=== PATIENT | male | born 1945 | race Caucasian/White ===

== ENCOUNTER 2017-10-26 11:40 | Emergency (ER) | payer MEDICARE, SELFPAY ==
[2017-10-26 11:40] VITALS: BP 158/92; PULSE 52; RESP 15; TEMP 35.7; BMI 30.9
[2017-10-26 12:06] VITALS: BP 144/70; PULSE 56; RESP 14; O2SAT 98
[2017-10-26] MEDS: LORazepam 2 MG/ML Syringe 0.5 MG IV (12:31)
[2017-10-26] MEDS: diazePAM 5 MG Tablet 2.5 MG PO (12:31)
--- NOTE | 2017-10-26 13:25 | ED.VISSUMM ---
- ER Visit Summary Date of Service: 10/26/17 Chief Complaint: Vertigo History of Present Illness: The patient is a 72 M who has history of paroxysmal benign positional vertigo. Symptoms started 2-3 weeks ago. He was seen by Dr. Carrington Giron on Sunday. Bruce maneuver was performed without improvement. The vertigo is positional and paroxysmal. He reports improvement and resolution when he closes his eyes. States this is a regular occurrence. He did have an MRI in 2014 which revealed evidence of white matter contusion left parietal area which was a contrecoup mechanism secondary to blunt trauma. He denies fever, chills night sweats. Denies weight gain or weight loss. He denies double vision, blurred vision or loss of vision. He states things are moving. He denies ear pain, rhinorrhea, congestion, or sore throat. He denies chest pain, palpitations heart rate, orthopnea or PND. He denies shortness of breath, cough. He denies any GI symptoms other than nausea. He denies any urologic symptoms. He has no muscle skeletal symptoms. He does report headache which is been present for several weeks. He has no other complaints. Past medical history hypertension, hypercholesterolemia, allergic rhinitis and paroxysmal benign positional vertigo. Physical Examination: Vital signs remarkable blood pressure 158/92. Heart rate is 52. Head is atraumatic normocephalic. Pupils are equal round reactive. Extraocular muscles are intact. TMs are pearly white with landmarks noted. Nares patent with no drainage. Posterior pharynx without erythema or exudate. Uvula is midline. There is no dysphonia or dysphasia. Trachea is midline. There is no stridor with auscultation of the neck. Tracy-Hallpike maneuver is positive. Eye askew test is negative. Heart is regular without murmur, gallop or rub. S1 and S2 are normal. Lungs are clear to auscultation with good movement of air bilaterally. Patient is alert and oriented ?3. Motor is 5 over 5. Sensory is intact. DTRs are symmetric with no clonus or Babinski sign. Cranial 2 through 12 are intact. Cerebellar testing is normal. Test Results: None were obtained Emergency Department Course and Treatment: IV was established and he received 1 mg Ativan IV push and 2.5 mg of Valium p.o. He was treated with Ativan because there is a national shortage of IV Valium. Treatment Plan: Since patient reports marked improvement he was discharged prescription for Valium for treatment of paroxysmal benign positional vertigo Disposition: Discharge to home with spouse Impression: Paroxysmal benign positional vertigo This note was generated with [employer] dictation software. It may contain incorrect words, spelling, and punctuation that were not noted in review of the chart prior to signing ED Disposition - Plan for ED Patient: Disposition: Home or Assisted Living Chief Complaint: Dizziness Instructions: ED BPV Vertigo Prescriptions: Diazepam [Valium] 2 mg PO TID #10 tab Referrals: [facility] Doctor,Out of [Primary Care Provider] - Carrington Giron MD [STAFF PHYSICIAN] - 3-5 Days if not improving
[2017-10-26 13:36] VITALS: BP 138/78; PULSE 60; RESP 14; O2SAT 99
== END 2017-10-26 13:50 | disposition home or self-care (01) ==
PROVIDERS: Emergency Provider Emergency Medicine
DX: H81.10 Benign paroxysmal vertigo, unspecified ear (principal); R51 Headache; I10 Essential (primary) hypertension; E78.00 Pure hypercholesterolemia, unspecified; J30.9 Allergic rhinitis, unspecified; Z87.891 Personal history of nicotine dependence; Z79.82 Long term (current) use of aspirin; Z79.899 Other long term (current) drug therapy
CPT/HCPCS: 96374; 99283; A4216

== ENCOUNTER 2019-06-21 10:48 | Emergency (ER) | payer MEDICARE, SELFPAY ==
[2019-06-21] VITALS (11 sets, daily range): BP systolic 136–180; BP diastolic 52–96; PULSE 56–71; RESP 13–20; TEMP 36.3; O2SAT 97–100; BMI 31.2
--- NOTE | 2019-06-21 10:58 | ED.RN ---
pt reports cant see certain nuñez when i was talking to you i could only see half of you but that better now. has been having vision issues and seeing dr for has eye drops havent started. headache started [id number]
--- NOTE | 2019-06-21 11:00 | CT_ITS ---
STUDY: CT BRAIN WITHOUT CONTRAST REASON FOR EXAM: Male, 74 years old. Headache with vision changes. RADIATION DOSAGE (If Supplied By Facility): CTDIvol = ( 44.99 ) mGy, DLP = ( 812.98 ) mGycm TECHNIQUE: Transaxial CT imaging of the brain was performed without administration of intravenous contrast material. Individualized dose optimization techniques were used for this CT. COMPARISON: No relevant priors. FINDINGS: Normal soft tissue structures. Normal calvarium. Normal size ventricles and extra-axial spaces for the patient''s age. There are mild areas of decreased attenuation within the white matter tracts of the supratentorial brain, consistent with microvascular disease changes. Normal basal ganglia and thalami. Normal brainstem. Normal cerebellum. There is acute parenchymal hematoma in the left occipital lobe measuring about 4.7 x 2.7 cm. There is mild edema. No shift of the midline is seen. There is mucosal thickening of the ethmoids and left maxillary sinus. CT/Brain/Head without Contrast IMPRESSION: 1. Acute left occipital hematoma as described above. 2. No shift in the midline is seen. N.B. : The above information has been verbally conveyed by Luiz Suazo MD to Dr. Naresh Puente MD, on 06/21/2019 11:34:23 (ET). Electronically Signed: Luiz Suazo MD at 11:36 EST Tel , Service support ,
--- NOTE | 2019-06-21 11:00 | EKG12_ITS ---
Test Reason : HEADACHE Blood Pressure : / mmHG Vent. Rate : 058 BPM Atrial Rate : 058 BPM P-R Int : 140 ms QRS Dur : 142 ms QT Int : 458 ms P-R-T Axes : 043 -58 034 degrees QTc Int : 449 ms Sinus bradycardia Left axis deviation Non-specific intra-ventricular conduction block T wave abnormality, consider anterior ischemia Abnormal ECG Confirmed by HARIS MA, PARRIS ([id number]), continuity editor DELLA OCONNELL ([id number]) on 06/23/2019 12:49:27 PM Referred By: RAMÍREZ Confirmed By:PARRIS CARBALLO MD
--- NOTE | 2019-06-21 11:00 | ED.RN ---
at bedside to further evaluate.
[2019-06-21] MEDS: Metoclopramide 10 MG/2 ML Vial IV (11:08)
[2019-06-21] MEDS: DiphenhydrAMINE 50 MG/ML Syringe 25 MG IV (11:08)
[2019-06-21] MEDS: 0.9% Normal Saline 1,000 ML 999 ML IV (11:08)
--- NOTE | 2019-06-21 11:08 | ED.RN ---
Addendum entered by Madai Gant 06/21/19 11:54: DR ELMORE NOTIFIED Original Note: PT C/O CASTELAN BEING SEVERE, INTENSE. REPETITIOUSLY VERBALIZING HOW BAD IT IS. SEEMS TO HAVE DELAYED PROCESSING WELL.
[2019-06-21 11:12] LABS: Absolute Lymphocyte Count 1.88 X10^3/uL (0.83-4.51); Absolute Neutrophil Count 3.2 X10^3/uL (2.0-7.7); Basophil# 0.04 X10^3/uL; Basophil% 0.7 % (0-1); Eosinophil# 0.29 X10^3/uL; Eosinophils% 4.9 % (0-5); Hematocrit 45.5 % (40-54); Hemoglobin 15.2 g/dL (13.0-16.5); Lymphocyte # 1.88 X10^3/ul (4.0); Lymphocyte % 31.5 % (19-41); Mean Corp Hgb Conc 33.4 g/dL (32-36); Mean Corpuscular Hgb 32.9 pg (27.0-32.0); Mean Corpuscular Volume 98.5 fL (80-94); Mean Platelet Vol. 10.1 fl (6.2-12.0); Monocyte# 0.51 X10^3/uL; Monocyte% 8.5 % (0-10); NRBC Flagged by Analyzer 0 % (0-5); Neutrophil # 3.24 X10^3/uL (2.7-7.7); Neutrophil % 54.2 % (47-70); Platelet Count 146 K/mm3 (150-450); RBC Distribution Width SD 43.4 fl (35.1-43.9); Red Blood Count 4.62 M/mm3 (4.6-6.2)
[2019-06-21 11:17] LABS: Prothrombin Time (Protime)PT. 13.3 SECONDS (11.7-14.9)
[2019-06-21 11:20] LABS: Partial Thromboplast Time 25.3 Seconds (24.1-36.2)
[2019-06-21 11:27] LABS: Anion Gap 4 (5-15); BUN 14 mg/dL (7-18); BUN/Creat Ratio 13.1 RATIO (10-20); Calcium,Total 9.3 mg/dL (8.5-10.1); Chloride 109 mmol/L (98-107); Creatinine, Serum 1.07 mg/dL (0.70-1.30); EST Glomerular Filtration Rate 72 mL/min (>60); Est Glom Filt Rate - Afr Amer 87 mL/min (>60); Estimated Creatinine Clearance 45.48 ml/min; Glucose 95 mg/dL (74-106); Potassium 4.1 mmol/L (3.5-5.1); Sodium Level 142 mmol/L (136-145)
--- NOTE | 2019-06-21 11:48 | ED.RN ---
dr mac aware of pt narrowing visual field. unable to see left side. all objects are in half.
--- NOTE | 2019-06-21 11:55 | ED.RN ---
PT REPORTS CASTELAN IS NOW 09/25.
--- NOTE | 2019-06-21 12:31 | ED.DCSUM_ITS ---
- ER Visit Summary Date of Service: 06/21/19 Chief Complaint: Headache, left eye visual changes History of Present Illness: The patient is a 74 M who has a headache and left eye visual changes. He states it started last night but got worse about 2 hours ago. He describes a headache in the left parietal occipital area. He describes it as hurting. He states that he has changes in his vision on the left side. He has a history of ocular migraines but this feels different. He has issues the eyes and his eye doctor put him on steroid drops but he has not started them yet because he wanted to go hunting. He states that since he has sat here his vision gets better. He is on no blood thinning medications. He denies any nausea or vomiting. Physical Examination: Vital signs reviewed. HEENT exam does reveal that he has some left-sided hemianopsia in the periphery of his left eye. Heart is regular rate and rhythm without murmurs. Lungs are clear to auscultation. Abdomen is soft and nontender. Extremities reveal no edema. Skin exam normal. Neurologic exam normal. His strength and sensation is normal. His NIH is 1 due to the visual changes Test Results: CAT scan of the head reveals a left occipital hemorrhage measuring 4.7 x 2.7 cm there is some surrounding edema. His EKG is sinus rhythm with nonspecific ST-T wave changes. Labs are unremarkable Emergency Department Course and Treatment: The patient was initially given Reglan and Benadryl for his headache. The CAT scan does show that IPH. Is no midline shift. I do not feel he needs any mannitol or 3% saline at this time. I discussed with the family and they would like to go to [facility]. I discussed with Dr. Stock he requested the patient be sent to the emergency department for evaluation and admission to the ICU. [place] requested that I discussed with the ED physician. I discussed this with him and he requested a nicardipine drip for blood pressure control. However, his blood pressure is 140/89. According to guidelines blood pressure should be lowered to 140 but not much lower. At this point I do not feel he needs any blood pressure control. However if his blood pressure rises I will give him a single dose of an antihypertensive. Patient will be transferred for further neurosurgical care Treatment Plan: [] Disposition: Transfer Impression: Left occipital intraparenchymal hemorrhage This note was generated with [employer] software. It may contain incorrect words, spelling, and punctuation that were not noted in review of the chart prior to signing ED Disposition - Plan for ED Patient: Referrals: [facility] [Other]
[2019-06-21] MEDS: hydrALAZINE 20 MG/ML Vial 10 MG IV (12:53)
[2019-06-21 13:51] LABS: Bedside Glucose 88 mg/dL (70-110)
== END 2019-06-21 13:30 | disposition short-term general hospital (02) ==
LOC: ED 11:54
PROVIDERS: Emergency Provider Emergency Medicine
DX: I61.9 Nontraumatic intracerebral hemorrhage, unspecified (principal); H53.9 Unspecified visual disturbance; G43.109 Migraine with aura, not intractable, without status migrainosus; Z79.82 Long term (current) use of aspirin; Z79.899 Other long term (current) drug therapy
CPT/HCPCS: 70450; 80048; 82962; 84484; 85025; 85610; 85730; 93005; 96361; 96374; 96375; 99285; J7030; A4216

== ENCOUNTER 2019-07-01 18:35 | Inpatient (IN) | payer MEDICARE, SELFPAY ==
[2019-06-21 10:54] VITALS: BMI 31.2
[2019-07-01 19:00] VITALS: BP 141/75; PULSE 80; RESP 17; TEMP 36.8; O2SAT 95
[2019-07-01 19:25] VITALS: BMI 29.4
[2019-07-01 19:56] VITALS: BP 146/78; PULSE 84; RESP 17; TEMP 5427.7; TEMP 9802; O2SAT 96
[2019-07-01 20:09] VITALS: BMI 29.4
[2019-07-01] MEDS: Heparin Injection (Vial) 5,000 UNIT/ML VIAL 5000 UNIT SC (20:19)
[2019-07-01] MEDS: Atorvastatin Calcium 20 MG Tablet PO (20:20)
[2019-07-01] MEDS: Acetaminophen 325 MG Tablet 650 MG PO (20:21)
[2019-07-01] MEDS: Pantoprazole Sodium 40 MG Tablet PO (20:21)
[2019-07-01] MEDS: Senna/Docusate Sodium 1 Tablet 2 TABLET PO (20:21)
[2019-07-01] MEDS: MELATONIN 3 MG TABLET 6 MG PO (20:21)
[2019-07-01] MEDS: QUEtiapine 25 MG Tablet PO (20:22)
[2019-07-01 22:00] VITALS: PULSE 84; RESP 17; O2SAT 96
[2019-07-01] MEDS: Haloperidol Lactate 5 MG/ML Vial 4 MG IM (23:19)
[2019-07-01 23:20] VITALS: O2SAT 96
[2019-07-02] MEDS: Heparin Injection (Vial) 5,000 UNIT/ML VIAL 5000 UNIT SC (05:27)
[2019-07-02 05:52] LABS: Hematocrit 42.5 % (40-54); Hemoglobin 14.4 g/dL (13.0-16.5); Mean Corp Hgb Conc 33.9 g/dL (32-36); Mean Corpuscular Hgb 32.9 pg (27.0-32.0); Mean Platelet Vol. 9.9 fl (6.2-12.0); Platelet Count 190 K/mm3 (150-450); Red Blood Count 4.38 M/mm3 (4.6-6.2); White Blood Count 10.5 K/mm3 (4.4-11.0)
[2019-07-02 06:06] LABS: ALB/GLOB Ratio 0.9 RATIO (0.9-2.4); AST(SGOT) 19 U/L (15-37); Alanine Aminotransfer ALT/SGPT 40 U/L (16-61); Albumin, Serum 3.1 g/dL (3.2-5.0); Alkaline Phosphatase 60 U/L (45-117); Anion Gap 7 (5-15); BUN 18 mg/dL (7-18); Calcium,Total 10.2 mg/dL (8.5-10.1); Chloride 107 mmol/L (98-107); Creatinine, Serum 1.06 mg/dL (0.70-1.30); EST Glomerular Filtration Rate 73 mL/min (>60); Est Glom Filt Rate - Afr Amer 88 mL/min (>60); Estimated Creatinine Clearance 45.91 ml/min; Globulin 3.6 g/dL (2.2-4.2); Glucose 97 mg/dL (74-106); Magnesium 2.3 mg/dL (1.6-2.6); Potassium 3.6 mmol/L (3.5-5.1); Protein, Total 6.7 g/dL (6.4-8.2); Sodium Level 139 mmol/L (136-145)
[2019-07-02 06:55] VITALS: O2SAT 95
[2019-07-02] MEDS: Aspirin 81 MG TAB.CHEW PO (07:44)
[2019-07-02] MEDS: Senna/Docusate Sodium 1 Tablet 2 TABLET PO ×2 (07:44→20:34)
[2019-07-02] MEDS: Cyanocobalamin 500 MCG Tablet 1000 MCG PO (07:44)
[2019-07-02] MEDS: Loratadine 10 MG Tablet PO (07:44)
[2019-07-02] MEDS: Pantoprazole Sodium 40 MG Tablet PO ×2 (07:44→20:34)
[2019-07-02 07:45] VITALS: BP 117/72; PULSE 63
[2019-07-02] MEDS: Metoprolol(XL)Succ 25 MG Tablet PO (07:45)
[2019-07-02 09:42] VITALS: BP 117/72; PULSE 63; RESP 17; TEMP 36.8; O2SAT 93
--- NOTE | 2019-07-02 10:58 | HP.PCM_ITS ---
Problem List (1) Intracerebral hemorrhage Status: Acute Qualifiers: Intracerebral hemorrhage etiology: nontraumatic Cerebral hemorrhage location: cerebral hemisphere, cortical portion Laterality: left Qualified Code(s): I61.1 - Nontraumatic intracerebral hemorrhage in hemisphere, cortical (2) Intraventricular hemorrhage Status: Acute (3) Hypertension Status: Chronic (4) Coronary artery disease Status: Chronic Qualifiers: Coronary Disease-Associated Artery/Lesion type: [place] artery (5) History of PTCA 1 Status: Chronic Comment: 2015 (6) Tobacco dependence in remission Status: Chronic Comment: Quit in 1979 (7) Dyslipidemia Status: Chronic (8) Acute encephalopathy Status: Acute (9) Erectile dysfunction Status: Chronic (10) Cerebrovascular accident, embolic Status: Acute Qualifiers: Laterality of affected vessel: bilateral Comment: Left frontal, right parietal and left cerebellum (11) Overweight (BMI 25.0-29.9) Status: Acute (12) GERD (gastroesophageal reflux disease) Status: Chronic History of Present Illness Date of Admission: 07/01/19 Chief Complaint: debility due to left MCA ischemic CVA with hemorrhagic conversion with aphasia and dysphagia and acute encephalopathy The pt is a 74-year-old overweight male with a PMH of essential hypertension, coronary artery disease, PTCA/JAILENE x1 in 2015, dyslipidemia, tobacco dependence in remission (quit in 1979) and ED admitted to the Inpatient rehab unit at [facility] on 07/01/2019 for debility secondary to left temporal/parietal intracerebral hemorrhage and intraventricular hemorrhage on 06/22/2019 with embolic punctate ischemic CVAs in the left frontal, right parietal and left cerebellum for greater than 3 hours of therapy daily with a goal of returning home at or near prior level of independence. The patient lives at home with his and has 3 steps to get into the house. The patient was independent with ADL's, mobility and driving prior to hospitalization. EEG showed BL cortical dysfunction, Max on the left, with no epileptiform DC and no EEG seizures with severe diffuse encephalopathy. Initially seen at [facility] and then transferred to [facility] and then to [facility] and then to [facility] for possible AVM. Cerebral angiogram was negative and AVM was ruled out. Because of the punctate embolic CVA's in the left frontal, R parietal and L cerebellar areas there is a suspicion that he may have had an ischemic CVA with hemorrhagic transformation. He is aphasic. Had to have a sitter at [facility]. No sitter for 2 days prior to admission but was requiring Seroquel and Haldol. Past Medical History Past Medical History (Chronic Problems): Chronic Problems Hypertension (Chronic) Coronary artery disease (Chronic) History of PTCA 1 (Chronic) 2016 Tobacco dependence in remission (Chronic) Quit in 1979 Dyslipidemia (Chronic) Erectile dysfunction (Chronic) GERD (gastroesophageal reflux disease) (Chronic) Allergies No Known Allergies Allergy (Verified 10/26/17 11:43) Home Medications: Ambulatory Orders Medication Instructions Recorded Aspirin [Aspirin, Baby] 81 mg PO DAILY@0800 10/26/17 Fluticasone 0.05% [Flonase Nasal 1 spray NASAL DAILY 10/26/17 [place]] Loratadine 10 mg PO DAILY 10/26/17 Metoprolol Succinate [Toprol Xl] 25 mg PO DAILY 10/26/17 Pantoprazole Sodium [Protonix] 40 mg PO BID 10/26/17 Rosuvastatin Calcium [Crestor] 10 mg PO QHS 10/26/17 Acetaminophen [Tylenol] 650 mg PO Q6H PRN 07/01/19 Cyanocobalamin (Vitamin B-12) 1,000 mcg PO DAILY 07/01/19 [Vitamin B-12] Melatonin 6 mg PO QHS 07/01/19 Quetiapine Fumarate [Seroquel] 25 mg PO QHS 07/01/19 Surgical History: cholecystectomy Psychiatric History: No pertinent psych hx Lives: Spouse/ Significant Other Smoking Status: Former smoker Tobacco Use: Non-smoker - quit in 1979 Drugs: None - *Family History Maternal History Items: - - Unable to obtain at this time....pt non-verbal with espressive aphasia Review of Systems Unable to obtain accurate/complete ROS d/t: pt mostly non-verbal VTE Information - Inpt Only VTE Present on Admission: No VTE Mechan Device Prophylaxis: Knee High HANNAH Hose VTE Pharm Prophylaxis ordered?: Yes Patient Problems: Active and Suspected Problems Intracerebral hemorrhage (Acute) Intraventricular hemorrhage (Acute) Acute encephalopathy (Acute) Cerebrovascular accident, embolic (Acute) Left frontal, right parietal and left cerebellum Overweight (BMI 25.0-29.9) (Acute) - Physical Exam Vitals/I&O's: Vital Signs Temp Pulse Resp BP Pulse Ox 98.3 F 63 17 117/72 93 07/02/19 09:42 07/02/19 09:42 07/02/19 09:42 07/02/19 09:42 07/02/19 09:42 Oxygen Delivery Method Room Air Weight: 149 lb 8 oz Body Mass Index (BMI) 29.4 Finger Stick Blood Glucose 88 Intake and Output for Last 24 Hours 06/30/19 07/01/19 07/02/19 23:59 23:59 23:59 Intake Total 200 / 200 460 / 460 Output Total 100 / 100 100 / 100 Balance 100 / 100 360 / 360 General: - - he is awake and able to maintain posture sitting in a chair however, he will not open his eyes. He is picking at something on the table but, there is nothing there. will not answer most questions. He did say no when I asked him if hed had apin when I palpated his abd. HEENT: Atraumatic, Normocephalic, - - Resists me pulling his eyelids apart Oral: - - Will not open his mouth Neck: Supple, Negative Carotid Bruits, No Nodes, Trachea Midline Lungs: Clear to auscultation, - - could not cooperate with exam ......Bs's are diminished. No wheezes, rhonchi or rales appreciated. Cardiovascular: Regular rate, Regular Rhythm, Normal S1, Normal S2, No murmurs, No rub noted, No Gallop, - - having occasional ectopic beats. Abdomen: Bowel Sounds Present, Soft, Non Tender, Non-Distended, No Hepato- splenomegaly, - - no guarding with palpation Extremities: No clubbing, No cyanosis, No edema, Capillary Refill Less than 3 Seconds Skin: No rashes, No breakdown Musculoskeletal: No Muscle Wasting Neurological: - - moving all extremities, will not open the eyes, no facial asymetry, grasps both of my hands when I ask him to squeeze my fingers - not sure if this is on command or this is a frontal release sign? Psych/Mental Status: - - unable to assess....he is non-verbal and keeps his eyes closed, no responding appropriate to commands, diffuse encephalopathy Laboratory Results 07/02/19 05:30: WBC 10.5, RBC 4.38 L, Hgb 14.4, Hct 42.5, MCV 97.0 H, MCH 32.9 H , MCHC 33.9, RDW Std Deviation 43.0, RDW Coeff of Maritza 12.0, Plt Count 190, MPV 9.9 07/02/19 05:30: Sodium 139, Potassium 3.6, Chloride 107, Carbon Dioxide 25.0, Anion Gap 7, BUN 18, Creatinine 1.06, Estim Creat Clear Calc 45.91, Est GFR (MDRD) Af Amer 88, Est GFR (MDRD) Non-Af 73, BUN/Creatinine Ratio 17.0, Glucose 97, Calcium 10.2 H, Magnesium 2.3, Total Bilirubin 0.90, AST 19, ALT 40, Alk machelle Phosphatase 60, Total Protein 6.7, Albumin 3.1 L, Globulin 3.6, Albumin/Globulin Ratio 0.9 07/02/19 05:30: Triglycerides Pending, Cholesterol Pending, LDL Cholesterol Pending, VLDL Cholesterol Pending, HDL Cholesterol Pending Current Medications Acetaminophen (Tylenol) 650 mg PO Q6H PRN PRN PRN Reason: Pain 1-10 or Fever Last Admin: 07/01/19 20:21 Dose: 650 mg Documented by: Aspirin (Aspirin, Baby) 81 mg PO DAILY@0800 [facility] Last Admin: 07/02/19 07:44 Dose: 81 mg Documented by: Atorvastatin Calcium (Lipitor) 20 mg PO QHS [facility] Last Admin: 07/01/19 20:20 Dose: 20 mg Documented by: Bisacodyl (Dulcolax) 10 mg RECTAL .PRN X 1 PRN PRN Reason: Constipation Cyanocobalamin (Vitamin B12) 1,000 mcg PO DAILY [facility] Last Admin: 07/02/19 07:44 Dose: 1,000 mcg Documented by: Fluticasone Propionate (Flonase Nasal [place]) 1 spray NASAL DAILY [facility] Last Admin: 07/02/19 07:48 Dose: Not Given Documented by: Haloperidol Lactate (Haldol) 4 mg IM Q6H PRN PRN PRN Reason: AGITATION Last Admin: 07/01/19 23:19 Dose: 4 mg Documented by: Heparin Sodium (Porcine) (Heparin Na) 5,000 unit SC Q8 [facility] Last Admin: 07/02/19 05:27 Dose: 5,000 unit Documented by: Loratadine (Claritin) 10 mg PO DAILY [facility] Last Admin: 07/02/19 07:44 Dose: 10 mg Documented by: Magnesium Hydroxide (Milk Of Magnesia) 30 ml PO .PRN X 1 PRN PRN Reason: Constipation Melatonin (Melatonin) 6 mg PO QHS [facility] Last Admin: 07/01/19 20:21 Dose: 6 mg Documented by: Metoprolol Succinate (Toprol Xl (Beta Nadia)) 25 mg PO DAILY [facility] Last Admin: 07/02/19 07:45 Dose: 25 mg Documented by: Pantoprazole Sodium (Protonix) 40 mg PO BID [facility] Last Admin: 07/02/19 07:44 Dose: 40 mg Documented by: Quetiapine Fumarate (Seroquel) 25 mg PO QHS [facility] Last Admin: 07/01/19 20:22 Dose: 25 mg Documented by: Senna/Docusate Sodium (Senokot-S, Cristy-Colace) 2 tablet PO BID [facility] Last Admin: 07/02/19 07:44 Dose: 2 tablet Documented by: Assessment/Plan All Active Problems Intracerebral hemorrhage (Acute) Intraventricular hemorrhage (Acute) Acute encephalopathy (Acute) Cerebrovascular accident, embolic (Acute) Overweight (BMI 25.0-29.9) (Acute) Impressions 1. Debility due to recent Intracerebral hemorrhage left temporal/parietal area with left temporal/occipital hematoma and punctate embolic CVAs in the left frontal, right parietal and left cerebellar areas on 06/22/19 with aphasia and acute diffuse encephalopathy. Possible ischemic CVA L MCA with subsequent hemorrhagic conversion. No hx of AF. Request ECHO report from [facility]. 2. Essential HTN - Continue home meds 3. CAD with hx of PTCA X 1 in 2016 4. GERD 5. overweight 6. ED 7. 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 Dyslipidemia - continue statin 8. Acute diffuse encephalopathy-continue Seroquel and PRN Haldol. Obtain EKG today. Continue to monitor QT interval. EEG was negative for seizures PLAN PT for gait stability OT for ADL's ST for evaluation Analgesics as needed Bowel protocol Fall precautions Assess for Anxiety/Depression GI prophylaxis with Protonix 40 mg twice daily DVT prophylaxis with enoxaparin 40 mg subcu daily Follow up with PCP and neurology following DC from IP Rehab Code Visit Inpatient E&M: 20539 Subs Hosp L3
[2019-07-02 11:40] LABS: Cholesterol 114 mg/dL (200); High Density Lipoprotein 44 mg/dL; Triglycerides 148 mg/dL; Very Low Density Lipoprotein 30 mg/dL (5-40)
--- NOTE | 2019-07-02 13:26 | EKG12_ITS ---
Test Reason : Blood Pressure : / mmHG Vent. Rate : 076 BPM Atrial Rate : 076 BPM P-R Int : 134 ms QRS Dur : 138 ms QT Int : 418 ms P-R-T Axes : 038 -66 062 degrees QTc Int : 470 ms Normal sinus rhythm Right bundle branch block Left anterior fascicular block Bifascicular block Abnormal ECG When compared with ECG of 21-JUN-2019 11:35, Right bundle branch block has replaced Non-specific intra-ventricular conduction block Confirmed by MONAE MA, DAVID ([id number]), newspaper editor DANITA GOLDSTEIN ([id number]) on 07/04/2019 10:09:49 AM Referred By: STANISLAV Confirmed By:RUSSEL LICONA MD
--- NOTE | 2019-07-02 13:32 | RAD_ITS ---
STUDY: X-RAY CHEST REASON FOR EXAM: Male, 74 years old. LEUKOCYTOSIS CONFUSION CVA TECHNIQUE: Single AP portable view of the chest. COMPARISON: None. FINDINGS: The lungs are clear and expanded. There is no demonstrated pleural abnormality. Normal size heart. Normal mediastinum and jesus. Normal visualized pulmonary arteries. Normal visualized aortic arch and descending thoracic aorta. Normal visualized thoracic spine. Normal visualized ribs, clavicles, and shoulders. There is no demonstrated abnormality of the visualized soft tissue structures of the upper abdomen. RAD/Chest 1 View (Portable) IMPRESSION: Normal x-ray examination of the chest. Electronically Signed: Donald Spring MD at 16:16 EST , Service support ,
--- NOTE | 2019-07-02 13:46 | REHABEVAL_ITS ---
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 Status Changes from Prescreening?: No changes Identified Actual Problem List:: Falls, Skin Intergrity, Cognitve Impr/Memory Loss, Bladder Incontinence, Bowel, Incontinence, Alteration in Sleep, Mobility Impaired, Self Care Deficit, Ineffective Communication, BP, Hypertension Potential Problem List:: DVT, Bleeding, Infection, UTI, Aspiration, Falls, Skin Integrity, Depression Risk of Complications DVT: LMWH, HANNAH Hose Bleeding: Monitor Lab Values, Nursing to Teach Precautions for anti-coagulation therapy., Wound, if applicable, to be assessed every shift., Stroke patients assessed for lethargy or change in status. Infection: Clinical Staff to Monitor for S/S of infection:, S/S of infection include fever, redness, warmth, etc. Urinary Tract Infection: Monitor for frequency, burning, discomfort, or incontinence., Nursing will obtain urine sample for urinalysis and C&S when ordered. Aspiration: Clinical staff will monitor for coughing, drooling, congestion., Speech will evaluate swallowing and dsyphasia., Nursing will monitor patient swallowing during meals. Falls: Patient will be evaluated for Fall Precautions, Patient will be placed on Fall Precautions as indicated per protocol. Skin Breakdown: Nursing will assess skin daily using assessment tool., Nursing will place on Skin Breakdown Precautions as indicated. Pain: Clinical staff will assess patient's pain level per protocol., Medications will be given, if needed, and the pain level reassessed., Other methods: Massage, distraction, decrease stimulus, etc. used PRN. Plan of Care Patient requires physician specializing in physical medicine and rehab oversight to provide close medical supervision of rehab issues including: Pain Management, Sleep Problems, Bowel and Bladder, Medical and co-morbidity Management, DVT prophylaxis, Rehabilitation Leadership, Coordination of treatment team Patient needs Physical Therapy: For a minimum of 1 hour, At least 5 out of 7 days Patient needs Physical Therapy to improve:: Mobility, Mobility, Mobility, Strengthening, Transfers, Stretching, ROM, Endurance, Stairs, Gait, Balance Patient needs Occupational Therapy: For a minimum of 1 hour, At least 5 out of 7 days Patient needs Occupational Therapy to improve ADL's incl.: Eating, Grooming, Bathing, Dressing, Toileting, Toilet transfers, Community Reintegration, Higher functioning activities, Household tasks, Adaptive Equipment, Splinting, Other activities as determined Patient requires speech therapy: For a minimum of 1 hour, At least 5 out of 7 days Patient requires speech therapy for: Swallowing, Cognition, Language Skills, Compensatory Strategies Patient requires 24/ Rehabilitation Nursing for: Pain Issues, Identifying and preventing risk factors, Monitoring and reporting current medical conditions, Assisting with ambulation, transfer, and all ADL's, Teaching patients about disease process and medications, Family teaching, Providing safe environment, Bowel and Bladder Issues, Skin integrity, Medication Management Patient needs Bookseamer Blindstitch/ Case Management for: Discharge Planning, Arranging Home Equipment or Services, Family Interventions Patient needs Dietary and Nutrition Services for: Adequate Nutrition, Nutritional Supplements, Nutritional Education Goals Patient will remain: free from falls, or injury at time of discharge. Patient will perform bed mobility at: MOD I level of assist. Patient will complete transfers from bed to chair at: MOD I level of assist. Patient will ambulate: 100 feet, with MOD I assist, with LRD Patient will complete upper body dressing at: MOD I level of assist. Patient will complete lower body dressing at: MOD I level of assist. Patient will complete toileting at: MOD I level of assist. Patient will perform bathing at: MOD I level of assist. Patient will complete grooming at: MOD I level of assist. Patient will complete home management skills at: MOD I level of assist. Patient will achieve: 12 stairs, at MOD I assist Patient will have pain level of: of 3 or less Patient's skin will: remain intact, free from infection. Patient will receive: adequate nutrition. Discharge Planning Pt Prognosis for Sig. Practical Improv. w/in Reasonable Time: Fair Estimated Length of stay (days): 14 Anticipated D/C Destination: [facility] Was Preadmission Assessment Accurate?: Yes
[2019-07-02 13:54] LABS: PTHIN 50.2 pg/mL (18.4-80.1)
[2019-07-02 14:11] LABS: Mucous, Urine 0 SEEN /hpf (<or=2+)
[2019-07-02 14:13] LABS: Glucose, Dipstick Normal (Normal); Ketone-Dipstick 5 mg/dl (Negative); Leukocyte Esterase-Dipstick 500 /ul (Negative); Nitrite-Dipstick Positive (Negative); Occult Blood-Urine 250 /ul (Negative); Protein-Dipstick 15 mg/dl (Negative); Urine Urobilinogen Normal (Normal)
[2019-07-02 14:16] LABS: Urine Bilirubin Dipstick 1 mg/dL (Negative)
[2019-07-02 14:17] LABS: Color, Urine Yellow (Yellow); Urine Clarity Clear (Clear)
[2019-07-02 14:23] LABS: Bacteria 4+ /hpf (None Seen); Red Blood Cells-Urine 25-50 SEEN /hpf (0-5); Squamous Epithelial Cells - UA 10-25 SEEN /hpf (0-5); White Blood Cells 50-100 SEEN /hpf (0-5)
[2019-07-02 14:25] LABS: Yeast-Urine RARE /hpf (None Seen)
[2019-07-02] MEDS: Atorvastatin Calcium 20 MG Tablet PO (20:33)
[2019-07-02] MEDS: MELATONIN 3 MG TABLET PO (20:33)
[2019-07-02] MEDS: QUEtiapine 25 MG Tablet 50 MG PO (20:34)
[2019-07-02] MEDS: Menthol/Lanolin/Calamine/Znox 113 GM Tube 1 APPLIC TOPICAL (20:52)
[2019-07-02 21:12] VITALS: BP 116/61; PULSE 75; RESP 16; TEMP 37; O2SAT 95
[2019-07-03] MEDS: Enoxaparin 40 MG/0.4 ML Syringe SC (05:22)
[2019-07-03 06:22] VITALS: O2SAT 97
[2019-07-03 08:09] VITALS: BP 113/64; PULSE 63; RESP 16; TEMP 37.5; O2SAT 94
[2019-07-03 09:44] VITALS: BP 113/64; PULSE 63
[2019-07-03] MEDS: Aspirin 81 MG TAB.CHEW PO (09:44)
[2019-07-03] MEDS: Senna/Docusate Sodium 1 Tablet 2 TABLET PO (09:44)
[2019-07-03] MEDS: Cyanocobalamin 500 MCG Tablet 1000 MCG PO (09:44)
[2019-07-03] MEDS: Pantoprazole Sodium 40 MG Tablet PO ×2 (09:44→21:03)
[2019-07-03] MEDS: Loratadine 10 MG Tablet PO (09:44)
[2019-07-03] MEDS: Metoprolol(XL)Succ 25 MG Tablet PO (09:44)
[2019-07-03] MEDS: Menthol/Lanolin/Calamine/Znox 113 GM Tube 1 APPLIC TOPICAL ×2 (09:57→21:03)
--- NOTE | 2019-07-03 10:47 | CASEMGMT ---
Social Work IDT met with patient and for Team Meeting. Discussed patient's progress in therapy. Pt was asleep during Team. IDT noted pt has been keeping eyes closed during sessions, and trouble concentrating and participating in sessions. Pt had trouble sleeping and was climbing out of bed - low bed/mat to floor in place. Nursing noted pt slept well last night. Music helps calm pt and is becoming more acclimated to environment. Pt tolerated the NuStep with mod assist x1-2, max x2 to stand, pt walked several feet but had shuffled steps with FWW, retro lean at max x2. Pt is dependent with ADLs, needs assistance with feeding. ST has him on reg, thin diet, and working on word finding, cognition, concentration. Explained insurance coverage with [employer] 07/07 and continued stay is not guaranteed. Explained to SW will assist with DC planning process, as alternative DC plan is for SNF prior to returning home with . Will continue to follow and ReTeam next week. Valorie Solomon, CORRECTIONAL MEDICINE PHYSICIAN SOCIAL SERVICES COORDINATOR
--- NOTE | 2019-07-03 10:55 | PN_ITS ---
Progress Note Temp is 99.5 today. VSS-blood pressure and heart rate are well controlled. Maintaining appropriate oxygen saturation on RA Oral intake is [] Discussed with nursing - no problems that need addressed. Nursing states he slept well last night and did not require a sitter. Reviewed the PT/OT/ST notes Medication list reviewed. All lab was personally reviewed. The white blood cell count has been increasing at [facility] recently and today is even higher at 10.5. Hemoglobin and platelets are within normal limits. BMP is unremarkable. Serum calcium is elevated at 10.2. PTH was within normal limits at 50.2. LDL is 40 and the HDL is 44 with triglycerides of 148. The UA shows positive nitrite, 25- 50 RBCs per high-power field and 10-100 WBCs per high-power field. There was 4+ bacteria. It was a catheterized specimen. Urine culture is pending. I personally viewed the CXR and there are no infiltrates, effusions or PVC. Continent of stool and urine this AM on the BSC and he was able to tell the PT he had to use then toilet. post void residuals are small He opened his eyes on my command today and was able to stick his tongue out on command as well. The tongue is coated and he has halitosis. He is lying flat in bed with no resp distress No JVD Heart is RRR, no gallop and no MM. I reviewed the EKG from yesterday and he has a bifascicular block with right bundle branch block and left anterior hemiblock. Occasional PVC. The QTc was 470 ms. Lungs - CTA, diminished mostly in the bases today no peripheral edema Impressions 1. intracerebral hemorrhage with punctate ischemic areas in the Left frontal, R parietal and Left cerebellum. Expressive aphasia. 2. complicated UTI with low grade fever, leukocytosis and altered LOC and confusion. Start Augmentin 500 mg TID and await the results of the urine culture. 3. hypercalcemia with a normal PTH. May be due to dehydration.....continue to monitor. Recheck BMP in the AM and if the calcium is still increased will start IV fluids. STROKE Vital Signs/Narrative: Vital Signs Temp Pulse Resp BP Pulse Ox 07/03/19 09:44 63 113/64 07/03/19 08:09 99.5 F H 63 16 113/64 94 Code Visit Inpatient E&M: 08954 Subs Hosp L2
[2019-07-03] MEDS: Amox/Clavulanate 500 MG Tablet PO ×2 (14:31→16:33)
[2019-07-03] MEDS: Atorvastatin Calcium 20 MG Tablet PO (21:03)
[2019-07-03] MEDS: QUEtiapine 25 MG Tablet 50 MG PO (21:03)
[2019-07-03] MEDS: MELATONIN 3 MG TABLET PO (21:03)
[2019-07-03 22:00] VITALS: BP 108/62; PULSE 76; RESP 16; TEMP 37.1; O2SAT 93
[2019-07-04] MEDS: Enoxaparin 40 MG/0.4 ML Syringe SC (05:05)
[2019-07-04 06:10] LABS: Albumin, Serum 2.6 g/dL (3.2-5.0); Anion Gap 6 (5-15); BUN 15 mg/dL (7-18); BUN/Creat Ratio 15.8 RATIO (10-20); Chloride 103 mmol/L (98-107); Creatinine, Serum 0.95 mg/dL (0.70-1.30); EST Glomerular Filtration Rate 82 mL/min (>60); Est Glom Filt Rate - Afr Amer 100 mL/min (>60); Estimated Creatinine Clearance 51.23 ml/min; Glucose 108 mg/dL (74-106); Potassium 3.8 mmol/L (3.5-5.1); Sodium Level 134 mmol/L (136-145)
[2019-07-04] MEDS: Amox/Clavulanate 500 MG Tablet PO ×3 (07:36→17:17)
[2019-07-04] MEDS: Aspirin 81 MG TAB.CHEW PO (07:37)
[2019-07-04] MEDS: Pantoprazole Sodium 40 MG Tablet PO ×2 (07:37→20:50)
[2019-07-04] MEDS: Loratadine 10 MG Tablet PO ×2 (07:37)
[2019-07-04 07:38] VITALS: PULSE 69
[2019-07-04] MEDS: Cyanocobalamin 500 MCG Tablet 1000 MCG PO (07:38)
[2019-07-04] MEDS: Metoprolol(XL)Succ 25 MG Tablet PO (07:38)
[2019-07-04] MEDS: Fluticasone 0.05% 1 SPRAY NASAL.SRY NASAL (07:39)
[2019-07-04] MEDS: Menthol/Lanolin/Calamine/Znox 113 GM Tube 1 APPLIC TOPICAL ×2 (07:40→20:49)
[2019-07-04 08:57] VITALS: BP 146/78; PULSE 69; RESP 16; TEMP 37.1; O2SAT 92
--- NOTE | 2019-07-04 13:00 | PCM.PN.BLA ---
Progress Note Day #2 Augmentin Afebile VSS - BP is usually well controlled. Occasional systolic increase when agitated. Maintaining appropriate oxygen saturation on RA Oral intake is much improved Discussed with nursing - no problems that need addressed Reviewed the PT/OT/ST notes Medication list reviewed. All lab was personally reviewed. The sodium is mildly decreased at 134 today. BUN is 15 and the creatinine is 0.95, down from 1.06 at admission. Calcium corrected for hypoalbuminemia is still high at 11.1. Urine culture is presumptive E. coli, greater than 100,000 colonies per milliliter. The E. coli is pansensitive. He is talking today and he ambulated in the peña with short shuffling steps and a FWW His speech is intelligible, not always appropriate and often non-sense but intelligible. No coughing with eating, eyes are open and he is making eye contact. Still with bladder irritation and urgency Alert Lungs - CTA Heart RRR, no gallop Abd- soft, ND, no guarding with palpation no peripheral edema, no rashes Impressions 1. complicated UTI - had a Flores at the previous hospital and associated with altered mental status. Culture + for ramesh sensitive E. Coli. Will continue the Augmentin for 7 days. Check post void residual X 3. 2. Hypercalcemia with a normal PTH. Etiology? This can contribute to confusion. Will give a few liters NS and then recheck Sunday and if it is still high will give 1 dose of pamidronate and defer work-up for the etiology of hypercalcemia to his outpatient physician. Check a PSA 3. S/P ICH and IVH with punctate embolic phenomenon in the L frontal, R parietal and L cerebellum No hx of AF but, why emboli to multiple different areas of the brain? I got the records from the ECHO at [facility] and it shows the right ventricle to be of normal size with normal systolic function. The left ventricle was normal in size with an EF of 68% ?5%. There was a negative agitated saline test. No comment was made about the atrial size. It may be appropriate to repeat the ECHO going forward when he is more cooperative and also to obtain a holtor or event monitor. Due to the hemorrhage antocoagulation is not appropriate at this time. 4. acute encephalopathy due to strokes, hemorrhage and infection continue therapy. Code Visit Inpatient E&M: 69212 Subs Hosp L2
[2019-07-04] MEDS: Haloperidol Lactate 5 MG/ML Vial 4 MG IM (15:51)
--- NOTE | 2019-07-04 15:56 | NURSING ---
Pt increasingly agitated, yelling out and alarms sounding as pt is continuously attempting to climb out of bed, fluids/foods offered, repositioned, offered urinal, and 1:1 given with no effect. PRN Haldol given. visiting at this time, will continue to monitor.
[2019-07-04] MEDS: 0.9% Normal Saline 1,000 ML 125 ML IV (17:45)
[2019-07-04] MEDS: QUEtiapine 25 MG Tablet 37.5 MG PO (20:49)
[2019-07-04] MEDS: MELATONIN 3 MG TABLET PO (20:50)
[2019-07-04] MEDS: Atorvastatin Calcium 20 MG Tablet PO (20:50)
[2019-07-04 20:52] VITALS: BP 121/65; PULSE 67; RESP 18; TEMP 36.7; O2SAT 99
--- NOTE | 2019-07-05 01:47 | NURSING ---
IV ATTEMPT X 3 WITHOUT SUCCESS THIS NURSE. CONDUCTOR PULLMAN ATTEMPT X 2 WITHOUT SUCCESS. NSG REDYE HAND NOTIFIED OF NEED FOR IV RESTART. R SUBCLAVIAN IV INFILTRATION SITE NO LONGER WITH EDEMA OR REDNESS AND FLUID APPEARS TO BE REABSORBED.
[2019-07-05] MEDS: 0.9% Normal Saline 1,000 ML 125 ML IV ×2 (02:08→10:53)
--- NOTE | 2019-07-05 03:23 | NURSING ---
REVIEWED AND AGREE WITH PLASTIC WELDER'S FUNCTIONAL ASSESSMENT AND HANDOFF CHARTING.
[2019-07-05] MEDS: Enoxaparin 40 MG/0.4 ML Syringe SC (04:55)
[2019-07-05] MEDS: QUEtiapine 25 MG Tablet 12.5 MG PO (08:03)
[2019-07-05] MEDS: Amox/Clavulanate 500 MG Tablet PO ×3 (08:03→17:34)
[2019-07-05] MEDS: Aspirin 81 MG TAB.CHEW PO (08:04)
[2019-07-05 08:43] VITALS: BP 117/79; PULSE 56; RESP 16; TEMP 36.6; O2SAT 98
[2019-07-05 10:04] VITALS: BP 117/79; PULSE 56
[2019-07-05] MEDS: Metoprolol(XL)Succ 25 MG Tablet PO (10:04)
[2019-07-05] MEDS: Cyanocobalamin 500 MCG Tablet 1000 MCG PO (10:04)
[2019-07-05] MEDS: Fluticasone 0.05% 1 SPRAY NASAL.SRY NASAL (10:05)
[2019-07-05] MEDS: Menthol/Lanolin/Calamine/Znox 113 GM Tube 1 APPLIC TOPICAL ×2 (10:05→19:37)
[2019-07-05] MEDS: Pantoprazole Sodium 40 MG Tablet PO ×2 (10:05→19:37)
[2019-07-05] MEDS: Haloperidol Lactate 5 MG/ML Vial 4 MG IM (19:00)
[2019-07-05] MEDS: QUEtiapine 25 MG Tablet 37.5 MG PO (19:00)
[2019-07-05] MEDS: Atorvastatin Calcium 20 MG Tablet PO (19:36)
[2019-07-05] MEDS: MELATONIN 3 MG TABLET PO (19:37)
[2019-07-05 20:15] VITALS: BP 148/80; PULSE 77; RESP 18; TEMP 36.3; O2SAT 94
--- NOTE | 2019-07-06 00:22 | NURSING ---
Pt still restless and setting off alarm. Pt fumbling with alarm, pt tugging out bedpad, and removed hospital gown. Pt repositioned in bed.
[2019-07-06] MEDS: Haloperidol Lactate 5 MG/ML Vial 4 MG IM ×3 (01:01→19:29)
--- NOTE | 2019-07-06 01:07 | NURSING ---
Pt setting off alarms and found with leg over side of bed. Haldol prn given.
[2019-07-06] MEDS: Enoxaparin 40 MG/0.4 ML Syringe SC (06:10)
[2019-07-06 07:34] VITALS: PULSE 70
[2019-07-06] MEDS: Aspirin 81 MG TAB.CHEW PO (07:34)
[2019-07-06] MEDS: Metoprolol(XL)Succ 25 MG Tablet PO (07:34)
[2019-07-06] MEDS: Amox/Clavulanate 500 MG Tablet PO ×2 (07:34→12:04)
[2019-07-06] MEDS: Loratadine 10 MG Tablet PO (07:34)
[2019-07-06] MEDS: Cyanocobalamin 500 MCG Tablet 1000 MCG PO (07:34)
[2019-07-06] MEDS: Pantoprazole Sodium 40 MG Tablet PO ×2 (07:34→19:30)
[2019-07-06] MEDS: Fluticasone 0.05% 1 SPRAY NASAL.SRY NASAL (07:44)
[2019-07-06] MEDS: QUEtiapine 25 MG Tablet 12.5 MG PO (07:44)
[2019-07-06] MEDS: Menthol/Lanolin/Calamine/Znox 113 GM Tube 1 APPLIC TOPICAL ×2 (07:46→19:32)
--- NOTE | 2019-07-06 08:00 | NURSING ---
Restless, 1:1 at breakfast table at this time, staff had to feed patient, agitated at times. Unable to redirect, speaking is garbled and patient unable to state name, place, or time. Patient pulled out IV to left forearm by wrist.
--- NOTE | 2019-07-06 09:15 | NURSING ---
PRN haldol IM given to right buttock for agitation, patient unable to be redirected and becoming combative with staff. Toileting has been provided several times, fluids given, repositioning, quiet music, change of environment.
[2019-07-06 09:36] VITALS: BP 135/82; PULSE 67; RESP 18; TEMP 36.6; O2SAT 96
--- NOTE | 2019-07-06 14:55 | NURSING ---
Dr. Vo aware of patient having several loose stools today. New orders received.
--- NOTE | 2019-07-06 16:22 | PN_ITS ---
Patient Problems: Active and Suspected Problems Intracerebral hemorrhage (Acute) Intraventricular hemorrhage (Acute) Acute encephalopathy (Acute) Cerebrovascular accident, embolic (Acute) Left frontal, right parietal and left cerebellum Overweight (BMI 25.0-29.9) (Acute) Reason for Visit: Patient was admitted for acute rehab after left MCA ischemic CVA with hemorrhagic conversion resulting into aphasia, dysphagia and acute encephalopathy Diarrhea on antibiotic Objective: Nurse called me that patient is having diarrhea, more than 3 times today, large, liquid in consistency. Patient also urinary incontinence. Patient started on Augmentin for E. coli and Klebsiella pneumoniae cystitis/UTI Denies abdominal pain. Vitals/I&O's: Vital Signs Temp Pulse Resp BP Pulse Ox 97.9 F 67 18 135/82 H 96 07/06/19 09:36 07/06/19 09:36 07/06/19 09:36 07/06/19 09:36 07/06/19 09:36 Oxygen Delivery Method Room Air Weight: 149 lb 7.574 oz Body Mass Index (BMI) 29.4 Finger Stick Blood Glucose 88 Intake and Output for Last 24 Hours 07/04/19 07/05/19 07/06/19 23:59 23:59 23:59 Intake Total 1645 / 1645 5906 / 5906 1500 / 1500 Output Total 1000 / 1000 Balance 645 / 645 5906 / 5906 1500 / 1500 General: Lethargic, - - Patient eyes were closed but open on verbal command. Restricted answer, nodding head. HEENT: Atraumatic, PERRLA, EOMI, Normocephalic Neck: Supple, No JVD, Negative Carotid Bruits Lungs: Clear to auscultation, No rhonchi, No wheeze, No rales, Diminished - Entry diminished in bilateral lung bases Cardiovascular: Regular rate, Regular Rhythm, Normal S1, Normal S2, No murmurs Abdomen: Bowel Sounds Present, Soft, Non Tender, Non-Distended Extremities: No edema, Capillary Refill Less than 3 Seconds Skin: No rashes, No breakdown Musculoskeletal: No Tenderness to Palpation of Joints or Extremities, Arthritic Changes Neurological: - - Spontaneous movement of all 4 extremities. Patient mainly closed his eyes, not good interaction. Seems good strength in all 4 extremities but does not follow commands to grade accurately. Psych/Mental Status: Normal Affect, Appropriate Microbiology Past 72 Hours 07/02/19 13:55 Urine, Catheterized Urine Culture - Final Presumptive E. coli Klebsiella pneumoniae sp pneum Current Medications Acetaminophen (Tylenol) 650 mg PO Q6H PRN PRN PRN Reason: Pain 1-10 or Fever Last Admin: 07/01/19 20:21 Dose: 650 mg Documented by: Amoxicillin/Clavulanate Potassium (Augmentin Tablet) 500 mg PO TIDCM [facility] Stop: 07/10/19 08:01 Last Admin: 07/06/19 12:04 Dose: 500 mg Documented by: Aspirin (Aspirin, Baby) 81 mg PO DAILY@0800 [facility] Last Admin: 07/06/19 07:34 Dose: 81 mg Documented by: Atorvastatin Calcium (Lipitor) 20 mg PO QHS [facility] Last Admin: 07/05/19 19:36 Dose: 20 mg Documented by: Bisacodyl (Dulcolax) 10 mg RECTAL .PRN X 1 PRN PRN Reason: Constipation Calamine/Phenol (Calmoseptine Ointment) 1 applic TOPICAL BID [facility]; Protocol Last Admin: 07/06/19 07:46 Dose: 1 applicatio Documented by: Cyanocobalamin (Vitamin B12) 1,000 mcg PO DAILY [facility] Last Admin: 07/06/19 07:34 Dose: 1,000 mcg Documented by: Enoxaparin Sodium (Lovenox) 40 mg SC DAILY@0600 [facility] Last Admin: 07/06/19 06:10 Dose: 40 mg Documented by: Fluticasone Propionate (Flonase Nasal [place]) 1 spray NASAL DAILY [facility] Last Admin: 07/06/19 07:44 Dose: 1 spray Documented by: Haloperidol Lactate (Haldol) 4 mg IM Q6H PRN PRN PRN Reason: AGITATION Last Admin: 07/06/19 09:18 Dose: 4 mg Documented by: Loratadine (Claritin) 10 mg PO DAILY [facility] Last Admin: 07/06/19 07:34 Dose: 10 mg Documented by: Magnesium Hydroxide (Milk Of Magnesia) 30 ml PO .PRN X 1 PRN PRN Reason: Constipation Melatonin (Melatonin) 3 mg PO QHS [facility] Last Admin: 07/05/19 19:37 Dose: 3 mg Documented by: Metoprolol Succinate (Toprol Xl (Beta Nadia)) 25 mg PO DAILY [facility] Last Admin: 07/06/19 07:34 Dose: 25 mg Documented by: Pantoprazole Sodium (Protonix) 40 mg PO BID [facility] Last Admin: 07/06/19 07:34 Dose: 40 mg Documented by: Quetiapine Fumarate (Seroquel) 37.5 mg PO DAILY@2000 [facility] Last Admin: 07/05/19 19:00 Dose: 37.5 mg Documented by: Quetiapine Fumarate (Seroquel) 12.5 mg PO DAILY@0800 [facility] Last Admin: 07/06/19 07:44 Dose: 12.5 mg Documented by: Senna/Docusate Sodium (Senokot-S, Cristy-Colace) 2 tablet PO BID [facility] Last Admin: 07/06/19 08:07 Dose: Not Given Documented by: Medical Necessity - Tobacco Use Smoking Status: Former smoker Tobacco Use: Non-smoker - quit in 1979 Assessment/Plan All Active Problems Intracerebral hemorrhage (Acute) Intraventricular hemorrhage (Acute) Acute encephalopathy (Acute) Cerebrovascular accident, embolic (Acute) Overweight (BMI 25.0-29.9) (Acute) This 79-year-old gentleman with history of hypertension, coronary artery disease status post stent was admitted secondary to acute debility of left MCA ischemic CVA with hemorrhagic conversion resulting in aphasia, dysphagia and confusion. EEG showed bilateral cortical dysfunction, Max on the left, with no epileptiform DC and no EEG seizures with severe diffuse encephalopathy. 1. Debility due to recent Intracerebral hemorrhage left temporal/parietal area with left temporal/occipital hematoma and punctate embolic CVAs in the left frontal, right parietal and left cerebellar areas on 06/22/19 with aphasia and acute diffuse encephalopathy.Ischemic CVA LEFT MCA with subsequent hemorrhagic conversion. No history of atrial fibrillation. Rest as per Dr. terry. 2. Diarrhea on antibiotic: Patient had more than 3 bowel movements, currently not on stool softeners/laxatives. Checked with nursing staff. Stool for C. difficile, occult blood and WBC ordered. 3. Essential HTN -blood pressure is controlled 3. CAD with hx of PTCA X 1 in 2016 4. GERD 5. overweight 6. ED 7. 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 Dyslipidemia - continue statin 8. Acute diffuse encephalopathy-continue Seroquel and PRN Haldol. EEG was negative for seizures. Today he looks better as compared to previous documentation Code Visit Inpatient E&M: 00712 Subs Hosp L2
[2019-07-06] MEDS: Nystatin Powder 15gm Bottle 1 APPLIC TOPICAL (19:30)
[2019-07-06] MEDS: Cefadroxil 500 MG CAPSULE PO (19:31)
[2019-07-06] MEDS: Atorvastatin Calcium 20 MG Tablet PO (19:31)
[2019-07-06] MEDS: MELATONIN 3 MG TABLET PO (19:31)
[2019-07-06] MEDS: QUEtiapine 25 MG Tablet 37.5 MG PO (19:32)
[2019-07-06 21:01] VITALS: BP 139/81; PULSE 75; RESP 16; TEMP 36.9; O2SAT 97
--- NOTE | 2019-07-06 21:03 | NURSING ---
Pt restless and fidgety. Pt setting off alarm and hs meds provided early to prevent interruption of rest if pt does settle down and go to sleep.
[2019-07-07] MEDS: Enoxaparin 40 MG/0.4 ML Syringe SC (05:44)
[2019-07-07 05:57] LABS: Absolute Lymphocyte Count 1.15 X10^3/uL (0.83-4.51); Absolute Neutrophil Count 3.9 X10^3/uL (2.0-7.7); Basophil# 0.02 X10^3/uL; Basophil% 0.3 % (0-1); Eosinophils% 3.3 % (0-5); Hematocrit 38.9 % (40-54); Lymphocyte # 1.15 X10^3/ul (4.0); Mean Corp Hgb Conc 33.4 g/dL (32-36); Mean Corpuscular Hgb 32.1 pg (27.0-32.0); Mean Platelet Vol. 9.3 fl (6.2-12.0); Monocyte# 0.77 X10^3/uL; Monocyte% 12.7 % (0-10); NRBC Flagged by Analyzer 0 % (0-5); Neutrophil % 64.4 % (47-70); Platelet Count 219 K/mm3 (150-450); RBC Distribution Width CV 12.1 % (11.6-14.6); RBC Distribution Width SD 42.5 fl (35.1-43.9); Red Blood Count 4.05 M/mm3 (4.6-6.2); White Blood Count 6.1 K/mm3 (4.4-11.0)
[2019-07-07 06:26] LABS: Albumin, Serum 2.5 g/dL (3.2-5.0); Anion Gap 5 (5-15); BUN 7 mg/dL (7-18); BUN/Creat Ratio 8.3 RATIO (10-20); Calcium,Total 9.9 mg/dL (8.5-10.1); Chloride 107 mmol/L (98-107); Creatinine, Serum 0.84 mg/dL (0.70-1.30); EST Glomerular Filtration Rate 95 mL/min (>60); Est Glom Filt Rate - Afr Amer 115 mL/min (>60); Estimated Creatinine Clearance 57.94 ml/min; Glucose 98 mg/dL (74-106); Potassium 3.5 mmol/L (3.5-5.1); Sodium Level 139 mmol/L (136-145)
[2019-07-07 07:00] VITALS: BP 139/72; PULSE 66; RESP 16; TEMP 36.7; O2SAT 93
[2019-07-07 08:11] VITALS: BP 139/72; PULSE 66
[2019-07-07] MEDS: QUEtiapine 25 MG Tablet 12.5 MG PO (08:11)
[2019-07-07] MEDS: Pantoprazole Sodium 40 MG Tablet PO ×2 (08:11→20:11)
[2019-07-07] MEDS: Loratadine 10 MG Tablet PO (08:11)
[2019-07-07] MEDS: Fluticasone 0.05% 1 SPRAY NASAL.SRY NASAL (08:11)
[2019-07-07] MEDS: Aspirin 81 MG TAB.CHEW PO (08:11)
[2019-07-07] MEDS: Cyanocobalamin 500 MCG Tablet 1000 MCG PO (08:11)
[2019-07-07] MEDS: Metoprolol(XL)Succ 25 MG Tablet PO (08:11)
[2019-07-07] MEDS: Cefadroxil 500 MG CAPSULE PO (08:12)
[2019-07-07] MEDS: Nystatin Powder 15gm Bottle 1 APPLIC TOPICAL ×2 (08:13→20:11)
[2019-07-07] MEDS: Menthol/Lanolin/Calamine/Znox 113 GM Tube 1 APPLIC TOPICAL ×2 (08:13→20:10)
--- NOTE | 2019-07-07 15:43 | PCM.PN.BLA ---
Progress Note Afebile VSS Maintaining appropriate oxygen saturation on RA Oral intake is good, eating well. Discussed with nursing -still incontinent of urine and stool. Post void residuals are all less than 100 Reviewed the PT/OT/ST notes Medication list reviewed. All lab was personally reviewed. CBC shows the white blood cell count has decreased from 10.5-6.1 with antibiotics for the urinary tract infection. Hemoglobin and platelets are within normal limits. A BMP shows a normal sodium at 139 today and the BUN is 7 with a creatinine of 0.84. The Calcium corrected for hypoalbuminemia is still high at 11.1. It is not improved with hydration. PSA is 15.5. Augmentin was discontinued due to diarrhea and the diarrhea has resolved. He is currently on Duricef 500 mg twice daily. A second organism is now growing in the urine and it was 1000-10,000 colonies of Klebsiella pneumoniae which is also sensitive to first generation cephalosporins. He is not sleeping well at night again and the Seroquel has been increased to 50 mg Q HS. More cooperative and no longer yelling out and trying to get out of bed by himself since the Seroquel 12.5 was added in the AM. He is speaking non-sensical and not answering questions most times without veering off onto a totally different topic. Alert and speaks to me when I talk to him but it does not make sense. He is able to follow commands when I give him visual cues. he is lying flat in bed without SOB. He was relaxing in bed when I entered the room and aroused easily when I called his name. MM are dry and buccal mucosa and tongue are without any lesions Lungs - CTA anterior and lateral. No cough with taking deep breaths Heart - regular with occasional ectopics. No peripheral edema The abd is soft and ND. He has some suprapubic tenderness with palpation. The bladder is not distended. Impressions 1. elevated PSA with hypercalcemia not improved with hydration and with a nl PTH. I am suspicious he may have prostate CA, possibly with bone mets. This will need to be evaluated as an OP with consult to urology. Will give Pamidronate today and recheck the calcium in a few days. Push fluids. 2. UTI due to E. coli and Klebsiella pneumoniae. Continue antibiotics for a full 7 days and then recheck a UA post treatment. No significant post void residual. 3. delirium due to multiple CVA's - continue Seroquel and adjust as needed to maintain good control of the behavior so that he can more effectively participate in therapy. Will need to speak with his to ask if she would like to schedule and OP appt for [place] with Dr. Castaneda? Pamidronate today. This may help with the confusion. Push fluids to keep well hydrated. Code Visit Inpatient E&M: 45221 Subs Hosp L2
[2019-07-07 19:54] VITALS: BP 130/72; PULSE 68; RESP 16; TEMP 36.6; O2SAT 97
[2019-07-07 20:00] VITALS: PULSE 68; RESP 16; O2SAT 94
[2019-07-07] MEDS: Cefadroxil 500 MG CAPSULE 1000 MG PO (20:09)
[2019-07-07] MEDS: QUEtiapine 25 MG Tablet 50 MG PO (20:09)
[2019-07-07] MEDS: MELATONIN 3 MG TABLET PO (20:10)
[2019-07-07] MEDS: Atorvastatin Calcium 20 MG Tablet PO (20:11)
[2019-07-07 21:24] VITALS: BP 130/72; PULSE 68; RESP 16; TEMP 36.6; O2SAT 94
[2019-07-07] MEDS: 0.9% Saline Lock 10 ML Syringe IV (21:40)
[2019-07-08] MEDS: Enoxaparin 40 MG/0.4 ML Syringe SC (05:13)
[2019-07-08 07:00] VITALS: BP 103/55; PULSE 59; RESP 16; TEMP 36.9; O2SAT 96
[2019-07-08] MEDS: QUEtiapine 25 MG Tablet 12.5 MG PO (07:32)
[2019-07-08] MEDS: Cefadroxil 500 MG CAPSULE 1000 MG PO ×2 (07:33→20:42)
[2019-07-08] MEDS: Cyanocobalamin 500 MCG Tablet 1000 MCG PO (07:33)
[2019-07-08] MEDS: Pantoprazole Sodium 40 MG Tablet PO ×2 (07:33→20:41)
[2019-07-08] MEDS: Aspirin 81 MG TAB.CHEW PO (07:33)
[2019-07-08] MEDS: Loratadine 10 MG Tablet PO (07:34)
[2019-07-08] MEDS: Fluticasone 0.05% 1 SPRAY NASAL.SRY NASAL (07:34)
[2019-07-08 07:39] VITALS: BP 102/66; PULSE 78
[2019-07-08] MEDS: Menthol/Lanolin/Calamine/Znox 113 GM Tube 1 APPLIC TOPICAL ×2 (08:31→20:44)
[2019-07-08] MEDS: Nystatin Powder 15gm Bottle 1 APPLIC TOPICAL ×2 (08:31→20:44)
[2019-07-08 11:04] VITALS: PULSE 73
[2019-07-08] MEDS: Metoprolol(XL)Succ 25 MG Tablet PO (11:04)
[2019-07-08 19:43] VITALS: BP 148/79; PULSE 76; RESP 16; TEMP 36.6; O2SAT 94
[2019-07-08] MEDS: 0.9% Saline Lock 10 ML Syringe IV (20:40)
[2019-07-08] MEDS: MELATONIN 3 MG TABLET PO (20:41)
[2019-07-08] MEDS: QUEtiapine 25 MG Tablet 50 MG PO (20:42)
[2019-07-08] MEDS: Atorvastatin Calcium 20 MG Tablet PO (20:42)
[2019-07-08 22:00] VITALS: RESP 16; O2SAT 94
--- NOTE | 2019-07-09 04:25 | NURSING ---
Pt fidgeting with heart monitor. Monitor found removed from chest and staff reattached monitor per phone/monitor prompting. Pt encouraged to refrain from picking at monitor. Will continue to monitor.
[2019-07-09] MEDS: Enoxaparin 40 MG/0.4 ML Syringe SC (06:23)
[2019-07-09 06:41] LABS: Albumin, Serum 2.4 g/dL (3.2-5.0); Anion Gap 4 (5-15); BUN 11 mg/dL (7-18); BUN/Creat Ratio 12.5 RATIO (10-20); Calcium,Total 9.1 mg/dL (8.5-10.1); Chloride 107 mmol/L (98-107); Creatinine, Serum 0.88 mg/dL (0.70-1.30); EST Glomerular Filtration Rate 90 mL/min (>60); Est Glom Filt Rate - Afr Amer 109 mL/min (>60); Glucose 97 mg/dL (74-106); Potassium 3.7 mmol/L (3.5-5.1); Sodium Level 138 mmol/L (136-145)
[2019-07-09] MEDS: Aspirin 81 MG TAB.CHEW PO (08:32)
[2019-07-09] MEDS: QUEtiapine 25 MG Tablet 12.5 MG PO (08:32)
[2019-07-09] MEDS: Menthol/Lanolin/Calamine/Znox 113 GM Tube 1 APPLIC TOPICAL ×2 (08:33→19:57)
[2019-07-09] MEDS: Cefadroxil 500 MG CAPSULE 1000 MG PO ×2 (08:33→19:57)
[2019-07-09] MEDS: Loratadine 10 MG Tablet PO (08:33)
[2019-07-09] MEDS: Pantoprazole Sodium 40 MG Tablet PO ×2 (08:34→19:59)
[2019-07-09] MEDS: Fluticasone 0.05% 1 SPRAY NASAL.SRY NASAL (08:34)
[2019-07-09] MEDS: Nystatin Powder 15gm Bottle 1 APPLIC TOPICAL ×2 (08:34→19:59)
[2019-07-09] MEDS: Cyanocobalamin 500 MCG Tablet 1000 MCG PO (08:35)
[2019-07-09 08:44] VITALS: PULSE 69; RESP 16; TEMP 37; O2SAT 94
--- NOTE | 2019-07-09 09:50 | PCM.PN.BLA ---
Progress Note Day 10 of antibiotics for complicated cystitis with acute delirium Afebile BP is low today. 91 systolic and there is no significant difference between arms. Systolic standing in the peña was 88. He was not diaphoretic. Maintaining appropriate oxygen saturation on RA Oral intake is good Good bowel function Discussed with nursing - no problems that need addressed Reviewed the PT/OT/ST notes Medication list reviewed. All lab was personally reviewed. Hyponatremia has resolved and his sodium is 138 today. The BUN is 11 and the creatinine is stable at 0.88. Calcium is better today at 9.1 and when corrected for hypoalbuminemia the calcium is 10.4 which is still a little high. Hemoglobin is 12.7 today, stable from 13 on 07/07/2019. Platelets and white blood cell count are within normal limits. His has not yet brought the lab from this fall in so we can check the PSA. He arouses easily and he sometimes says something appropriate in response to a question but, usually he just rambles and it is not related to anything we were talking about. He has a short shuffling gait. I do not appreciate any pill rolling. I also do not appreciate any muscle rigidity. He is not coughing and has no tachypnea. He awakens easily, does not appear to be in any distress. He was observed ambulating in the peña. Can not cooperate with instructions to take a deep breath - no adventitious lung sounds appreciated Heart-regular Abdomen-soft, nondistended, bowel sounds heard in all 4 quadrants, no guarding with palpation No peripheral edema Skin-warm and dry, no rashes, no breakdown Impressions 1. Complicated urinary tract infection with acute encephalopathy/delirium. Urine culture positive for pansensitive E. coli and also for 1000-10,000 colonies of Klebsiella pneumoniae. Today is the last day of 10 days of antibiotics. Repeat UA ordered in light of the hypotension today. 2. Low BP today. The MAP is still > 65 but, the Metoprolol XL was held. Will DC the Metoprolol XL and start Metoprolol 12.5 BID....hold if the HR is < 55 or the systolic is less than 110. Will start an IV....low BP responded to IV fluids earlier in the admission. With the recent Stroke I think he should have a higher BP than 90 sys. 3. Hypercalcemia - S/P pamidronate 90mg on 07/07. Calcium corrected for hypoalbuminemia is still a little high at 10.4 but, it is improving. 4. Elevated PSA at 15.5 - will obtain the results of the last PSA from his PCP. 5. 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 Continue PT/OT/ST DC metoprolol XL and start metoprolol 12.5 mg twice daily Hydrate today and recheck blood pressure in the a.m. STROKE Vital Signs/Narrative: Vital Signs Temp Pulse Resp Pulse Ox 07/09/19 08:44 98.6 F 69 16 94 Code Visit Inpatient E&M: 07837 Subs Hosp L2
[2019-07-09 10:46] VITALS: BP 91/59; PULSE 71
[2019-07-09 10:54] VITALS: BP 91/59; PULSE 71
--- NOTE | 2019-07-09 10:54 | NURSING ---
pt BP 91/59 pulse 71 in left arm and 84/57 pulse 73 in right arm. Per Dr. Lainez hold AM dose of Toprol XL.
[2019-07-09 11:11] LABS: Absolute Lymphocyte Count 0.85 X10^3/uL (0.83-4.51); Absolute Neutrophil Count 3.2 X10^3/uL (2.0-7.7); Basophil# 0.04 X10^3/uL; Basophil% 0.8 % (0-1); Eosinophil# 0.12 X10^3/uL; Eosinophils% 2.5 % (0-5); Hematocrit 38.4 % (40-54); Hemoglobin 12.7 g/dL (13.0-16.5); Lymphocyte # 0.85 X10^3/ul (4.0); Lymphocyte % 17.9 % (19-41); Mean Corp Hgb Conc 33.1 g/dL (32-36); Mean Corpuscular Volume 96.7 fL (80-94); Mean Platelet Vol. 9.5 fl (6.2-12.0); Monocyte# 0.49 X10^3/uL; Monocyte% 10.3 % (0-10); NRBC Flagged by Analyzer 0 % (0-5); Neutrophil # 3.23 X10^3/uL (2.7-7.7); Neutrophil % 68.1 % (47-70); Platelet Count 182 K/mm3 (150-450); RBC Distribution Width CV 12.2 % (11.6-14.6); RBC Distribution Width SD 43.8 fl (35.1-43.9); Red Blood Count 3.97 M/mm3 (4.6-6.2); White Blood Count 4.8 K/mm3 (4.4-11.0)
[2019-07-09] MEDS: 0.9% Saline Lock 10 ML Syringe IV (14:35)
[2019-07-09] MEDS: Lactated Ringers 1,000 ML 75 ML IV (14:46)
[2019-07-09 15:04] LABS: Bacteria 0 SEEN /hpf (None Seen)
[2019-07-09 15:08] LABS: Color, Urine Yellow (Yellow); Glucose, Dipstick Normal (Normal); Ketone-Dipstick 5 mg/dl (Negative); Leukocyte Esterase-Dipstick 25 /ul (Negative); Nitrite-Dipstick Negative (Negative); Occult Blood-Urine 250 /ul (Negative); Protein-Dipstick 15 mg/dl (Negative); Urine Bilirubin Dipstick 1 mg/dL (Negative); Urine Clarity Sl. Cloudy (Clear); Urine Urobilinogen 1 mg/dl (Normal)
[2019-07-09 15:14] LABS: Mucous, Urine 1+ /hpf (<or=2+); Red Blood Cells-Urine 25-50 SEEN /hpf (0-5); Squamous Epithelial Cells - UA 0-5 SEEN /hpf (0-5); White Blood Cells 0-5 SEEN /hpf (0-5)
[2019-07-09] MEDS: Haloperidol Lactate 5 MG/ML Vial 2 MG IM (15:57)
--- NOTE | 2019-07-09 16:08 | NURSING ---
Pt alarm sounding, yelling out and attempting to self transfer, pt on hands and knees, ripping and biting at IV tubing. Increased agitation noted. 1:1 given, re-directed and attempted to reposition and toilet with ill effect. IM Haldol given and at bedside at this time. Will continue to monitor.
[2019-07-09 19:55] VITALS: BP 134/78; PULSE 72; RESP 16; TEMP 36.5; O2SAT 93
[2019-07-09] MEDS: QUEtiapine 25 MG Tablet 50 MG PO (19:56)
[2019-07-09] MEDS: Atorvastatin Calcium 20 MG Tablet PO (19:57)
[2019-07-09 19:59] VITALS: BP 134/78; PULSE 72
[2019-07-09] MEDS: Metoprolol Tartrate 25 MG Tablet 12.5 MG PO (19:59)
[2019-07-09] MEDS: MELATONIN 3 MG TABLET PO (19:59)
[2019-07-10] MEDS: Lactated Ringers 1,000 ML 75 ML IV ×2 (03:55→17:19)
[2019-07-10] MEDS: Enoxaparin 40 MG/0.4 ML Syringe SC (05:13)
[2019-07-10 06:00] VITALS: BP 102/68; BP 109/68; BP 84/58; PULSE 65; PULSE 73; PULSE 80
[2019-07-10 06:26] LABS: Anion Gap 4 (5-15); BUN 11 mg/dL (7-18); BUN/Creat Ratio 13.8 RATIO (10-20); Chloride 111 mmol/L (98-107); EST Glomerular Filtration Rate 101 mL/min (>60); Est Glom Filt Rate - Afr Amer 123 mL/min (>60); Estimated Creatinine Clearance 60.84 ml/min; Glucose 87 mg/dL (74-106); Potassium 3.8 mmol/L (3.5-5.1); Sodium Level 141 mmol/L (136-145)
[2019-07-10 07:50] VITALS: BP 109/68; PULSE 65; RESP 16; TEMP 37.1; O2SAT 94
[2019-07-10] MEDS: Fluticasone 0.05% 1 SPRAY NASAL.SRY NASAL (08:05)
[2019-07-10] MEDS: Aspirin 81 MG TAB.CHEW PO (08:06)
[2019-07-10] MEDS: QUEtiapine 25 MG Tablet 12.5 MG PO (08:06)
[2019-07-10] MEDS: Menthol/Lanolin/Calamine/Znox 113 GM Tube 1 APPLIC TOPICAL ×2 (08:07→20:43)
[2019-07-10] MEDS: Loratadine 10 MG Tablet PO (08:07)
[2019-07-10 08:08] VITALS: BP 109/68; PULSE 65
[2019-07-10] MEDS: Pantoprazole Sodium 40 MG Tablet PO ×2 (08:08→20:38)
[2019-07-10] MEDS: Nystatin Powder 15gm Bottle 1 APPLIC TOPICAL ×2 (08:08→20:43)
[2019-07-10] MEDS: Senna/Docusate Sodium 1 Tablet 2 TABLET PO ×2 (08:09→20:39)
[2019-07-10] MEDS: Cyanocobalamin 500 MCG Tablet 1000 MCG PO (08:09)
--- NOTE | 2019-07-10 11:17 | CASEMGMT ---
Social Work IDT met with patient and for Team Meeting. Discussed patient's progress in therapy. Pt is min to mod assist for transfers, walking small steps with FWW, but pushes to the right, at 25 ft taking 20 mins to complete with max assist and cues. Pt is riding NuStep without assistance. Pt is min to modx1-2 for stand pivot transfers to toilet with max cues, total assist for all ADLS, can feed self with max cues but when fatigued unsafe with swallowing. ST is working with pt on swallowing exercises, yes/no accuracy, and speech intelligibility. Pt is sleeping better, having hallucinations at times. Physician started pt antidepressant. IDT overall states pt struggles with motivation to participate in therapy, poor alertness and typically keeps eyes closed during sessions. Physician encouraged pt to stay hydrated and keep drinking fluids. Pt has been dehydrated and low BP which may be cause for poor alertness and agitation. Pt on IV fluids and DC'd cardiac diet. IDT recommending another week of nursing and rehab to determine patient's improvement. If little improvement, recommending SNF as pt may be more appropriate for lower level of care. Explained insurance update 07/14 and continued stay is not guaranteed. Will continue to follow. DUSTIN Kim MANAGER MED SURG
--- NOTE | 2019-07-10 11:30 | CASEMGMT ---
Social Work Spoke with after Team to further discuss DC options. Explained home with 08/01 HHC and financial laibility. states she cannot take care of pt at home at this time. Explained SNF - precert for insurance, if denied, private pay for room and board and therapies could be billed under Part B. Discussed Medicaid and explained finances. Speculating would not be eligible for Medicaid but offered to contact [employer] to confirm. Explained private pay 30 days initially - stated they could pay for that if needed, then determine if pt would DC home or remain LTP. The goal is for pt to return home. Provided list of SNFs and encouraged her to tour facilities the notify by 07/14 of which SNFs to refer to to update insurance. understood and appreciative of time and information. Contacted [employer] to confirm pt/spouse not eligible for Medicaid - will need QIT and over resource limit. aware. Valorie Solomon, CERTIFIED ORTHOTIST PRACTICE MANAGER LEG MAN
--- NOTE | 2019-07-10 11:45 | PCM.PROGNOTE ---
Patient Problems: Active and Suspected Problems Intracerebral hemorrhage (Acute) Intraventricular hemorrhage (Acute) Acute encephalopathy (Acute) Cerebrovascular accident, embolic (Acute) Left frontal, right parietal and left cerebellum Overweight (BMI 25.0-29.9) (Acute) Subjective: Patient was seen on team rounds today. His [place] was present. Afebile VSS Maintaining appropriate oxygen saturation on RA Discussed with nursing - no problems that need addressed Reviewed the PT/OT/ST notes Medication list reviewed. Much more alert today.....more likely than not due to the hydration and increased cerebral perfusion. When we entered the room his eyes were open and he was verbal. He recognizes that he is having difficulty getting his words out and expressing himself and then he became tearful. He denies pain. Denies SOB. He is not tachypneic and he has no conversational dyspnea. - Physical Exam Vitals/I&O's: Vital Signs Temp Pulse Resp BP Pulse Ox 98.8 F 65 16 109/68 94 07/10/19 07:50 07/10/19 08:08 07/10/19 07:50 07/10/19 08:08 07/10/19 07:50 Oxygen Delivery Method Room Air Weight: 149 lb 14.629 oz Body Mass Index (BMI) 29.4 Finger Stick Blood Glucose 88 Orthostatic Vital Signs Start: 07/09/19 16:16 Freq: 0600 Status: Active Protocol: Activity Type Activity Date Activity User E-Sign Co-Sign Detail Recorded Client Recorded Date Recorded By Document 07/10/19 06:00 CDA [id number] 07/10/19 06:55 CDA 07/10/19 06:00 Orthostatic Vitals Standing -Blood Pressure (90/60-120/80 mm Hg) 84/58 L -Extremity Use Left Arm -Pulse Rate (60-100 beats/min) 80 Sitting -Blood Pressure (90/60-120/80 mm Hg) 102/68 -Extremity Use Left Arm -Pulse Rate (60-100 beats/min) 73 Lying -Blood Pressure (90/60-120/80 mm Hg) 109/68 -Extremity Use Left Arm -Pulse Rate (60-100 beats/min) 65 Intake and Output for Last 24 Hours 07/08/19 07/09/19 07/10/19 23:59 23:59 23:59 Intake Total 1280 / 1280 830 / 830 2640.25 / 264.25 Output Total 650 / 650 400 / 400 Balance 630 / 630 430 / 430 264. / 2639. General: Alert, Cooperative, Well developed, Well nourished, - - Tearful at times HEENT: Atraumatic, PERRLA, EOMI, Normocephalic, - - He is able to keep his eyes open and talk to me today......many times it is non-sequitors Oral: Dry Mucosa Neck: Supple, No JVD Lungs: Clear to auscultation Cardiovascular: Regular rate, Regular Rhythm, Normal S1, Normal S2, No Gallop Abdomen: Bowel Sounds Present, Soft, Non Tender, Non-Distended Extremities: No clubbing, No cyanosis, No edema Skin: No rashes, No breakdown Neurological: Cranial nerves II-XII grossly intact, - - moving all extremities. Psych/Mental Status: Depressed - tearful....recognizes that he can not get the owrds out that he means to say. Laboratory Results 07/09/19 14:58: Urine Color Yellow, Urine Clarity Sl. Cloudy, Urine pH 6.0, Ur Specific [place] 1.020, Urine Protein 15 H, Urine Glucose (UA) Normal, Urine Ketones 5 H, Urine Occult Blood 250 H, Urine Nitrite Negative, Urine Bilirubin 1 H, Urine Urobilinogen 1 H, Ur Leukocyte Esterase 25 H, Urine RBC 25-50 SEEN, Urine WBC 0-5 SEEN, Ur Squamous Epith Cells 0-5 SEEN, Urine Bacteria 0 SEEN, Urine Mucus 1+ 07/10/19 05:23: Sodium 141, Potassium 3.8, Chloride 111 H, Carbon Dioxide 26.0, Anion Gap 4 L, BUN 11, Creatinine 0.80, Estim Creat Clear Calc 60.84, Est GFR (MDRD) Af Amer 123, Est GFR (MDRD) Non-Af 101, BUN/Creatinine Ratio 13.8, Glucose 87, Calcium 9.0 Current Medications Acetaminophen (Tylenol) 650 mg PO Q6H PRN PRN PRN Reason: Pain 1-10 or Fever Last Admin: 07/01/19 20:21 Dose: 650 mg Documented by: Aspirin (Aspirin, Baby) 81 mg PO DAILY@0800 [facility] Last Admin: 07/10/19 08:06 Dose: 81 mg Documented by: Atorvastatin Calcium (Lipitor) 20 mg PO QHS [facility] Last Admin: 07/09/19 19:57 Dose: 20 mg Documented by: Bisacodyl (Dulcolax) 10 mg RECTAL .PRN X 1 PRN PRN Reason: Constipation Calamine/Phenol (Calmoseptine Ointment) 1 applic TOPICAL BID [facility]; Protocol Last Admin: 07/10/19 08:07 Dose: 1 applicatio Documented by: Cyanocobalamin (Vitamin B12) 1,000 mcg PO DAILY [facility] Last Admin: 07/10/19 08:09 Dose: 1,000 mcg Documented by: Enoxaparin Sodium (Lovenox) 40 mg SC DAILY@0600 [facility] Last Admin: 07/10/19 05:13 Dose: 40 mg Documented by: Fluticasone Propionate (Flonase Nasal [place]) 1 spray NASAL DAILY [facility] Last Admin: 07/10/19 08:05 Dose: 1 spray Documented by: Haloperidol Lactate (Haldol) 2 mg IM Q6H PRN PRN PRN Reason: AGITATION Last Admin: 07/09/19 15:57 Dose: 2 mg Documented by: Lactated Ringer's () 1,000 mls @ 75 mls/hr IV .[id number] [facility] Last Admin: 07/10/19 03:55 Dose: 75 mls/hr Documented by: Loratadine (Claritin) 10 mg PO DAILY [facility] Last Admin: 07/10/19 08:07 Dose: 10 mg Documented by: Magnesium Hydroxide (Milk Of Magnesia) 30 ml PO .PRN X 1 PRN PRN Reason: Constipation Melatonin (Melatonin) 3 mg PO QHS [facility] Last Admin: 07/09/19 19:59 Dose: 3 mg Documented by: Mirtazapine (Remeron) 7.5 mg PO QHS [facility] Nystatin (Mycostatin Powder) 1 applic TOPICAL BID [facility]; Protocol Last Admin: 07/10/19 08:08 Dose: 1 applicatio Documented by: Pantoprazole Sodium (Protonix) 40 mg PO BID [facility] Last Admin: 07/10/19 08:08 Dose: 40 mg Documented by: Quetiapine Fumarate (Seroquel) 12.5 mg PO DAILY@0800 [facility] Last Admin: 07/10/19 08:06 Dose: 12.5 mg Documented by: Quetiapine Fumarate (Seroquel) 37.5 mg PO DAILY@1999 [facility] Senna/Docusate Sodium (Senokot-S, Cristy-Colace) 2 tablet PO BID [facility] Last Admin: 07/10/19 08:09 Dose: 2 tablet Documented by: Sodium Chloride () 10 - 40 ml IV UD PRN PRN Reason: SALINE FLUSH Last Admin: 07/09/19 14:35 Dose: 10 ml Documented by: Sodium Chloride () 10 - 40 ml IV UD PRN PRN Reason: SALINE FLUSH Medical Necessity - Tobacco Use Smoking Status: Former smoker Tobacco Use: Non-smoker - quit in 1979 Assessment/Plan All Active Problems Intracerebral hemorrhage (Acute) Intraventricular hemorrhage (Acute) Acute encephalopathy (Acute) Cerebrovascular accident, embolic (Acute) Overweight (BMI 25.0-29.9) (Acute) Impressions 1. Debility due to recent Intracerebral hemorrhage left temporal/parietal area with left temporal/occipital hematoma and punctate embolic CVAs in the left frontal, right parietal and left cerebellar areas on 06/22/19 with aphasia. He does much better when hydrated and is able to participate with therapy. Will continue IV fluids for today and discontinue in the next 1-2 days. 2. Essential HTN - antihypertensives held yesterday due to hypotension with systolic of 88-90.......doubt he has adequate cerebral perfusion with this pressure. Hold Beta anand if the systolic is < 110 3. CAD with hx of PTCA X 1 in 2016 - denies chest pain 4. GERD-continue pantoprazole twice daily 5. overweight 6. ED -on sialoliths as an outpatient 7. 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 Dyslipidemia - continue statin 9. Acute diffuse encephalopathy secondary to CVA-continue Seroquel and PRN Haldol. EEG was negative for seizures. 10. Urinary tract infection with E. coli and a small amount of Klebsiella pneumoniae. Treated with 10 days of antibiotic. Repeat UA yesterday showed 0-5 WBCs with no bacteria. No need for additional antibiotics at this time. 11. Depression-start mirtazapine 7.5 mg daily. Code Visit Inpatient E&M: 86484 Subs Hosp L2
[2019-07-10 19:00] VITALS: BP 136/79; PULSE 65; RESP 18; TEMP 36.7; O2SAT 95
[2019-07-10] MEDS: QUEtiapine 25 MG Tablet 37.5 MG PO (20:36)
[2019-07-10] MEDS: Mirtazapine 15 MG Tablet 7.5 MG PO (20:37)
[2019-07-10] MEDS: MELATONIN 3 MG TABLET PO (20:39)
[2019-07-10] MEDS: Atorvastatin Calcium 20 MG Tablet PO (20:39)
[2019-07-10] MEDS: 0.9% Saline Lock 10 ML Syringe IV (23:00)
[2019-07-11 06:00] VITALS: BP 119/73; BP 122/74; BP 146/70; PULSE 64; PULSE 72; PULSE 73
[2019-07-11] MEDS: Lactated Ringers 1,000 ML 75 ML IV ×2 (06:27→20:49)
[2019-07-11] MEDS: Enoxaparin 40 MG/0.4 ML Syringe SC (06:29)
[2019-07-11 07:57] VITALS: BP 146/70; PULSE 62; RESP 12; TEMP 36.7; O2SAT 97
[2019-07-11] MEDS: Loratadine 10 MG Tablet PO (08:25)
[2019-07-11] MEDS: QUEtiapine 25 MG Tablet 12.5 MG PO (08:25)
[2019-07-11] MEDS: Pantoprazole Sodium 40 MG Tablet PO ×2 (08:25→20:35)
[2019-07-11] MEDS: Cyanocobalamin 500 MCG Tablet 1000 MCG PO (08:25)
[2019-07-11] MEDS: Senna/Docusate Sodium 1 Tablet 2 TABLET PO ×2 (08:25→20:35)
[2019-07-11] MEDS: Aspirin 81 MG TAB.CHEW PO (08:26)
[2019-07-11] MEDS: Menthol/Lanolin/Calamine/Znox 113 GM Tube 1 APPLIC TOPICAL ×2 (08:26→20:36)
[2019-07-11] MEDS: Fluticasone 0.05% 1 SPRAY NASAL.SRY NASAL (08:27)
[2019-07-11] MEDS: Nystatin Powder 15gm Bottle 1 APPLIC TOPICAL ×2 (08:27→20:36)
[2019-07-11 19:00] VITALS: BP 122/75; PULSE 73; RESP 18; TEMP 37.3; O2SAT 96
[2019-07-11] MEDS: QUEtiapine 25 MG Tablet 37.5 MG PO (20:35)
[2019-07-11] MEDS: MELATONIN 3 MG TABLET PO (20:35)
[2019-07-11] MEDS: Mirtazapine 15 MG Tablet 7.5 MG PO (20:35)
[2019-07-11] MEDS: Atorvastatin Calcium 20 MG Tablet PO (20:35)
[2019-07-12] MEDS: Haloperidol Lactate 5 MG/ML Vial 2 MG IM ×2 (00:14→19:26)
--- NOTE | 2019-07-12 01:15 | NURSING ---
pt was restless and agitated. attempted to get out of bed multiple times. attempts made to distract, reorient, soothe, toilet and provide emotional support were ineffective. pt continued to attempt to get out of bed. to prevent injury this RN administered 2mg haldol, per md's orders and stayed in pt's room for 60m following administration to monitor. pt was noticeable less agitated, but remained restless. tugging at tubes and equipment and showing signs of hallucinations. Emotional support and reorientation continued as needed to help pt. Pt bgan to fall asleep and this RN left his room. bed in low position, personal and bed alarms in tact. will continue to monitor.
--- NOTE | 2019-07-12 02:30 | NURSING ---
pt is more restful than he was prior to haldol administration, but he remains restless and continues to show signs of hallucinations. pt is no longer attempting to get out of bedd. pt has been repeatedly reoriented, distracted and provided with emotional support. will continue to monitor.
[2019-07-12] MEDS: Enoxaparin 40 MG/0.4 ML Syringe SC (05:32)
[2019-07-12] MEDS: Aspirin 81 MG TAB.CHEW PO (07:41)
[2019-07-12] MEDS: QUEtiapine 25 MG Tablet 12.5 MG PO (07:41)
[2019-07-12] MEDS: Loratadine 10 MG Tablet PO (07:42)
[2019-07-12] MEDS: Fluticasone 0.05% 1 SPRAY NASAL.SRY NASAL (07:42)
[2019-07-12] MEDS: Pantoprazole Sodium 40 MG Tablet PO ×2 (07:42→21:10)
[2019-07-12] MEDS: Cyanocobalamin 500 MCG Tablet 1000 MCG PO (07:43)
[2019-07-12] MEDS: Senna/Docusate Sodium 1 Tablet 2 TABLET PO (07:43)
[2019-07-12] MEDS: Menthol/Lanolin/Calamine/Znox 113 GM Tube 1 APPLIC TOPICAL ×2 (07:53→19:33)
[2019-07-12] MEDS: Nystatin Powder 15gm Bottle 1 APPLIC TOPICAL ×2 (07:53→19:33)
[2019-07-12 07:54] VITALS: BP 133/76; PULSE 59; RESP 16; TEMP 36.7; O2SAT 98
[2019-07-12] MEDS: Lactated Ringers 1,000 ML 75 ML IV (10:30)
[2019-07-12] MEDS: Atorvastatin Calcium 20 MG Tablet PO (21:10)
[2019-07-12] MEDS: Mirtazapine 15 MG Tablet 7.5 MG PO (21:10)
[2019-07-12] MEDS: QUEtiapine 25 MG Tablet 37.5 MG PO (21:10)
[2019-07-12] MEDS: MELATONIN 3 MG TABLET PO (21:10)
[2019-07-12 22:00] VITALS: BP 148/70; PULSE 81; RESP 18; TEMP 37; O2SAT 96
[2019-07-13] MEDS: Enoxaparin 40 MG/0.4 ML Syringe SC (05:41)
[2019-07-13 07:13] VITALS: BP 122/66; PULSE 64; RESP 16; TEMP 36.7; O2SAT 94
[2019-07-13] MEDS: Loratadine 10 MG Tablet PO (07:52)
[2019-07-13] MEDS: QUEtiapine 25 MG Tablet 12.5 MG PO (07:52)
[2019-07-13] MEDS: Aspirin 81 MG TAB.CHEW PO (07:52)
[2019-07-13] MEDS: Pantoprazole Sodium 40 MG Tablet PO ×2 (07:52→19:29)
[2019-07-13] MEDS: Cyanocobalamin 500 MCG Tablet 1000 MCG PO (07:52)
[2019-07-13] MEDS: Fluticasone 0.05% 1 SPRAY NASAL.SRY NASAL (07:53)
[2019-07-13] MEDS: Nystatin Powder 15gm Bottle 1 APPLIC TOPICAL ×2 (07:57→19:40)
[2019-07-13] MEDS: Menthol/Lanolin/Calamine/Znox 113 GM Tube 1 APPLIC TOPICAL ×2 (07:57→19:40)
[2019-07-13] MEDS: Atorvastatin Calcium 20 MG Tablet PO (19:28)
[2019-07-13] MEDS: Mirtazapine 15 MG Tablet 7.5 MG PO (19:28)
[2019-07-13] MEDS: MELATONIN 3 MG TABLET PO (19:28)
[2019-07-13] MEDS: QUEtiapine 25 MG Tablet 37.5 MG PO (19:28)
--- NOTE | 2019-07-13 19:53 | PN_ITS ---
Progress Note Afebile VSS-blood pressure has recovered with discontinuation of metoprolol. Heart rate has ranged from 59-81 over the past 48 hours. Continue to hold metoprolol for now. Maintaining appropriate oxygen saturation on RA Oral intake is improving. Patient was feeding himself supper when I entered the room. Discussed with nursing - no problems that need addressed. He had 2 doses of Haldol yesterday.......both on shift superintendent? Prior to that had not had Haldol since 07/09? Reviewed the PT/OT/ST notes - progressing with all modalities but, still requiring a lot of cuing and still having a lot of non-sensical jargon Medication list reviewed. Seems to be tolerating the Remeron with no adverse reaction. he denies pain and also denies CP. No nausea and no vomiting. I see that he has been using the toilet or the urinal and not always incontinent now. alert, looks at me when I ask him to. Lungs - CTA, no respiratory distress MM appear a little dry Heart - RRR abd - soft no guarding with palpation and there are BS's in all quadrants no peripheral edema. His was in the room today when I saw Zachary. she is concerned about the hallucinations......I reassured her that this happens with sweeling and brain injury and I did not want to increase the Seroquel at this time because he has been doing better with therapy and I did not want to make him too sleepy. I doubt increasing the Seroquel would eradicate the hallucinations. IMpressions 1. S/P large L MCA infarct - was this hemorrhagic OR did he have an ischemic infarct and have hemorrhagic transformation? Max has ischemic infarcts in the L frontal, R parietal and the left cerebellum - which raises the question.....are these embolic? Will defer to neurology when/if to start anticoagulation? 2. UTI - resolved 3. dehydration and hypotension - resolved. Metoprolol on hold - he does have a hx of CAD so I would like to restart at some point. check the lab in the AM and orthostatics and consider starting 12.5 BID 4. elevated PSA, normal in March? Will need referral to urology following DC from [facility] Code Visit Inpatient E&M: [id number] [facility] Hosp L1
[2019-07-13 20:13] VITALS: BP 128/76; PULSE 88; RESP 16; TEMP 36.5; O2SAT 95
[2019-07-14] MEDS: Enoxaparin 40 MG/0.4 ML Syringe SC (05:36)
[2019-07-14 06:00] VITALS: BP 109/62; BP 116/88; BP 132/76; PULSE 102; PULSE 83
[2019-07-14 06:00] LABS: Absolute Lymphocyte Count 1.45 X10^3/uL (0.83-4.51); Absolute Neutrophil Count 7.2 X10^3/uL (2.0-7.7); Basophil# 0.03 X10^3/uL; Basophil% 0.3 % (0-1); Eosinophil# 0.18 X10^3/uL; Eosinophils% 1.9 % (0-5); Hematocrit 38.6 % (40-54); Hemoglobin 12.9 g/dL (13.0-16.5); Lymphocyte # 1.45 X10^3/ul (4.0); Lymphocyte % 15.2 % (19-41); Mean Corp Hgb Conc 33.4 g/dL (32-36); Mean Corpuscular Hgb 32.5 pg (27.0-32.0); Mean Corpuscular Volume 97.2 fL (80-94); Mean Platelet Vol. 9.4 fl (6.2-12.0); Monocyte# 0.68 X10^3/uL; Monocyte% 7.1 % (0-10); NRBC Flagged by Analyzer 0 % (0-5); Neutrophil % 75.2 % (47-70); Platelet Count 205 K/mm3 (150-450); RBC Distribution Width CV 12.5 % (11.6-14.6); RBC Distribution Width SD 44.9 fl (35.1-43.9); Red Blood Count 3.97 M/mm3 (4.6-6.2); White Blood Count 9.6 K/mm3 (4.4-11.0)
[2019-07-14 06:04] LABS: Anion Gap 4 (5-15); BUN 9 mg/dL (7-18); BUN/Creat Ratio 10.1 RATIO (10-20); Calcium,Total 9.2 mg/dL (8.5-10.1); Chloride 108 mmol/L (98-107); EST Glomerular Filtration Rate 88 mL/min (>60); Est Glom Filt Rate - Afr Amer 107 mL/min (>60); Estimated Creatinine Clearance 54.08 ml/min; Glucose 99 mg/dL (74-106); Potassium 3.6 mmol/L (3.5-5.1); Sodium Level 139 mmol/L (136-145)
[2019-07-14 07:13] VITALS: BP 132/76; PULSE 83; RESP 20; TEMP 36.7; O2SAT 94
[2019-07-14] MEDS: Aspirin 81 MG TAB.CHEW PO (08:05)
[2019-07-14] MEDS: Pantoprazole Sodium 40 MG Tablet PO ×2 (08:05→20:10)
[2019-07-14] MEDS: Cyanocobalamin 500 MCG Tablet 1000 MCG PO (08:05)
[2019-07-14] MEDS: Loratadine 10 MG Tablet PO (08:05)
[2019-07-14] MEDS: QUEtiapine 25 MG Tablet 12.5 MG PO (08:05)
[2019-07-14] MEDS: Menthol/Lanolin/Calamine/Znox 113 GM Tube 1 APPLIC TOPICAL ×2 (08:15→19:55)
[2019-07-14] MEDS: Fluticasone 0.05% 1 SPRAY NASAL.SRY NASAL (08:15)
[2019-07-14] MEDS: Nystatin Powder 15gm Bottle 1 APPLIC TOPICAL ×2 (08:16→20:08)
--- NOTE | 2019-07-14 12:06 | CASEMGMT ---
Social Work left SW a voicemail to refer to Sofiya Herndon. Referral made. Will await outcome from insurance update on this date. Valorie Solomon, BEAN PICKER MACHINE OPERATOR FILLING LAYER UP
[2019-07-14 19:33] VITALS: BP 135/64; PULSE 90; RESP 16; TEMP 36.6; O2SAT 93
[2019-07-14] MEDS: QUEtiapine 25 MG Tablet 37.5 MG PO (19:45)
--- NOTE | 2019-07-14 19:47 | NURSING ---
HS MEDS GIVEN EARLY TO PROVIDE UNITERUPTED EARLY BEDTIME, OER OT REQUEST.
[2019-07-14] MEDS: Atorvastatin Calcium 20 MG Tablet PO (20:07)
[2019-07-14] MEDS: MELATONIN 3 MG TABLET PO (20:08)
[2019-07-14] MEDS: Mirtazapine 15 MG Tablet 7.5 MG PO (20:11)
[2019-07-14 22:00] VITALS: O2SAT 93
[2019-07-15] MEDS: Enoxaparin 40 MG/0.4 ML Syringe SC (05:12)
[2019-07-15] MEDS: Aspirin 81 MG TAB.CHEW PO (07:59)
[2019-07-15] MEDS: QUEtiapine 25 MG Tablet 12.5 MG PO (07:59)
[2019-07-15 08:06] VITALS: BP 103/72; BP 114/71; BP 127/61; PULSE 67; PULSE 75; PULSE 94
[2019-07-15 08:08] VITALS: BP 114/71; PULSE 67; RESP 20; TEMP 37.1; O2SAT 93
[2019-07-15] MEDS: Pantoprazole Sodium 40 MG Tablet PO ×2 (10:07→20:12)
[2019-07-15] MEDS: Fluticasone 0.05% 1 SPRAY NASAL.SRY NASAL (10:08)
[2019-07-15] MEDS: Cyanocobalamin 500 MCG Tablet 1000 MCG PO (10:08)
[2019-07-15] MEDS: Loratadine 10 MG Tablet PO (10:08)
[2019-07-15] MEDS: Menthol/Lanolin/Calamine/Znox 113 GM Tube 1 APPLIC TOPICAL ×2 (10:11→20:09)
[2019-07-15] MEDS: Nystatin Powder 15gm Bottle 1 APPLIC TOPICAL ×2 (10:11→20:11)
[2019-07-15 19:32] VITALS: BP 129/57; PULSE 92; RESP 18; TEMP 36.7; O2SAT 96
[2019-07-15] MEDS: QUEtiapine 25 MG Tablet 37.5 MG PO (20:08)
[2019-07-15] MEDS: Atorvastatin Calcium 20 MG Tablet PO (20:10)
[2019-07-15] MEDS: MELATONIN 3 MG TABLET PO (20:10)
[2019-07-15] MEDS: Mirtazapine 15 MG Tablet 7.5 MG PO (20:12)
[2019-07-15 22:00] VITALS: O2SAT 96
[2019-07-16] MEDS: Enoxaparin 40 MG/0.4 ML Syringe SC (05:38)
[2019-07-16 06:00] VITALS: BP 102/70; BP 114/70; BP 132/73; PULSE 108; PULSE 91; PULSE 99
[2019-07-16] MEDS: Haloperidol Lactate 5 MG/ML Vial 2 MG IM ×2 (06:48→21:22)
[2019-07-16] MEDS: Aspirin 81 MG TAB.CHEW PO (08:07)
[2019-07-16] MEDS: QUEtiapine 25 MG Tablet 12.5 MG PO (08:07)
[2019-07-16] MEDS: Loratadine 10 MG Tablet PO (08:08)
[2019-07-16] MEDS: Pantoprazole Sodium 40 MG Tablet PO ×2 (08:08→20:10)
[2019-07-16] MEDS: Fluticasone 0.05% 1 SPRAY NASAL.SRY NASAL (08:12)
[2019-07-16] MEDS: Menthol/Lanolin/Calamine/Znox 113 GM Tube 1 APPLIC TOPICAL ×2 (08:13→20:06)
[2019-07-16] MEDS: Nystatin Powder 15gm Bottle 1 APPLIC TOPICAL ×2 (08:14→20:10)
[2019-07-16 09:10] VITALS: BP 132/73; PULSE 91; RESP 17; TEMP 37.2; O2SAT 94
[2019-07-16] MEDS: Cyanocobalamin 500 MCG Tablet 1000 MCG PO (11:03)
[2019-07-16] MEDS: 0.9% Normal Saline 1,000 ML 100 ML IV ×2 (11:34→21:21)
[2019-07-16 14:52] LABS: Mucous, Urine 0 SEEN /hpf (<or=2+)
--- NOTE | 2019-07-16 15:00 | NURSING ---
Dr. Lainez aware of patients urgency of urination and frequency plus incontinence. New order for UA and collected. Patient denies any burning with urination.
[2019-07-16 15:11] LABS: Color, Urine Yellow (Yellow); Glucose, Dipstick Normal (Normal); Ketone-Dipstick Negative (Negative); Leukocyte Esterase-Dipstick 500 /ul (Negative); Nitrite-Dipstick Negative (Negative); Occult Blood-Urine 250 /ul (Negative); Protein-Dipstick 30 mg/dl (Negative); Specific Gravity, Urine 1.025 (1.002-1.030); Urine Bilirubin Dipstick Negative (Negative); Urine Clarity Cloudy (Clear); Urine Urobilinogen Normal (Normal)
[2019-07-16] MEDS: 0.9% Saline Lock 10 ML Syringe IV (15:14)
[2019-07-16 15:29] LABS: White Blood Cells >100 SEEN /hpf (0-5)
[2019-07-16 15:30] LABS: Red Blood Cells-Urine 10-25 SEEN /hpf (0-5)
[2019-07-16 15:31] LABS: Bacteria 4+ /hpf (None Seen); Squamous Epithelial Cells - UA 0-5 SEEN /hpf (0-5)
--- NOTE | 2019-07-16 16:10 | CASEMGMT ---
Social Work Sofiya Herndon denied pt. Spoke with and inquired about more SNF referrals. would like referrals to all other SNFs in network with insurance. Referrals made to [facility] and [facility]. Have not heard from insurance outcome 07/14. Will continue to follow. DUSTIN Kim DATA BASE DESIGN ANALYST
[2019-07-16] MEDS: QUEtiapine 25 MG Tablet 37.5 MG PO (19:58)
[2019-07-16] MEDS: Atorvastatin Calcium 20 MG Tablet PO (20:09)
[2019-07-16] MEDS: MELATONIN 3 MG TABLET PO (20:10)
[2019-07-16] MEDS: Mirtazapine 15 MG Tablet 7.5 MG PO (20:10)
[2019-07-16 20:18] VITALS: BP 126/80; PULSE 85; RESP 16; TEMP 36.9; O2SAT 98
[2019-07-16 20:47] VITALS: O2SAT 97
--- NOTE | 2019-07-16 21:25 | NURSING ---
PT RESTLESS, FIDGETING WITH IV, AND REACHING TO GET OUT OF BED, SETTING OFF ALARMS. 2MG PRN HALDOL GIVEN. PT TOLERATED FAIR. PT REPOSITIONED IN BED AND TOILETING OFFERED BUT DENIED AT THIS TIME. wILL CONTINUE TO MONITOR AND HI/LO BED IS IN LOWEST POSITION.
[2019-07-17] MEDS: Enoxaparin 40 MG/0.4 ML Syringe SC (04:43)
[2019-07-17 06:00] VITALS: BP 110/74; BP 118/81; BP 121/87; PULSE 80; PULSE 86; PULSE 87
[2019-07-17 06:13] LABS: Anion Gap 5 (5-15); BUN 11 mg/dL (7-18); BUN/Creat Ratio 13.3 RATIO (10-20); Calcium,Total 8.9 mg/dL (8.5-10.1); Chloride 113 mmol/L (98-107); Creatinine, Serum 0.83 mg/dL (0.70-1.30); EST Glomerular Filtration Rate 97 mL/min (>60); Est Glom Filt Rate - Afr Amer 117 mL/min (>60); Estimated Creatinine Clearance 58.64 ml/min; Glucose 91 mg/dL (74-106); Potassium 3.5 mmol/L (3.5-5.1); Sodium Level 142 mmol/L (136-145)
[2019-07-17] MEDS: 0.9% Normal Saline 1,000 ML 100 ML IV (08:17)
[2019-07-17] MEDS: Aspirin 81 MG TAB.CHEW PO (08:28)
[2019-07-17] MEDS: Loratadine 10 MG Tablet PO (08:29)
[2019-07-17] MEDS: Fluticasone 0.05% 1 SPRAY NASAL.SRY NASAL (08:29)
[2019-07-17] MEDS: QUEtiapine 25 MG Tablet 12.5 MG PO (08:29)
[2019-07-17] MEDS: Pantoprazole Sodium 40 MG Tablet PO ×2 (08:29→19:53)
[2019-07-17] MEDS: Cyanocobalamin 500 MCG Tablet 1000 MCG PO (08:30)
[2019-07-17] MEDS: Menthol/Lanolin/Calamine/Znox 113 GM Tube 1 APPLIC TOPICAL ×2 (08:31→19:52)
[2019-07-17] MEDS: Nystatin Powder 15gm Bottle 1 APPLIC TOPICAL ×2 (08:31→19:59)
[2019-07-17 08:32] VITALS: BP 134/80; PULSE 81; RESP 18; TEMP 36.6; O2SAT 96
--- NOTE | 2019-07-17 12:15 | CASEMGMT ---
Social Work IDT met with patient, and daughter for Team Meeting. Discussed patient's progress in therapy. Pt is hand-held assist at min assist 150 ft with max cues, min assist for transfer, max assist with bathing for thoroughness, mod for UE ADLS and grooming. ST working on cognition and visual neglect. Pt doing better holding conversation and can feed himself. IDT overall states pt varies with alertness, motivation and restlessness. Physician adjusting medication. Explained have not heard from insurance outcome 07/14 - [facility] did accept pt. Left messages with Dorothy and [facility]. Will continue to follow. Valorie Solomon, DUSTIN TITLE COORDINATOR
--- NOTE | 2019-07-17 14:07 | PCM.PN.BLA ---
Progress Note Seen on team rounds this AM. His and daughter were present for rounds. Afebile VSS - tilt positive today systolic blood pressure was 2 lying down and dropped to 102 standing up. He was tilt + on the prior to IV fluids being ordered. He gets very fatigued and increasingly confused when the BP is low and he does poorly in therapy. Maintaining appropriate oxygen saturation on RA Oral intake is erratic. He puts out more urine that he is taking in on many days. Discussed with nursing - he has been getting agitated at night the past few nights and has received IM Haldol. Reviewed the PT/OT/ST notes and heard the therapist update the family this morning on rounds. He is progressing. Medication list reviewed. All lab was personally reviewed. UA shows a BUN of 11 and a creatinine of 0.83. The potassium is 3.5. Fasting glucose is 91. UA shows greater than 100 WBCs per high-power field with 4+ bacteria. There were also 10-25 RBCs seen. Was nitrite negative. 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 On his last urinary tract infection he grew a pansensitive E. coli and Klebsiella pneumoniae that was pansensitive with the exception of resistance to ampicillin and intermediate sensitivity to Macrodantin. He denies dysuria, flank pain, pelvic pain. He has no fevers. No complaints today. He is much more appropriate when talking today. Asked me how I was doing and told me he was good and then told me to have a good day. Has been feeding himself. Start Levaquin 750 mg daily. Await the results of the urine culture....I expect the results may be available tomorrow. Will de-escalate the antibiotic as soon as these cultures are available. He is not diabetic. He is not on a diuretic. The increased urine OP may be due to post obstructive diuresis? Await the results of the post void residual. Increase the Seroquel to 50 mg at HS and also increase the dose of the Remeron to 15 mg Q HS.......he is tolerating without any adverse side effects. Supplement the potassium to keep it around 4. alert at times, NAD, cooperative, able to follow simple commands Lungs - CTA, able to take a deep breath on command H - RRR, no gallop abd- soft, ND, no guarding with palpation no ankle edema skin is warm and dry with no rashes and no breakdown Impressions 1. UTI - started Levaquin. Await the results of the urine culture. 2. dehydration - significantly impacts his ability to do therapy and his level of alertness. IV fluids should finish today. will recheck the lab in a few days 3. agitation at night. Requiring Haldol PRN. Increase the Seroquel to 50 mg at HS. Code Visit Inpatient E&M: 44001 Subs Hosp L2
[2019-07-17] MEDS: levoFLOXacin 750 MG Tablet PO (15:07)
[2019-07-17] MEDS: QUEtiapine 25 MG Tablet 50 MG PO (19:52)
[2019-07-17] MEDS: MELATONIN 3 MG TABLET PO (19:53)
[2019-07-17] MEDS: Mirtazapine 15 MG Tablet 7.5 MG PO (19:53)
[2019-07-17] MEDS: Atorvastatin Calcium 20 MG Tablet PO (19:53)
[2019-07-17] MEDS: Haloperidol Lactate 5 MG/ML Vial 2 MG IM (20:29)
--- NOTE | 2019-07-17 20:34 | NURSING ---
pt yelling and screaming at this time. pt setting off PA and BA. pt agitated and yelling to call the police. when staff attempts to calm pt down, pt becomes increasingly agitated and throws clothes at staff. pt kicking legs and grabbing staff arms with force. 1:1 attempts unsuccessful. pt refuses repositioning, food or fluids. IM haldol given per dr order. will continue to monitor.
[2019-07-17 22:00] VITALS: BP 140/77; PULSE 88; RESP 16; TEMP 36.3; O2SAT 96
[2019-07-17] MEDS: 0.9% Saline Lock 10 ML Syringe IV (22:47)
--- NOTE | 2019-07-17 23:20 | NURSING ---
PA of pt going off, pt noted to be throwing legs over side rail of bed with tight senior electronics design engineer on side rails. pt used urinal and attends changed 20 mins prior at 2300 rounds.
--- NOTE | 2019-07-17 23:50 | NURSING ---
DR CASE NOTIFIED THAT PT RECEIVED HALDOL EARLIER THIS SHIFT FOR AGITATION AND SEROQUEL (SCHEDULED) AND REMERON AND THAT PT CONTINUES TO BE RESTLESS AT INTERVALS AND TRYING TO SWING LEGS OUT OF BED. PT HAS HAD ATTENDS CHANGED FOR INCONTINENCE AND DOES NOT VOICE ANY COMPLAINTS. PT ROLLS PERIODICALLY FROM SIDE TO SIDE IN BED. AGITATION BEGAN INITIALLY THIS SHIFT SOON AFTER VISITORS LEFT AND PT BECAME COMBATIVE AND UNCOOPERATIVE AT THAT TIME-SQUEEEZING STAFF HANDS AND TRYING TO KICK AND HIT AND KICKING SIDERAILS OF BED. PT WAS NOT ABLE TO BE REASONED WITH AT THAT TIME AND KEPT CALLING OUT FOR FAMILY MEMBERS (WHO HAD BEEN VISITING).
[2019-07-18] MEDS: Haloperidol Lactate 5 MG/ML Vial 2 MG IM ×2 (00:01→05:59)
--- NOTE | 2019-07-18 04:28 | NURSING ---
REVIEWED AND AGREE WITH QUALITY TECHNICIAN'S FUNCTIONAL ASSESSMENT AND HANDOFF CHARTING.
--- NOTE | 2019-07-18 05:55 | NURSING ---
pt PA alarming, pt agitated and noted to be throwing body over the edge of the bed. staff intervenes and pt lays back down. pt agitated and yelling at staff. pt refusing toileting and changing of attends. pt refuses vital signs and all other nursing measures. staff sitting 1:1 with pt for safety measures.
--- NOTE | 2019-07-18 06:00 | NURSING ---
staff tries to offer fluids, repositioning, toileting, soft music- all measures ineffective at this time. PRN dose 2 mg haldol given d/t pt agitation. pt crawling out of bed, agitated and combative with staff. IM haldol injected to pt L buttock. pt tolerated fair. staff remains 1:1 with pt.
[2019-07-18] MEDS: Menthol/Lanolin/Calamine/Znox 113 GM Tube 1 APPLIC TOPICAL ×2 (07:41→20:55)
[2019-07-18] MEDS: Nystatin Powder 15gm Bottle 1 APPLIC TOPICAL ×2 (07:41→20:55)
[2019-07-18] MEDS: Senna/Docusate Sodium 1 Tablet 2 TABLET PO ×2 (07:43→20:54)
[2019-07-18] MEDS: Loratadine 10 MG Tablet PO (07:44)
[2019-07-18] MEDS: Fluticasone 0.05% 1 SPRAY NASAL.SRY NASAL (07:44)
[2019-07-18] MEDS: QUEtiapine 25 MG Tablet 12.5 MG PO (07:44)
[2019-07-18] MEDS: levoFLOXacin 750 MG Tablet PO (07:44)
[2019-07-18] MEDS: Pantoprazole Sodium 40 MG Tablet PO (07:44)
[2019-07-18] MEDS: Enoxaparin 40 MG/0.4 ML Syringe SC (07:44)
[2019-07-18] MEDS: Cyanocobalamin 500 MCG Tablet 1000 MCG PO (07:44)
[2019-07-18] MEDS: Aspirin 81 MG TAB.CHEW PO (07:44)
[2019-07-18 10:00] VITALS: BP 122/75; PULSE 96; RESP 16; TEMP 36.8; O2SAT 93
--- NOTE | 2019-07-18 12:08 | PCM.PN.BLA ---
Progress Note Day #2 Levaquin Afebile VSS Maintaining appropriate oxygen saturation on RA Oral intake is generally greater than 1000 cc daily Discussed with nursing - He got Haldol again last night and then once again early this morning for agitation. He is more sleepy and staring today. Seroquel was increased to 50 mg last night. Reviewed the PT/OT/ST notes Medication list reviewed. Urine culture is positive for Klebsiella pneumoniae which is resistant to ampicillin and intermediately sensitive to nitrofurantoin. He is less alert today and unable to open his eyes. He did do therapy today but, it was a rough day and he is not doing as well as he was doing earlier in the week. I reviewed the initial CT brain. He is more agitated now despite increase in Seroquel. Due to UTI?, Levaquin? Denies CASTELAN and has no cough, no nausea and no vomiting or diarrhea. He is able to follow my simple commands today. His eyes are open for me. No facial asymmetry MM are moist. He has himself half undressed lying on his bed He is staring with decreased blink. Lungs are CTA Heart is regular with no gallop abd - soft, ND, + BS's all quadrants Back to being incontinent. The PVR's are less than 150 Last BM was 07/15 Impressions 1. Increased agitation and requiring Increased Seroquel and PRN Haldol. He is staring and more lethargic today. Could be the infection, OR the Levaquin OR there could be something neurologic. Will change the Antibiotic to Duricef. DC the Levaquin. Increase the Remeron to 15 mg and non-contrasted CT brain today. Check a CBC with diff, BMP and Mag today. STROKE Vital Signs/Narrative: Vital Signs Temp Pulse Resp BP Pulse Ox 07/18/19 10:00 98.2 F 96 16 122/75 H 93 Code Visit Inpatient E&M: 22424 Subs Hosp L2
[2019-07-18] MEDS: Cefadroxil 500 MG CAPSULE 1000 MG PO ×2 (12:11→20:53)
--- NOTE | 2019-07-18 12:29 | CT_ITS ---
STUDY: CT BRAIN WITHOUT CONTRAST REASON FOR EXAM: Male, 74 years old. Delirium, increased agitation, recent CVA. RADIATION DOSAGE (If Supplied By Facility): CTDIvol = ( 44.99 ) mGy, DLP = ( 779.24 ) mGycm TECHNIQUE: Transaxial CT imaging of the brain was performed without administration of intravenous contrast material. Individualized dose optimization techniques were used for this CT. COMPARISON: Comparison is made with prior study dated November 20, 2019. FINDINGS: Normal soft tissue structures. Normal calvarium. There is mild cerebral atrophy with widening of the extra-axial spaces and ventricular dilatation. The previously seen in the intracerebral hematoma in the left posterior parieto-occipital lobe has decreased in size. It presently measures 1.9 sinus by 2.9 cm. Residual surrounding edema and mass effect persists although to a lesser degree. Normal basal ganglia and thalami. Normal brainstem. Normal cerebellum. There are no findings of an acute ischemic infarction. Normal visualized paranasal sinuses. CT/Brain/Head without Contrast IMPRESSION: Interval decrease in size in the hematoma in the left posterior parietal occipital lobes. Mild residual surrounding edema persists. Electronically Signed: Aden Gonzalez, at 12:56 EST , Service support ,
[2019-07-18 13:41] LABS: Absolute Lymphocyte Count 0.97 X10^3/uL (0.83-4.51); Absolute Neutrophil Count 3.7 X10^3/uL (2.0-7.7); Basophil# 0.02 X10^3/uL; Basophil% 0.4 % (0-1); Eosinophil# 0.13 X10^3/uL; Eosinophils% 2.4 % (0-5); Hematocrit 38.7 % (40-54); Hemoglobin 12.9 g/dL (13.0-16.5); Lymphocyte # 0.97 X10^3/ul (4.0); Lymphocyte % 17.9 % (19-41); Mean Corp Hgb Conc 33.3 g/dL (32-36); Mean Corpuscular Hgb 32.7 pg (27.0-32.0); Mean Corpuscular Volume 98.2 fL (80-94); Mean Platelet Vol. 9.8 fl (6.2-12.0); Monocyte# 0.61 X10^3/uL; Monocyte% 11.3 % (0-10); NRBC Flagged by Analyzer 0 % (0-5); Neutrophil # 3.66 X10^3/uL (2.7-7.7); Neutrophil % 67.4 % (47-70); Platelet Count 210 K/mm3 (150-450); RBC Distribution Width CV 12.6 % (11.6-14.6); RBC Distribution Width SD 45.1 fl (35.1-43.9); Red Blood Count 3.94 M/mm3 (4.6-6.2); White Blood Count 5.4 K/mm3 (4.4-11.0)
[2019-07-18 14:10] LABS: ALB/GLOB Ratio 0.7 RATIO (0.9-2.4); AST(SGOT) 16 U/L (15-37); Alanine Aminotransfer ALT/SGPT 25 U/L (16-61); Albumin, Serum 2.6 g/dL (3.2-5.0); Alkaline Phosphatase 68 U/L (45-117); Anion Gap 6 (5-15); BUN 10 mg/dL (7-18); BUN/Creat Ratio 10.2 RATIO (10-20); Calcium,Total 9.4 mg/dL (8.5-10.1); Chloride 110 mmol/L (98-107); Creatinine, Serum 0.98 mg/dL (0.70-1.30); EST Glomerular Filtration Rate 79 mL/min (>60); Est Glom Filt Rate - Afr Amer 96 mL/min (>60); Estimated Creatinine Clearance 49.66 ml/min; Globulin 3.5 g/dL (2.2-4.2); Glucose 153 mg/dL (74-106); Magnesium 1.9 mg/dL (1.6-2.6); Potassium 3.6 mmol/L (3.5-5.1); Protein, Total 6.1 g/dL (6.4-8.2); Sodium Level 139 mmol/L (136-145)
--- NOTE | 2019-07-18 15:28 | CASEMGMT ---
Social Work Spoke with patient's that insurance approved pt with NRD 07/21. [facility] denied pt[facility] accepted pt. stated she toured [facility] but will tour [facility] this weekend and notify of facility of choice for insurance update 07/21. Will then collaborate with IDT and set DC date for transfer. agreeable. Will continue to follow. Valorie Solomon, COSTUME DIRECTOR [employer]MENT[employer]INCIPAL
[2019-07-18] MEDS: MELATONIN 3 MG TABLET PO (20:53)
[2019-07-18] MEDS: Atorvastatin Calcium 20 MG Tablet PO (20:53)
[2019-07-18] MEDS: QUEtiapine 25 MG Tablet 50 MG PO (20:53)
[2019-07-18] MEDS: Mirtazapine 15 MG Tablet PO (20:54)
[2019-07-18] MEDS: Pantoprazole Sodium 20 MG Tablet PO (20:54)
[2019-07-18 22:00] VITALS: BP 116/84; PULSE 96; RESP 18; TEMP 36.9; O2SAT 93
[2019-07-19] MEDS: Enoxaparin 40 MG/0.4 ML Syringe SC (05:30)
[2019-07-19 07:00] VITALS: BP 116/68; PULSE 89; RESP 16; TEMP 36.4; O2SAT 96
[2019-07-19] MEDS: Loratadine 10 MG Tablet PO (08:46)
[2019-07-19] MEDS: Fluticasone 0.05% 1 SPRAY NASAL.SRY NASAL (08:46)
[2019-07-19] MEDS: QUEtiapine 25 MG Tablet 12.5 MG PO (08:46)
[2019-07-19] MEDS: Cyanocobalamin 500 MCG Tablet 1000 MCG PO (08:47)
[2019-07-19] MEDS: Senna/Docusate Sodium 1 Tablet 2 TABLET PO ×2 (08:47→20:50)
[2019-07-19] MEDS: Aspirin 81 MG TAB.CHEW PO (08:47)
[2019-07-19] MEDS: Pantoprazole Sodium 20 MG Tablet PO ×2 (08:48→20:52)
[2019-07-19] MEDS: Menthol/Lanolin/Calamine/Znox 113 GM Tube 1 APPLIC TOPICAL ×2 (08:50→21:57)
[2019-07-19] MEDS: Cefadroxil 500 MG CAPSULE 1000 MG PO ×2 (08:50→20:51)
[2019-07-19] MEDS: Nystatin Powder 15gm Bottle 1 APPLIC TOPICAL ×2 (08:50→21:58)
[2019-07-19 19:00] VITALS: BP 122/78; PULSE 101; RESP 20; TEMP 36.4; O2SAT 92
[2019-07-19] MEDS: QUEtiapine 25 MG Tablet 50 MG PO (19:58)
[2019-07-19] MEDS: Atorvastatin Calcium 20 MG Tablet PO (20:51)
[2019-07-19] MEDS: MELATONIN 3 MG TABLET PO (20:51)
[2019-07-19] MEDS: Mirtazapine 15 MG Tablet PO (20:51)
[2019-07-20] MEDS: Enoxaparin 40 MG/0.4 ML Syringe SC (05:20)
[2019-07-20 07:05] VITALS: BP 138/84; PULSE 90; RESP 16; TEMP 36.8; O2SAT 96
[2019-07-20] MEDS: Cefadroxil 500 MG CAPSULE 1000 MG PO ×2 (07:36→20:05)
[2019-07-20] MEDS: Cyanocobalamin 500 MCG Tablet 1000 MCG PO (07:36)
[2019-07-20] MEDS: Pantoprazole Sodium 20 MG Tablet PO ×2 (07:36→20:05)
[2019-07-20] MEDS: Aspirin 81 MG TAB.CHEW PO (07:37)
[2019-07-20] MEDS: QUEtiapine 25 MG Tablet 12.5 MG PO (07:37)
[2019-07-20] MEDS: Loratadine 10 MG Tablet PO (07:37)
[2019-07-20] MEDS: Fluticasone 0.05% 1 SPRAY NASAL.SRY NASAL (07:38)
[2019-07-20] MEDS: Nystatin Powder 15gm Bottle 1 APPLIC TOPICAL ×2 (07:45→20:03)
[2019-07-20] MEDS: Menthol/Lanolin/Calamine/Znox 113 GM Tube 1 APPLIC TOPICAL ×2 (07:45→20:04)
--- NOTE | 2019-07-20 14:17 | PN_ITS ---
Progress Note Day # 3/14 of Cefadroxil Afebile VSS Maintaining appropriate oxygen saturation on RA Oral intake is improved Discussed with nursing - no problems that need addressed. Charge nurse tells me that he is having A GOOD DAY. Reviewed the PT/OT/ST notes. No therapy today Medication list reviewed. Mental status waxes and wanes. Lungs-clear to auscultation with good air exchange Heart-regular rate and rhythm, no gallop Abdomen-soft, nontender, nondistended, normal bowel sounds, no guarding with palpation No peripheral edema Impressions 1. 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 2. Episodic dehydration resulting in decreased level of alertness and increased confusion with poor performance in therapy 3. Hyperglycemia in the afternoon on 07/18/2019-we will check hemoglobin A1c with his next blood draw Will likely need to go to [facility] facility at discharge. Progress has been slow and is limited by dehydration periodically. Code Visit Inpatient E&M: 61949 Subs Hosp L1
[2019-07-20] MEDS: Atorvastatin Calcium 20 MG Tablet PO (20:04)
[2019-07-20] MEDS: MELATONIN 3 MG TABLET PO (20:06)
[2019-07-20] MEDS: Mirtazapine 15 MG Tablet PO (20:06)
[2019-07-20] MEDS: QUEtiapine 25 MG Tablet 50 MG PO (20:07)
[2019-07-20 20:18] VITALS: PULSE 100; RESP 16; TEMP 36.4; O2SAT 93
[2019-07-21] MEDS: Enoxaparin 40 MG/0.4 ML Syringe SC (05:31)
[2019-07-21 07:50] VITALS: BP 125/75; PULSE 80; RESP 16; TEMP 36.6; O2SAT 95
[2019-07-21] MEDS: QUEtiapine 25 MG Tablet 12.5 MG PO (07:52)
[2019-07-21] MEDS: Aspirin 81 MG TAB.CHEW PO (07:52)
[2019-07-21] MEDS: Cyanocobalamin 500 MCG Tablet 1000 MCG PO (07:52)
[2019-07-21] MEDS: Cefadroxil 500 MG CAPSULE 1000 MG PO ×2 (07:53→20:07)
[2019-07-21] MEDS: Loratadine 10 MG Tablet PO (07:53)
[2019-07-21] MEDS: Fluticasone 0.05% 1 SPRAY NASAL.SRY NASAL (07:53)
[2019-07-21] MEDS: Pantoprazole Sodium 20 MG Tablet PO ×2 (07:53→20:08)
[2019-07-21] MEDS: Nystatin Powder 15gm Bottle 1 APPLIC TOPICAL ×2 (07:54→20:07)
[2019-07-21] MEDS: Menthol/Lanolin/Calamine/Znox 113 GM Tube 1 APPLIC TOPICAL ×2 (07:54→20:06)
[2019-07-21 19:37] VITALS: BP 109/75; PULSE 91; RESP 14; TEMP 36.5; O2SAT 96
[2019-07-21] MEDS: QUEtiapine 25 MG Tablet 50 MG PO (20:05)
[2019-07-21] MEDS: Atorvastatin Calcium 20 MG Tablet PO (20:07)
[2019-07-21] MEDS: MELATONIN 3 MG TABLET PO (20:07)
[2019-07-21] MEDS: Mirtazapine 15 MG Tablet PO (20:09)
[2019-07-22] MEDS: Enoxaparin 40 MG/0.4 ML Syringe SC (05:09)
[2019-07-22 06:22] LABS: Hematocrit 40.8 % (40-54); Hemoglobin 13.1 g/dL (13.0-16.5)
[2019-07-22 06:42] LABS: Anion Gap 5 (5-15); BUN 12 mg/dL (7-18); BUN/Creat Ratio 13.6 RATIO (10-20); Calcium,Total 8.9 mg/dL (8.5-10.1); Chloride 112 mmol/L (98-107); Creatinine, Serum 0.88 mg/dL (0.70-1.30); EST Glomerular Filtration Rate 90 mL/min (>60); Est Glom Filt Rate - Afr Amer 109 mL/min (>60); Glucose 90 mg/dL (74-106); Magnesium 2.3 mg/dL (1.6-2.6); Potassium 3.6 mmol/L (3.5-5.1); Sodium Level 142 mmol/L (136-145)
[2019-07-22] MEDS: QUEtiapine 25 MG Tablet 12.5 MG PO (07:38)
[2019-07-22] MEDS: Aspirin 81 MG TAB.CHEW PO (07:38)
[2019-07-22] MEDS: Loratadine 10 MG Tablet PO (07:38)
[2019-07-22] MEDS: Cyanocobalamin 500 MCG Tablet 1000 MCG PO (07:39)
[2019-07-22] MEDS: Senna/Docusate Sodium 1 Tablet 2 TABLET PO ×2 (07:39→20:31)
[2019-07-22] MEDS: Pantoprazole Sodium 20 MG Tablet PO ×2 (07:39→20:31)
[2019-07-22] MEDS: Cefadroxil 500 MG CAPSULE 1000 MG PO ×2 (07:39→20:30)
[2019-07-22] MEDS: Fluticasone 0.05% 1 SPRAY NASAL.SRY NASAL (07:40)
[2019-07-22] MEDS: Menthol/Lanolin/Calamine/Znox 113 GM Tube 1 APPLIC TOPICAL ×2 (07:44→20:29)
[2019-07-22] MEDS: Nystatin Powder 15gm Bottle 1 APPLIC TOPICAL ×2 (07:44→20:30)
[2019-07-22 08:55] VITALS: BP 139/72; PULSE 77; RESP 16; TEMP 36.9; O2SAT 94
--- NOTE | 2019-07-22 10:51 | PN_ITS ---
Progress Note Afebrile Vital signs stable All lab was personally reviewed. Hemoglobin is stable at 13.1 today. Needed BUN and creatinine are stable. BUN has increased very mildly. Continue therapy. Needs reminding regularly to increase fluid intake to maintain BP and cerebral perfusion. Will discuss n TEAM rounds on and likely set a DC date. He will be going to [facility]. STROKE Vital Signs/Narrative: Vital Signs Temp Pulse Resp BP Pulse Ox 07/22/19 08:55 98.4 F 77 16 139/72 H 94
[2019-07-22 19:37] VITALS: BP 132/80; PULSE 85; RESP 16; TEMP 36.6; O2SAT 96
[2019-07-22] MEDS: QUEtiapine 25 MG Tablet 50 MG PO (19:56)
[2019-07-22] MEDS: MELATONIN 3 MG TABLET PO (20:30)
[2019-07-22] MEDS: Atorvastatin Calcium 20 MG Tablet PO (20:30)
[2019-07-22] MEDS: Mirtazapine 15 MG Tablet PO (20:31)
[2019-07-23] MEDS: Haloperidol Lactate 5 MG/ML Vial 2 MG IM (00:55)
--- NOTE | 2019-07-23 04:19 | NURSING ---
01:00 Pt found straddling legs over side of bed and asking to get up. Pt setting off alarms, taking off alarms, talking to self, removed pants & Attends, urinated in bed, and was unable to settle down. Staff was repeatedly running to room. Haldol given and pt settled down.
[2019-07-23] MEDS: Enoxaparin 40 MG/0.4 ML Syringe SC (05:33)
[2019-07-23] MEDS: Fluticasone 0.05% 1 SPRAY NASAL.SRY NASAL (07:46)
[2019-07-23] MEDS: Cefadroxil 500 MG CAPSULE 1000 MG PO ×2 (07:46→19:47)
[2019-07-23] MEDS: Cyanocobalamin 500 MCG Tablet 1000 MCG PO (07:47)
[2019-07-23] MEDS: Senna/Docusate Sodium 1 Tablet 2 TABLET PO ×2 (07:47→19:48)
[2019-07-23] MEDS: Aspirin 81 MG TAB.CHEW PO (07:47)
[2019-07-23] MEDS: Pantoprazole Sodium 20 MG Tablet PO ×2 (07:47→19:47)
[2019-07-23] MEDS: Loratadine 10 MG Tablet PO (07:47)
[2019-07-23] MEDS: QUEtiapine 25 MG Tablet 12.5 MG PO (07:48)
[2019-07-23] MEDS: Nystatin Powder 15gm Bottle 1 APPLIC TOPICAL ×2 (08:38→19:46)
[2019-07-23] MEDS: Menthol/Lanolin/Calamine/Znox 113 GM Tube 1 APPLIC TOPICAL ×2 (08:39→19:46)
[2019-07-23 09:10] VITALS: BP 120/69; PULSE 73; RESP 14; TEMP 36.8; O2SAT 95
--- NOTE | 2019-07-23 11:59 | PN_ITS ---
Patient Problems: Active and Suspected Problems Intracerebral hemorrhage (Acute) Intraventricular hemorrhage (Acute) Acute encephalopathy (Acute) Cerebrovascular accident, embolic (Acute) Left frontal, right parietal and left cerebellum Overweight (BMI 25.0-29.9) (Acute) Subjective: Day #6 cefadroxil Afebile VSS-blood pressure is well controlled Maintaining appropriate oxygen saturation on RA Oral intake is improving. Oral intake on 07/22/2019 was 1400 cc. Good bowel function and his last bowel movement was today. Discussed with nursing - no problems that need addressed.... Got 1 dose of Haldol last night. He is alert and appropriate with me today. Reviewed the PT/OT/ST notes Medication list reviewed. Will have TEAM with Zachary and his [place] tomorrow and will discuss plans for DC. jennifer/w Lorelei -have not heard from the [facility]...updated Sunday. - Physical Exam Vitals/I&O's: Vital Signs Temp Pulse Resp BP Pulse Ox 98.3 F 73 14 120/69 95 07/23/19 09:10 07/23/19 09:10 07/23/19 09:10 07/23/19 09:10 07/23/19 09:10 Oxygen Delivery Method Room Air Weight: 145 lb 1.027 oz Body Mass Index (BMI) 29.4 Finger Stick Blood Glucose 88 Orthostatic Vital Signs Start: 07/09/19 16:16 Freq: Status: Active Protocol: Activity Type Activity Date Activity User E-Sign Co-Sign Detail Recorded Client Recorded Date Recorded By Document 07/17/19 06:00 CDA [id number] 07/17/19 06:58 CDA 07/17/19 06:00 Orthostatic Vitals Standing -Blood Pressure (90/60-120/80) 110/74 -Extremity Use Left Arm -Pulse Rate (60-100) 87 Sitting -Blood Pressure (90/60-120/80) 118/81 H -Extremity Use Left Arm -Pulse Rate (60-100) 86 Lying -Blood Pressure (90/60-120/80) 121/87 H -Extremity Use Left Arm -Pulse Rate (60-100) 80 Intake and Output for Last 24 Hours 07/21/19 07/22/19 07/23/19 23:59 23:59 23:59 Intake Total 840 / 840 1400 / 1400 300 / 300 Output Total 550 / 550 400 / 400 100 / 100 Balance 290 / 290 1000 / 1000 200 / 200 General: Alert, Cooperative, No apparent distress, - - He is friendly and talking with me today. When I told him he was looking good he thanked me. Has to be reminded to keep his eyes open. HEENT: Atraumatic, PERRLA, Normocephalic Oral: Dry Mucosa Neck: Supple, No Nodes, Trachea Midline Lungs: Clear to auscultation Cardiovascular: Regular rate, Regular Rhythm, No Gallop Abdomen: Bowel Sounds Present, Soft, Non Tender, Non-Distended Extremities: No edema Skin: No rashes, No breakdown Neurological: Cranial nerves II-XII grossly intact, - - He is ambulating in the halls without an AD but, he is holding on to someone's hand for safety. Not as impulsive. Psych/Mental Status: Appropriate Current Medications Acetaminophen (Tylenol) 650 mg PO Q6H PRN PRN PRN Reason: Pain 1-10 or Fever Last Admin: 07/01/19 20:21 Dose: 650 mg Documented by: Aspirin (Aspirin, Baby) 81 mg PO DAILY@0800 [facility] Last Admin: 07/23/19 07:47 Dose: 81 mg Documented by: Atorvastatin Calcium (Lipitor) 20 mg PO QHS [facility] Last Admin: 07/22/19 20:30 Dose: 20 mg Documented by: Bisacodyl (Dulcolax) 10 mg RECTAL .PRN X 1 PRN PRN Reason: Constipation Calamine/Phenol (Calmoseptine Ointment) 1 applic TOPICAL BID [facility]; Protocol Last Admin: 07/23/19 08:39 Dose: 1 applicatio Documented by: Cefadroxil (Duricef) 1,000 mg PO BID [facility] Stop: 08/01/19 10:01 Last Admin: 07/23/19 07:46 Dose: 1,000 mg Documented by: Cyanocobalamin (Vitamin B12) 1,000 mcg PO DAILY [facility] Last Admin: 07/23/19 07:47 Dose: 1,000 mcg Documented by: Enoxaparin Sodium (Lovenox) 40 mg SC DAILY@0600 [facility] Last Admin: 07/23/19 05:33 Dose: 40 mg Documented by: Fluticasone Propionate (Flonase Nasal [place]) 1 spray NASAL DAILY [facility] Last Admin: 07/23/19 07:46 Dose: 1 spray Documented by: Haloperidol Lactate (Haldol) 2 mg IM Q6H PRN PRN PRN Reason: AGITATION Last Admin: 07/23/19 00:55 Dose: 2 mg Documented by: Loratadine (Claritin) 10 mg PO DAILY [facility] Last Admin: 07/23/19 07:47 Dose: 10 mg Documented by: Magnesium Hydroxide (Milk Of Magnesia) 30 ml PO .PRN X 1 PRN PRN Reason: Constipation Melatonin (Melatonin) 3 mg PO QHS [facility] Last Admin: 07/22/19 20:30 Dose: 3 mg Documented by: Mirtazapine (Remeron) 15 mg PO QHS [facility] Last Admin: 07/22/19 20:31 Dose: 15 mg Documented by: Nystatin (Mycostatin Powder) 1 applic TOPICAL BID [facility]; Protocol Last Admin: 07/23/19 08:38 Dose: 1 applicatio Documented by: Pantoprazole Sodium (Protonix) 20 mg PO BID [facility] Last Admin: 07/23/19 07:47 Dose: 20 mg Documented by: Quetiapine Fumarate (Seroquel) 12.5 mg PO DAILY@0800 [facility] Last Admin: 07/23/19 07:48 Dose: 12.5 mg Documented by: Quetiapine Fumarate (Seroquel) 50 mg PO DAILY@2000 [facility] Last Admin: 07/22/19 19:56 Dose: 50 mg Documented by: Senna/Docusate Sodium (Senokot-S, Cristy-Colace) 2 tablet PO BID [facility] Last Admin: 07/23/19 07:47 Dose: 2 tablet Documented by: Sodium Chloride () 10 - 40 ml IV UD PRN PRN Reason: SALINE FLUSH Last Admin: 07/17/19 22:47 Dose: 10 ml Documented by: Sodium Chloride () 10 - 40 ml IV UD PRN PRN Reason: SALINE FLUSH Medical Necessity - Tobacco Use Smoking Status: Former smoker Tobacco Use: Non-smoker - quit in 1979 Assessment/Plan All Active Problems Intracerebral hemorrhage (Acute) Intraventricular hemorrhage (Acute) Acute encephalopathy (Acute) Cerebrovascular accident, embolic (Acute) Overweight (BMI 25.0-29.9) (Acute) Impressions 1. Debility due to Intracerebral hemorrhage left temporal/parietal area with left temporal/occipital hematoma and punctate embolic CVAs in the left frontal, right parietal and left cerebellar areas on 06/22/19 with aphasia. He does much better when hydrated and is able to participate with therapy. Will continue IV fluids for today and discontinue in the next 1-2 days. 2. Essential HTN - BP is well controlled with no hypotension 3. CAD with hx of PTCA X 1 in 2016 - denies chest pain 4. GERD-continue pantoprazole twice daily 5. overweight 6. ED -on [facility] as an outpatient 7. 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 Dyslipidemia - continue statin 9. Acute diffuse encephalopathy secondary to CVA-continue Seroquel and PRN Haldol. EEG was negative for seizures. Waxes and wanes. Currently on Seroquel 50 mg at HS and 12.5 in the AM daily. His can tell when he is going to have a bad night because he is usually irritated with her while she is visiting.....may still be depressed 10. Urinary tract infection with Klebsiella pneumoniae. No longer retaining urine. Currently on Duricef for 14 days. Will need to repeat a UA and culture a few days after the Duricef concludes 11. Depression- doing better...continue the Remeron, increase the dose to 30 mg Talked with his [place] today. I told her he would likely be more confused for a few days after transferring to [facility] Continue therapy. Code Visit Inpatient E&M: 53360 Subs Hosp L2
[2019-07-23 19:23] VITALS: BP 130/84; PULSE 92; RESP 16; TEMP 36.8; O2SAT 95
[2019-07-23] MEDS: QUEtiapine 25 MG Tablet 50 MG PO (19:45)
[2019-07-23] MEDS: Atorvastatin Calcium 20 MG Tablet PO (19:47)
[2019-07-23] MEDS: MELATONIN 3 MG TABLET PO (19:47)
[2019-07-23] MEDS: Mirtazapine 30 MG Tablet PO (19:48)
--- NOTE | 2019-07-24 03:40 | NURSING ---
REVIEWED AND AGREE WITH CHANGE [employer]SE ATTENDANT'S FUNCTIONAL ASSESSMENT AND HANDOFF CHARTING.
[2019-07-24] MEDS: Enoxaparin 40 MG/0.4 ML Syringe SC (05:10)
[2019-07-24 07:42] VITALS: BP 134/85; PULSE 83; RESP 16; TEMP 36.4; O2SAT 96
[2019-07-24] MEDS: QUEtiapine 25 MG Tablet 12.5 MG PO (08:04)
[2019-07-24] MEDS: Aspirin 81 MG TAB.CHEW PO (08:04)
[2019-07-24] MEDS: Menthol/Lanolin/Calamine/Znox 113 GM Tube 1 APPLIC TOPICAL ×2 (08:04→19:45)
[2019-07-24] MEDS: Fluticasone 0.05% 1 SPRAY NASAL.SRY NASAL (08:05)
[2019-07-24] MEDS: Cefadroxil 500 MG CAPSULE 1000 MG PO ×2 (08:05→19:41)
[2019-07-24] MEDS: Loratadine 10 MG Tablet PO (08:05)
[2019-07-24] MEDS: Senna/Docusate Sodium 1 Tablet 2 TABLET PO (08:05)
[2019-07-24] MEDS: Pantoprazole Sodium 20 MG Tablet PO ×2 (08:05→19:42)
[2019-07-24] MEDS: Nystatin Powder 15gm Bottle 1 APPLIC TOPICAL ×2 (08:05→19:45)
[2019-07-24] MEDS: Cyanocobalamin 500 MCG Tablet 1000 MCG PO (08:06)
--- NOTE | 2019-07-24 11:20 | PN_ITS ---
Progress Note Day 12/29 Cefadroxil Zachary was seen on team rounds today. His [place] did not attend rounds due to the unfavorable weather conditions but I called her and updated her following our meeting with Zachary. Afebile VSS Maintaining appropriate oxygen saturation on RA Oral intake is good. Discussed with nursing - no problems that need addressed. No need for Haldol last night. He is able to call the nurses when he has to go to the bathroom. cognitive function is improving. Reviewed the PT/OT/ST notes Medication list reviewed. He has no complaints today. He is eating good and he has been cooperating with therapy. His eyes are still often closed.....He does have some visual field cuts and this may be making him dizzy......it may be better with his eyes closed. He denies nausea. ALert, eyes closed but, talking to me. Lungs - CTA, no coughing and no labored breathing H - RRR. He has not been in AF since I have been examining him but, the theory is he has PAF and this lead to the multiple small ischemic infarcts in different territories. The bleeding may actually have been due to a ischemic infarct with hemorrhagic conversion. Abd - soft NT ND no guarding with palpation no edema No rashes and no breakdown Impressions 1. Debility due to multiple strokes - he is progressing quite well and has made a lot of improvement since admission to the [facility]. He is pleasant and does his therapy. He is talking more and walks with only holding a hand for safety now. Good appetite and intake. Knows when he needs to use the toilet now. His still does not feel that she can handle him at home yet. He will be going to [facility] at discharge. Still have not heard from the insurance company and they were updated by the on Sunday. 2. UTI - continue the Prolonged course of Cefadroxil due to recurrent UTI. Check a UA and a urine culture a few days after he is done with the antibiotics. STROKE Vital Signs/Narrative: Vital Signs Temp Pulse Resp BP Pulse Ox 07/24/19 07:42 97.6 F L 83 16 134/85 H 96 Code Visit Inpatient E&M: 03053 Subs Hosp L1
--- NOTE | 2019-07-24 15:47 | CASEMGMT ---
Team meeting held today with pt present. SW called pt after meeting and provided update on pt status from team as well as insurance update. Continued stay approved with next update on 07/28. Pt is progressing with PT/OT/ST and showing improvement with ambulation, ADLS and cognition. Will continue with treatment plan at this time and reteam next week. ULYSSES Xiao
[2019-07-24] MEDS: QUEtiapine 25 MG Tablet 50 MG PO (19:41)
[2019-07-24] MEDS: Mirtazapine 30 MG Tablet PO (19:42)
[2019-07-24] MEDS: Atorvastatin Calcium 20 MG Tablet PO (19:42)
[2019-07-24] MEDS: MELATONIN 3 MG TABLET PO (19:42)
[2019-07-24 20:15] VITALS: BP 111/75; PULSE 93; RESP 18; TEMP 36.6; O2SAT 94
[2019-07-25] MEDS: Enoxaparin 40 MG/0.4 ML Syringe SC (04:44)
[2019-07-25] MEDS: Loratadine 10 MG Tablet PO (07:38)
[2019-07-25] MEDS: QUEtiapine 25 MG Tablet 12.5 MG PO (07:38)
[2019-07-25] MEDS: Aspirin 81 MG TAB.CHEW PO (07:38)
[2019-07-25] MEDS: Cefadroxil 500 MG CAPSULE 1000 MG PO ×2 (07:38→19:51)
[2019-07-25] MEDS: Fluticasone 0.05% 1 SPRAY NASAL.SRY NASAL (07:39)
[2019-07-25] MEDS: Cyanocobalamin 500 MCG Tablet 1000 MCG PO (07:39)
[2019-07-25] MEDS: Pantoprazole Sodium 20 MG Tablet PO ×2 (07:39→19:52)
[2019-07-25] MEDS: Menthol/Lanolin/Calamine/Znox 113 GM Tube 1 APPLIC TOPICAL ×2 (07:40→19:51)
[2019-07-25] MEDS: Nystatin Powder 15gm Bottle 1 APPLIC TOPICAL ×2 (07:40→19:52)
[2019-07-25 08:00] VITALS: BP 120/72; PULSE 67; RESP 16; TEMP 36.9; O2SAT 96
--- NOTE | 2019-07-25 10:40 | CASEMGMT ---
Social Work Notified [facility] pt to DC 07/30 and to start precert 07/28. Will send updated clinicals 07/28. Scheduled cot transportation through [facility] at 1 pm. Will complete 7000. Notified Yoselin Vu of pt transferring to another facility. DUSTIN Kim CLOSING MANAGER
[2019-07-25] MEDS: QUEtiapine 25 MG Tablet 50 MG PO (19:51)
[2019-07-25] MEDS: Mirtazapine 30 MG Tablet PO (19:52)
[2019-07-25] MEDS: Atorvastatin Calcium 20 MG Tablet PO (19:52)
[2019-07-25] MEDS: MELATONIN 3 MG TABLET PO (19:52)
[2019-07-25 20:01] VITALS: BP 125/73; PULSE 82; RESP 16; TEMP 37; O2SAT 96
[2019-07-26] MEDS: Haloperidol Lactate 5 MG/ML Vial 2 MG IM (00:28)
--- NOTE | 2019-07-26 00:33 | NURSING ---
pt sets off PA multiple times throughout the night. pt awake and chatting in room. pt toileted, pt offered fluids and emotional support, interventions ineffective. PA alarming and pt noted to be on all fours and trying to get out of bed. pt becomes increasingly restless and agitated. 2 mg IM haldol given per order to buttock. pt tolerates well. will continue to round on patient every 30 mins to 1 hour. PA and BA in place. call light within reach and call light education reinforced.
[2019-07-26] MEDS: Enoxaparin 40 MG/0.4 ML Syringe SC (04:58)
[2019-07-26] MEDS: QUEtiapine 25 MG Tablet 12.5 MG PO (07:55)
[2019-07-26] MEDS: Aspirin 81 MG TAB.CHEW PO (07:55)
[2019-07-26] MEDS: Loratadine 10 MG Tablet PO (07:56)
[2019-07-26] MEDS: Menthol/Lanolin/Calamine/Znox 113 GM Tube 1 APPLIC TOPICAL ×2 (07:56→19:31)
[2019-07-26] MEDS: Cefadroxil 500 MG CAPSULE 1000 MG PO ×2 (07:57→19:32)
[2019-07-26] MEDS: Fluticasone 0.05% 1 SPRAY NASAL.SRY NASAL (07:57)
[2019-07-26] MEDS: Cyanocobalamin 500 MCG Tablet 1000 MCG PO (07:58)
[2019-07-26] MEDS: Pantoprazole Sodium 20 MG Tablet PO ×2 (07:58→19:33)
[2019-07-26] MEDS: Nystatin Powder 15gm Bottle 1 APPLIC TOPICAL ×2 (07:59→19:33)
[2019-07-26 08:56] VITALS: BP 119/71; PULSE 81; RESP 16; TEMP 36.9; O2SAT 95
--- NOTE | 2019-07-26 15:52 | PCM.PN.HOSP ---
Patient Problems: Active and Suspected Problems Intracerebral hemorrhage (Acute) Intraventricular hemorrhage (Acute) Acute encephalopathy (Acute) Cerebrovascular accident, embolic (Acute) Left frontal, right parietal and left cerebellum Overweight (BMI 25.0-29.9) (Acute) Reason for Visit: I[facility] Subjective: Feels he is progressing well with therapy. Vitals/I&O's: Vital Signs Temp Pulse Resp BP Pulse Ox 36.9 C 81 16 119/71 95 07/26/19 08:56 07/26/19 08:56 07/26/19 08:56 07/26/19 08:56 07/26/19 08:56 Oxygen Delivery Method Room Air Weight: 65.6 kg Body Mass Index (BMI) 29.4 Finger Stick Blood Glucose 88 Orthostatic Vital Signs Start: 07/09/19 16:16 Freq: Status: Active Protocol: Activity Type Activity Date Activity User E-Sign Co-Sign Detail Recorded Client Recorded Date Recorded By Document 07/17/19 06:00 CDA [id number] 07/17/19 06:58 CDA 07/17/19 06:00 Orthostatic Vitals Standing -Blood Pressure (90/60-120/80) 110/74 -Extremity Use Left Arm -Pulse Rate (60-100) 87 Sitting -Blood Pressure (90/60-120/80) 118/81 H -Extremity Use Left Arm -Pulse Rate (60-100) 86 Lying -Blood Pressure (90/60-120/80) 121/87 H -Extremity Use Left Arm -Pulse Rate (60-100) 80 Intake and Output for Last 24 Hours 07/24/19 07/25/19 07/26/19 23:59 23:59 23:59 Intake Total 1080 / 1080 1480 / 1480 1120 / 1120 Output Total 625 / 625 600 / 600 400 / 400 Balance 455 / 455 880 / 880 720 / 720 General: Alert, - - pleasant. minimal eye contact. confused, requires instructions to sit in bed from standing. HEENT: Atraumatic, Normocephalic Oral: Moist Mucosa, No Gingival or Mucosal Lesions/ Ulcerations Neck: No Nodes, Trachea Midline Lungs: Clear to auscultation, Normal air movement, No rhonchi, No wheeze Cardiovascular: Regular rate, Regular Rhythm, Normal S1, Normal S2 Abdomen: Bowel Sounds Present, Soft, Non Tender, Non-Distended Extremities: No edema, No Calf Tenderness Psych/Mental Status: Normal Affect, Appropriate Current Medications Acetaminophen (Tylenol) 650 mg PO Q6H PRN PRN PRN Reason: Pain 1-10 or Fever Last Admin: 07/01/19 20:21 Dose: 650 mg Documented by: Aspirin (Aspirin, Baby) 81 mg PO DAILY@0800 [facility] Last Admin: 07/26/19 07:55 Dose: 81 mg Documented by: Atorvastatin Calcium (Lipitor) 20 mg PO QHS [facility] Last Admin: 07/25/19 19:52 Dose: 20 mg Documented by: Bisacodyl (Dulcolax) 10 mg RECTAL .PRN X 1 PRN PRN Reason: Constipation Calamine/Phenol (Calmoseptine Ointment) 1 applic TOPICAL BID [facility]; Protocol Last Admin: 07/26/19 07:56 Dose: 1 applicatio Documented by: Cefadroxil (Duricef) 1,000 mg PO BID [facility] Stop: 08/01/19 10:01 Last Admin: 07/26/19 07:57 Dose: 1,000 mg Documented by: Cyanocobalamin (Vitamin B12) 1,000 mcg PO DAILY [facility] Last Admin: 07/26/19 07:58 Dose: 1,000 mcg Documented by: Enoxaparin Sodium (Lovenox) 40 mg SC DAILY@0600 [facility] Last Admin: 07/26/19 04:58 Dose: 40 mg Documented by: Fluticasone Propionate (Flonase Nasal [place]) 1 spray NASAL DAILY [facility] Last Admin: 07/26/19 07:57 Dose: 1 spray Documented by: Haloperidol Lactate (Haldol) 2 mg IM Q6H PRN PRN PRN Reason: AGITATION Last Admin: 07/26/19 00:28 Dose: 2 mg Documented by: Loratadine (Claritin) 10 mg PO DAILY [facility] Last Admin: 07/26/19 07:56 Dose: 10 mg Documented by: Magnesium Hydroxide (Milk Of Magnesia) 30 ml PO .PRN X 1 PRN PRN Reason: Constipation Melatonin (Melatonin) 3 mg PO QHS [facility] Last Admin: 07/25/19 19:52 Dose: 3 mg Documented by: Mirtazapine (Remeron) 30 mg PO QHS [facility] Last Admin: 07/25/19 19:52 Dose: 30 mg Documented by: Nystatin (Mycostatin Powder) 1 applic TOPICAL BID [facility]; Protocol Last Admin: 07/26/19 07:59 Dose: 1 applicatio Documented by: Pantoprazole Sodium (Protonix) 20 mg PO BID [facility] Last Admin: 07/26/19 07:58 Dose: 20 mg Documented by: Quetiapine Fumarate (Seroquel) 12.5 mg PO DAILY@0800 [facility] Last Admin: 07/26/19 07:55 Dose: 12.5 mg Documented by: Quetiapine Fumarate (Seroquel) 50 mg PO DAILY@1999 [facility] Last Admin: 07/25/19 19:51 Dose: 50 mg Documented by: Senna/Docusate Sodium (Senokot-S, Cristy-Colace) 2 tablet PO BID [facility] Last Admin: 07/26/19 07:58 Dose: Not Given Documented by: Sodium Chloride () 10 - 40 ml IV UD PRN PRN Reason: SALINE FLUSH Last Admin: 07/17/19 22:47 Dose: 10 ml Documented by: Sodium Chloride () 10 - 40 ml IV UD PRN PRN Reason: SALINE FLUSH Medical Necessity - Tobacco Use Smoking Status: Former smoker Tobacco Use: Non-smoker - quit in 1979 Assessment/Plan All Active Problems Intracerebral hemorrhage (Acute) Intraventricular hemorrhage (Acute) Acute encephalopathy (Acute) Cerebrovascular accident, embolic (Acute) Overweight (BMI 25.0-29.9) (Acute) Assessment: 1. Left MCA ischemic CVA w hemorrhagic conversion 2. UTI, klebsiella 3. HTN stable Plan Continue w cefadroxil through the Continue rehab svcs Enoxaparin for VTE prophylaxis. Code Visit Inpatient E&M: 45476 Subs Hosp L2
[2019-07-26 19:23] VITALS: BP 159/89; PULSE 100; RESP 18; TEMP 36.8; O2SAT 94
[2019-07-26] MEDS: QUEtiapine 25 MG Tablet 50 MG PO (19:29)
[2019-07-26] MEDS: MELATONIN 3 MG TABLET PO (19:32)
[2019-07-26] MEDS: Atorvastatin Calcium 20 MG Tablet PO (19:32)
[2019-07-26] MEDS: Mirtazapine 30 MG Tablet PO (19:33)
[2019-07-27] MEDS: Enoxaparin 40 MG/0.4 ML Syringe SC (05:48)
[2019-07-27 07:13] VITALS: BP 139/85; PULSE 78; RESP 16; TEMP 36.6; O2SAT 97
[2019-07-27] MEDS: Menthol/Lanolin/Calamine/Znox 113 GM Tube 1 APPLIC TOPICAL ×2 (07:40→20:20)
[2019-07-27] MEDS: Cefadroxil 500 MG CAPSULE 1000 MG PO ×2 (07:40→20:16)
[2019-07-27] MEDS: Aspirin 81 MG TAB.CHEW PO (07:40)
[2019-07-27] MEDS: Loratadine 10 MG Tablet PO (07:40)
[2019-07-27] MEDS: QUEtiapine 25 MG Tablet 12.5 MG PO (07:40)
[2019-07-27] MEDS: Fluticasone 0.05% 1 SPRAY NASAL.SRY NASAL (07:40)
[2019-07-27] MEDS: Cyanocobalamin 500 MCG Tablet 1000 MCG PO (07:41)
[2019-07-27] MEDS: Pantoprazole Sodium 20 MG Tablet PO ×2 (07:41→20:16)
[2019-07-27] MEDS: Nystatin Powder 15gm Bottle 1 APPLIC TOPICAL ×2 (07:41→20:15)
[2019-07-27] MEDS: Haloperidol Lactate 5 MG/ML Vial 2 MG IM ×2 (12:10→20:33)
--- NOTE | 2019-07-27 12:13 | NURSING ---
Patient out sitting with staff 1:1. Patient became increasingly agitated while sitting. Ambulated patient through out unit, toilet, attempted to offer food/fluids, and redirection ineffective. Patient attempted to strike out at staff while ambulating in the hallway. Patient assisted back to room and dimmed lights and attempted to reduce stimulation and activity. All non medication interventions ineffective. PRN Haldol given at this time. Staff remains at bedside 1:1.
--- NOTE | 2019-07-27 13:43 | NURSING ---
Patient resting comfortably in bed, eyes closed.
[2019-07-27 19:41] VITALS: BP 124/79; PULSE 82; RESP 16; TEMP 36.7; O2SAT 96
[2019-07-27] MEDS: QUEtiapine 25 MG Tablet 50 MG PO (19:54)
[2019-07-27] MEDS: Atorvastatin Calcium 20 MG Tablet PO (20:16)
[2019-07-27] MEDS: MELATONIN 3 MG TABLET PO (20:16)
[2019-07-27] MEDS: Mirtazapine 30 MG Tablet PO (20:17)
--- NOTE | 2019-07-27 20:40 | NURSING ---
PT FOUND SWINGING LEG OVER SIDE OF BED AND SAYING HE HAD TO GET OUT OF HERE. PT STATED HE WASN'T TAKING ANYMORE MEDICINE TODAY AND JUST NEEDED TO DO WHAT HE NEEDED TO DO. STAFF ATTEMPTED TO REORIENT AND REASSURE PT. PT DELIBERATE WITH HOLDING MOUTH SHUT FOR MED PASS. HALDOL GIVEN AND THEN PT TOOK MEDS AND DRINK OF WATER. PT REPOSITIONED IN BED.
[2019-07-28] MEDS: Enoxaparin 40 MG/0.4 ML Syringe SC (05:19)
[2019-07-28 07:56] VITALS: BP 129/82; PULSE 79; RESP 16; TEMP 36.7; O2SAT 93
[2019-07-28] MEDS: Menthol/Lanolin/Calamine/Znox 113 GM Tube 1 APPLIC TOPICAL ×2 (07:58→20:20)
[2019-07-28] MEDS: QUEtiapine 25 MG Tablet 12.5 MG PO (07:58)
[2019-07-28] MEDS: Loratadine 10 MG Tablet PO (07:58)
[2019-07-28] MEDS: Aspirin 81 MG TAB.CHEW PO (07:58)
[2019-07-28] MEDS: Nystatin Powder 15gm Bottle 1 APPLIC TOPICAL ×2 (07:58→20:18)
[2019-07-28] MEDS: Pantoprazole Sodium 20 MG Tablet PO ×2 (07:58→20:17)
[2019-07-28] MEDS: Cyanocobalamin 500 MCG Tablet 1000 MCG PO (07:59)
[2019-07-28] MEDS: Cefadroxil 500 MG CAPSULE 1000 MG PO ×2 (08:03→20:20)
[2019-07-28] MEDS: Fluticasone 0.05% 1 SPRAY NASAL.SRY NASAL (08:09)
--- NOTE | 2019-07-28 15:03 | PN_ITS ---
Progress Note Day #11 cefadroxil Afebrile Blood pressure is well controlled He is maintaining appropriate oxygen saturation on room air Appetite and intake are good. Medication list reviewed D/W nursing - he was restless and agitated last night and had to have Haldol. He has no complaints today. He is now ambulating in the halls with the therapist leading him with 1 finger with no loss of balance. He was unable to complete his ST this morning due to decreased level of alertness. He was conversant with me but, has been setting off the alarm today when in his room. He is still requiring max assist for LE dressing. Total assist with toileting. Moderate assist with bathing but, required a lot of sueing for initiation and for sequencing. Still with a slow shuffling gait...ambulated 190 feet today decreased eye blink,pleasant, oriented to person and place Lungs - CTA HRRR No peripheral edema, no calf tenderness No rashes, no breakdown No facial droop, shows shuffling gait, Impressions 1. Debility due to R MCA infarct - hemorrhagic or ischemic with hemorrhagic conversion......in light of the other ischemic CVA's in the L frontal, R parietal and L cerebellum favor ischemic infarct with hemorrhagic transformation in the L MCA territory. Will need to follow up with neurology to decide when or if to anticoagulate. 2. Delirium due to CVA's - occasionally requiring Haldol in addition to Seroquel. Will try increasing the Seroquel to 62.5 mg Q HS. 3. Urinary tract infection secondary to Klebsiella pneumoniae-continue cefadrox il through 08/01/2019. Planned DC date is 07/30/19. Will be going to [facility] by cot. Recheck the lab in the AM prior to Discharging. Check a UA in the AM Code Visit Inpatient E&M: 01822 Subs Hosp L1
--- NOTE | 2019-07-28 16:55 | CASEMGMT ---
Social Work CC completed onsite on pt on this date and can accept. Submitted for Precert. Will continue to follow. Tentative DC date 07/30 pending outcome of precert. DUSTIN KimW
[2019-07-28 19:29] VITALS: BP 104/69; PULSE 87; RESP 16; TEMP 36.8; O2SAT 96
[2019-07-28] MEDS: QUEtiapine 25 MG Tablet 62.5 MG PO (19:59)
[2019-07-28] MEDS: Mirtazapine 30 MG Tablet PO (20:17)
[2019-07-28] MEDS: MELATONIN 3 MG TABLET PO (20:18)
[2019-07-28] MEDS: Atorvastatin Calcium 20 MG Tablet PO (20:20)
[2019-07-28 20:34] VITALS: BP 104/69; PULSE 87; RESP 16; TEMP 36.8; O2SAT 96
[2019-07-29 01:22] LABS: Bacteria 0 SEEN /hpf (None Seen); Squamous Epithelial Cells - UA 0 SEEN /hpf (0-5); White Blood Cells 0 SEEN /hpf (0-5)
[2019-07-29 01:34] LABS: Color, Urine Yellow (Yellow); Glucose, Dipstick Normal (Normal); Ketone-Dipstick 5 mg/dl (Negative); Leukocyte Esterase-Dipstick 25 /ul (Negative); Nitrite-Dipstick Negative (Negative); Occult Blood-Urine 10 /ul (Negative); Protein-Dipstick Negative (Negative); Urine Bilirubin Dipstick Negative (Negative); Urine Clarity Clear (Clear); Urine Urobilinogen Normal (Normal)
[2019-07-29 01:40] LABS: Mucous, Urine 2+ /hpf (<or=2+); Red Blood Cells-Urine 5-10 SEEN /hpf (0-5)
[2019-07-29] MEDS: Enoxaparin 40 MG/0.4 ML Syringe SC (05:00)
[2019-07-29 05:45] LABS: Absolute Lymphocyte Count 1.43 X10^3/uL (0.83-4.51); Absolute Neutrophil Count 2.9 X10^3/uL (2.0-7.7); Basophil# 0.03 X10^3/uL; Basophil% 0.6 % (0-1); Eosinophil# 0.26 X10^3/uL; Hematocrit 37.9 % (40-54); Hemoglobin 12.5 g/dL (13.0-16.5); Lymphocyte # 1.43 X10^3/ul (4.0); Lymphocyte % 27.5 % (19-41); Mean Corpuscular Hgb 32.5 pg (27.0-32.0); Mean Corpuscular Volume 98.4 fL (80-94); Mean Platelet Vol. 9.8 fl (6.2-12.0); Monocyte# 0.53 X10^3/uL; Monocyte% 10.2 % (0-10); NRBC Flagged by Analyzer 0 % (0-5); Neutrophil # 2.93 X10^3/uL (2.7-7.7); Neutrophil % 56.3 % (47-70); Platelet Count 183 K/mm3 (150-450); RBC Distribution Width CV 13.2 % (11.6-14.6); RBC Distribution Width SD 46.5 fl (35.1-43.9); Red Blood Count 3.85 M/mm3 (4.6-6.2); White Blood Count 5.2 K/mm3 (4.4-11.0)
[2019-07-29 06:13] LABS: Anion Gap 4 (5-15); BUN 11 mg/dL (7-18); BUN/Creat Ratio 12.9 RATIO (10-20); Calcium,Total 8.8 mg/dL (8.5-10.1); Chloride 112 mmol/L (98-107); Creatinine, Serum 0.85 mg/dL (0.70-1.30); EST Glomerular Filtration Rate 94 mL/min (>60); Est Glom Filt Rate - Afr Amer 114 mL/min (>60); Estimated Creatinine Clearance 57.26 ml/min; Glucose 82 mg/dL (74-106); Magnesium 2.2 mg/dL (1.6-2.6); Potassium 3.8 mmol/L (3.5-5.1); Sodium Level 142 mmol/L (136-145)
[2019-07-29] MEDS: Nystatin Powder 15gm Bottle 1 APPLIC TOPICAL ×2 (08:08→20:09)
[2019-07-29] MEDS: Menthol/Lanolin/Calamine/Znox 113 GM Tube 1 APPLIC TOPICAL ×2 (08:08→20:10)
[2019-07-29] MEDS: Loratadine 10 MG Tablet PO (08:09)
[2019-07-29] MEDS: Cyanocobalamin 500 MCG Tablet 1000 MCG PO (08:09)
[2019-07-29] MEDS: Aspirin 81 MG TAB.CHEW PO (08:09)
[2019-07-29] MEDS: QUEtiapine 25 MG Tablet 12.5 MG PO (08:09)
[2019-07-29] MEDS: Cefadroxil 500 MG CAPSULE 1000 MG PO ×2 (08:09→20:10)
[2019-07-29] MEDS: Fluticasone 0.05% 1 SPRAY NASAL.SRY NASAL (08:10)
[2019-07-29] MEDS: Pantoprazole Sodium 20 MG Tablet PO ×2 (08:10→20:09)
[2019-07-29 08:40] VITALS: BP 116/67; PULSE 67; RESP 16; TEMP 36.9; O2SAT 92
--- NOTE | 2019-07-29 15:27 | CASEMGMT ---
Social Work Spoke with [facility] and have heard back from insurance. Spoke with pt's whom would like to delay DC until insurance has given approval/denial. Notified IDT - all agreeable. Cancelled transport with [facility]. Will continue to follow. DUSTIN KimW
--- NOTE | 2019-07-29 17:26 | PCM.TXEXTCAR ---
- Diet 07/10/19 09:20 Diet: Low fat diet Is pt able to select menu?: No - Routine Orders/Code Status Enema Type: Fleetz Enema Frequency: Daily PRN Suppository Type: Dulcolax 10mg Suppository Frequency: Daily PRN O2 Liters per Minute: 1-2 O2 Frequency: PRN Keep PO Greater than or Equal to (%): 90 Routine Lab Work: - - He had a CBC and a BMP and mag on 07/29 and everything is stable. Lab PRN He also had a UA which showed no WBC's on 07/29/19 and no bacteria. The urine culture is pending. When he was retaining urine and had a Flores catheter he had a UTI with E. Coli and Kliebsiella Pneumoniae. Code Status: Full Code - Wound(s) LAC Wound Type: IV wound Rt Groin Wound Type: Surgical Incision - Therapies Weight Bearing: Full weight bearing Physical Therapy: Eval and Treat Occupational Therapy: Eval and Treat Speech Therapy: Eval and Treat - Problem/Diagnosis (1) Intracerebral hemorrhage Status: Acute Current Visit: Yes (2) Intraventricular hemorrhage Status: Acute Current Visit: Yes (3) Hypertension Status: Chronic Current Visit: Yes (4) Coronary artery disease Status: Chronic Current Visit: Yes (5) History of PTCA 1 Status: Chronic Comment: 2015 Current Visit: Yes (6) Tobacco dependence in remission Status: Chronic Comment: Quit in 1979 Current Visit: Yes (7) Dyslipidemia Status: Chronic Current Visit: Yes (8) Acute encephalopathy Status: Acute Comment: due to CVA and UTI and dehydration Current Visit: Yes (9) Erectile dysfunction Status: Chronic Current Visit: Yes (10) Cerebrovascular accident, embolic Status: Acute Comment: Left frontal, right parietal and left cerebellum Current Visit: Yes (11) Overweight (BMI 25.0-29.9) Status: Chronic Current Visit: Yes (12) GERD (gastroesophageal reflux disease) Status: Chronic Current Visit: Yes (13) Complicated UTI (urinary tract infection) Status: Acute Comment: due to E. COLI and Kleibsiella Pneumoniae - related to Flores catheter inserted for urine retention. Current Visit: Yes (14) Urine retention Status: Resolved Comment: Current Visit: Yes (15) BPH (benign prostatic hyperplasia) Status: Suspected Current Visit: Yes (16) Dehydration Status: Resolved Current Visit: Yes (17) Hypercalcemia Status: Resolved Comment: resolved with hydration Current Visit: Yes (18) Elevated PSA, between 10 and less than 20 ng/ml Status: Acute Comment: PSA was normal on the lab he had in the fall of 2018 Current Visit: Yes (19) Macrocytic anemia Status: Acute Comment: stable Current Visit: Yes (20) Depression Status: Acute Current Visit: Yes (21) Hypotension Status: Resolved Comment: Due to dehydration Current Visit: Yes - Allergies/Procedures Done in Hospital Allergies/Adverse Reactions: Allergies No Known Allergies Allergy (Verified 10/26/17 11:43) Procedures: None - Type of Care/Length of Stay Estimated LOS: Convalescent Care Less Than 30 days Type of Care Needed: Skilled Rehab Potential: Good Prognosis: Good - Additional Orders/Day of Discharge Additional Orders: Zachary has done very well in the rehab unit. He occasionally gets agitated, gilberto at night. We have gradually walked up the Seroquel dose and he is much better. He occasionally gets a dose of Haldol 2 mg IM at night if the agitation gets out of hand. His last dose was on 07/27/19. He has a heart monitor because due to the multiple CVA's in different lobes AF is suspected. I do not feel that he needs to continue DVT prophylaxis because he is ambulatory. H&P will serve as current which was dated: 07/02/19 - Dietary and Speech Recommendations Dietitian Recommendations/Changes: Rec continue regular diet. Will increase ONS w/ meals by adding CIB w/ breakfast to help stabilize wt. - Follow Up Care Primary Care Physician: Pierre Horowitz MD [Primary Care Provider] - Please follow up with your Primary Care Physician in: following DC from [facility]
[2019-07-29 19:34] VITALS: BP 113/62; PULSE 84; RESP 16; TEMP 36.7; O2SAT 93
[2019-07-29] MEDS: QUEtiapine 25 MG Tablet 62.5 MG PO (19:54)
[2019-07-29] MEDS: Atorvastatin Calcium 10 MG Tablet PO (20:08)
[2019-07-29] MEDS: MELATONIN 3 MG TABLET PO (20:09)
[2019-07-29] MEDS: Mirtazapine 30 MG Tablet PO (20:09)
[2019-07-29] MEDS: Senna/Docusate Sodium 1 Tablet 2 TABLET PO (20:17)
[2019-07-30] MEDS: Enoxaparin 40 MG/0.4 ML Syringe SC (06:06)
[2019-07-30 07:00] VITALS: BP 118/66; PULSE 72; RESP 16; TEMP 36.8; O2SAT 95
[2019-07-30] MEDS: QUEtiapine 25 MG Tablet 12.5 MG PO (07:49)
[2019-07-30] MEDS: Aspirin 81 MG TAB.CHEW PO (07:50)
[2019-07-30] MEDS: Loratadine 10 MG Tablet PO (07:50)
[2019-07-30] MEDS: Cyanocobalamin 500 MCG Tablet 1000 MCG PO (07:50)
[2019-07-30] MEDS: Cefadroxil 500 MG CAPSULE 1000 MG PO ×2 (07:50→20:24)
[2019-07-30] MEDS: Pantoprazole Sodium 20 MG Tablet PO ×2 (07:50→20:24)
[2019-07-30] MEDS: Menthol/Lanolin/Calamine/Znox 113 GM Tube 1 APPLIC TOPICAL ×2 (07:50→20:26)
[2019-07-30] MEDS: Nystatin Powder 15gm Bottle 1 APPLIC TOPICAL ×2 (07:57→20:26)
[2019-07-30] MEDS: Fluticasone 0.05% 1 SPRAY NASAL.SRY NASAL (07:57)
--- NOTE | 2019-07-30 12:44 | CASEMGMT ---
Social Work CC notified SW insurance denied SNF stay and gave options for peer to peer and written appeal. Spoke with whom would like to complete peer to peer - physician agreed. Peer to peer completed and insurance stated they would like to see pt to return home and would approve RU stay with NRD 08/04, but not SNF stay. NRD should include therapy progress for plan to DC home or coordinate LTP for pt. Notified of above and agreeable. Notified [facility]. Will ReTeam tomorrow. Valorie Solomon, DUSTIN LEMONSW
[2019-07-30] MEDS: Atorvastatin Calcium 10 MG Tablet PO (20:24)
[2019-07-30] MEDS: MELATONIN 3 MG TABLET PO (20:24)
[2019-07-30] MEDS: QUEtiapine 25 MG Tablet 62.5 MG PO (20:24)
[2019-07-30] MEDS: Mirtazapine 30 MG Tablet PO (20:25)
[2019-07-30 20:50] VITALS: BP 135/78; PULSE 95; RESP 16; TEMP 36.7; O2SAT 93
[2019-07-30] MEDS: Haloperidol Lactate 5 MG/ML Vial 2 MG IM (22:41)
--- NOTE | 2019-07-30 22:45 | NURSING ---
pt attempts to crawl out of bed multiple times this hs and sets off PA. pt is stripping off clothes and confused. pt getting agitated with staff when attempting to reorient and redirect. fluids, a snack, toileting and repositioning all ineffective. PRN dose of Haldol 2 mg IM given to R buttock. pt tolerated well. PA and BA intact, call light within reach. will continue to monitor pt.
--- NOTE | 2019-07-31 00:19 | NURSING ---
REVIEWED AND AGREE WITH ACID BLOWER'S FUNCTIONAL ASSESSMENT AND HANDOFF CHARTING.
[2019-07-31] MEDS: Enoxaparin 40 MG/0.4 ML Syringe SC (04:49)
[2019-07-31] MEDS: QUEtiapine 25 MG Tablet 12.5 MG PO (07:32)
[2019-07-31] MEDS: Aspirin 81 MG TAB.CHEW PO (07:32)
[2019-07-31] MEDS: Loratadine 10 MG Tablet PO (07:34)
[2019-07-31] MEDS: Cefadroxil 500 MG CAPSULE 1000 MG PO ×2 (07:34→19:54)
[2019-07-31] MEDS: Fluticasone 0.05% 1 SPRAY NASAL.SRY NASAL (07:35)
[2019-07-31] MEDS: Pantoprazole Sodium 20 MG Tablet PO ×2 (07:36→19:55)
[2019-07-31] MEDS: Cyanocobalamin 500 MCG Tablet 1000 MCG PO (07:37)
[2019-07-31 08:07] VITALS: BP 127/78; PULSE 88; RESP 12; TEMP 36.8; O2SAT 94
--- NOTE | 2019-07-31 09:49 | CASEMGMT ---
Social Work IDT met with pt, daughter and -via conference call. Pt is CGA for transfers and hand-held assist 330ft, can do flight of stairs CGA. Bathing mod assist, grooming min assist only to shave, UE mod assist and LE max assist. Cognition/understanding increasing with better participation, but difficulty shifting topics, still cues with automatic tasks, but eating and drinking better with cues. Pt more continent during the day, but struggles with depends, suggested pt tries regular underwear to be more independent. Pts praised staff for great care. Discussed with [facility]-PT/OT/ST, gave list to daughter. Will provide with [employer] resources as well. Explained insurance with NRD 08/04. Goal is for pt to return home, and daguhter encouraged to come in for shared care during day and evening. Will continue to follow. Meche Huerta, social work international marketing intern Valorie Solomon, STUDY ASSISTANT GYNECOLOGICAL ASSISTANT
[2019-07-31] MEDS: Menthol/Lanolin/Calamine/Znox 113 GM Tube 1 APPLIC TOPICAL ×2 (11:08→19:54)
[2019-07-31] MEDS: Nystatin Powder 15gm Bottle 1 APPLIC TOPICAL ×2 (11:09→19:55)
[2019-07-31 19:22] VITALS: BP 115/78; PULSE 92; RESP 16; TEMP 36.6; O2SAT 95
[2019-07-31] MEDS: QUEtiapine 25 MG Tablet 62.5 MG PO (19:54)
[2019-07-31] MEDS: Atorvastatin Calcium 10 MG Tablet PO (19:54)
[2019-07-31] MEDS: Mirtazapine 30 MG Tablet PO (19:55)
[2019-07-31] MEDS: MELATONIN 3 MG TABLET PO (19:55)
[2019-08-01] MEDS: Enoxaparin 40 MG/0.4 ML Syringe SC (05:28)
[2019-08-01] MEDS: Aspirin 81 MG TAB.CHEW PO (07:38)
[2019-08-01] MEDS: Loratadine 10 MG Tablet PO (07:38)
[2019-08-01] MEDS: Cyanocobalamin 500 MCG Tablet 1000 MCG PO (07:39)
[2019-08-01] MEDS: Cefadroxil 500 MG CAPSULE 1000 MG PO (07:39)
[2019-08-01] MEDS: Fluticasone 0.05% 1 SPRAY NASAL.SRY NASAL (07:39)
[2019-08-01] MEDS: Pantoprazole Sodium 20 MG Tablet PO (07:39)
[2019-08-01] MEDS: Nystatin Powder 15gm Bottle 1 APPLIC TOPICAL (07:40)
[2019-08-01] MEDS: Menthol/Lanolin/Calamine/Znox 113 GM Tube 1 APPLIC TOPICAL (07:40)
[2019-08-01 08:11] VITALS: BP 116/66; PULSE 65; RESP 16; TEMP 36.6; O2SAT 98
--- NOTE | 2019-08-01 12:05 | PN_ITS ---
Progress Note Afebile VSS Maintaining appropriate oxygen saturation on RA Oral intake is good Discussed with nursing - no problems that need addressed. Occasional Haldol at night for agitation. Reviewed the PT/OT/ST notes Medication list reviewed. All lab reviewed - stable Repeat UA following a 14 day course of antibiotics for current Klebsiella pneu moniae UTI shows no white blood cells and no bacteria. Culture exhibits no growth Patient has no complaints. He was seen on TEAM rounds on 07/31. His dtr Zachary Martinez was in the room and [place] on speaker phone. I did a peer to peer review with Joseph this week and he has been approved until the . We discussed the plan for discharge. the TEAM feels that Zachary is ready to go home, not an SNF. [place] has been afraid that she will not know how to help up but, she took him to his doctor's appt this past Sunday and they had a god day. Zachary now tells nursing when he has to use the restroom and has been rarely incontinent...mostly at night. We are going to try him wearing his underwear now....OT feels this may help him with LE dressing. Family is willing to take him home next week and we will order HHC. They will come in for training to ease their minds about what is needed to help Zachary. Alert, pleasant, cooperative Lungs-clear to auscultation with good air exchange Heart-regular rate and rhythm without ectopy, no gallop Abdomen-soft, nondistended, nontender, no guarding with palpation, bowel sounds present in all 4 quadrants No peripheral edema, no cyanosis, no calf pain No focal neurologic deficits other than cognitive dysfunction at this time. Making steady progress. Impressions 1. Debility both physical and cognitive secondary to recent left temporal par ietal CVA with hemorrhage.....transformation or primary hemorrhagic? Also with ischemic infarcts in R brain, left frontal lobe and the left cerebellum. doing well in therapy and is getting close to being able to go home. Family will come in for training and he will have HHC post DC. STROKE Vital Signs/Narrative: Vital Signs Temp Pulse Resp BP Pulse Ox 08/01/19 08:11 97.9 F 65 16 116/66 98 Code Visit Inpatient E&M: 66376 Subs Hosp L2
[2019-08-01] MEDS: Haloperidol Lactate 5 MG/ML Vial 2 MG IM (21:16)
[2019-08-01 22:00] VITALS: BP 114/66; PULSE 86; RESP 18; TEMP 36.7; O2SAT 93
[2019-08-02] MEDS: Haloperidol Lactate 5 MG/ML Vial 2 MG IM (06:38)
[2019-08-02] MEDS: Enoxaparin 40 MG/0.4 ML Syringe SC (06:38)
--- NOTE | 2019-08-02 06:41 | NURSING ---
PT RESISTIVE TO CARE HAS HIS LEG OUTSIDE THE BED AND WRAPPED AROUND THE RAIL. REFUSING MEDICATION, REFUSING BATHING, REFUSING SAFE REPOSITIONING. 1:1, DISTRACTION, REORIENTING, AND DE-ESCALATION ALL USED WITH NO SUCCESS. HALDOL GIVEN FOR PT AND STAFF SAFETY. WILL CONTINUE TO MONITOR.
[2019-08-02] MEDS: Aspirin 81 MG TAB.CHEW PO (08:19)
[2019-08-02] MEDS: Pantoprazole Sodium 20 MG Tablet PO ×2 (08:19→19:32)
[2019-08-02] MEDS: Loratadine 10 MG Tablet PO (08:19)
[2019-08-02] MEDS: Fluticasone 0.05% 1 SPRAY NASAL.SRY NASAL (08:19)
[2019-08-02] MEDS: Cyanocobalamin 500 MCG Tablet 1000 MCG PO (08:20)
[2019-08-02] MEDS: Senna/Docusate Sodium 1 Tablet 2 TABLET PO ×2 (08:20→19:32)
[2019-08-02] MEDS: Menthol/Lanolin/Calamine/Znox 113 GM Tube 1 APPLIC TOPICAL ×2 (08:25→19:35)
[2019-08-02] MEDS: Nystatin Powder 15gm Bottle 1 APPLIC TOPICAL ×2 (08:26→19:36)
[2019-08-02 08:29] VITALS: BP 112/62; PULSE 79; RESP 16; TEMP 36.4; O2SAT 97
[2019-08-02 19:28] VITALS: BP 108/71; PULSE 76; RESP 16; TEMP 36.9; O2SAT 95
[2019-08-02] MEDS: QUEtiapine 25 MG Tablet 62.5 MG PO (19:30)
[2019-08-02] MEDS: Atorvastatin Calcium 10 MG Tablet PO (19:32)
[2019-08-02] MEDS: Mirtazapine 30 MG Tablet PO (19:32)
[2019-08-02] MEDS: MELATONIN 3 MG TABLET PO (19:32)
[2019-08-03] MEDS: Enoxaparin 40 MG/0.4 ML Syringe SC (05:30)
[2019-08-03 07:51] VITALS: BP 109/70; PULSE 82; RESP 18; TEMP 36.7; O2SAT 94
[2019-08-03] MEDS: Pantoprazole Sodium 20 MG Tablet PO ×2 (08:23→19:10)
[2019-08-03] MEDS: Fluticasone 0.05% 1 SPRAY NASAL.SRY NASAL (08:23)
[2019-08-03] MEDS: Senna/Docusate Sodium 1 Tablet 2 TABLET PO ×2 (08:23→19:10)
[2019-08-03] MEDS: Loratadine 10 MG Tablet PO (08:23)
[2019-08-03] MEDS: Aspirin 81 MG TAB.CHEW PO (08:23)
[2019-08-03] MEDS: Cyanocobalamin 500 MCG Tablet 1000 MCG PO (08:23)
[2019-08-03] MEDS: Menthol/Lanolin/Calamine/Znox 113 GM Tube 1 APPLIC TOPICAL ×2 (08:24→19:13)
[2019-08-03] MEDS: Nystatin Powder 15gm Bottle 1 APPLIC TOPICAL ×2 (08:24→19:13)
--- NOTE | 2019-08-03 13:57 | PCM.PN.BLA ---
Progress Note Afebile VSS-blood pressure is very well controlled and heart rate is within normal limits. Maintaining appropriate oxygen saturation on RA Oral intake is good. Weight is stable. Bowel movements are regular Discussed with nursing -he required Haldol for agitation on Sunday night and Sunday night. He is good during the day and is more alert with the discontinuation of the a.m. dose of Seroquel. Reviewed the PT/OT/ST notes Medication list reviewed. He is alert and appropriate today and making conversation Heart-regular rate and rhythm, no ectopy, no gallop Lungs-clear to auscultation with good air exchange Abdomen-soft, nontender, nondistended, bowel sounds present in all 4 quadrants No peripheral edema I reveiwed the therapy notes.....please see their notes for description of progress Impressions 1. Debility due to recent Intracerebral hemorrhage left temporal/parietal area with left temporal/occipital hematoma and punctate embolic CVAs in the left frontal, right parietal and left cerebellar areas on 06/22/19 with aphasia and acute diffuse encephalopathy. Possible ischemic CVA L MCA with subsequent hemorrhagic conversion. No hx of AF. Request ECHO report from [facility]. The 30 day event monitor he came to the unit with shows no AF. 2. Essential HTN - Continue home meds. Well controlled. 3. CAD with hx of PTCA X 1 in 2016 4. GERD 5. overweight 6. ED - on [facility] as an OP 7. 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 Dyslipidemia - continue statin 8. Acute diffuse encephalopathy- Behavior is much better since the Seroquel. I suspect when he goes home he may not need as much Seroquel because at night he will be in his own bedroom with his ......when she spends the night he has no problems. Would start to wean after the first week at home. Increase the Seroquel at HS to 75 mg for now toavoid having him need Haldol. Code Visit Inpatient E&M: 47811 Subs Hosp L1
[2019-08-03] MEDS: QUEtiapine 25 MG Tablet 75 MG PO (19:07)
[2019-08-03] MEDS: Mirtazapine 30 MG Tablet PO (19:09)
[2019-08-03] MEDS: MELATONIN 3 MG TABLET PO (19:09)
[2019-08-03] MEDS: Atorvastatin Calcium 10 MG Tablet PO (19:10)
[2019-08-03 19:20] VITALS: BP 118/71; PULSE 82; RESP 16; TEMP 36.7; O2SAT 95
[2019-08-04] MEDS: Enoxaparin 40 MG/0.4 ML Syringe SC (06:23)
[2019-08-04] MEDS: Loratadine 10 MG Tablet PO (08:13)
[2019-08-04] MEDS: Pantoprazole Sodium 20 MG Tablet PO ×2 (08:13→20:11)
[2019-08-04] MEDS: Aspirin 81 MG TAB.CHEW PO (08:13)
[2019-08-04] MEDS: Cyanocobalamin 500 MCG Tablet 1000 MCG PO (08:14)
[2019-08-04] MEDS: Fluticasone 0.05% 1 SPRAY NASAL.SRY NASAL (08:16)
[2019-08-04] MEDS: Nystatin Powder 15gm Bottle 1 APPLIC TOPICAL ×2 (08:17→20:03)
[2019-08-04] MEDS: Menthol/Lanolin/Calamine/Znox 113 GM Tube 1 APPLIC TOPICAL ×2 (08:17→20:04)
[2019-08-04 09:02] VITALS: BP 121/78; PULSE 90; RESP 16; TEMP 36.7; O2SAT 91
--- NOTE | 2019-08-04 15:00 | NURSING ---
Patient's bed alarm heard sounding, staff went in and patient had rolled over onto side and was straddling side rail. When staff moved patient he bacame combative and yelled, I am callling the intake clinician. This nurse and TUBE SIZER OPERATOR assisted patient into recliner chair and brought him to the nursing station for supervision and patient fell asleep.
[2019-08-04 19:37] VITALS: BP 122/73; PULSE 81; RESP 16; TEMP 36.9; O2SAT 93
[2019-08-04] MEDS: QUEtiapine 25 MG Tablet 75 MG PO (19:50)
[2019-08-04] MEDS: MELATONIN 3 MG TABLET PO (20:11)
[2019-08-04] MEDS: Atorvastatin Calcium 10 MG Tablet PO (20:11)
[2019-08-04] MEDS: Mirtazapine 30 MG Tablet PO (20:12)
[2019-08-04 22:00] VITALS: RESP 17; O2SAT 95
[2019-08-05] MEDS: Enoxaparin 40 MG/0.4 ML Syringe SC (05:39)
[2019-08-05 07:06] VITALS: BP 107/63; PULSE 66; RESP 16; TEMP 37.2; O2SAT 94
[2019-08-05] MEDS: Aspirin 81 MG TAB.CHEW PO (08:21)
[2019-08-05] MEDS: Loratadine 10 MG Tablet PO (08:21)
[2019-08-05] MEDS: Pantoprazole Sodium 20 MG Tablet PO ×2 (08:22→20:20)
[2019-08-05] MEDS: Fluticasone 0.05% 1 SPRAY NASAL.SRY NASAL (08:22)
[2019-08-05] MEDS: Cyanocobalamin 500 MCG Tablet 1000 MCG PO (08:22)
[2019-08-05] MEDS: Menthol/Lanolin/Calamine/Znox 113 GM Tube 1 APPLIC TOPICAL ×2 (08:23→20:18)
[2019-08-05] MEDS: Nystatin Powder 15gm Bottle 1 APPLIC TOPICAL ×2 (08:23→20:20)
[2019-08-05 18:51] VITALS: BP 129/73; PULSE 90; RESP 18; TEMP 37.1; O2SAT 93
[2019-08-05] MEDS: QUEtiapine 25 MG Tablet 75 MG PO (19:57)
[2019-08-05] MEDS: MELATONIN 3 MG TABLET PO (20:19)
[2019-08-05] MEDS: Atorvastatin Calcium 10 MG Tablet PO (20:20)
[2019-08-05] MEDS: Mirtazapine 30 MG Tablet PO (20:21)
[2019-08-05] MEDS: Senna/Docusate Sodium 1 Tablet 2 TABLET PO (20:22)
--- NOTE | 2019-08-05 20:49 | NURSING ---
early media clerk to enable early and uninterrupted bedrest
[2019-08-05 21:42] VITALS: O2SAT 93
[2019-08-06] MEDS: Enoxaparin 40 MG/0.4 ML Syringe SC (05:17)
[2019-08-06 07:14] VITALS: BP 109/63; PULSE 67; RESP 16; TEMP 36.7; O2SAT 95
[2019-08-06] MEDS: Menthol/Lanolin/Calamine/Znox 113 GM Tube 1 APPLIC TOPICAL (08:09)
[2019-08-06] MEDS: Fluticasone 0.05% 1 SPRAY NASAL.SRY NASAL (08:10)
[2019-08-06] MEDS: Nystatin Powder 15gm Bottle 1 APPLIC TOPICAL (08:10)
[2019-08-06] MEDS: Aspirin 81 MG TAB.CHEW PO (08:10)
[2019-08-06] MEDS: Loratadine 10 MG Tablet PO (08:10)
[2019-08-06] MEDS: Cyanocobalamin 500 MCG Tablet 1000 MCG PO (08:11)
[2019-08-06] MEDS: Pantoprazole Sodium 20 MG Tablet PO (08:11)
--- NOTE | 2019-08-06 10:00 | NURSING ---
pt complaining of soreness in mouth under dentures. this nurse looked in pt mouth, 2 small blisters noticed to L upper gums. dentures removed at this time for relief of pain. note left for dr. meléndez. will continue to monitor.
--- NOTE | 2019-08-06 11:45 | PCM.PN.BLA ---
Progress Note Afebile VSS-blood pressure is very well controlled Maintaining appropriate oxygen saturation on RA Oral intake is good. Weight is stable. Discussed with nursing - no problems that need addressed Reviewed the PT/OT/ST notes Medication list reviewed. He has not had to have Haldol since 08/02/2019. Doing quite well More talkative and appropriate Lungs - CTA Heart-regular rate and rhythm, no gallop Abdomen-soft, nontender, bowel sounds present No peripheral edema Impressions 1. Debility due to recent Intracerebral hemorrhage left temporal/parietal area with left temporal/occipital hematoma and punctate embolic CVAs in the left frontal, right parietal and left cerebellar areas on 06/22/19 with aphasia and acute diffuse encephalopathy. Possible ischemic CVA L MCA with subsequent hemorrhagic conversion. No hx of AF. Request ECHO report from [facility]. The 30 day event monitor he came to the unit with shows no AF. 2. Essential HTN - Continue home meds. Well controlled. 3. CAD with hx of PTCA X 1 in 2015 4. GERD 5. overweight 6. [facility] 7. 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 Dyslipidemia - continue statin 8. Acute diffuse encephalopathy- Behavior is much better since the Seroquel. I suspect when he goes home he may not need as much Seroquel because at night he will be in his own bedroom with his ......when she spends the night he has no problems. Would start to wean after the first week at home. Plan is for DC home with [place]. She is coming in for family training and has been participating in ambulation with Zachary. Inpatient E&M: [id number] Subs Hosp L2
[2019-08-06 15:15] VITALS: BP 109/65; PULSE 80; RESP 18; TEMP 36.7; O2SAT 95
--- NOTE | 2019-08-06 15:15 | NURSING ---
Speech therapy notified nursing staff that patient was not talking but upon initial visit he had spoken to them at 3pm. Patient lethargic, able to open eyes spontaneously, pupils checked and right eye rolled up in upper lid and left pupil equal and reactive. Stroke alert team called. Patient had finished walking around the unit with staff at 230pm and had been laid down prior. called by hospital social worker.
--- NOTE | 2019-08-06 15:30 | NURSING ---
VS wnl, bs 122, taken down to CT scan with stroke alert team.
--- NOTE | 2019-08-06 15:43 | CT_ITS ---
STUDY: CT BRAIN WITHOUT CONTRAST REASON FOR EXAM: Male, 74 years old. CVA RADIATION DOSAGE (If Supplied By Facility): CTDIvol = ( 44.99 ) mGy, DLP = ( 779.24 ) mGycm TECHNIQUE: Transaxial CT imaging of the brain was performed without administration of intravenous contrast material. Individualized dose optimization techniques were used for this CT. COMPARISON: Multiple prior examination demonstrated a dated July 18, 2019 FINDINGS: There is continued decrease of the left posterior temporal hemorrhage and surrounding edema. Measuring now 3.0 x 1.5 cm in comparison by 4.0 x 1.5 previously. There is cerebral atrophy with widening of the extra-axial spaces and ventricular dilatation. There are areas of decreased attenuation within the white matter tracts of the supratentorial brain, consistent with microvascular disease changes. There are no findings of an acute ischemic infarction. CT/Brain/Head without Contrast IMPRESSION: Continued decreased left temporal hemorrhage. N.B. : The above information has been verbally conveyed by Juan Acevedo MD to MERLE Bae, on 08/06/2019 16:29:19 (ET). Electronically Signed: Juan Acevedo MD at 15:59 EST Tel , Service support ,
--- NOTE | 2019-08-06 15:47 | CT_ITS ---
We are attempting to reach an attending provider to discuss findings. An addendum with communication details will be sent when the communication is complete. STUDY: CTA HEAD AND NECK WITH CONTRAST REASON FOR EXAM: Male, 74 years old. Stroke. Left parietal hematoma. RADIATION DOSAGE (If Supplied By Facility): CTDIvol = ( 20.82 ) mGy, DLP = ( 677.91 ) mGycm TECHNIQUE: CT angiography was performed with a multi-detector CT scanner. Data acquisition was obtained from the skull base through the vertex following intravenous administration of IV 100 ML ISOVUE 370. MIP images were reconstructed from the axial data set. Post-processing of the angiographic images was performed, with multiplanar reformation and 3D reconstruction. Individualized dose optimization techniques were used for this CT. COMPARISON: CT of the head, August 06, 2019. FINDINGS: Normal bilateral petrous carotid arteries. Normal right cavernous carotid artery with a normal supraclinoid bifurcation. Normal left cavernous carotid artery with a normal supraclinoid bifurcation. Normal right A1 segments of the anterior cerebral artery. Normal left A1 segments of the anterior cerebral artery. Normal intact anterior communicating artery (ACOM). Normal bilateral A2 segments of the anterior cerebral arteries. Normal right M1 and M2 segments of the middle cerebral arteries, with a normal M1 bifurcation. Normal left M1 and M2 segments of the middle cerebral arteries, with a normal M1 bifurcation. Normal right posterior communicating artery (PCOM). There is non-visualization of the left posterior communicating artery (PCOM). Normal bilateral vertebral arteries. Normal basilar artery with a normal basilar bifurcation. The visualized bilateral superior cerebellar (SCA) arteries are normal. Normal P1, P2 and visualized P3 segments of the left posterior cerebral artery. There is an absent P1 segment of the right posterior cerebral artery. The P2 was visualized P3 segments are supplied via the patent right posterior communicating artery. There is no demonstrated aneurysm of the [place]. Again seen is a large area of low attenuation in the right posterior parietal lobe consistent with the area of hematoma and edema. There is mild peripheral enhancement without evidence of extravasation of contrast. AORTIC ARCH: There is atherosclerotic calcific plaque formation of the aortic arch and great vessels arising from the aortic arch, without a hemodynamically significant stenosis. There is a normal origin of the brachiocephalic, left common carotid, and left subclavian arteries. RIGHT CAROTID ARTERIES: Tortuous proximal right common carotid artery (CCA). Normal right common carotid bulb. Normal origin of the right internal carotid (ICA) artery without a hemodynamically significant stenosis. Torturous visualized cervical portion of the right internal carotid artery. Normal origin of the right external carotid artery (ECA). LEFT CAROTID ARTERIES: Normal left common carotid artery (CCA). There is minimal calcific plaque of the carotid bulb without stenosis. Normal origin of the left internal carotid (ICA) artery without a hemodynamically significant stenosis. Normal visualized cervical portion of the left internal carotid artery. Normal origin of the left external carotid artery (ECA). VERTEBRAL ARTERIES: Normal bilateral vertebral arteries. There is diffuse degenerative changes of the cervical spine. Lung apices are clear. CT/CTA Head AND Neck W/ Contrast IMPRESSION: 1. Hemodynamically insignificant left carotid plaque by NASA criteria. 2. Absent P1 segment of the right posterior cerebral artery. The more peripheral branches are supplied via the PCOM. 3. Otherwise normal [place]. 4. Normal vertebral arteries. 5. Area of low attenuation in the left parietal lobe were hematoma was previously seen. There is minimal peripheral enhancement without evidence of extravasation of contrast. Electronically Signed: Sunil Head DO at 16:30 EST Tel [phone], Service support ,
[2019-08-06 15:58] VITALS: BP 146/110
[2019-08-06 16:05] VITALS: BP 113/65; PULSE 87; O2SAT 94
[2019-08-06 16:10] VITALS: BP 98/65; PULSE 85; O2SAT 94
[2019-08-06 16:10] LABS: Absolute Lymphocyte Count 1.34 X10^3/uL (0.83-4.51); Basophil# 0.02 X10^3/uL; Basophil% 0.4 % (0-1); Eosinophil# 0.17 X10^3/uL; Eosinophils% 3.3 % (0-5); Hematocrit 37.3 % (40-54); Hemoglobin 12.4 g/dL (13.0-16.5); Lymphocyte # 1.34 X10^3/ul (4.0); Lymphocyte % 26.1 % (19-41); Mean Corp Hgb Conc 33.2 g/dL (32-36); Mean Corpuscular Hgb 33.2 pg (27.0-32.0); Mean Corpuscular Volume 99.7 fL (80-94); Mean Platelet Vol. 9.8 fl (6.2-12.0); Monocyte# 0.59 X10^3/uL; Monocyte% 11.5 % (0-10); NRBC Flagged by Analyzer 0 % (0-5); Neutrophil % 58.3 % (47-70); Platelet Count 166 K/mm3 (150-450); RBC Distribution Width CV 12.9 % (11.6-14.6); RBC Distribution Width SD 46.9 fl (35.1-43.9); Red Blood Count 3.74 M/mm3 (4.6-6.2); White Blood Count 5.1 K/mm3 (4.4-11.0)
[2019-08-06 16:34] VITALS: BP 109/69; PULSE 80; RESP 18; TEMP 36.7; O2SAT 98
[2019-08-06 16:39] LABS: Anion Gap 6 (5-15); BUN 14 mg/dL (7-18); BUN/Creat Ratio 13.7 RATIO (10-20); Calcium,Total 9.2 mg/dL (8.5-10.1); Chloride 109 mmol/L (98-107); Creatinine, Serum 1.02 mg/dL (0.70-1.30); EST Glomerular Filtration Rate 76 mL/min (>60); Est Glom Filt Rate - Afr Amer 92 mL/min (>60); Estimated Creatinine Clearance 47.71 ml/min; Glucose 113 mg/dL (74-106); Potassium 4.1 mmol/L (3.5-5.1); Sodium Level 142 mmol/L (136-145)
[2019-08-06 16:41] LABS: International Normalized Ratio 1.2; Prothrombin Time (Protime)PT. 14.7 SECONDS (11.7-14.9)
[2019-08-06 16:42] LABS: Partial Thromboplast Time 27.5 Seconds (24.1-36.2)
--- NOTE | 2019-08-06 16:55 | CASEMGMT ---
Social Work Responded to stroke alert for pt. Pt not responsive to physical or verbal stimuli. Contacted to notify of change in condition and to come to the hospital, if able. arrived. Nursing provided update on pt's condition. Initially, wanted to call her children and grieve by herself. However, shortly after, requested SW support. Emotional and verbal support provided. Assisted in explanation of change and medical process. Provided continuous support for until son and daughter arrived. Updated children. Nursing notified pt admitted to ICU. Assisted family to patient's room and educated on SW on unit to follow. Hand-off report given to SW. Valorie Solomon, OCCUPATIONAL HEALTH NURSE SUPERVISOR ROD BUSTER HELPER
[2019-08-06 21:45] LABS: Bedside Glucose 122 mg/dL (70-110)
--- NOTE | 2019-08-08 13:25 | DS.PCM_ITS ---
Discharge Date and Diagnosis - Problem List Patient Problems: Active and Suspected Problems Debility (Acute) Seizure disorder (Acute) Intracranial hemorrhage (Acute) Behavioral problem (Acute) Stroke (Acute) Date of Admission: 07/02/19 Date of Discharge: 08/06/19 - Primary Discharge Diagnosis Active and Suspected Problems Unresponsive episode (Acute) - new CVA suspected vs seizure Physical debility due to intracerebral hemorrhage left temporal/parietal area with left temporal/occipital hematoma and punctate embolic CVAs in the left frontal, right parietal and left cerebellar areas on 06/22/2019 with a fascia and acute distal few sylvian cephalopathy - improved Dehydration-resolved Hyponatremia-resolved Macrocytic anemia-stable. More likely than not secondary to intracerebral hemorrhage Urinary tract infections-the first complicated UTI present at admission (had a danielson due to urine retention) was secondary to E. coli and Klebsiella pneumoniae. He received an appropriate course of antibiotics and the second UTI was due to Klebsiella pneumoniae once again and we presumed this was due to failure to eradicate the bacteria with the first course of antibiotics. He received a 14-day course of antibiotics and the follow up UA was negative and the culture had no growth. Depression-doing much better on mirtazapine. - Secondary Discharge Diagnosis Chronic Problems Intracerebral hemorrhage (Chronic) Intraventricular hemorrhage (Chronic) Hypertension (Chronic) Coronary artery disease (Chronic) History of PTCA 1 (Chronic) 2015 Tobacco dependence in remission (Chronic) Quit in 1979 Dyslipidemia (Chronic) Erectile dysfunction (Chronic) Overweight (BMI 25.0-29.9) (Chronic) GERD (gastroesophageal reflux disease) (Chronic) Hospital Course and Treatment Imaging Results: Clinical Impression(s) from Imaging Studies Chest X-Ray 07/02/19 13:32 IMPRESSION: Normal x-ray examination of the chest. Electronically Signed: Donald Spring MD at 16:16 EST , Service support , Brain CT 07/18/19 12:29 IMPRESSION: Interval decrease in size in the hematoma in the left posterior parietal occipital lobes. Mild residual surrounding edema persists. Electronically Signed: Aden Gonzalez, at 12:56 EST , Service support , Brain CT 08/06/19 15:43 IMPRESSION: Continued decreased left temporal hemorrhage. N.B. : The above information has been verbally conveyed by Juan Acevedo MD to MERLE Bae, on 08/06/2019 16:29:19 (ET). Electronically Signed: Juan Acevedo MD at 15:59 EST Tel , Service support , Head/Neck CTA 08/06/19 15:47 IMPRESSION: 1. Hemodynamically insignificant left carotid plaque by NASA criteria. 2. Absent P1 segment of the right posterior cerebral artery. The more peripheral branches are supplied via the PCOM. 3. Otherwise normal jackson of [place]. 4. Normal vertebral arteries. 5. Area of low attenuation in the left parietal lobe were hematoma was previously seen. There is minimal peripheral enhancement without evidence of extravasation of contrast. Electronically Signed: Sunil Head DO at 16:30 EST Tel [phone], Service support , ADDENDUM: 08/06/19 1640 IMPRESSION: 1. Hemodynamically insignificant left carotid plaque by NASA criteria. 2. Absent P1 segment of the right posterior cerebral artery. The more peripheral branches are supplied via the PCOM. 3. Otherwise normal jackson of [place]. 4. Normal vertebral arteries. 5. Area of low attenuation in the left parietal lobe were hematoma was previously seen. There is minimal peripheral enhancement without evidence of extravasation of contrast. N.B. : The above information has been verbally conveyed by Sunil Head DO to Moraima Thomas RN, on 08/06/2019 16:33:02 (ET). Electronically Signed: Sunil Head DO at 16:30 EST Tel [phone], Service support , ADDENDUM: 08/06/19 1822 IMPRESSION: 1. Hemodynamically insignificant left carotid plaque by NASCET criteria. 2. Absent P1 segment of the right posterior cerebral artery. The more peripheral branches are supplied via the PCOM. 3. Otherwise normal jackson of [place]. 4. Normal vertebral arteries. Area of low attenuation in the left parietal lobe were hematoma was previously seen. There is minimal peripheral enhancement without evidence of Electronically Signed: Sunil Head DO at 18:15 EST Tel [phone], Service support , N.B. : The above information has been verbally conveyed by Sunil Head DO to Moraima Thomas RN, on 08/06/2019 16:33:02 (ET). none Operations: None Procedures: None Summary of Care Provided: The pt is a 74-year-old overweight male with a PMH of essential hypertension, coronary artery disease, PTCA/JAILENE x1 in 2015, dyslipidemia, tobacco dependence in remission (quit in 1979) and ED admitted to the Inpatient rehab unit at [facility] on 07/01/2019 for debility secondary to left temporal/parietal intracerebral hemorrhage and intraventricular hemorrhage on 06/22/2019 with embolic punctate ischemic CVAs in the left frontal, right parietal and left cerebellum for greater than 3 hours of therapy daily with a goal of returning home at or near prior level of independence. The patient lives at home with his and has 3 steps to get into the house. He was independent with ADL's, mobility and driving prior to hospitalization. EEG done prior to admission to [facility] rehab unit showed BL cortical dysfunction, Max on the left, with no epileptiform DC and no EEG seizures with severe diffuse encephalopathy. He was initially seen in the emergency department at [place] and then transferred to [facility] and then to [facility] [place] for a possible AVM. Cerebral angiogram was negative and AVM was ruled out. Prior to discharge from [facility] he required no sitter for 2 days prior to admission to our rehab unit however he was requiring Seroquel and Haldol for behavior control. When he presented to the rehab unit he was aphasic and required max assist to even sit up in bed. He was dehydrated and had a UTI. He was retaining urine. He gradually progressed in therapy and eventually was ambulating just holding the therapists hand. He was talking and appropriate. He still required Seroquel but, he rarely required Haldol (only at night). He was getting ready for DC home with his and she and her dtr had come in for family training in how best to assist Zachary at home. I saw him in the morning of 08/06/19 and he was doing well. Unfortunately later in the day on 08/06/2019 he was unresponsive and an [employer]ACING MACHINE TENDER was called. A stat CT brain showed a decrease in the left temporal hemorrhage compared to previous studies. There was cerebral atrophy with widening of the extra-axial spaces and ventricular dilatation which was unchanged. CTA of the head and neck showed hemodynamically insignificant left carotid plaque. He was discharged from the rehab unit and admitted to the intensive care unit by Dr. Vo. the stroke protocol was initiated. Please see my dictation from my visit on 08/06/19 for physical exam that day. I was not present at the time of the stroke alert. Patient Problems: Active and Suspected Problems Debility (Acute) Seizure disorder (Acute) Intracranial hemorrhage (Acute) Behavioral problem (Acute) Stroke (Acute) - Physical Exam Vitals/I&O's: Vital Signs Temp Pulse Resp BP Pulse Ox 98.0 F 80 18 109/69 98 08/06/19 16:34 08/06/19 16:34 08/06/19 16:34 08/06/19 16:34 08/06/19 16:34 Oxygen Delivery Method Room Air Weight: 145 lb 4.554 oz Body Mass Index (BMI) 29.4 Finger Stick Blood Glucose 122 Intake and Output for Last 24 Hours 08/06/19 08/07/19 08/08/19 23:59 23:59 23:59 Intake Total 1740 / 1740 Output Total 450 / 450 Balance 1290 / 1290 Home Medications: Medications to take at Discharge Aspirin [Aspirin, Baby] 81 mg PO DAILY@0800 10/26/17 Fluticasone 0.05% [Flonase Nasal [place]] 1 spray NASAL DAILY 10/26/17 Loratadine 10 mg PO DAILY 10/26/17 Rosuvastatin Calcium [Crestor] 10 mg PO QHS 10/26/17 Acetaminophen [Tylenol] 650 mg PO Q6H PRN 07/01/19 Cyanocobalamin (Vitamin B-12) [Vitamin B-12] 1,000 mcg PO DAILY 07/01/19 Haloperidol [Haldol] 2 mg PO Q6H PRN PRN #1 tab 07/29/19 Magnesium Hydroxide [Milk Of Magnesia] 30 ml PO .PRN X 1 PRN udc 02/11/20 Bisacodyl [Dulcolax] 10 mg RECTAL DAILY PRN PRN #0 suppos. 08/11/19 Melatonin 3 mg PO QHS 08/11/19 Mirtazapine [Remeron] 30 mg PO QHS 08/11/19 Pantoprazole Sodium [Protonix] 20 mg PO BID 08/11/19 Quetiapine Fumarate [Seroquel] 50 mg PO DAILY@199908/11/19 Senna/Docusate Sodium [Senokot-S] 2 tab PO BID 08/11/19 levETIRAcetam tablet [Keppra tablet] 500 mg PO BID 08/11/19 Following Prescrptions Were Given to Patient: Haloperidol [Haldol] 2 mg PO Q6H PRN PRN #1 tab PRN Reason: severe agitation. Primary Care Physician: Pierre Horowitz MD [Primary Care Provider] - Disposition: Acute care Hospital Minutes spent on discharge:: 30 Medical Necessity - Tobacco Use Smoking Status: Smoker, status unknown Tobacco Use: Non-smoker - quit in 1979 Meaningful Use Info Meaningful Use Diagnoses (Choose all that apply): None applicable Inpatient E&M: 67764 [facility] Hosp
== END 2019-08-06 15:35 | disposition short-term general hospital (02) | DRG 57 ==
PROVIDERS: Internal Medicine; Admitting Provider Internal Medicine; Family Provider Family Medicine; PCP Family Medicine; Visit Provider Internal Medicine
DX: I69.320 Aphasia following cerebral infarction (principal); T83.518A Infection and inflammatory reaction due to other urinary catheter, initial encounter; G93.49 Other encephalopathy; I69.391 Dysphagia following cerebral infarction; R13.10 Dysphagia, unspecified; K21.9 Gastro-esophageal reflux disease without esophagitis; E78.5 Hyperlipidemia, unspecified; I10 Essential (primary) hypertension; I25.10 Atherosclerotic heart disease of native coronary artery without angina pectoris; Z87.891 Personal history of nicotine dependence; E83.52 Hypercalcemia; B96.20 Unspecified Escherichia coli [E. coli] as the cause of diseases classified elsewhere; B96.1 Klebsiella pneumoniae [K. pneumoniae] as the cause of diseases classified elsewhere; F32.9 Major depressive disorder, single episode, unspecified; E86.0 Dehydration; Y73.8 Miscellaneous gastroenterology and urology devices associated with adverse incidents, not elsewhere classified; D53.9 Nutritional anemia, unspecified
CPT/HCPCS: 36415; 70450; 70496; 70498; 71045; 80048; 80053; 80061; 81001; 82040; 82962; 83735; 83970; 84153; 84484; 85014; 85018; 85025; 85027; 85610; 85730; 87077; 87086; 87088; 87186; 92507; 92523; 92526; 92610; 93005; 97110; 97112; 97116; 97129; 97140; 97162; 97166; 97530; 97535; J7030; J7120; Q9967; A4216; G0103; J2430

== ENCOUNTER 2019-08-06 16:42 | Inpatient (IN) | payer MEDICARE, SELFPAY ==
[2019-08-06] VITALS (11 sets, daily range): BP systolic 103–140; BP diastolic 70–87; PULSE 80–88; RESP 15–24; TEMP 36.3; O2SAT 92–94; BMI 27.7
--- NOTE | 2019-08-06 16:55 | PCM.HP.STD ---
Problem List (1) Unresponsive episode Status: Acute (2) Intracerebral hemorrhage Status: Chronic Qualifiers: (3) Intraventricular hemorrhage Status: Chronic (4) Hypertension Status: Chronic (5) Coronary artery disease Status: Chronic (6) History of PTCA 1 Status: Chronic Comment: 2016 (7) Tobacco dependence in remission Status: Chronic Comment: Quit in 1979 (8) Dyslipidemia Status: Chronic (9) Acute encephalopathy Status: Acute Comment: due to CVA and UTI and dehydration (10) Erectile dysfunction Status: Chronic (11) Cerebrovascular accident, embolic Status: Acute Comment: Left frontal, right parietal and left cerebellum (12) Overweight (BMI 25.0-29.9) Status: Chronic (13) GERD (gastroesophageal reflux disease) Status: Chronic (14) Complicated UTI (urinary tract infection) Status: Acute Comment: due to E. COLI and Kleibsiella Pneumoniae - related to Flores catheter inserted for urine retention. (15) Urine retention Status: Resolved Comment: (16) BPH (benign prostatic hyperplasia) Status: Suspected (17) Dehydration Status: Resolved (18) Hypercalcemia Status: Resolved Comment: resolved with hydration (19) Elevated PSA, between 10 and less than 20 ng/ml Status: Acute Comment: PSA was normal on the lab he had in the fall of 2019 (20) Macrocytic anemia Status: Acute Comment: stable (21) Depression Status: Acute (22) Hypotension Status: Inactive Comment: Due to dehydration History of Present Illness Date of Admission: 08/06/19 Chief Complaint: Unresponsive episode The patient is a 74 year old M [who is admitted directly in ICU from rehab unit for unresponsive episode. As per his speech therapist note, patient was alert and watching basketball game on television and then became more lethargic, less responsive not making eye contact and then unresponsive. A stroke alert was called. I went to stroke alert and patient was taken directly to CT scan. Patient was unresponsive, not answering any question. Gaze could not be ascertained. It seems patient does not have visual loss on visual threat. NIH stroke scale calculation was limited but seems about 22. CT head and CTA of head and neck was done immediately as per stroke protocol. CT head shows continued decrease left temporal hemorrhage, measuring 3.0 x 1.5 cm in comparison to 4.0 x 1.[address] of 07/18/2019. Other chronic changes of cerebral atrophy with widening of extra-axial spaces and ventricular dilatation, unchanged CTA head and neck was done which reported hemodynamically insignificant left carotid plaque. Absent P1 segment of right PHOTO LAB SPECIALIST, with reconstitution of peripheral branches by PCOM otherwise normal [place]. Normal vertebral arteries. Minimal peripheral enhancement without evidence of extravasation in the area of previous left parietal hematoma Discussed with stroke telemetry neurology Dr. Calderon and he said he will review the images. Vitals blood pressure 113/65, heart rate 87, afebrile, pulse ox 94% on room air. Past Medical History Past Medical History (Chronic Problems): Chronic Problems Intracerebral hemorrhage (Chronic) Intraventricular hemorrhage (Chronic) Hypertension (Chronic) Coronary artery disease (Chronic) History of PTCA 1 (Chronic) 2015 Tobacco dependence in remission (Chronic) Quit in 1979 Dyslipidemia (Chronic) Erectile dysfunction (Chronic) Overweight (BMI 25.0-29.9) (Chronic) GERD (gastroesophageal reflux disease) (Chronic) Allergies No Known Allergies Allergy (Verified 10/26/17 11:43) Home Medications: Ambulatory Orders Medication Instructions Recorded Aspirin [Aspirin, Baby] 81 mg PO DAILY@0800 10/26/17 Fluticasone 0.05% [Flonase Nasal 1 spray NASAL DAILY 10/26/17 [place]] Loratadine 10 mg PO DAILY 10/26/17 Rosuvastatin Calcium [Crestor] 10 mg PO QHS 10/26/17 Acetaminophen [Tylenol] 650 mg PO Q6H PRN 07/01/19 Cyanocobalamin (Vitamin B-12) 1,000 mcg PO DAILY 07/01/19 [Vitamin B-12] Bisacodyl [Dulcolax] 10 mg RECTAL .PRN X 1 PRN suppos. 07/29/19 Cefadroxil [Duricef] 1,000 mg PO BID #6 cap 07/29/19 Haloperidol [Haldol] 2 mg PO Q6H PRN PRN #1 tab 07/29/19 Magnesium Hydroxide [Milk Of 30 ml PO .PRN X 1 PRN udc 07/29/19 Magnesia] Melatonin 3 mg PO QHS tab 07/29/19 Mirtazapine [Remeron] 30 mg PO QHS tab 07/29/19 Pantoprazole Sodium [Protonix] 20 mg PO BID tab 07/29/19 Quetiapine Fumarate [Seroquel] 12.5 mg PO DAILY@0800 tab 07/29/19 Quetiapine Fumarate [Seroquel] 62.5 mg PO DAILY@2000 tab 07/29/19 Senna/Docusate Sodium [Senokot-S] 2 tab PO BID tab 07/29/19 Surgical History: cholecystectomy Psychiatric History: No pertinent psych hx Smoking Status: Former smoker - *Family History Maternal History Items: - - Unable to obtain at this time....pt non-verbal with espressive aphasia Review of Systems Unable to obtain accurate/complete ROS d/t: Patient is unresponsive, nonverbal. VTE Information - Inpt Only VTE Present on Admission: No VTE Mechan Device Prophylaxis: SCD's VTE Pharm Prophylaxis ordered?: Yes Patient Problems: Active and Suspected Problems Unresponsive episode (Acute) - Physical Exam Vitals/I&O's: Body Mass Index (BMI) 29.4 Finger Stick Blood Glucose 88 General: - - Unresponsive, unconscious. Nonverbal HEENT: - - Cannot examine pupils accurately but seems round and reactive to light. Response to visual threat present. Roving of eyeballs. Oral: No Gingival or Mucosal Lesions/ Ulcerations, Dry Mucosa Neck: Supple, No JVD, Negative Carotid Bruits Lungs: No rhonchi, No wheeze, No rales, Diminished - Air entry diminished bilateral lung bases Cardiovascular: Regular rate, Regular Rhythm, Normal S1, Normal S2, No murmurs Abdomen: Bowel Sounds Present, Soft, Non Tender, Non-Distended, No hernias noted Extremities: No edema, Capillary Refill Less than 3 Seconds Musculoskeletal: Arthritic Changes, Muscle Wasting Neurological: - - Neuro exam unobtainable. Unresponsive. Sensory and motor cannot be examined. Assessment/Plan All Active Problems Acute encephalopathy (Acute) Cerebrovascular accident, embolic (Acute) Complicated UTI (urinary tract infection) (Acute) Urine retention (Resolved) Dehydration (Resolved) Hypercalcemia (Resolved) Elevated PSA, between 10 and less than 20 ng/ml (Acute) Macrocytic anemia (Acute) Depression (Acute) Unresponsive episode (Acute) The patient is a 74 year old M [who is admitted directly in ICU from rehab unit for unresponsive episode. NIH stroke scale calculation was limited but seems about 22. CT head and CTA of head and neck was done immediately as per stroke protocol. CT head shows continued decrease left temporal hemorrhage, measuring 3.0 x 1.5 cm in comparison to 4.0 x 1.[address] of 07/18/2019. Other chronic changes of cerebral atrophy with widening of extra-axial spaces and ventricular dilatation, unchanged CTA head and neck was done which reported hemodynamically insignificant left carotid plaque. Absent P1 segment of right PHOTO LAB SPECIALIST, with reconstitution of peripheral branches by PCOM otherwise normal [place]. Normal vertebral arteries. Minimal peripheral enhancement without evidence of extravasation in the area of previous left parietal hematoma Discussed with stroke telemetry neurology Dr. Calderon and he said he will review the images. 1. Acute episode of unresponsiveness, exact etiology unclear possible differentials acute encephalopathy, seizure episode: Patient is being admitted in ICU. As per nursing staff, patient did not had fever chills, URI or UTI symptoms. UA 07/29 showed WBC 0 and patient recently treated for Klebsiella pneumoniae by cefadroxil on 08/01 2019. Repeat UA with urinary culture ordered. Stat labs were ordered. [facility] tele-neurology was consulted per stroke protocol Labs shows baseline CBC, PT/INR normal. K4.1. Troponin 0.015. Patient will need further EEG if no improvement. Welding Machine Operator [employer] consult. CT head reviewed and shows improvement in left temporal hemorrhage and no acute change on CTA head and neck therefore acute stroke unlikely. 2. Acute encephalopathy, probably metabolic: IV fluid. Electrolytes are within normal limit. Currently patient is n.p.o. Continue PT, OT and speech evaluation when the patient wakes up. 3 essential HTN -hold antihypertensive medications. 4 CAD with hx of PTCA X 1 in 2016: Twelve-lead EKG and serial troponin ordered 5 GERD GERD on IV Protonix 6. ED: Not a concern 7. 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 Dyslipidemia - continue statin DVT prophylaxis: Patient got Lovenox today in rehab. Bilateral SCDs. Continue Lovenox, next dose will be in the morning. Code Visit Inpatient E&M: 45743 Init Hosp L3
--- NOTE | 2019-08-06 17:22 | EKG12_ITS ---
Test Reason : STOKE Blood Pressure : / mmHG Vent. Rate : 088 BPM Atrial Rate : 088 BPM P-R Int : 150 ms QRS Dur : 136 ms QT Int : 404 ms P-R-T Axes : 029 -66 028 degrees QTc Int : 488 ms Sinus rhythm with Premature supraventricular complexes Left axis deviation Right bundle branch block Abnormal ECG When compared with ECG of 02-JUL-2019 17:31, Premature supraventricular complexes are now Present Confirmed by MONAE MA, DAVID ([id number]), index editor DELLA OCONNELL ([id number]) on 08/11/2019 2:46:07 PM Referred By: Bill Vo Confirmed By:RUSSEL LICONA MD
--- NOTE | 2019-08-06 17:30 | RAD_ITS ---
STUDY: X-RAY CHEST REASON FOR EXAM: Male, 74 years old. Unresponsive. Stroke. TECHNIQUE: Single AP portable view of the chest. COMPARISON: July 02, 2019. FINDINGS: There is mild elevation right hemidiaphragm. It is minimally decreased inspiratory effort when compared to the prior study. There is no acute infiltrate or mass. There is no demonstrated pleural abnormality. Normal size heart. Normal mediastinum and jesus. Normal visualized pulmonary arteries. There is atherosclerotic calcification of the aortic arch with tortuosity. No visualized osseous changes. There is no demonstrated abnormality of the visualized soft tissue structures of the upper abdomen. RAD/Chest 1 View (Portable) IMPRESSION: No acute cardiopulmonary disease or interval change. Electronically Signed: Sunil Head DO at 18:42 EST Tel [phone], Service support ,
[2019-08-06 18:00] LABS: Base Excess 1 mmol/L (-2 to +2); Bicarbonate 24.5 mmol/L (22-26); Blood Gas Specimen Type ART; O2 Delivery Device Room Air; PO2 64 mmHG (75-100); SITE R Radial; SO2 94 % (95-99); Time Given 1757; Total Carbon Dioxide 26 mmol/L; pCO2 34.4 mmHg (35-45); pH 7.46 (7.35-7.45)
[2019-08-06 18:06] LABS: Absolute Lymphocyte Count 1.32 X10^3/uL (0.83-4.51); Absolute Neutrophil Count 3.2 X10^3/uL (2.0-7.7); Basophil# 0.01 X10^3/uL; Basophil% 0.2 % (0-1); Eosinophil# 0.21 X10^3/uL; Eosinophils% 3.9 % (0-5); Hematocrit 38.6 % (40-54); Hemoglobin 12.8 g/dL (13.0-16.5); Lymphocyte # 1.32 X10^3/ul (4.0); Lymphocyte % 24.6 % (19-41); Mean Corp Hgb Conc 33.2 g/dL (32-36); Mean Corpuscular Hgb 32.2 pg (27.0-32.0); Mean Corpuscular Volume 97.2 fL (80-94); Mean Platelet Vol. 9.7 fl (6.2-12.0); Monocyte# 0.57 X10^3/uL; Monocyte% 10.6 % (0-10); NRBC Flagged by Analyzer 0 % (0-5); Neutrophil # 3.24 X10^3/uL (2.7-7.7); Neutrophil % 60.3 % (47-70); Platelet Count 186 K/mm3 (150-450); RBC Distribution Width CV 12.9 % (11.6-14.6); RBC Distribution Width SD 45.8 fl (35.1-43.9); Red Blood Count 3.97 M/mm3 (4.6-6.2); White Blood Count 5.4 K/mm3 (4.4-11.0)
[2019-08-06 18:17] LABS: Prothrombin Time (Protime)PT. 12.9 SECONDS (11.7-14.9)
[2019-08-06 18:30] LABS: Lactic Acid 1.1 mmol/L (0.4-1.9)
[2019-08-06 18:39] LABS: ALB/GLOB Ratio 0.9 RATIO (0.9-2.4); AST(SGOT) 13 U/L (15-37); Alanine Aminotransfer ALT/SGPT 25 U/L (16-61); Albumin, Serum 2.9 g/dL (3.2-5.0); Alkaline Phosphatase 64 U/L (45-117); Anion Gap 2 (5-15); BUN 12 mg/dL (7-18); BUN/Creat Ratio 13.1 RATIO (10-20); Calcium,Total 9.7 mg/dL (8.5-10.1); Chloride 111 mmol/L (98-107); Creatinine, Serum 0.92 mg/dL (0.70-1.30); EST Glomerular Filtration Rate 86 mL/min (>60); Est Glom Filt Rate - Afr Amer 104 mL/min (>60); Globulin 3.2 g/dL (2.2-4.2); Glucose 99 mg/dL (74-106); Magnesium 2.4 mg/dL (1.6-2.6); Protein, Total 6.1 g/dL (6.4-8.2); Sodium Level 142 mmol/L (136-145)
[2019-08-06] MEDS: Lactated Ringers 1,000 ML 75 ML IV (18:50)
[2019-08-06 20:31] LABS: Bedside Glucose 94 mg/dL (70-110)
[2019-08-06 21:55] LABS: M R Staph aureus DNA By PCR Negative (Negative); Probe Check PASS; Specimen Processing Control PASS
[2019-08-06 23:11] LABS: Bedside Glucose 87 mg/dL (70-110)
[2019-08-07] VITALS (28 sets, daily range): BP systolic 102–141; BP diastolic 65–99; PULSE 65–96; RESP 11–22; TEMP 36.3–37; O2SAT 92–98; BMI 27.7
[2019-08-07 04:26] LABS: Absolute Lymphocyte Count 1.89 X10^3/uL (0.83-4.51); Absolute Neutrophil Count 3.2 X10^3/uL (2.0-7.7); Basophil# 0.02 X10^3/uL; Basophil% 0.3 % (0-1); Eosinophil# 0.38 X10^3/uL; Eosinophils% 6.2 % (0-5); Hematocrit 39.5 % (40-54); Hemoglobin 13.2 g/dL (13.0-16.5); Lymphocyte # 1.89 X10^3/ul (4.0); Lymphocyte % 30.6 % (19-41); Mean Corp Hgb Conc 33.4 g/dL (32-36); Mean Corpuscular Hgb 32.7 pg (27.0-32.0); Mean Corpuscular Volume 97.8 fL (80-94); Mean Platelet Vol. 9.7 fl (6.2-12.0); Monocyte# 0.64 X10^3/uL; Monocyte% 10.4 % (0-10); NRBC Flagged by Analyzer 0 % (0-5); Neutrophil # 3.22 X10^3/uL (2.7-7.7); Neutrophil % 52.2 % (47-70); Platelet Count 189 K/mm3 (150-450); RBC Distribution Width CV 12.9 % (11.6-14.6); RBC Distribution Width SD 46.5 fl (35.1-43.9); Red Blood Count 4.04 M/mm3 (4.6-6.2); White Blood Count 6.2 K/mm3 (4.4-11.0)
[2019-08-07 05:00] LABS: Anion Gap 4 (5-15); BUN 9 mg/dL (7-18); BUN/Creat Ratio 10.6 RATIO (10-20); Calcium,Total 9.1 mg/dL (8.5-10.1); Chloride 110 mmol/L (98-107); Creatinine, Serum 0.85 mg/dL (0.70-1.30); EST Glomerular Filtration Rate 94 mL/min (>60); Est Glom Filt Rate - Afr Amer 114 mL/min (>60); Estimated Creatinine Clearance 57.26 ml/min; Glucose 78 mg/dL (74-106); Potassium 3.9 mmol/L (3.5-5.1); Sodium Level 142 mmol/L (136-145); Thyroid Stim Hormone (TSH) 1.94 uIU/mL (0.358-3.74)
[2019-08-07 05:26] LABS: Bedside Glucose 75 mg/dL (70-110)
--- NOTE | 2019-08-07 08:43 | MRI_ITS ---
STUDY: MRI BRAIN WITHOUT CONTRAST REASON FOR EXAM: Male, 74 years old. unresponsive episode, left MCA ischemic with hemmorhagic trans -- prev MCI infarct, hemmoragic conversion TECHNIQUE: Standardized multiplanar fat and water weighted pulse sequences were obtained. COMPARISON: 08/06/2019 CT of the head FINDINGS: There is mild cerebral atrophy with widening of the extra-axial spaces and ventricular dilatation. There are multiple white matter hyperintensities, distributed throughout the deep white matter tracts of the cerebral hemispheres, consistent with moderate chronic white matter ischemic changes. Again noted is the left posterior temporal hemorrhage measuring 4.5 x 2.6 x 2.5 cm there is normal surrounding echogenic edema. Just superiorly there is small area mild restricted diffusion (diffusion image 16 series 4) with drop of signal and T1 hyperintensity, consistent with subacute/chronic infarct. Findings are consistent with history of infarction and hemorrhagic transformation. The hemorrhage closely approximate the and compresses the temporal ventricle. There is no evidence of ventricular expansion. The parenchymal hemorrhage continues to decrease in comparison with multiple prior CT examinations Normal bilateral basal ganglia. Normal thalami. There is no extra-axial fluid accumulation. Normal flow voids within the major intracranial circulation suggesting patency by spin echo criteria. Normal sella turcica, pituitary gland, infundibular stalk, optic chiasm and hypothalamus. Normal tectal plate and pineal gland. Normal midbrain, davon and medulla. Normal cerebellum. Normal basal cisterns. Normal bilateral temporal bones. MRI/Brain without Contrast IMPRESSION: Left parietotemporal infarct and 4.5 cm hemorrhagic transformation. Continued follow-up is recommended. Electronically Signed: Juan Acevedo MD at 15:33 EST Tel , Service support ,
--- NOTE | 2019-08-07 08:52 | PCM.PN.HOSP ---
Patient Problems: Active and Suspected Problems Unresponsive episode (Acute) Reason for Visit: Acute change in mental status, unresponsiveness and unconscious state in the acute rehab unit Objective: Seen and examined. I discussed with the patient's , daughter and son patient's room yesterday evening about 6 PM. Today, patient is awake alert and responding to simple questions. He has some dysarthria. He follows command. As per nursing staff, NIH stroke scale 1 secondary to dysarthria. Afebrile. Blood pressure 105/67, map 79. Pulse ox 92% on room air. Vitals/I&O's: Vital Signs Temp Pulse Resp BP Pulse Ox 97.3 F L 79 16 105/67 92 08/07/19 08:00 08/07/19 08:00 08/07/19 08:00 08/07/19 08:00 08/07/19 08:00 Oxygen Delivery Method Room Air Weight: 145 lb 11.609 oz Body Mass Index (BMI) 27.7 Finger Stick Blood Glucose 88 Intake and Output for Last 24 Hours 08/05/19 08/06/19 08/07/19 23:59 23:59 23:59 Intake Total 392.5 / 392.5 693.75 / 693.75 Output Total 100 / 100 100 / 100 Balance 292.5 / 292.5 593.75 / 593.75 General: Alert, Cooperative, Disoriented - Disoriented to time and place HEENT: Atraumatic, PERRLA, EOMI, Normocephalic Oral: No Gingival or Mucosal Lesions/ Ulcerations, Dry Mucosa Neck: Supple, No JVD, Negative Carotid Bruits Lungs: Clear to auscultation, No rhonchi, No wheeze, No rales, Diminished - Air entry diminished in bilateral lung bases Cardiovascular: Regular rate, Regular Rhythm, Normal S1, Normal S2, No murmurs Abdomen: Bowel Sounds Present, Soft, Non Tender, Non-Distended Extremities: No edema, Capillary Refill Less than 3 Seconds Skin: No rashes, No breakdown Musculoskeletal: No Tenderness to Palpation of Joints or Extremities, Arthritic Changes, Muscle Wasting Neurological: Deep Tendon Reflexes 2+/4 and Symmetrical, Neuro grossly intact, Slurred Speech, - - Left-sided facial droop, moderate NIH stroke scale 4; 2 for facial droop and 1 for language deficit 1 for dysarthria Psych/Mental Status: Normal Affect, Appropriate Laboratory Results 08/06/19 17:50: WBC 5.4, RBC 3.97 L, Hgb 12.8 L, Hct 38.6 L, MCV 97.2 H, MCH 32.2 H, MCHC 33.2, RDW Std Deviation 45.8 H, RDW Coeff of Maritza 12.9, Plt Count 186, MPV 9.7, Immature Gran % (Auto) 0.400, Neut % (Auto) 60.3, Lymph % (Auto) 24.6, [place] % (Auto) 10.6 H, Eos % (Auto) 3.9, Baso % (Auto) 0.2, Absolute Neuts (auto) 3.2, Absolute Lymphs (auto) 1.32, Nucleated RBC % 0 08/06/19 17:50: Sodium 142, Potassium 4.0, Chloride 111 H, Carbon Dioxide 29.0, Anion Gap 2 L, BUN 12, Creatinine 0.92, Estim Creat Clear Calc 52.90, Est GFR (MDRD) Af Amer 104, Est GFR (MDRD) Non-Af 86, BUN/Creatinine Ratio 13.1, Glucose 99, Calcium 9.7, Magnesium 2.4, Total Bilirubin 0.20, AST 13 L, ALT 25, Alkaline Phosphatase 64, Total Protein 6.1 L, Albumin 2.9 L, Globulin 3.2, Albumin/Globulin Ratio 0.9 08/06/19 17:50: Lactic Acid 1.1 08/06/19 17:50: PT 12.9, INR 1.0 08/06/19 17:50: Ammonia 35.0 H 08/06/19 17:50: Troponin I < 0.015 08/06/19 17:58: Specimen Type ART, Sample Site R Radial, pH 7.46 H, Bicarbonate Actual 24.5, POC Total CO2 26, Base Excess 1, O2 Saturation 94 L, ABG pCO2 34.4 L, ABG pO2 64 L, Timothy Test NA, O2 Delivery Device Room Air, Blood Gas Notified Whom ICU , Blood Gas Notified Time 1755 08/06/19 20:24: POC Glucose 94 08/06/19 20:25: Troponin I < 0.015 08/06/19 20:30: MRSA (PCR) Negative 08/06/19 23:07: POC Glucose 87 08/06/19 23:27: Troponin I < 0.015 08/07/19 04:15: WBC 6.2, RBC 4.04 L, Hgb 13.2, Hct 39.5 L, MCV 97.8 H, MCH 32.7 H, MCHC 33.4, RDW Std Deviation 46.5 H, RDW Coeff of Maritza 12.9, Plt Count 189, MPV 9.7, Immature Gran % (Auto) 0.300, Neut % (Auto) 52.2, Lymph % (Auto) 30.6, [place] % (Auto) 10.4 H, Eos % (Auto) 6.2 H, Baso % (Auto) 0.3, Absolute Neuts (auto) 3.2, Absolute Lymphs (auto) 1.89, Nucleated RBC % 0 08/07/19 04:15: Sodium 142, Potassium 3.9, Chloride 110 H, Carbon Dioxide 28.0, Anion Gap 4 L, BUN 9, Creatinine 0.85, Estim Creat Clear Calc 57.26, Est GFR (MDRD) Af Amer 114, Est GFR (MDRD) Non-Af 94, BUN/Creatinine Ratio 10.6, Glucose 78, Calcium 9.1, TSH 1.94 08/07/19 05:21: POC Glucose 75 Current Medications Acetaminophen (Tylenol) 650 mg RECTAL Q4H PRN PRN PRN Reason: Pain Score 1-10/Temp > 100.7 F Albuterol Sulfate (Ventolin Aerosols) 2.5 mg INHALATION Q2H PRN PRN PRN Reason: SOB/Wheezing Aspirin (Aspirin, Baby) 81 mg PO DAILY@0800 [facility] Enoxaparin Sodium (Lovenox) 40 mg SC DAILY [facility] Pantoprazole Sodium 40 mg/ (Sodium Chloride) 110 mls @ 330 mls/hr IV Q24 [facility] Last Infusion: 08/06/19 20:02 Dose: Infused Documented by: Dextrose (Dextrose 10%-Water) 250 mls @ 999 mls/hr IV .Q16M PRN; Protocol PRN Reason: HYPOGLYCEMIA Levetiracetam 500 mg/ Sodium (Chloride) 105 mls @ 400 mls/hr IV Q12 [facility] Last Infusion: 08/06/19 21:28 Dose: Infused Documented by: Lorazepam (Ativan) 2 mg IV Q4H PRN PRN PRN Reason: SEIZURES Nitroglycerin (Nitrostat) 0.4 mg SUBLINGUAL Q5M PRN PRN Reason: CARDIAC/CHEST PAIN Ondansetron HCl (Zofran) 4 mg IV Q8H PRN PRN PRN Reason: NAUSEA/VOMITING STROKE Vital Signs/Narrative: Vital Signs Temp Pulse Resp BP Pulse Ox 08/07/19 08:00 97.3 F L 79 16 105/67 92 08/07/19 07:40 98 08/07/19 07:26 78 08/07/19 07:00 84 15 117/79 94 08/07/19 06:00 83 18 122/81 H 92 08/07/19 05:00 91 18 128/84 H 94 Medical Necessity - Tobacco Use Smoking Status: Former smoker Tobacco Use: Cigarettes Assessment/Plan All Active Problems Acute encephalopathy (Acute) Cerebrovascular accident, embolic (Acute) Complicated UTI (urinary tract infection) (Acute) Urine retention (Resolved) Dehydration (Resolved) Hypercalcemia (Resolved) Elevated PSA, between 10 and less than 20 ng/ml (Acute) Macrocytic anemia (Acute) Depression (Acute) Unresponsive episode (Acute) The patient is a 74 year old M [who is admitted directly in ICU from rehab unit for unresponsive episode. NIH stroke scale calculation was limited but seems about 22. CT head and CTA of head and neck was done immediately as per stroke protocol. CT head shows continued decrease left temporal hemorrhage, measuring 3.0 x 1.5 cm in comparison to 4.0 x 1.[address] of 07/18/2019. Other chronic changes of cerebral atrophy with widening of extra-axial spaces and ventricular dilatation, unchanged CTA head and neck was done which reported hemodynamically insignificant left carotid plaque. Absent P1 segment of right TECHNICAL SALES CONSULTANT, with reconstitution of peripheral branches by PCOM otherwise normal [place]. Normal vertebral arteries. Minimal peripheral enhancement without evidence of extravasation in the area of previous left parietal hematoma Discussed with stroke telemetry neurology Dr. Calderon and he said he will review the images. 1. Acute episode of unresponsiveness, exact etiology unclear possible differentials new or extension of old stroke, acute encephalopathy, seizure episode: Patient is being admitted in ICU. As per nursing staff, patient did not had fever chills, URI or UTI symptoms. UA 07/29 showed WBC 0 and patient recently treated for Klebsiella pneumoniae by cefadroxil on 08/01 2019. Repeat UA with urinary culture ordered. Stat labs were ordered. [facility] tele-neurology was consulted per stroke protocol Labs shows baseline CBC, PT/INR normal. K4.1. Troponin 0.015. Patient will need further EEG if no improvement. Hat Stock Laminating Machine Operator consult. CT head reviewed and shows improvement in left temporal hemorrhage and no acute change on CTA head and neck therefore acute stroke unlikely. 08/07/2019: Acute stroke unlikely. Patient is awake, alert although mildly disoriented. Seizure episode with history of hematoma/scarred brain tissue is likely. Empiric IV Keppra 500 mg twice daily and Ativan 2 mg as needed for seizure episode. EEG done and reported as abnormal study. Left hemisphere slowing out of proportion to reported left MCA distribution stroke which may reflect stroke expansion or functional abnormalities from recent seizure. No seizure or epileptiform abnormalities found. Mild generalized background slowing. MRI brain reported as left posterior temporal hemorrhage measuring 4.5 x 2.6 x 2.5 cm with normal surrounding echogenic edema. Just superior reported a small area of subacute/chronic infarct. Findings are consistent with history of infarction and hemorrhagic transformation. No evidence of ventricular expansion. The parenchymal hemorrhage continues to decrease in comparison with multiple prior CT exams. Consult [facility] Teleneurology. Echo ordered as the suspicion of possible expansion of previous stroke pending Tele-neurologist review of MRI and consult. 2. Acute encephalopathy, probably metabolic: IV fluid. Electrolytes are within normal limit. Currently patient is n.p.o. Continue PT, OT and speech evaluation when the patient wakes up. 08/07/19: Ammonia 35 although high cutoff is 32. TSH normal. Electrolytes within normal limit. ABG 7.46/30 5/64 on room air. MRSA PCR negative. Glucose within normal limit. Mild dehydration which is corrected. 3 essential HTN -continue hold antihypertensive medications. 4 CAD with hx of PTCA X 1 in 2016: Twelve-lead EKG and serial troponin ordered 5 GERD GERD on IV Protonix 6. ED: Not a concern 7. 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 Dyslipidemia - continue statin DVT prophylaxis: Patient got Lovenox today in rehab. Bilateral SCDs. Continue Lovenox, next dose will be in the morning. Total time of the visit including total time spent in counseling or coordination of care, (more than 50% of the total time, spent in obtaining medical information from nurses and other ancillary care providers), coordination of care with blueprinter, discussion with family members, review of labs and imaging is 40 minutes Laboratory Results 08/06/19 17:50: Lactic Acid 1.1 08/06/19 17:50: PT 12.9, INR 1.0 08/06/19 17:50: Ammonia 35.0 H 08/06/19 17:50: Troponin I < 0.015 08/06/19 17:58: Specimen Type ART, Sample Site R Radial, pH 7.46 H, Bicarbonate Actual 24.5, POC Total CO2 26, Base Excess 1, O2 Saturation 94 L, ABG pCO2 34.4 L, ABG pO2 64 L, Timothy Test NA, O2 Delivery Device Room Air, Blood Gas Notified Whom ICU MD, Blood Gas Notified Time 1756 08/06/19 20:24: POC Glucose 94 08/06/19 20:25: Troponin I < 0.015 08/06/19 20:30: MRSA (PCR) Negative 08/06/19 23:07: POC Glucose 87 08/06/19 23:27: Troponin I < 0.015 08/07/19 04:15: WBC 6.2, RBC 4.04 L, Hgb 13.2, Hct 39.5 L, MCV 97.8 H, MCH 32.7 H, MCHC 33.4, RDW Std Deviation 46.5 H, RDW Coeff of Maritza 12.9, Plt Count 189, MPV 9.7, Immature Gran % (Auto) 0.300, Neut % (Auto) 52.2, Lymph % (Auto) 30.6, [place] % (Auto) 10.4 H, Eos % (Auto) 6.2 H, Baso % (Auto) 0.3, Absolute Neuts (auto) 3.2, Absolute Lymphs (auto) 1.89, Nucleated RBC % 0 08/07/19 04:15: Sodium 142, Potassium 3.9, Chloride 110 H, Carbon Dioxide 28.0, Anion Gap 4 L, BUN 9, Creatinine 0.85, Estim Creat Clear Calc 57.26, Est GFR (MDRD) Af Amer 114, Est GFR (MDRD) Non-Af 94, BUN/Creatinine Ratio 10.6, Glucose 78, Calcium 9.1, TSH 1.94 08/07/19 05:21: POC Glucose 75 Clinical Impression(s) from Imaging Studies Chest X-Ray 08/06/19 17:30 IMPRESSION: No acute cardiopulmonary disease or interval change. Without contrast Continued decreased left temporal hemorrhage. CT angiogram of head and neck: IMPRESSION: 1. Hemodynamically insignificant left carotid plaque by NASCET criteria. 2. Absent P1 segment of the right posterior cerebral artery. The more peripheral branches are supplied via the PCOM. 3. Otherwise normal [place]. 4. Normal vertebral arteries. Area of low attenuation in the left parietal lobe were hematoma was previously seen. Clinical Impression(s) from Imaging Studies Chest X-Ray 08/06/19 17:30 IMPRESSION: No acute cardiopulmonary disease or interval change. Brain MRI 08/07/19 08:43 IMPRESSION: Left parietotemporal infarct and 4.5 cm hemorrhagic transformation. Continued follow-up is recommended. Code Visit Inpatient E&M: 16561 [facility] Hosp L3
[2019-08-07 09:15] LABS: Bacteria 0 SEEN /hpf (None Seen); Mucous, Urine 0 SEEN /hpf (<or=2+); Red Blood Cells-Urine 0 SEEN /hpf (0-5); Squamous Epithelial Cells - UA 0 SEEN /hpf (0-5); White Blood Cells 0 SEEN /hpf (0-5)
[2019-08-07 09:27] LABS: Color, Urine Yellow (Yellow); Glucose, Dipstick Normal (Normal); Ketone-Dipstick Negative (Negative); Leukocyte Esterase-Dipstick Negative /ul (Negative); Nitrite-Dipstick Negative (Negative); Occult Blood-Urine Negative /ul (Negative); Protein-Dipstick Negative (Negative); Urine Bilirubin Dipstick Negative (Negative); Urine Clarity Clear (Clear); Urine Urobilinogen Normal (Normal)
--- NOTE | 2019-08-07 10:27 | CON.PCM_ITS ---
Problem List (1) Intracerebral hemorrhage Status: Chronic Qualifiers: (2) Intraventricular hemorrhage Status: Chronic (3) Hypertension Status: Chronic (4) Coronary artery disease Status: Chronic (5) History of PTCA 1 Status: Chronic Comment: 2016 (6) Tobacco dependence in remission Status: Chronic Comment: Quit in 1979 (7) Dyslipidemia Status: Chronic (8) Acute encephalopathy Status: Acute Comment: due to CVA and UTI and dehydration (9) Erectile dysfunction Status: Chronic (10) Cerebrovascular accident, embolic Status: Acute Comment: Left frontal, right parietal and left cerebellum (11) Overweight (BMI 25.0-29.9) Status: Chronic (12) GERD (gastroesophageal reflux disease) Status: Chronic (13) Complicated UTI (urinary tract infection) Status: Acute Comment: due to E. COLI and Kleibsiella Pneumoniae - related to Flores catheter inserted for urine retention. (14) Urine retention Status: Resolved Comment: (15) BPH (benign prostatic hyperplasia) Status: Suspected (16) Dehydration Status: Resolved (17) Hypercalcemia Status: Resolved Comment: resolved with hydration (18) Elevated PSA, between 10 and less than 20 ng/ml Status: Acute Comment: PSA was normal on the lab he had in the fall of 2018 (19) Macrocytic anemia Status: Acute Comment: stable (20) Depression Status: Acute (21) Hypotension Status: Inactive Comment: Due to dehydration (22) Unresponsive episode Status: Acute Reason for Consult Date of Consultation: 08/07/19 Reason for Consultation: Unresponsiveness History of Present Illness: The patient is a 74 year old M, with past medical history listed below, who was on rehab and became unresponsive while working with speech therapy. Patient was reportedly watching TV and then became more lethargic, less responsive and stopped making eye contact. Stroke alert was called and patient was taken directly to CT scan. Previous intracranial hemorrhage was reportedly improved compared to previous. Patient did have some cerebral atrophy, but no other obvious occlusion. CTA of the neck showed an insignificant left carotid plaque. Patient continued to be unresponsive, so was transferred to the intensive care unit for further evaluation. Overnight, patient started to become more responsive. Patient did have an NIH of 4 secondary to left lower extremity drift and dysarthria. Patient did not require any supplemental oxygen and blood pressures were well controlled. No seizure activity was reported. An EEG was ordered, but was unable to be completed until this morning. On my evaluation, patient was a poor historian. Patient was unable to provide much additional history and had no recollection of yesterday's events. Patient told me that he felt that he was at his baseline yesterday prior to this acute issue. Patient was not reporting any pain, dysuria, cough or rashes. Unable to obtain a reliable additional review of systems secondary to mental status. Past Medical History Past Medical History (Chronic Problems): Chronic Problems Intracerebral hemorrhage (Chronic) Intraventricular hemorrhage (Chronic) Hypertension (Chronic) Coronary artery disease (Chronic) History of PTCA 1 (Chronic) 2015 Tobacco dependence in remission (Chronic) Quit in 1979 Dyslipidemia (Chronic) Erectile dysfunction (Chronic) Overweight (BMI 25.0-29.9) (Chronic) GERD (gastroesophageal reflux disease) (Chronic) Allergies No Known Allergies Allergy (Verified 10/26/17 11:43) Home Medications: Ambulatory Orders Medication Instructions Recorded Aspirin [Aspirin, Baby] 81 mg PO DAILY@0800 10/26/17 Fluticasone 0.05% [Flonase Nasal 1 spray NASAL DAILY 10/26/17 [place]] Loratadine 10 mg PO DAILY 10/26/17 Rosuvastatin Calcium [Crestor] 10 mg PO QHS 10/26/17 Acetaminophen [Tylenol] 650 mg PO Q6H PRN 07/01/19 Cyanocobalamin (Vitamin B-12) 1,000 mcg PO DAILY 07/01/19 [Vitamin B-12] Bisacodyl [Dulcolax] 10 mg RECTAL .PRN X 1 PRN suppos. 07/29/19 Cefadroxil [Duricef] 1,000 mg PO BID #6 cap 07/29/19 Haloperidol [Haldol] 2 mg PO Q6H PRN PRN #1 tab 07/29/19 Magnesium Hydroxide [Milk Of 30 ml PO .PRN X 1 PRN udc 07/29/19 Magnesia] Melatonin 3 mg PO QHS tab 07/29/19 Mirtazapine [Remeron] 30 mg PO QHS tab 07/29/19 Pantoprazole Sodium [Protonix] 20 mg PO BID tab 07/29/19 Quetiapine Fumarate [Seroquel] 12.5 mg PO DAILY@0800 tab 07/29/19 Quetiapine Fumarate [Seroquel] 62.5 mg PO DAILY@1999 tab 07/29/19 Senna/Docusate Sodium [Senokot-S] 2 tab PO BID tab 07/29/19 Surgical History: cholecystectomy Psychiatric History: No pertinent psych hx Smoking Status: Former smoker Tobacco Use: Cigarettes - *Family History Maternal History Items: - - Unable to obtain at this time....pt non-verbal with espressive aphasia Review of Systems Unable to obtain accurate/complete ROS d/t: See HPI Patient Problems: Active and Suspected Problems Unresponsive episode (Acute) Objective: All imaging was personally reviewed. Agree with formal interpretation. EEG is being prepared at this time. - Physical Exam Vitals/I&O's: Vital Signs Temp Pulse Resp BP Pulse Ox 36.3 C L 79 16 105/67 92 08/07/19 08:00 08/07/19 08:00 08/07/19 08:00 08/07/19 08:00 08/07/19 08:00 Oxygen Delivery Method Room Air Weight: 66.1 kg Body Mass Index (BMI) 27.7 Finger Stick Blood Glucose 88 Intake and Output for Last 24 Hours 08/05/19 08/06/19 08/07/19 23:59 23:59 23:59 Intake Total 392.5 / 392.5 693.75 / 693.75 Output Total 100 / 100 100 / 100 Balance 292.5 / 292.5 593.75 / 593.75 General: Alert, Cooperative - Requires frequent redirection, No apparent distress, - - No conversational dyspnea HEENT: Atraumatic, PERRLA, EOMI, Normocephalic, - - No appreciable facial droop noted. No scleral icterus or injection noted Oral: Moist Mucosa, No Gingival or Mucosal Lesions/ Ulcerations Neck: Supple, No JVD, No Nodes, Trachea Midline Lungs: No rhonchi, No wheeze, No rales, Diminished, - - Symmetric expansion. No dullness to percussion. Cardiovascular: Regular rate, Regular Rhythm, Normal S1, Normal S2, No murmurs, No rub noted Abdomen: Bowel Sounds Present, Soft, Non Tender, Non-Distended Extremities: No clubbing, No cyanosis, No edema, Capillary Refill Less than 3 Seconds Skin: No rashes Musculoskeletal: No Tenderness to Palpation of Joints or Extremities, Arthritic Changes Lymphatic: No Cervical, Supraclavicular, or Inguinal Adenopathy Neurological: - - Slight dysarthria. Left lower extremity drift. No nystagmus appreciated. No tremor appreciated. Psych/Mental Status: Anxious, Restless Laboratory Results 08/06/19 17:50: WBC 5.4, RBC 3.97 L, Hgb 12.8 L, Hct 38.6 L, MCV 97.2 H, MCH 32.2 H, MCHC 33.2, RDW Std Deviation 45.8 H, RDW Coeff of Maritza 12.9, Plt Count 186, MPV 9.7, Immature Gran % (Auto) 0.400, Neut % (Auto) 60.3, Lymph % (Auto) 24.6, [place] % (Auto) 10.6 H, Eos % (Auto) 3.9, Baso % (Auto) 0.2, Absolute Neuts (auto) 3.2, Absolute Lymphs (auto) 1.32, Nucleated RBC % 0 08/06/19 17:50: Sodium 142, Potassium 4.0, Chloride 111 H, Carbon Dioxide 29.0, Anion Gap 2 L, BUN 12, Creatinine 0.92, Estim Creat Clear Calc 52.90, Est GFR (MDRD) Af Amer 104, Est GFR (MDRD) Non-Af 86, BUN/Creatinine Ratio 13.1, Glucose 99, Calcium 9.7, Magnesium 2.4, Total Bilirubin 0.20, AST 13 L, ALT 25, Alkaline Phosphatase 64, Total Protein 6.1 L, Albumin 2.9 L, Globulin 3.2, Albumin/Globulin Ratio 0.9 08/06/19 17:50: Lactic Acid 1.1 08/06/19 17:50: PT 12.9, INR 1.0 08/06/19 17:50: Ammonia 35.0 H 08/06/19 17:50: Troponin I < 0.015 08/06/19 17:58: Specimen Type ART, Sample Site R Radial, pH 7.46 H, Bicarbonate Actual 24.5, POC Total CO2 26, Base Excess 1, O2 Saturation 94 L, ABG pCO2 34.4 L, ABG pO2 64 L, Timothy Test NA, O2 Delivery Device Room Air, Blood Gas Notified Whom ICU , Blood Gas Notified Time 1758 08/06/19 20:24: POC Glucose 94 08/06/19 20:25: Troponin I < 0.015 08/06/19 20:30: MRSA (PCR) Negative 08/06/19 23:07: POC Glucose 87 08/06/19 23:27: Troponin I < 0.015 08/07/19 04:15: WBC 6.2, RBC 4.04 L, Hgb 13.2, Hct 39.5 L, MCV 97.8 H, MCH 32.7 H, MCHC 33.4, RDW Std Deviation 46.5 H, RDW Coeff of Maritza 12.9, Plt Count 189, MPV 9.7, Immature Gran % (Auto) 0.300, Neut % (Auto) 52.2, Lymph % (Auto) 30.6, [place] % (Auto) 10.4 H, Eos % (Auto) 6.2 H, Baso % (Auto) 0.3, Absolute Neuts (auto) 3.2, Absolute Lymphs (auto) 1.89, Nucleated RBC % 0 08/07/19 04:15: Sodium 142, Potassium 3.9, Chloride 110 H, Carbon Dioxide 28.0, Anion Gap 4 L, BUN 9, Creatinine 0.85, Estim Creat Clear Calc 57.26, Est GFR (MDRD) Af Amer 114, Est GFR (MDRD) Non-Af 94, BUN/Creatinine Ratio 10.6, Glucose 78, Calcium 9.1, TSH 1.94 08/07/19 05:21: POC Glucose 75 08/07/19 09:05: Urine Color Yellow, Urine Clarity Clear, Urine pH 8.0, Ur Specific [place] 1.010, Urine Protein Negative, Urine Glucose (UA) Normal, Urine Ketones Negative, Urine Occult Blood Negative, Urine Nitrite Negative, Urine Bilirubin Negative, Urine Urobilinogen Normal, Ur Leukocyte Esterase Negative, Urine RBC 0 SEEN, Urine WBC 0 SEEN, Ur Squamous Epith Cells 0 SEEN, Urine Bacteria 0 SEEN, Urine Mucus 0 SEEN Current Medications Acetaminophen (Tylenol) 650 mg RECTAL Q4H PRN PRN PRN Reason: Pain Score 1-10/Temp > 100.7 F Albuterol Sulfate (Ventolin Aerosols) 2.5 mg INHALATION Q2H PRN PRN PRN Reason: SOB/Wheezing Aspirin (Aspirin, Baby) 81 mg PO DAILY@0800 [facility] Enoxaparin Sodium (Lovenox) 40 mg SC DAILY [facility] Pantoprazole Sodium 40 mg/ (Sodium Chloride) 110 mls @ 330 mls/hr IV Q24 [facility] Last Infusion: 08/06/19 20:02 Dose: Infused Documented by: Dextrose (Dextrose 10%-Water) 250 mls @ 999 mls/hr IV .Q16M PRN; Protocol PRN Reason: HYPOGLYCEMIA Levetiracetam 500 mg/ Sodium (Chloride) 105 mls @ 400 mls/hr IV Q12 [facility] Last Infusion: 08/06/19 21:28 Dose: Infused Documented by: Lorazepam (Ativan) 2 mg IV Q4H PRN PRN PRN Reason: SEIZURES Nitroglycerin (Nitrostat) 0.4 mg SUBLINGUAL Q5M PRN PRN Reason: CARDIAC/CHEST PAIN Ondansetron HCl (Zofran) 4 mg IV Q8H PRN PRN PRN Reason: NAUSEA/VOMITING Clinical Impression(s) from Imaging Studies Chest X-Ray 08/06/19 17:30 IMPRESSION: No acute cardiopulmonary disease or interval change. Electronically Signed: Sunil Head DO at 18:42 EST Tel [phone], Service support , Assessment/Plan Active and Suspected Problems Unresponsive episode (Acute) RECOMMENDATIONS: 1. Obtain EEG 2. Bedside swallow evaluation with initiation of diet if appropriate 3. Discontinue IV fluids 4. Potential transfer out of the intensive care unit later today IMPRESSIONS: 1. Acute unresponsiveness secondary to probable seizure Patient would be at high risk for seizure leading to current symptomatology. Patient did have a recent cranial hemorrhage, which would increase his risk factors. Patient appears to be back to his baseline neurologic status from that event. Patient is not a TPA candidate. Patient is currently on empiric IV Keppra, but this can likely be transitioned over to p.o. Keppra if passes bedside swallow evaluation. Ativan as needed for seizures 2. Acute encephalopathy Clinical suspicion for post ictal period necessitating ICU evaluation. Hemodynamics have remained within normal range throughout his hospital stay. Continue to monitor closely. Patient may require prolonged antiseizure medications. Neuro consult is currently pending. Do not believe ammonia of 35 would account for current findings. Electrolytes are within normal limits. 3. Essential hypertension/CAD/GERD/dyslipidemia/recent ICH Complicates care, management, recovery and prognosis. Likely okay to continue with baseline medications. Code Visit Inpatient E&M: 16961 Init Hosp L3
--- NOTE | 2019-08-07 11:05 | CASEMGMT ---
Addendum entered by Jolly Duff 08/07/19 13:56: TCU will have a bed available on Sunday. Insurance precert will need obtained prior to pt admission. Pt family notified and understanding. Plan: TCU, pending insurance auth ULYSSES Xiao Original Note: Social Work Attended interdisciplinary rounds. Pt and daughter in attendance. SW met with family after rounds and discussed d/c plan. Pt has been in [facility] Inpt rehab since 07/01/19. Family states they have spoke to rehab physician who is recommending SNF level of care after hospitalization. Family would prefer TCU. SW explained that bed availability would need to be investigated and explained that insurance would have to give prior authorization. Insurance questions answered and family express understanding. VM left with TCU for bed availablility and referral. Will await return call. ULYSSES Xiao
[2019-08-07] MEDS: Enoxaparin 40 MG/0.4 ML Syringe SC (11:55)
[2019-08-07] MEDS: Aspirin 81 MG TAB.CHEW PO (12:01)
--- NOTE | 2019-08-07 15:52 | ECHOCS_ITS ---
Reason For Study: CVA Procedure This was a 2D Doppler, Color Flow transthoracic echocardiogram. The study was technically limited. The study was technically difficult. Patient contracted into the position on his right side every time I touched the probe on his chest. Exam performed portable in patient room. Left Ventricle Normal LV size. The estimated ejection fraction is 55 %. Normal diastology for age. No regional wall motion abnormalities noted. Right Ventricle Normal RV size. Normal systolic function. Atria Normal left atrium. Normal right atrium. No doppler evidence for ASD. Mitral Valve There is no mitral valve stenosis. No mitral valve insufficiency. Tricuspid Valve There is no tricuspid stenosis. No tricuspid valve insufficiency. Unable to estimate RV systolic pressure due to insufficient tricuspid regurgitant envelope. Aortic Valve Trisinus/trileaflet aortic valve. There is no aortic stenosis. No aortic valve insufficiency. Pulmonic Valve There is no pulmonic valvular stenosis. No pulmonic valve insufficiency. Great Vessels Normal aortic root. Pericardium/Pleural No pericardial effusion. MMode/2D Measurements & Calculations LVIDd: 4.5 cm IVSd: 0.91 cm Ao root diam: 4.0 cm LVIDs: 3.3 cm LVPWd: 0.94 cm FS: 27.7 % LA dimension(2D): 3.3 cm Doppler Measurements & Calculations MV E max brett: 34.0 cm/sec Lat Peak E' Brett: 6.4 cm/sec Med Peak E' Brett: 5.7 cm/sec MV A max brett: 49.5 cm/sec E/E' lat: 5.3 E/E' med: 6.0 MV E/A: 0.69 Ao V2 max: 97.5 cm/sec LV V1 max: 63.7 cm/sec PA V2 max: 69.3 cm/sec Ao max P.8 mmHg LV V1 max P.6 mmHg Interpretation Summary The estimated ejection fraction is 55 %. Normal diastology for age. No regional wall motion abnormalities noted. Ordering Physician: Bill Vo Referring Physician: Bill Vo Performed By: Florence Moeller RDCS
--- NOTE | 2019-08-07 16:09 | NURSING ---
PT TOLERATED MRI POORLY THE LAST 6 MINUTES OF THE EXAM DUE TO HAVING THE URGE TO DEFICATE. PT REASSURED DURING THE END OF THE SCAN MULTIPLE TIMES OF HOW MUCH TIME HE HAD LEFT IN THE SCANNER. AFTER MRI PT CONTENT ON TRANSPORT BACK TO ICU. PT ASSISTED TO BEDSIDE COMMODE.
[2019-08-07] MEDS: MELATONIN 3 MG TABLET PO (20:34)
[2019-08-07] MEDS: Atorvastatin Calcium 20 MG Tablet PO (20:34)
[2019-08-07] MEDS: 0.9% Saline Lock 10 ML Syringe IV (20:47)
[2019-08-08] VITALS (13 sets, daily range): BP systolic 95–137; BP diastolic 57–77; PULSE 61–89; RESP 15–16; TEMP 36.6–37.1; O2SAT 93–96; BMI 27.7
[2019-08-08] MEDS: Enoxaparin 40 MG/0.4 ML Syringe SC (10:50)
[2019-08-08] MEDS: Aspirin 81 MG TAB.CHEW PO (10:54)
[2019-08-08] MEDS: Pantoprazole Sodium 40 MG Tablet PO (10:54)
--- NOTE | 2019-08-08 13:40 | PN_ITS ---
Patient Problems: Active and Suspected Problems Unresponsive episode (Acute) Subjective: Patient seen and examined. He was admitted from the rehab unit after being found unresponsive. Stroke alert was called and CT of the head showed continued decrease in left temporal hemorrhage. He was in rehab on account of intracerebral hemorrhage. Neurology reviewed patient and thought he was likely having post ICH seizures. He is currently on Keppra. Patient stated this morning. Nurse and another caregiver were by him as he had been agitated. He was calm at time of review would open his eyes when called but unable to do review of systems as he was answering questions. Moving all limbs spontaneously. Per his nurse, patient is able to sit up and eat his food. Vitals/I&O's: Vital Signs Temp Pulse Resp BP Pulse Ox 98.7 F 88 16 109/68 93 08/08/19 09:30 08/08/19 09:30 08/08/19 09:30 08/08/19 09:30 08/08/19 09:30 Oxygen Delivery Method Room Air Weight: 143 lb 4.807 oz Body Mass Index (BMI) 27.7 Finger Stick Blood Glucose 88 Intake and Output for Last 24 Hours 08/06/19 08/07/19 08/08/19 23:59 23:59 23:59 Intake Total 392.5 / 392.5 1194.00 / 1194.00 505 / 505 Output Total 100 / 100 950 / 950 Balance 292.5 / 292.5 244.00 / 244.00 505 / 505 General: - - confused, restless HEENT: Atraumatic, PERRLA, EOMI, Normocephalic Oral: Dry Mucosa Neck: Supple, No JVD, Negative Carotid Bruits Lungs: Clear to auscultation, Normal air movement, No rhonchi, No wheeze Cardiovascular: Regular rate, Regular Rhythm, Normal S1, Normal S2, No murmurs Abdomen: Bowel Sounds Present, Soft, Non Tender, Non-Distended, No Hepato- splenomegaly Extremities: No clubbing, No cyanosis, No edema, Capillary Refill Less than 3 Seconds Skin: No rashes, No breakdown Musculoskeletal: No Tenderness to Palpation of Joints or Extremities Neurological: - - opens eyes when called, moving all limbs spontaneously Psych/Mental Status: Restless Current Medications Acetaminophen (Tylenol) 650 mg RECTAL Q4H PRN PRN PRN Reason: Pain Score 1-10/Temp > 100.7 F Albuterol Sulfate (Ventolin Aerosols) 2.5 mg INHALATION Q2H PRN PRN PRN Reason: SOB/Wheezing Aspirin (Aspirin, Baby) 81 mg PO DAILY@0800 [facility] Last Admin: 08/08/19 10:54 Dose: 81 mg Documented by: Atorvastatin Calcium (Lipitor) 20 mg PO QHS [facility] Last Admin: 08/07/19 20:34 Dose: 20 mg Documented by: Enoxaparin Sodium (Lovenox) 40 mg SC DAILY [facility] Last Admin: 08/08/19 10:50 Dose: 40 mg Documented by: Dextrose (Dextrose 10%-Water) 250 mls @ 999 mls/hr IV .Q16M PRN; Protocol PRN Reason: HYPOGLYCEMIA Levetiracetam 500 mg/ Sodium (Chloride) 105 mls @ 400 mls/hr IV Q12 [facility] Last Infusion: 08/08/19 11:21 Dose: Infused Documented by: Sodium Chloride () 250 mls @ 15 mls/hr IV .[id number] PRN PRN Reason: Saline Flush Last Infusion: 08/07/19 20:47 Dose: 0 mls/hr Documented by: Sodium Chloride () 250 mls @ 15 mls/hr IV .[id number] PRN PRN Reason: Additional IVPB Infusion Lorazepam (Ativan) 2 mg IV Q4H PRN PRN PRN Reason: SEIZURES Melatonin (Melatonin) 3 mg PO QHS [facility] Last Admin: 08/07/19 20:34 Dose: 3 mg Documented by: Nitroglycerin (Nitrostat) 0.4 mg SUBLINGUAL Q5M PRN PRN Reason: CARDIAC/CHEST PAIN Ondansetron HCl (Zofran) 4 mg IV Q8H PRN PRN PRN Reason: NAUSEA/VOMITING Pantoprazole Sodium (Protonix) 40 mg PO DAILY [facility] Last Admin: 08/08/19 10:54 Dose: 40 mg Documented by: Quetiapine Fumarate (Seroquel) 25 mg PO QHS PRN PRN PRN Reason: INSOMNIA Sodium Chloride () 10 - 40 ml IV UD PRN PRN Reason: SALINE FLUSH Last Admin: 08/07/19 20:47 Dose: 10 ml Documented by: Medical Necessity - Tobacco Use Smoking Status: Smoker, status unknown Tobacco Use: Cigarettes Assessment/Plan All Active Problems Acute encephalopathy (Acute) Cerebrovascular accident, embolic (Acute) Complicated UTI (urinary tract infection) (Acute) Urine retention (Resolved) Dehydration (Resolved) Hypercalcemia (Resolved) Elevated PSA, between 10 and less than 20 ng/ml (Acute) Macrocytic anemia (Acute) Depression (Acute) Unresponsive episode (Acute) 1. Acute metabolic encephalopathy due to post intracerebral hemorrage seizures * CT of the head showed decrease in the left temporal hemorrhage and CT of the head and neck showed hemodynamically insignificant left carotid plaque * Tele-neurology consulted and think it is due to post intracerebral hemorrhage seizure. Currently on IV Keppra. * Will consider switching to p.o. Keppra. * D OT on board. Speech therapy to evaluate patient. * 2. Hypertension: Current meds on hold. We will continue holding as BP is 95/57 today. 3. CAD status post stent in 2016: Troponins x3 were negative. On aspirin and statin. 4. Hyperlipidemia: On statin 5. GERD: On Protonix DVT prophylaxis: Lovenox Disposition: For discharge to TCU once pre-CERT is received. Code Visit Inpatient E&M: 81430 Subs Hosp L2
[2019-08-08] MEDS: MELATONIN 3 MG TABLET PO (21:36)
[2019-08-08] MEDS: Atorvastatin Calcium 20 MG Tablet PO (21:36)
[2019-08-08] MEDS: QUEtiapine 25 MG Tablet PO (21:36)
[2019-08-09] VITALS (13 sets, daily range): BP systolic 100–118; BP diastolic 58–66; PULSE 59–85; RESP 15–18; TEMP 36.4–36.8; O2SAT 94–98; BMI 27.7
[2019-08-09] MEDS: Aspirin 81 MG TAB.CHEW PO (07:53)
[2019-08-09] MEDS: Pantoprazole Sodium 40 MG Tablet PO (11:17)
[2019-08-09] MEDS: Enoxaparin 40 MG/0.4 ML Syringe SC (11:17)
[2019-08-09] MEDS: levETIRAcetam 500 MG Tablet PO ×2 (11:17→21:19)
[2019-08-09] MEDS: Acetaminophen 650 MG Suppository RECTAL (11:25)
--- NOTE | 2019-08-09 12:20 | PN_ITS ---
Patient Problems: Active and Suspected Problems Unresponsive episode (Acute) Subjective: Patient seen and examined. He is more alert today and is able to communicate. He had no complaints today and denied any fever or chills or shortness of breath, chest pain, nausea vomiting. 12 point review of systems otherwise negative. Labs and vitals reviewed. Vitals/I&O's: Vital Signs Temp Pulse Resp BP Pulse Ox 98.2 F 80 18 110/58 L 95 08/09/19 09:00 08/09/19 10:50 08/09/19 09:00 08/09/19 09:00 08/09/19 09:00 Oxygen Delivery Method Room Air Weight: 143 lb 11.862 oz Body Mass Index (BMI) 27.7 Finger Stick Blood Glucose 88 Intake and Output for Last 24 Hours 08/07/19 08/08/19 08/09/19 23:59 23:59 23:59 Intake Total 1194.00 / 1194.00 1090 / 1090 340 / 340 Output Total 950 / 950 125 / 125 Balance 244.00 / 244.00 1090 / 1090 215 / 215 General: Alert, Cooperative HEENT: Atraumatic, PERRLA, EOMI, Normocephalic Oral: Moist Mucosa Neck: Supple, No JVD, Negative Carotid Bruits Lungs: Clear to auscultation, Normal air movement Cardiovascular: Regular rate, Regular Rhythm, Normal S1, Normal S2, No murmurs Abdomen: Bowel Sounds Present, Soft, Non Tender, Non-Distended, No Hepato- splenomegaly Extremities: No clubbing, No cyanosis, No edema, Capillary Refill Less than 3 Seconds Skin: No rashes, No breakdown Musculoskeletal: No Tenderness to Palpation of Joints or Extremities Lymphatic: No Cervical, Supraclavicular, or Inguinal Adenopathy Neurological: Cranial nerves II-XII grossly intact, Neuro grossly intact, Motor Exam 5/5 strength throughout Psych/Mental Status: Normal Affect, Appropriate, Alert and oriented to time, place, person, mood and affect Current Medications Acetaminophen (Tylenol) 650 mg RECTAL Q4H PRN PRN PRN Reason: Pain Score 1-10/Temp > 100.7 F Last Admin: 08/09/19 11:25 Dose: 650 mg Documented by: Albuterol Sulfate (Ventolin Aerosols) 2.5 mg INHALATION Q2H PRN PRN PRN Reason: SOB/Wheezing Aspirin (Aspirin, Baby) 81 mg PO DAILY@0800 [facility] Last Admin: 08/09/19 07:53 Dose: 81 mg Documented by: Atorvastatin Calcium (Lipitor) 20 mg PO QHS [facility] Last Admin: 08/08/19 21:36 Dose: 20 mg Documented by: Enoxaparin Sodium (Lovenox) 40 mg SC DAILY [facility] Last Admin: 08/09/19 11:17 Dose: 40 mg Documented by: Dextrose (Dextrose 10%-Water) 250 mls @ 999 mls/hr IV .Q16M PRN; Protocol PRN Reason: HYPOGLYCEMIA Sodium Chloride () 250 mls @ 15 mls/hr IV .[id number] PRN PRN Reason: Saline Flush Last Infusion: 08/07/19 20:47 Dose: 0 mls/hr Documented by: Sodium Chloride () 250 mls @ 15 mls/hr IV .[id number] PRN PRN Reason: Additional IVPB Infusion Levetiracetam (Keppra Tablet) 500 mg PO BID [facility] Last Admin: 08/09/19 11:17 Dose: 500 mg Documented by: Lorazepam (Ativan) 2 mg IV Q4H PRN PRN PRN Reason: SEIZURES Melatonin (Melatonin) 3 mg PO QHS [facility] Last Admin: 08/08/19 21:36 Dose: 3 mg Documented by: Nitroglycerin (Nitrostat) 0.4 mg SUBLINGUAL Q5M PRN PRN Reason: CARDIAC/CHEST PAIN Ondansetron HCl (Zofran) 4 mg IV Q8H PRN PRN PRN Reason: NAUSEA/VOMITING Pantoprazole Sodium (Protonix) 40 mg PO DAILY [facility] Last Admin: 08/09/19 11:17 Dose: 40 mg Documented by: Quetiapine Fumarate (Seroquel) 25 mg PO QHS PRN PRN PRN Reason: INSOMNIA Last Admin: 08/08/19 21:36 Dose: 25 mg Documented by: Sodium Chloride () 10 - 40 ml IV UD PRN PRN Reason: SALINE FLUSH Last Admin: 08/07/19 20:47 Dose: 10 ml Documented by: STROKE Vital Signs/Narrative: Vital Signs Temp Pulse Resp BP Pulse Ox 08/09/19 10:50 80 08/09/19 09:00 98.2 F 65 18 110/58 L 95 Medical Necessity - Tobacco Use Smoking Status: Smoker, status unknown Tobacco Use: Cigarettes Assessment/Plan All Active Problems Acute encephalopathy (Acute) Cerebrovascular accident, embolic (Acute) Complicated UTI (urinary tract infection) (Acute) Urine retention (Resolved) Dehydration (Resolved) Hypercalcemia (Resolved) Elevated PSA, between 10 and less than 20 ng/ml (Acute) Macrocytic anemia (Acute) Depression (Acute) Unresponsive episode (Acute) 1. Acute metabolic encephalopathy due to post intracerebral hemorrhage seizures * CT of the head showed decrease in the left temporal hemorrhage and CT of the head and neck showed hemodynamically insignificant left carotid plaque * Tele-neurology consulted and think it is due to post intracerebral hemorrhage seizure. Currently on IV Keppra. * switched IV keppra to PO keppra 500mg bid toda * D OT on board. Speech therapy to evaluate patient. * 2. Hypertension: Current meds on hold. BP has been well controlled and is 110/58 today. Continue monitoring. 3. CAD status post stent in 2016: On aspirin and statin. 4. Hyperlipidemia: On statin 5. GERD: On Protonix DVT prophylaxis: Lovenox Disposition: For discharge to TCU once pre-CERT is received. Code Visit Inpatient E&M: 82202 Subs Hosp L2
[2019-08-09] MEDS: QUEtiapine 25 MG Tablet PO (21:19)
[2019-08-09] MEDS: MELATONIN 3 MG TABLET PO (21:19)
[2019-08-09] MEDS: Atorvastatin Calcium 20 MG Tablet PO (21:19)
[2019-08-10] VITALS (12 sets, daily range): BP systolic 99–131; BP diastolic 63–75; PULSE 67–91; RESP 14–18; TEMP 36.5–36.9; O2SAT 94–99; BMI 27.7
[2019-08-10] MEDS: 0.9% Saline Lock 10 ML Syringe IV ×2 (04:47→18:49)
--- NOTE | 2019-08-10 04:50 | NURSING ---
Patient set off bed alarm, was attempting to climb out of bed. Patient removed his brief and threw his urinal onto the floor. Myself and several other RNs attempted to ask the patient to lie down. Patient is confused and not following commands. Patient was assisted back into the bed and immediately attempted to climb out again. Dr. Neri paged.
[2019-08-10] MEDS: Haloperidol Lactate 5 MG/ML Vial 2 MG IV (05:06)
--- NOTE | 2019-08-10 05:14 | NURSING ---
Unable to complete NIH SS assessment at this time d/t patient's confusion and inability to follow commands. Will reassess at a later time.
[2019-08-10] MEDS: levETIRAcetam 500 MG Tablet PO ×2 (10:42→19:54)
[2019-08-10] MEDS: Aspirin 81 MG TAB.CHEW PO (10:42)
[2019-08-10] MEDS: Pantoprazole Sodium 40 MG Tablet PO (10:42)
[2019-08-10] MEDS: Enoxaparin 40 MG/0.4 ML Syringe SC (10:42)
--- NOTE | 2019-08-10 10:45 | PCM.PROGNOTE ---
Patient Problems: Active and Suspected Problems Unresponsive episode (Acute) Subjective: All events of the past 24 Hours have been reviewed VS: Vital signs are stable and he is maintaining appropriate oxygen saturation on room air. TMAX -afebrile I&O -poor to fair Telemetry -telemetry shows persistent artifact. When there is no artifact he is in normal sinus rhythm. No atrial fibrillation or atrial flutter detected. Lab: No labs since the . UA on 220 had 0 WBCs. Subjective: He received Haldol last night for agitation. He is somewhat sleepy this morning but is easily aroused. He is following commands appropriately and talking with me. Recognized me. Denies shortness of breath, chest pain, abdominal pain, dysuria. PT/OT/ST notes were reviewed. Pt is requiring much more assistance with PT than he was requiring in the rehab unit. He will go to SNF [facility] [place] and we are hoping he will go to TCU. - Physical Exam Vitals/I&O's: Vital Signs Temp Pulse Resp BP Pulse Ox 97.7 F L 73 14 101/66 94 08/10/19 09:00 08/10/19 09:00 08/10/19 09:00 08/10/19 09:00 08/10/19 09:00 Oxygen Delivery Method Room Air Weight: 144 lb 9.972 oz Body Mass Index (BMI) 27.7 Finger Stick Blood Glucose 88 Intake and Output for Last 24 Hours 08/08/19 08/09/19 08/10/19 23:59 23:59 23:59 Intake Total 1090 / 1090 700 / 1050 650 / 650 Output Total 275 / 475 350 / 350 Balance 1090 / 1090 425 / 575 300 / 300 General: Cooperative, Well developed, - - He keeps his eyes closed but he is easily arousable and even with his eyes closed participate in conversation. He frequently listens and keeps eyes closed and you think he is sleeping but, all of a sudden he will participate in the conversation. He is able to follow all simple commands. HEENT: Atraumatic, PERRLA, EOMI, Normocephalic Oral: Dry Mucosa Neck: Supple, No JVD, Negative Carotid Bruits, No Nodes, Trachea Midline Lungs: Clear to auscultation, Normal air movement, - - he is having some apneic episodes Cardiovascular: Regular rate, Regular Rhythm, Normal S1, Normal S2, No murmurs, No Ectopic Activity, No Gallop Abdomen: Bowel Sounds Present, Soft, Non Tender, Non-Distended, - - he had a BM today Extremities: No clubbing, No cyanosis, No edema, No Calf Tenderness Skin: No rashes, No breakdown Musculoskeletal: No Muscle Wasting Neurological: Cranial nerves II-XII grossly intact, Neuro grossly intact, - - the majority of the deficit due to recent strokes is with cognition. He was ambulating without an assistive device prior to seizure. Psych/Mental Status: Appropriate Current Medications Acetaminophen (Tylenol) 650 mg RECTAL Q4H PRN PRN PRN Reason: Pain Score 1-10/Temp > 100.7 F Last Admin: 08/09/19 11:25 Dose: 650 mg Documented by: Albuterol Sulfate (Ventolin Aerosols) 2.5 mg INHALATION Q2H PRN PRN PRN Reason: SOB/Wheezing Aspirin (Aspirin, Baby) 81 mg PO DAILY@0800 [facility] Last Admin: 08/10/19 10:42 Dose: 81 mg Documented by: Atorvastatin Calcium (Lipitor) 20 mg PO QHS [facility] Last Admin: 08/09/19 21:19 Dose: 20 mg Documented by: Enoxaparin Sodium (Lovenox) 40 mg SC DAILY [facility] Last Admin: 08/10/19 10:42 Dose: 40 mg Documented by: Dextrose (Dextrose 10%-Water) 250 mls @ 999 mls/hr IV .Q16M PRN; Protocol PRN Reason: HYPOGLYCEMIA Sodium Chloride () 250 mls @ 15 mls/hr IV .[id number] PRN PRN Reason: Saline Flush Last Infusion: 08/07/19 20:47 Dose: 0 mls/hr Documented by: Sodium Chloride () 250 mls @ 15 mls/hr IV .[id number] PRN PRN Reason: Additional IVPB Infusion Levetiracetam (Keppra Tablet) 500 mg PO BID [facility] Last Admin: 08/10/19 10:42 Dose: 500 mg Documented by: Lorazepam (Ativan) 2 mg IV Q4H PRN PRN PRN Reason: SEIZURES Melatonin (Melatonin) 3 mg PO QHS [facility] Last Admin: 08/09/19 21:19 Dose: 3 mg Documented by: Nitroglycerin (Nitrostat) 0.4 mg SUBLINGUAL Q5M PRN PRN Reason: CARDIAC/CHEST PAIN Ondansetron HCl (Zofran) 4 mg IV Q8H PRN PRN PRN Reason: NAUSEA/VOMITING Pantoprazole Sodium (Protonix) 40 mg PO DAILY [facility] Last Admin: 08/10/19 10:42 Dose: 40 mg Documented by: Quetiapine Fumarate (Seroquel) 25 mg PO QHS PRN PRN PRN Reason: INSOMNIA Last Admin: 08/09/19 21:19 Dose: 25 mg Documented by: Sodium Chloride () 10 - 40 ml IV UD PRN PRN Reason: SALINE FLUSH Last Admin: 08/10/19 04:47 Dose: 10 ml Documented by: Medical Necessity - Tobacco Use Smoking Status: Smoker, status unknown Tobacco Use: Cigarettes Assessment/Plan All Active Problems Acute encephalopathy (Acute) Cerebrovascular accident, embolic (Acute) Complicated UTI (urinary tract infection) (Acute) Urine retention (Resolved) Dehydration (Resolved) Hypercalcemia (Resolved) Elevated PSA, between 10 and less than 20 ng/ml (Acute) Macrocytic anemia (Acute) Depression (Acute) Unresponsive episode (Acute) Impressions 1. 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 No seizures in the past 24 hours. MRI of the brain did not confirm new CVA. EEG was an abnormal study with left hemispheric focalities out of proportion to reported left MCA distribution stroke which may reflect stroke expansion or functional abnormalities from recent seizure. No seizures or epileptiform abnormalities. 2. debility due to recent strokes - was progressing well in rehab and was ambulating without an AD in Rehab the day the stroke alert was called 3. agitation due to encephalopathy related to recent strokes. He is getting Seroquel only PRN and in rehab he was receiving 75 mg at night and only occasionally requiring Haldol. Will schedule Seroquel at a lower dose....he is on Remeron and Keppra now and they both cause somnolence. 4. [id number] 5. depression - doing well on Remeron in the rehab unit and it was stopped at admission to the ICU post seizure. Restart the Remeron 5. CAD with history of PTCA x1 in 2016/GERD/tobacco dependence in remission/dyslipidemia Restart Seroquel 50 mg p.o. nightly Restart Remeron 30 mg p.o. nightly Check BMP and CBC today Continue Keppra 500 mg p.o. twice daily Haldol 2 mg IV every 6 hours as needed agitation Code Visit Inpatient E&M: 28020 Subs Hosp L2
[2019-08-10 12:28] LABS: Absolute Lymphocyte Count 1.58 X10^3/uL (0.83-4.51); Absolute Neutrophil Count 4.1 X10^3/uL (2.0-7.7); Basophil# 0.02 X10^3/uL; Basophil% 0.3 % (0-1); Eosinophil# 0.15 X10^3/uL; Eosinophils% 2.4 % (0-5); Hematocrit 41.7 % (40-54); Hemoglobin 14.2 g/dL (13.0-16.5); Lymphocyte # 1.58 X10^3/ul (4.0); Lymphocyte % 24.8 % (19-41); Mean Corp Hgb Conc 34.1 g/dL (32-36); Mean Corpuscular Hgb 33.3 pg (27.0-32.0); Mean Corpuscular Volume 97.7 fL (80-94); Mean Platelet Vol. 9.4 fl (6.2-12.0); Monocyte% 7.8 % (0-10); NRBC Flagged by Analyzer 0 % (0-5); Neutrophil # 4.12 X10^3/uL (2.7-7.7); Neutrophil % 64.5 % (47-70); Platelet Count 210 K/mm3 (150-450); RBC Distribution Width CV 12.9 % (11.6-14.6); RBC Distribution Width SD 45.9 fl (35.1-43.9); Red Blood Count 4.27 M/mm3 (4.6-6.2); White Blood Count 6.4 K/mm3 (4.4-11.0)
[2019-08-10 12:42] LABS: Anion Gap 3 (5-15); BUN 7 mg/dL (7-18); BUN/Creat Ratio 7.7 RATIO (10-20); Chloride 114 mmol/L (98-107); Creatinine, Serum 0.92 mg/dL (0.70-1.30); EST Glomerular Filtration Rate 86 mL/min (>60); Est Glom Filt Rate - Afr Amer 104 mL/min (>60); Glucose 117 mg/dL (74-106); Potassium 3.7 mmol/L (3.5-5.1); Sodium Level 143 mmol/L (136-145)
[2019-08-10] MEDS: Mirtazapine 30 MG Tablet PO (19:53)
[2019-08-10] MEDS: QUEtiapine 25 MG Tablet 50 MG PO (19:53)
[2019-08-10] MEDS: Atorvastatin Calcium 20 MG Tablet PO (19:53)
[2019-08-11 01:53] VITALS: BP 114/65; PULSE 74; RESP 16; TEMP 36.6; O2SAT 94
[2019-08-11 03:42] VITALS: PULSE 84
[2019-08-11 06:14] VITALS: BP 105/68; PULSE 69; RESP 18; TEMP 36.9; O2SAT 97
[2019-08-11 07:24] VITALS: PULSE 62
[2019-08-11] MEDS: Enoxaparin 40 MG/0.4 ML Syringe SC (08:44)
[2019-08-11] MEDS: Aspirin 81 MG TAB.CHEW PO (08:44)
[2019-08-11] MEDS: Pantoprazole Sodium 40 MG Tablet PO (08:44)
[2019-08-11] MEDS: levETIRAcetam 500 MG Tablet PO (08:51)
[2019-08-11 09:45] VITALS: BMI 27.7
--- NOTE | 2019-08-11 09:48 | CASEMGMT ---
Patient was approved to go to [facility] TCU. SW notified RN who notified physician. SW also notified secretary specialist and will notify family once the arrive. Gilda CHAN
[2019-08-11 10:15] VITALS: BP 96/52; PULSE 65; RESP 20; TEMP 36.4; O2SAT 97
--- NOTE | 2019-08-11 10:17 | PCM.TXEXTCAR ---
- Diet 08/07/19 12:39 Diet: Cardiac/Low Cholesterol Is pt able to select menu?: No Diet Comments: Supervised - Routine Orders/Code Status Suppository Type: Dulcolax 10mg Suppository Frequency: Daily PRN Code Status: Full Code - Therapies Weight Bearing: Weight bearing as tolerated Extremity Affected:: Bilateral Lower Physical Therapy: Eval and Treat Occupational Therapy: Eval and Treat Speech Therapy: Eval and Treat - Problem/Diagnosis (1) Unresponsive episode Status: Acute Current Visit: Yes (2) Intracerebral hemorrhage Status: Chronic Current Visit: No (3) Intraventricular hemorrhage Status: Chronic Current Visit: No (4) Hypertension Status: Chronic Current Visit: No (5) Coronary artery disease Status: Chronic Current Visit: No (6) History of PTCA 1 Status: Chronic Comment: 2015 Current Visit: No (7) Tobacco dependence in remission Status: Chronic Comment: Quit in 1979 Current Visit: No (8) Dyslipidemia Status: Chronic Current Visit: No (9) Acute encephalopathy Status: Acute Comment: due to CVA and UTI and dehydration Current Visit: No (10) Erectile dysfunction Status: Chronic Current Visit: No (11) Cerebrovascular accident, embolic Status: Acute Comment: Left frontal, right parietal and left cerebellum Current Visit: No (12) Overweight (BMI 25.0-29.9) Status: Chronic Current Visit: No (13) GERD (gastroesophageal reflux disease) Status: Chronic Current Visit: No (14) Complicated UTI (urinary tract infection) Status: Acute Comment: due to E. COLI and Kleibsiella Pneumoniae - related to Flores catheter inserted for urine retention. Current Visit: No (15) Urine retention Status: Resolved Comment: Current Visit: No (16) BPH (benign prostatic hyperplasia) Status: Suspected Current Visit: No (17) Dehydration Status: Resolved Current Visit: No (18) Hypercalcemia Status: Resolved Comment: resolved with hydration Current Visit: No (19) Elevated PSA, between 10 and less than 20 ng/ml Status: Acute Comment: PSA was normal on the lab he had in the fall Current Visit: No (20) Macrocytic anemia Status: Acute Comment: stable Current Visit: No (21) Depression Status: Acute Current Visit: No (22) Hypotension Status: Inactive Comment: Due to dehydration Current Visit: No - Allergies/Procedures Done in Hospital Allergies/Adverse Reactions: Allergies No Known Allergies Allergy (Verified 10/26/17 11:43) - Type of Care/Length of Stay Estimated LOS: Convalescent Care Less Than 30 days Type of Care Needed: Skilled Rehab Potential: Good Prognosis: Good - Additional Orders/Day of Discharge Day of Discharge: 08/11/19 - Dietary and Speech Recommendations Dietitian Recommendations/Changes: Rec diet advanced as pt medically able to Regular. - Follow Up Care Primary Care Physician: Pierre Horowitz MD [Primary Care Provider] - Please follow up with your Primary Care Physician in: IN 2 WEEK Please Follow Up With: Brando Vigil MD When: IN 2-3 WEEKS FOR seizures
--- NOTE | 2019-08-11 10:28 | PCM.DC.SUM ---
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 NIH stroke scale calculation was limited but seems about 22. CT head and CTA of head and neck was done immediately as per stroke protocol. CT head shows continued decrease left temporal hemorrhage, measuring 3.0 x 1.5 cm in comparison to 4.0 x 1.[address] of 07/18/2019. Other chronic changes of cerebral atrophy with widening of extra-axial spaces and ventricular dilatation, unchanged CTA head and neck was done which reported hemodynamically insignificant left carotid plaque. Absent P1 segment of right CURBER, with reconstitution of peripheral branches by PCOM otherwise normal sun'aq of [place]. Normal vertebral arteries. Minimal peripheral enhancement without evidence of extravasation in the area of previous left parietal hematoma Discussed with stroke telemetry neurology Dr. Calderon and jori benítez with keeping the patient in [facility]. 1. Acute episode of unresponsiveness, most likely acute encephalopathy/seizure episode: Patient was admitted in ICU. CT head reviewed and shows improvement in left temporal hemorrhage and no acute change on CTA head and neck therefore acute stroke unlikely. EEG done and reported as abnormal study. Left hemisphere slowing out of proportion to reported left MCA distribution stroke which may reflect stroke expansion or functional abnormalities from recent seizure. No seizure or epileptiform abnormalities found. Mild generalized background slowing. MRI brain reported as left posterior temporal hemorrhage measuring 4.5 x 2.6 x 2.5 cm with normal surrounding echogenic edema. The parenchymal hemorrhage continues to decrease in comparison with multiple prior CT exams. Telemetry neurology was consulted and agree with the plan. On Keppra 500 mg twice daily was started on the day of admission in ICU. Echo reported as normal LV size and systolic function EF 55%. Normal diastolic. Overall, no major valvular abnormality or wall motion abnormality. 2. Acute encephalopathy, probably metabolic: IV fluid. Electrolytes are within normal limit. Currently patient is n.p.o. Continue PT, OT and speech evaluation when the patient wakes up. Ammonia 35 although patient does not have liver disease. TSH normal. Electrolytes within normal limit. ABG 7.46/30 564 on room air. MRSA PCR negative. Glucose within normal limit. Mild dehydration which is corrected. 3 essential HTN -continue hold antihypertensive medications. 4 CAD with hx of PTCA X 1 in 2016: Twelve-lead EKG and serial troponin ordered 5 GERD GERD on IV Protonix 6. ED: Not a concern 7. 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 Dyslipidemia - continue statin DVT prophylaxis: Patient got Lovenox today in rehab. Bilateral SCDs. Continue Lovenox, next dose will be in the morning. Discharge medication reconciliation done. Discharge follow-up instructions completed. Discharge process discussed with the patient and all questions were answered to patient's satisfaction. Total time spent, exact 35 minutes on discharge meds reconciliation, examination, coordination of care with nurses and ancillary staff, review of imaging and blood test and discussion with the patient on follow-up instructions Patient Problems: Active and Suspected Problems Debility (Acute) Seizure disorder (Acute) Intracranial hemorrhage (Acute) Behavioral problem (Acute) Stroke (Acute) Subjective: Seen and examined. Patient is on the baseline. Objective: General: Alert, Cooperative, oriented x3. HEENT: Atraumatic, PERRLA, EOMI, Normocephalic Oral: No Gingival or Mucosal Lesions/ Ulcerations, Dry Mucosa Neck: Supple, No JVD, Negative Carotid Bruits Lungs: Clear to auscultation, No rhonchi, No wheeze, No rales,Air entry diminished in bilateral lung bases Cardiovascular: Regular rate, Regular Rhythm, Normal S1, Normal S2, No murmurs Abdomen: Bowel Sounds Present, Soft, Non Tender, Non-Distended Extremities: No edema, Capillary Refill Less than 3 Seconds Skin: No rashes, No breakdown Musculoskeletal: No Tenderness to Palpation of Joints or Extremities, Arthritic Changes, Muscle Wasting Neurological: Deep Tendon Reflexes 2+/4, slurred Speech, dysarthria and left-sided facial droop, Psych/Mental Status: Normal Affect, Appropriate - Physical Exam Vitals/I&O's: Vital Signs Temp Pulse Resp BP Pulse Ox 98.4 F 62 18 105/68 97 08/11/19 06:14 08/11/19 07:24 08/11/19 06:14 08/11/19 06:14 08/11/19 06:14 Oxygen Delivery Method Room Air Weight: 143 lb 15.39 oz Body Mass Index (BMI) 27.7 Finger Stick Blood Glucose 88 Intake and Output for Last 24 Hours 08/09/19 08/10/19 08/11/19 23:59 23:59 23:59 Intake Total 700 / 1050 1370 / 1370 120 / 120 Output Total 275 / 475 350 / 350 0 / 0 Balance 425 / 575 1020 / 1020 120 / 120 Laboratory Results 08/10/19 12:17: WBC 6.4, RBC 4.27 L, Hgb 14.2, Hct 41.7, MCV 97.7 H, MCH 33.3 H, MCHC 34.1, RDW Std Deviation 45.9 H, RDW Coeff of [place]it[place] 12.9, Plt Count 210, MPV 9.4, Immature Gran % (Auto) 0.200, Neut % (Auto) 64.5, Lymph % (Auto) 24.8, [place] % (Auto) 7.8, Eos % (Auto) 2.4, Baso % (Auto) 0.3, Absolute Neuts (auto) 4.1, Absolute Lymphs (auto) 1.58, Nucleated RBC % 0 08/10/19 12:17: Sodium 143, Potassium 3.7, Chloride 114 H, Carbon Dioxide 26.0, Anion Gap 3 L, BUN 7, Creatinine 0.92, Estim Creat Clear Calc 52.90, Est GFR (MDRD) Af Amer 104, Est GFR (MDRD) Non-Af 86, BUN/Creatinine Ratio 7.7 L, Glucose 117 H, Calcium 9.0 Current Medications Acetaminophen (Tylenol) 650 mg RECTAL Q4H PRN PRN PRN Reason: Pain Score 1-10/Temp > 100.7 F Last Admin: 08/09/19 11:25 Dose: 650 mg Documented by: Albuterol Sulfate (Ventolin Aerosols) 2.5 mg INHALATION Q2H PRN PRN PRN Reason: SOB/Wheezing Aspirin (Aspirin, Baby) 81 mg PO DAILY@0800 [facility] Last Admin: 08/11/19 08:44 Dose: 81 mg Documented by: Atorvastatin Calcium (Lipitor) 20 mg PO QHS [facility] Last Admin: 08/10/19 19:53 Dose: 20 mg Documented by: Enoxaparin Sodium (Lovenox) 40 mg SC DAILY [facility] Last Admin: 08/11/19 08:44 Dose: 40 mg Documented by: Haloperidol Lactate (Haldol) 2 mg IV Q6H PRN PRN PRN Reason: AGITATION Dextrose (Dextrose 10%-Water) 250 mls @ 999 mls/hr IV .Q16M PRN; Protocol PRN Reason: HYPOGLYCEMIA Sodium Chloride () 250 mls @ 15 mls/hr IV .[id number] PRN PRN Reason: Saline Flush Last Infusion: 08/11/19 10:25 Dose: Infused Documented by: Sodium Chloride () 250 mls @ 15 mls/hr IV .[id number] PRN PRN Reason: Additional IVPB Infusion Levetiracetam (Keppra Tablet) 500 mg PO BID [facility] Last Admin: 08/11/19 08:51 Dose: 500 mg Documented by: Lorazepam (Ativan) 2 mg IV Q4H PRN PRN PRN Reason: SEIZURES Mirtazapine (Remeron) 30 mg PO QHS [facility] Last Admin: 08/10/19 19:53 Dose: 30 mg Documented by: Nitroglycerin (Nitrostat) 0.4 mg SUBLINGUAL Q5M PRN PRN Reason: CARDIAC/CHEST PAIN Ondansetron HCl (Zofran) 4 mg IV Q8H PRN PRN PRN Reason: NAUSEA/VOMITING Pantoprazole Sodium (Protonix) 40 mg PO DAILY [facility] Last Admin: 08/11/19 08:44 Dose: 40 mg Documented by: Quetiapine Fumarate (Seroquel) 50 mg PO 1999 [facility] Last Admin: 08/10/19 19:53 Dose: 50 mg Documented by: Sodium Chloride () 10 - 40 ml IV UD PRN PRN Reason: SALINE FLUSH Last Admin: 08/10/19 18:49 Dose: 10 ml Documented by: Home Medications: Medications to take at Discharge Aspirin [Aspirin, Baby] 81 mg PO DAILY@0800 10/26/17 Fluticasone 0.05% [Flonase Nasal [place]] 1 spray NASAL DAILY 10/26/17 Loratadine 10 mg PO DAILY 10/26/17 Rosuvastatin Calcium [Crestor] 10 mg PO QHS 10/26/17 Acetaminophen [Tylenol] 650 mg PO Q6H PRN 07/01/19 Cyanocobalamin (Vitamin B-12) [Vitamin B-12] 1,000 mcg PO DAILY 07/01/19 Haloperidol [Haldol] 2 mg PO Q6H PRN PRN #1 tab 07/29/19 Magnesium Hydroxide [Milk Of Magnesia] 30 ml PO .PRN X 1 PRN udc 07/29/19 Bisacodyl [Dulcolax] 10 mg RECTAL DAILY PRN PRN #0 suppos. 08/11/19 Melatonin 3 mg PO QHS 08/11/19 Mirtazapine [Remeron] 30 mg PO QHS 08/11/19 Pantoprazole Sodium [Protonix] 20 mg PO BID 08/11/19 Quetiapine Fumarate [Seroquel] 50 mg PO DAILY@199908/11/19 Senna/Docusate Sodium [Senokot-S] 2 tab PO BID 08/11/19 levETIRAcetam tablet [Keppra tablet] 500 mg PO BID 08/11/19 Primary Care Physician: Pierre Horowitz MD [Primary Care Provider] - Please follow up with your Primary Care Physician in: IN 2 WEEK Please Follow Up With: Brando Vigil MD When: IN 2-3 WEEKS FOR seizures Medical Necessity - Tobacco Use Smoking Status: Smoker, status unknown Tobacco Use: Cigarettes Meaningful Use Info Meaningful Use Diagnoses (Choose all that apply): None applicable Code Visit Inpatient E&M: 26173 Disch Hosp
--- NOTE | 2019-08-11 10:34 | PHA.DC.MR ---
Pharmacy Service has performed discharge medication reconciliation for this patient upon transfer to TCU later today. The patient's discharge medication list was reviewed for discrepancies and discrepancies were resolved. Home Medications Aspirin [Aspirin, Baby] 81 mg PO DAILY@0800 10/26/17 Fluticasone 0.05% [Flonase Nasal [place]] 1 spray NASAL DAILY 10/26/17 Loratadine 10 mg PO DAILY 10/26/17 Rosuvastatin Calcium [Crestor] 10 mg PO QHS 10/26/17 Acetaminophen [Tylenol] 650 mg PO Q6H PRN 07/01/19 Cyanocobalamin (Vitamin B-12) [Vitamin B-12] 1,000 mcg PO DAILY 07/01/19 Haloperidol [Haldol] 2 mg PO Q6H PRN PRN #1 tab 07/29/19 Magnesium Hydroxide [Milk Of Magnesia] 30 ml PO .PRN X 1 PRN udc 07/29/19 Melatonin 3 mg PO QHS tab 07/29/19 Mirtazapine [Remeron] 30 mg PO QHS tab 07/29/19 Pantoprazole Sodium [Protonix] 20 mg PO BID tab 07/29/19 Senna/Docusate Sodium [Senokot-S] 2 tab PO BID tab 07/29/19 Bisacodyl [Dulcolax] 10 mg RECTAL DAILY PRN PRN #0 suppos. 08/11/19 Quetiapine Fumarate [Seroquel] 50 mg PO DAILY@2000 #0 tab 08/11/19 levETIRAcetam tablet [Keppra tablet] 500 mg PO BID #0 tab 08/11/19
--- NOTE | 2019-08-11 10:45 | CASEMGMT ---
NAKITA called patient's and let her know patient was approved for TCU and he will go over there this am. She thanked NAKITA for the update. Plan: [facility] TCU under skilled level of care. Gilda CHAN
--- NOTE | 2019-08-11 10:50 | NURSING ---
called report to SHELBY Aguilar. Pt to go bed 10.
[2019-08-11 10:59] VITALS: BP 118/65
== END 2019-08-11 11:02 | disposition skilled nursing facility (03) | DRG 56 ==
LOC: ICU 08-07 10:11 → PCU 08-07 17:13 → ICU 08-08 08:28 → PCU 08-08 08:28
PROVIDERS: Internal Medicine; Admitting Provider Internal Medicine; PCP Family Medicine; Referring Provider Internal Medicine; Visit Provider Internal Medicine
DX: I69.198 Other sequelae of nontraumatic intracerebral hemorrhage (principal); G93.41 Metabolic encephalopathy; G93.49 Other encephalopathy; I25.10 Atherosclerotic heart disease of native coronary artery without angina pectoris; E78.5 Hyperlipidemia, unspecified; F17.201 Nicotine dependence, unspecified, in remission; E66.3 Overweight; Z68.27 Body mass index [BMI] 27.0-27.9, adult; I10 Essential (primary) hypertension; N52.9 Male erectile dysfunction, unspecified; K21.9 Gastro-esophageal reflux disease without esophagitis; R56.9 Unspecified convulsions; Z95.5 Presence of coronary angioplasty implant and graft; R53.81 Other malaise
CPT/HCPCS: 36415; 36600; 70551; 71045; 80048; 80053; 81001; 82140; 82803; 82962; 83605; 83735; 84443; 84484; 85025; 85610; 87641; 93005; 93306; 95819; 97116; 97163; 97167; 97530; 97535; 97802; 99251; J7050; J7120; A4216; C8929; G0463

== ENCOUNTER 2019-08-11 11:25 | Inpatient (IN) | payer MEDICARE, SELFPAY ==
[2019-08-11 09:45] VITALS: BMI 27.7
[2019-08-11 11:46] VITALS: BP 99/52; PULSE 65; RESP 16; TEMP 36.4; O2SAT 96; BMI 27.5
[2019-08-11 15:17] VITALS: BP 139/75; PULSE 73; RESP 16; TEMP 36.8; O2SAT 91
--- NOTE | 2019-08-11 15:56 | CASEMGMT ---
Social Work Reviewed and agreed with social work newsroom intern documentation on this date. Valorie Solomon, TECHNOLOGY ADVISOR SURVEY ANALYST
[2019-08-11] MEDS: levETIRAcetam 500 MG Tablet PO (17:43)
[2019-08-11] MEDS: Pantoprazole Sodium 20 MG Tablet PO (17:44)
[2019-08-11] MEDS: Senna/Docusate Sodium 1 Tablet 2 TABLET PO (17:44)
--- NOTE | 2019-08-11 19:54 | PCM.HP.STD ---
Problem List (1) Debility Status: Acute (2) Seizure disorder Status: Acute (3) Intracranial hemorrhage Status: Acute (4) Hyperlipidemia Status: Chronic (5) Allergic rhinitis Status: Chronic (6) Insomnia Status: Chronic (7) Behavioral problem Status: Acute (8) Stroke Status: Acute (9) Elevated prostate specific antigen (PSA) Status: Chronic (10) Intraventricular hemorrhage Status: Chronic (11) Hypertension Status: Chronic (12) Coronary artery disease Status: Chronic (13) Acute encephalopathy Status: Acute Comment: due to CVA and UTI and dehydration (14) Erectile dysfunction Status: Chronic (15) GERD (gastroesophageal reflux disease) Status: Chronic (16) Complicated UTI (urinary tract infection) Status: Acute Comment: due to E. COLI and Kleibsiella Pneumoniae - related to Flores catheter inserted for urine retention. (17) BPH (benign prostatic hyperplasia) Status: Suspected (18) Macrocytic anemia Status: Chronic Comment: stable (19) Depression Status: Chronic (20) Unresponsive episode Status: Acute History of Present Illness Date of Admission: 08/11/19 Chief Complaint: Here for rehabilitation, strengthening, prior to disposition determination. The patient is a 74 year old Male with below past medical history admitted to ICU from Inpatient rehab 08/06/2019. 08/06/2019 CT brain showed continued decreasing left temporal hemorrhage. 08/06/2019 CTA head/neck insignificant left carotid plaque, absent P1 segment right posterior cerebral artery. 08/06/2019 EKG sinus rhythm with premature supraventricular contractions, left axis deviation, right bundle branch block. Watching basketball game, unresponsive, stroke alert called. On Cefadroxil for K. Pneumoniae urinary tract infection. IV fluids for encephalopathy. NPO, PT/OT/ST. 08/07/2019 MRI brain left parietotemporal infarct and 4.5CM hemorrhagic transformation. 08/07/2019 Dr. Espinoza recommended EEG, bedside swallow evaluation, stop IV fluids. 08/07/2019 EEG negative for seizure, showed left hemispheric slowing, mild generalized background slowing. 08/08/2019 Teleneurology recommended continuing Keppra for post intracranial hemorrhage seizure. 08/08/2019 Echo EF 55%. Normal diastology for age. 08/09/2019 IV Keppra changed to PO Keppra. 08/10/2019 Neurology recommends seizure medications indefinitely. Agitation treated with Haldol. Mirtazapine, Seroquel restarted. 08/11/2019 Admit to TCU with debility, here for rehabilitation, strengthening, prior to disposition determination. Past Medical History Past Medical History (Chronic Problems): Chronic Problems Intracerebral hemorrhage (Chronic) Intraventricular hemorrhage (Chronic) Hypertension (Chronic) Coronary artery disease (Chronic) History of PTCA 1 (Chronic) 2015 Tobacco dependence in remission (Chronic) Quit in 1979 Dyslipidemia (Chronic) Erectile dysfunction (Chronic) Overweight (BMI 25.0-29.9) (Chronic) GERD (gastroesophageal reflux disease) (Chronic) Macrocytic anemia (Chronic) stable Depression (Chronic) Hyperlipidemia (Chronic) Allergic rhinitis (Chronic) Insomnia (Chronic) Elevated prostate specific antigen (PSA) (Chronic) Allergies No Known Allergies Allergy (Verified 10/26/17 11:43) Home Medications: Ambulatory Orders Medication Instructions Recorded Aspirin [Aspirin, Baby] 81 mg PO DAILY@0800 10/26/17 Fluticasone 0.05% [Flonase Nasal 1 spray NASAL DAILY 10/26/17 [place]] Loratadine 10 mg PO DAILY 10/26/17 Rosuvastatin Calcium [Crestor] 10 mg PO QHS 10/26/17 Acetaminophen [Tylenol] 650 mg PO Q6H PRN 07/01/19 Cyanocobalamin (Vitamin B-12) 1,000 mcg PO DAILY 07/01/19 [Vitamin B-12] Haloperidol [Haldol] 2 mg PO Q6H PRN PRN #1 tab 07/29/19 Magnesium Hydroxide [Milk Of 30 ml PO .PRN X 1 PRN ud 07/29/19 Magnesia] Bisacodyl [Dulcolax] 10 mg RECTAL DAILY PRN PRN #0 08/11/19 suppos. Melatonin 3 mg PO QHS 08/11/19 Mirtazapine [Remeron] 30 mg PO QHS 08/11/19 Pantoprazole Sodium [Protonix] 20 mg PO BID 08/11/19 Quetiapine Fumarate [Seroquel] 50 mg PO DAILY@199908/11/19 Senna/Docusate Sodium [Senokot-S] 2 tab PO BID 08/11/19 levETIRAcetam tablet [Keppra 500 mg PO BID 08/11/19 tablet] Surgical History: angioplasty - Stent., cholecystectomy Psychiatric History: Depression Lives: Spouse/ Significant Other Smoking Status: Former smoker Tobacco Use: Non-smoker Alcohol: None Drugs: None - *Family History Maternal History Items: - - Unable to obtain at this time....pt non-verbal with espressive aphasia Review of Systems Constitutional: Denies: Chills, Fever, Weight Change HEENT: Denies: Head Aches, Sinus Congestion, Sinus Drainage Cardiovascular: Denies: Chest Pain, Palpitations Respiratory: Denies: Cough, Shortness of breath at rest, Sputum production Gastrointestinal: Denies: Abdominal Pain, Nausea, Vomiting Genitourinary: Denies: Dysuria Musculoskeletal: Denies: Joint Pain, Joint Tenderness Skin: Denies: Rash, Wounds Neurological: Denies: Numbness, Tingling, Focal weakness Psychiatric: Reports: - - Emotionally labile.. Denies: Anxiety, Depression, Homicidal Ideations, Suicidal Ideations Hematologic/ Lymphatic: Denies: Easy Bruising, Easy Bleeding VTE Information - Inpt Only VTE Present on Admission: No VTE Mechan Device Prophylaxis: Knee High HANNAH Hose VTE Pharm Prophylaxis ordered?: No Reason prophylaxis not ordered:: Medical Contraindication Patient Problems: Active and Suspected Problems Debility (Acute) Seizure disorder (Acute) Intracranial hemorrhage (Acute) Behavioral problem (Acute) Stroke (Acute) - Physical Exam Vitals/I&O's: Vital Signs Temp Pulse Resp BP Pulse Ox 98.3 F 73 16 139/75 H 91 08/11/19 15:17 08/11/19 15:17 08/11/19 15:17 08/11/19 15:17 08/11/19 15:17 Oxygen Delivery Method Room Air Weight: 65.998 kg Body Mass Index (BMI) 27.5 Finger Stick Blood Glucose 122 Intake and Output for Last 24 Hours 08/09/19 08/10/19 08/11/19 23:59 23:59 23:59 Intake Total 300 / 300 Balance 300 / 300 General: Alert, Oriented x3, Cooperative HEENT: Atraumatic, PERRLA, EOMI, Normocephalic Neck: Supple, No JVD, Negative Carotid Bruits Lungs: Clear to auscultation, Normal air movement Cardiovascular: Regular rate, No murmurs Abdomen: Bowel Sounds Present, Soft, Non Tender Extremities: No edema, Capillary Refill Less than 3 Seconds Skin: No rashes, No breakdown Musculoskeletal: No Tenderness to Palpation of Joints or Extremities Neurological: Cranial nerves II-XII grossly intact Psych/Mental Status: Normal Affect, Appropriate Current Medications Acetaminophen (Tylenol) 650 mg PO Q6H PRN PRN PRN Reason: Pain or Fever Aspirin (Aspirin, Baby) 81 mg PO DAILY@0800 [facility] Atorvastatin Calcium (Lipitor) 20 mg PO QHS [facility] Bisacodyl (Dulcolax) 10 mg RECTAL DAILY PRN PRN PRN Reason: Constipation Cyanocobalamin (Vitamin B12) 1,000 mcg PO DAILY [facility] Fluticasone Propionate (Flonase Nasal [place]) 1 spray NASAL DAILY [facility] Haloperidol (Haldol) 2 mg PO Q6H PRN PRN PRN Reason: severe agitation. Levetiracetam (Keppra Tablet) 500 mg PO BID [facility] Last Admin: 08/11/19 17:43 Dose: 500 mg Documented by: Loratadine (Claritin) 10 mg PO DAILY [facility] Magnesium Hydroxide (Milk Of Magnesia) 30 ml PO .PRN X 1 PRN PRN Reason: Constipation Melatonin (Melatonin) 3 mg PO QHS [facility] Mirtazapine (Remeron) 30 mg PO QHS [facility] Pantoprazole Sodium (Protonix) 20 mg PO BID [facility] Last Admin: 08/11/19 17:44 Dose: 20 mg Documented by: Quetiapine Fumarate (Seroquel) 50 mg PO DAILY@2000 [facility] Senna/Docusate Sodium (Senokot-S, Cristy-Colace) 2 tablet PO BID [facility] Last Admin: 08/11/19 17:44 Dose: 2 tablet Documented by: Tuberculin PPD (Tubersol, Aplisol, Ppd) 5 tu ID X1 ONE Stop: 08/12/19 10:01 Tuberculin PPD (Tubersol, Aplisol, Ppd) 5 tu ID X1 ONE Stop: 08/19/19 10:01 Assessment/Plan All Active Problems Acute encephalopathy (Acute) Cerebrovascular accident, embolic (Acute) Complicated UTI (urinary tract infection) (Acute) Urine retention (Resolved) Dehydration (Resolved) Hypercalcemia (Resolved) Elevated PSA, between 10 and less than 20 ng/ml (Acute) Unresponsive episode (Acute) Debility (Acute) Seizure disorder (Acute) Intracranial hemorrhage (Acute) Behavioral problem (Acute) Stroke (Acute) 74 year old male with below past medical history significant for recent stroke with hemorrhagic transformation hospitalized for post intracranial hemorrhage seizure, complicated by agitation, admitted to TCU with debility, here for rehabilitation, strengthening, prior to disposition determination. Debility - PT/OT. Pain - Tylenol 650MG Q6H PRN pain (1-10). Bowel - Miralax 17GM daily, Senna/colace 2 tablets BID, Dulcolax 10MG SC daily PRN. Adult immunization - Administer Prevnar 13, Pneumovax 23, Fluzone as appropriate. DVT prophylaxis - Hold due to hemorrhagic nature of stroke. Stroke - Aspirin 81MG daily. Hyperlipidemia - Atorvastatin 20MG QHs. Vitamin B12 deficiency - B12 1000MCG daily. Allergic Rhinitis - Flonase 1 spray daily, Loratadine 10MG daily. Agitation - Haldol 2MG Q6H PRN severe agitation, GDR once agitation improves. Seizure disorder - Keppra 500MG twice daily. Insomnia - Melatonin 3MG QHS. Depression/appetite loss - Mirtazapine 30MG QHS. GERD - Pantoprazole 20MG twice daily. 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
[2019-08-11] MEDS: QUEtiapine 25 MG Tablet 50 MG PO (20:00)
--- NOTE | 2019-08-11 22:30 | NURSING ---
This nurse walked in the room and pt was in the bed on his hands and knees. Pt was trying to climb between the mattress and the headboard. Pt then tried to crawl over the siderails. Pt was agitated. This nurse tried reorienting pt, distraction, offered water and offered to help pt walk to the bathroom. All attempts unsuccessful. Notified primary nurse.
[2019-08-11] MEDS: Haloperidol 1 MG Tablet 2 MG PO (22:51)
[2019-08-12 05:45] LABS: Absolute Lymphocyte Count 1.76 X10^3/uL (0.83-4.51); Absolute Neutrophil Count 2.9 X10^3/uL (2.0-7.7); Basophil# 0.02 X10^3/uL; Basophil% 0.4 % (0-1); Eosinophil# 0.27 X10^3/uL; Eosinophils% 4.9 % (0-5); Hemoglobin 13.5 g/dL (13.0-16.5); Lymphocyte # 1.76 X10^3/ul (4.0); Lymphocyte % 31.8 % (19-41); Mean Corp Hgb Conc 33.8 g/dL (32-36); Mean Corpuscular Hgb 32.8 pg (27.0-32.0); Mean Corpuscular Volume 97.3 fL (80-94); Mean Platelet Vol. 9.7 fl (6.2-12.0); Monocyte# 0.59 X10^3/uL; Monocyte% 10.7 % (0-10); NRBC Flagged by Analyzer 0 % (0-5); Neutrophil # 2.87 X10^3/uL (2.7-7.7); Neutrophil % 51.8 % (47-70); Platelet Count 190 K/mm3 (150-450); RBC Distribution Width CV 13.3 % (11.6-14.6); RBC Distribution Width SD 47.4 fl (35.1-43.9); Red Blood Count 4.11 M/mm3 (4.6-6.2); White Blood Count 5.5 K/mm3 (4.4-11.0)
[2019-08-12 06:02] LABS: Anion Gap 5 (5-15); BUN 9 mg/dL (7-18); BUN/Creat Ratio 10.4 RATIO (10-20); Calcium,Total 8.8 mg/dL (8.5-10.1); Chloride 112 mmol/L (98-107); Creatinine, Serum 0.86 mg/dL (0.70-1.30); EST Glomerular Filtration Rate 92 mL/min (>60); Est Glom Filt Rate - Afr Amer 111 mL/min (>60); Estimated Creatinine Clearance 56.59 ml/min; Glucose 82 mg/dL (74-106); Potassium 3.3 mmol/L (3.5-5.1); Sodium Level 144 mmol/L (136-145)
[2019-08-12] MEDS: Pantoprazole Sodium 20 MG Tablet PO ×2 (06:20→17:17)
[2019-08-12] MEDS: levETIRAcetam 500 MG Tablet PO ×2 (06:20→17:17)
[2019-08-12] MEDS: Loratadine 10 MG Tablet PO (06:21)
[2019-08-12] MEDS: Cyanocobalamin 500 MCG Tablet 1000 MCG PO (06:21)
[2019-08-12] MEDS: Senna/Docusate Sodium 1 Tablet 2 TABLET PO ×2 (06:21→17:17)
[2019-08-12] MEDS: Fluticasone 0.05% 1 SPRAY NASAL.SRY NASAL (06:24)
[2019-08-12 10:00] VITALS: PULSE 76; RESP 16; O2SAT 96
[2019-08-12] MEDS: Aspirin 81 MG TAB.CHEW PO (11:15)
[2019-08-12] MEDS: Tuberculin,Purif.prot.deriv. 50 TU/ML Vial 5 ML ID (11:22)
[2019-08-12 13:20] LABS: Red Blood Cells-Urine 0 SEEN /hpf (0-5); Squamous Epithelial Cells - UA 0 SEEN /hpf (0-5); White Blood Cells 0 SEEN /hpf (0-5)
[2019-08-12 13:22] LABS: Color, Urine Yellow (Yellow); Glucose, Dipstick Normal (Normal); Ketone-Dipstick 5 mg/dl (Negative); Leukocyte Esterase-Dipstick Negative /ul (Negative); Nitrite-Dipstick Negative (Negative); Occult Blood-Urine Negative /ul (Negative); Protein-Dipstick 15 mg/dl (Negative); Specific Gravity, Urine 1.025 (1.002-1.030); Urine Clarity Sl. Cloudy (Clear); Urine Urobilinogen Normal (Normal)
[2019-08-12 13:25] LABS: Urine Bilirubin Dipstick 1 mg/dL (Negative)
[2019-08-12 13:36] LABS: Bacteria RARE /hpf (None Seen); Mucous, Urine 1+ /hpf (<or=2+)
--- NOTE | 2019-08-12 14:32 | PHA.CONS_ITS ---
<Eunice Mcgee - Last Filed: 08/12/19 14:32> Progress Note - Pharmacy Subjective: TCU Admission Objective: Allergies No Known Allergies Allergy (Verified 10/26/17 11:43) Current Medications Generic Name Dose Route Start Last Admin Trade Name Freq PRN Reason Stop Dose Admin Acetaminophen 650 mg 08/11/19 12:33 Tylenol PO Q6H PRN PRN Pain Score 1-10/10 Aspirin 81 mg 08/12/19 08:00 08/12/19 11:15 Aspirin, Baby PO 81 mg DAILY@0800 [facility] Administration Atorvastatin Calcium 20 mg 08/11/19 22:00 08/11/19 20:07 Lipitor PO Not Given QHS [facility] Bisacodyl 10 mg 08/11/19 12:33 Dulcolax RECTAL DAILY PRN PRN Constipation Cyanocobalamin 1,000 mcg 08/12/19 06:00 08/12/19 06:21 Vitamin B12 PO 1,000 mcg DAILY [facility] Administration Fluticasone Propionate 1 spray 08/12/19 06:00 08/12/19 06:24 Flonase Nasal [place] NASAL 1 spray DAILY [facility] Administration Haloperidol 2 mg 08/11/19 12:33 08/11/19 22:51 Haldol PO 2 mg Q6H PRN PRN Administration severe agitation. Levetiracetam 500 mg 08/11/19 18:00 08/12/19 06:20 Keppra Tablet PO 500 mg BID [facility] Administration Loratadine 10 mg 08/12/19 06:00 08/12/19 06:21 Claritin PO 10 mg DAILY [facility] Administration Melatonin 3 mg 08/11/19 22:00 08/11/19 20:00 Melatonin PO Not Given QHS [facility] Mirtazapine 30 mg 08/11/19 22:00 08/11/19 20:01 Remeron PO Not Given QHS [facility] Pantoprazole Sodium 20 mg 08/11/19 18:00 08/12/19 06:20 Protonix PO 20 mg BID [facility] Administration Polyethylene Glycol 17 gm 08/12/19 06:00 08/12/19 06:20 Miralax PO Not Given DAILY [facility] Potassium Chloride 20 meq 08/12/19 08:00 08/12/19 11:14 K-Dur PO 20 meq DAILYCM [facility] Administration Quetiapine Fumarate 50 mg 08/11/19 20:00 08/11/19 20:00 Seroquel PO 50 mg DAILY@1999 [facility] Administration Senna/Docusate Sodium 2 tablet 08/11/19 18:00 08/12/19 06:21 Senokot-S, Cristy-Colace PO 2 tablet BID [facility] Administration Tuberculin PPD 5 tu 08/19/19 10:00 Tubersol, Aplisol, Ppd ID 08/19/19 10:01 X1 ONE Problem List Debility (Acute) Seizure disorder (Acute) Intracranial hemorrhage (Acute) Hyperlipidemia (Chronic) Allergic rhinitis (Chronic) Insomnia (Chronic) Behavioral problem (Acute) Stroke (Acute) Elevated prostate specific antigen (PSA) (Chronic) Vital Signs Temp Pulse Resp BP Pulse Ox 98.3 F 73 16 139/75 H 91 08/11/19 15:17 08/11/19 15:17 08/11/19 15:17 08/11/19 15:17 08/11/19 15:17 Oxygen Delivery Method Room Air Weight: 65.99 kg Body Mass Index (BMI) 27.5 Finger Stick Blood Glucose 122 Sodium 144 mmol/L (136-145) 08/12/19 05:28 Potassium 3.3 mmol/L (3.5-5.1) L 08/12/19 05:28 Chloride 112 mmol/L (98-107) H 08/12/19 05:28 Carbon Dioxide 27.0 mmol/L (21.0-32.0) 08/12/19 05:28 Anion Gap 5 (5-15) 08/12/19 05:28 BUN 9 mg/dL (7-18) 08/12/19 05:28 Creatinine 0.86 mg/dL (0.70-1.30) 08/12/19 05:28 Est GFR (MDRD) Af Amer 111 mL/min (>60) 08/12/19 05:28 Est GFR (MDRD) Non-Af 92 mL/min (>60) 08/12/19 05:28 BUN/Creatinine Ratio 10.4 RATIO (10-20) 08/12/19 05:28 Glucose 82 mg/dL (74-106) 08/12/19 05:28 Assessment/Plan: 1. Pain: acetaminophen 650mg PO Q6H PRN pain 1-03/27. Please continue to monitor for increased pain and PRN usage. 2. Stroke: aspirin 81mg PO DAILYCM. Please continue to monitor for S/S of bleeding. 3. Hyperlipidemia: atorvastatin 20mg PO QHS. Recent lipid panel and LFTs in chart and appropriate for continued use. Please continue to monitor for muscle pain. 4. Seizure disorder: levetiracetam 500mg PO BID. Please continue to monitor for S/S of seizures. 5. Allergic rhinitis: loratadine 10mg PO daily and fluticasone 0.05% 1 spray nasally daily. Please continue to monitor for S/S of allergies. 6. GERD: pantoprazole 20mg PO BID. Please continue to monitor for S/S of GERD. 7. Hypokalemia/vitamin deficiency: potassium chloride 20mEq PO DAILYCM and cyanocobalamin 1000units PO daily. Please continue to monitor potassium levels. 8. Insomnia: melatonin 3mg PO QHS. Please continue to monitor for insomnia or excessive drowsiness. Psychotropic Medications: 1. Agitation: haloperidol 2mg PO Q6H PRN severe agitation. Please see physician note regarding GDR. Please continue to monitor for agitation. 2. 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 Please see physician note regarding GDR. Please continue to monitor. 3. Depression/appetite loss: mirtazapine 30mg PO QHS. Patient recently began this medication. GDR not appropriate. Please continue to monitor for improved appetite. Unnecessary Medications: None Bowel Regimen: Miralax 17gm PO daily, senna/docusate 2T PO BID, bisacodyl 10mg MD daily PRN constipation. Please continue to monitor for constipation and PRN usage. Date of Note:: 08/12/19 - Provider Comments Provider responsibility: Provider responsible to enter orders to implement recommendations <Oracio Baer Chi - Last Filed: 08/12/19 17:23> Progress Note - Pharmacy Subjective: [] Objective: Allergies No Known Allergies Allergy (Verified 10/26/17 11:43) Current Medications Generic Name Dose Route Start Last Admin Trade Name Freq PRN Reason Stop Dose Admin Acetaminophen 650 mg 08/11/19 12:33 Tylenol PO Q6H PRN PRN Pain Score 1-10/10 Aspirin 81 mg 08/12/19 08:00 08/12/19 11:15 Aspirin, Baby PO 81 mg DAILY@0800 [facility] Administration Atorvastatin Calcium 20 mg 08/11/19 22:00 08/11/19 20:07 Lipitor PO Not Given QHS [facility] Bisacodyl 10 mg 08/11/19 12:33 Dulcolax RECTAL DAILY PRN PRN Constipation Cyanocobalamin 1,000 mcg 08/12/19 06:00 08/12/19 06:21 Vitamin B12 PO 1,000 mcg DAILY [facility] Administration Fluticasone Propionate 1 spray 08/12/19 06:00 08/12/19 06:24 Flonase Nasal [place] NASAL 1 spray DAILY [facility] Administration Haloperidol 2 mg 08/11/19 12:33 08/11/19 22:51 Haldol PO 2 mg Q6H PRN PRN Administration severe agitation. Levetiracetam 500 mg 08/11/19 18:00 08/12/19 06:20 Keppra Tablet PO 500 mg BID [facility] Administration Loratadine 10 mg 08/12/19 06:00 08/12/19 06:21 Claritin PO 10 mg DAILY [facility] Administration Melatonin 3 mg 08/11/19 22:00 08/11/19 20:00 Melatonin PO Not Given QHS [facility] Mirtazapine 30 mg 08/11/19 22:00 08/11/19 20:01 Remeron PO Not Given QHS [facility] Nystatin 1 applic 08/12/19 18:00 Mycostatin TOPICAL BID [facility] Protocol Pantoprazole Sodium 20 mg 08/11/19 18:00 08/12/19 06:20 Protonix PO 20 mg BID [facility] Administration Polyethylene Glycol 17 gm 08/12/19 06:00 08/12/19 06:20 Miralax PO Not Given DAILY [facility] Potassium Chloride 20 meq 08/12/19 08:00 08/12/19 11:14 K-Dur PO 20 meq DAILYCM [facility] Administration Quetiapine Fumarate 50 mg 08/11/19 20:00 08/11/19 20:00 Seroquel PO 50 mg DAILY@1999 [facility] Administration Senna/Docusate Sodium 2 tablet 08/11/19 18:00 08/12/19 06:21 Senokot-S, Cristy-Colace PO 2 tablet BID [facility] Administration Tuberculin PPD 5 tu 08/19/19 10:00 Tubersol, Aplisol, Ppd ID 08/19/19 10:01 X1 ONE Problem List Debility (Acute) Seizure disorder (Acute) Intracranial hemorrhage (Acute) Hyperlipidemia (Chronic) Allergic rhinitis (Chronic) Insomnia (Chronic) Behavioral problem (Acute) Stroke (Acute) Elevated prostate specific antigen (PSA) (Chronic) Vital Signs Temp Pulse Resp BP Pulse Ox 97.9 F 82 17 102/68 92 08/12/19 14:37 08/12/19 14:37 08/12/19 14:37 08/12/19 14:37 08/12/19 14:37 Oxygen Delivery Method Room Air Weight: 66 kg Body Mass Index (BMI) 27.5 Finger Stick Blood Glucose 122 Sodium 144 mmol/L (136-145) 08/12/19 05:28 Potassium 3.3 mmol/L (3.5-5.1) L 08/12/19 05:28 Chloride 112 mmol/L (98-107) H 08/12/19 05:28 Carbon Dioxide 27.0 mmol/L (21.0-32.0) 08/12/19 05:28 Anion Gap 5 (5-15) 08/12/19 05:28 BUN 9 mg/dL (7-18) 08/12/19 05:28 Creatinine 0.86 mg/dL (0.70-1.30) 08/12/19 05:28 Est GFR (MDRD) Af Amer 111 mL/min (>60) 08/12/19 05:28 Est GFR (MDRD) Non-Af 92 mL/min (>60) 08/12/19 05:28 BUN/Creatinine Ratio 10.4 RATIO (10-20) 08/12/19 05:28 Glucose 82 mg/dL (74-106) 08/12/19 05:28 Assessment/Plan: Psychotropic Medications: Unnecessary Medications: Bowel Regimen: - Provider Comments Provider responsibility: Provider responsible to enter orders to implement recommendations Provider Comments to Recommendations by Pharmacy: Agree
[2019-08-12 14:37] VITALS: BP 102/68; PULSE 82; RESP 17; TEMP 36.6; O2SAT 92
[2019-08-12] MEDS: Mirtazapine 30 MG Tablet PO (19:49)
[2019-08-12] MEDS: Atorvastatin Calcium 20 MG Tablet PO (19:49)
[2019-08-12] MEDS: MELATONIN 3 MG TABLET PO (19:49)
[2019-08-12] MEDS: QUEtiapine 25 MG Tablet 50 MG PO (19:49)
[2019-08-12] MEDS: NYSTATIN 500,000 UNIT/5 ML UDC 500000 UNIT PO (19:56)
--- NOTE | 2019-08-13 04:00 | NURSING ---
Addendum entered by Katia Vásquez 08/13/19 06:11: Patient adjusted to lay on other side. Patient resting with eyes closed. Will continue to monitor and assess. Will update Dr. Baer Original Note: Patient is restless this morning. Patient throwing legs over edge of bed. Patient grabbing staff arms and squeezing staff arms. Patient trying to kick staff with feet. Patient unable to be reoriented. Patient not making any sense verbally. PO Haldol given in applesauce. Patient spitting out apple sauce. Patient continuing to crawl out of bed.
[2019-08-13] MEDS: Haloperidol 1 MG Tablet 2 MG PO (04:07)
[2019-08-13] MEDS: Loratadine 10 MG Tablet PO (08:44)
[2019-08-13] MEDS: Fluticasone 0.05% 1 SPRAY NASAL.SRY NASAL (08:45)
[2019-08-13] MEDS: levETIRAcetam 500 MG Tablet PO ×2 (08:46→17:11)
[2019-08-13] MEDS: NYSTATIN 500,000 UNIT/5 ML UDC 500000 UNIT PO ×4 (08:46→20:00)
[2019-08-13] MEDS: Polyethylene Glycol 3350 17 GM PACKET PO (08:46)
[2019-08-13] MEDS: Aspirin 81 MG TAB.CHEW PO (08:47)
[2019-08-13] MEDS: Cyanocobalamin 500 MCG Tablet 1000 MCG PO (08:47)
[2019-08-13] MEDS: Senna/Docusate Sodium 1 Tablet 2 TABLET PO ×2 (08:47→17:10)
[2019-08-13] MEDS: Pantoprazole Sodium 20 MG Tablet PO ×2 (08:49→17:16)
--- NOTE | 2019-08-13 11:38 | NURSING ---
agreed to allow camera in room for patient safety.
[2019-08-13 14:04] VITALS: BP 102/68; PULSE 102; RESP 16; TEMP 36.6; O2SAT 100
[2019-08-13] MEDS: QUEtiapine 25 MG Tablet 50 MG PO (17:11)
[2019-08-13] MEDS: Mirtazapine 30 MG Tablet PO (19:59)
[2019-08-13] MEDS: Atorvastatin Calcium 20 MG Tablet PO (19:59)
[2019-08-13] MEDS: MELATONIN 3 MG TABLET PO (19:59)
[2019-08-14] MEDS: Loratadine 10 MG Tablet PO (06:07)
[2019-08-14] MEDS: Cyanocobalamin 500 MCG Tablet 1000 MCG PO (06:07)
[2019-08-14] MEDS: levETIRAcetam 500 MG Tablet PO ×2 (06:07→17:33)
[2019-08-14] MEDS: Senna/Docusate Sodium 1 Tablet 2 TABLET PO ×2 (06:07→17:33)
[2019-08-14] MEDS: QUEtiapine 25 MG Tablet 50 MG PO ×2 (06:07→17:33)
[2019-08-14] MEDS: Pantoprazole Sodium 20 MG Tablet PO ×2 (06:07→17:33)
[2019-08-14] MEDS: Fluticasone 0.05% 1 SPRAY NASAL.SRY NASAL (06:13)
[2019-08-14] MEDS: Polyethylene Glycol 3350 17 GM PACKET PO (06:13)
[2019-08-14] MEDS: NYSTATIN 500,000 UNIT/5 ML UDC 500000 UNIT PO ×4 (06:14→20:52)
[2019-08-14 06:31] LABS: Anion Gap 5 (5-15); BUN 7 mg/dL (7-18); BUN/Creat Ratio 8.4 RATIO (10-20); Calcium,Total 9.2 mg/dL (8.5-10.1); Chloride 112 mmol/L (98-107); Creatinine, Serum 0.83 mg/dL (0.70-1.30); EST Glomerular Filtration Rate 96 mL/min (>60); Est Glom Filt Rate - Afr Amer 116 mL/min (>60); Estimated Creatinine Clearance 58.64 ml/min; Glucose 87 mg/dL (74-106); Potassium 3.9 mmol/L (3.5-5.1); Sodium Level 142 mmol/L (136-145)
[2019-08-14] MEDS: Aspirin 81 MG TAB.CHEW PO (08:46)
[2019-08-14 10:55] VITALS: PULSE 82; RESP 16; O2SAT 91
--- NOTE | 2019-08-14 14:36 | NURSING ---
Alarm sounding, pt sitting in recliner chair in lobby, tried standing w/out staff assist. staff able to get him back to recliner chair w/out incident. pt assisted back to chair and alarm in place. moved pt closer to nurses station for close observation.
[2019-08-14 15:26] VITALS: BP 115/78; PULSE 102; RESP 16; TEMP 36.5; O2SAT 100
[2019-08-14] MEDS: Atorvastatin Calcium 20 MG Tablet PO (20:46)
[2019-08-14] MEDS: MELATONIN 3 MG TABLET PO (20:46)
[2019-08-14] MEDS: Mirtazapine 30 MG Tablet PO (20:46)
[2019-08-14] MEDS: LORazepam 1 MG Tablet PO (22:56)
--- NOTE | 2019-08-14 23:00 | NURSING ---
Patient awake and very restless in bed. Patient unable to be reoriented. Patient very confused. Patient attempting to get out of bed. One on one done with no help. Patient given fluids, patient continues to be restless. Per order PRN Ativan given.
[2019-08-15] MEDS: QUEtiapine 25 MG Tablet 50 MG PO ×2 (05:51→20:53)
[2019-08-15] MEDS: Cyanocobalamin 500 MCG Tablet 1000 MCG PO (05:51)
[2019-08-15] MEDS: Senna/Docusate Sodium 1 Tablet 2 TABLET PO ×2 (05:51→18:07)
[2019-08-15] MEDS: Loratadine 10 MG Tablet PO (05:51)
[2019-08-15] MEDS: Polyethylene Glycol 3350 17 GM PACKET PO (05:51)
[2019-08-15] MEDS: levETIRAcetam 500 MG Tablet PO ×2 (05:51→18:07)
[2019-08-15] MEDS: Pantoprazole Sodium 20 MG Tablet PO ×2 (05:51→18:07)
[2019-08-15] MEDS: NYSTATIN 500,000 UNIT/5 ML UDC 500000 UNIT PO ×2 (05:55→20:53)
[2019-08-15] MEDS: Fluticasone 0.05% 1 SPRAY NASAL.SRY NASAL (05:57)
[2019-08-15] MEDS: Aspirin 81 MG TAB.CHEW PO (08:29)
[2019-08-15] MEDS: LORazepam 1 MG Tablet PO (12:59)
--- NOTE | 2019-08-15 13:04 | NURSING ---
pt asked to use restroom, while sitting on toilet pt voided on floor and was determined to stand up in puddle of urine, this nurse asked him to sit down so pants and socks could be changed, pt started to get very nasty, tugging at this nurse and yelling for this nurse to get out, assistance was called, took 2 nurses to get him back into chair then out to dinning room for lunch, speech was waiting to work with pt as he became angry with her, pushed his tray over and picked up his drinks and purposely spilled them, pt would not cooperate with speech, pt refused to work with PT, this nurse was able to get an prn ativan in him, pt continued to try to get out of recliner while sitting at nursing station and would get agitated when trying to assist, came in around 1500, and pt sitting in common area resting quietly,
--- NOTE | 2019-08-15 17:28 | NURSING ---
and daughter here with questions regarding pts mental status and what has changed since admit from REHAB. pt with confusion and trying to get up w/out assist and very unsteady gait. alarms in place for safety. Dr Baer in room speaking with family now.
[2019-08-15] MEDS: 0.9% Normal Saline 1,000 ML 75 ML IV (18:53)
[2019-08-15] MEDS: MELATONIN 3 MG TABLET PO (20:52)
[2019-08-15] MEDS: Mirtazapine 30 MG Tablet PO (20:53)
[2019-08-15] MEDS: Atorvastatin Calcium 20 MG Tablet PO (20:53)
[2019-08-16] MEDS: Fluticasone 0.05% 1 SPRAY NASAL.SRY NASAL (05:55)
[2019-08-16] MEDS: Polyethylene Glycol 3350 17 GM PACKET PO (05:55)
[2019-08-16] MEDS: Cyanocobalamin 500 MCG Tablet 1000 MCG PO (05:56)
[2019-08-16] MEDS: NYSTATIN 500,000 UNIT/5 ML UDC 500000 UNIT PO ×3 (05:56→19:44)
[2019-08-16] MEDS: levETIRAcetam 500 MG Tablet PO ×2 (05:56→17:12)
[2019-08-16] MEDS: Loratadine 10 MG Tablet PO (05:56)
[2019-08-16] MEDS: Senna/Docusate Sodium 1 Tablet 2 TABLET PO ×2 (05:56→17:12)
[2019-08-16] MEDS: Pantoprazole Sodium 20 MG Tablet PO ×2 (05:56→17:12)
[2019-08-16] MEDS: 0.9% Normal Saline 1,000 ML 75 ML IV ×2 (05:56→19:02)
[2019-08-16] MEDS: Aspirin 81 MG TAB.CHEW PO (08:45)
--- NOTE | 2019-08-16 09:42 | NURSING ---
patient very agitated, attempted to redirect, assisted to bathroom. pt insisting on going home. Dr. Baer notified.
[2019-08-16 10:00] VITALS: PULSE 76; RESP 16; O2SAT 92
[2019-08-16] MEDS: LORazepam 2 MG/ML Syringe 1 MG IV (10:47)
[2019-08-16 14:16] VITALS: BP 136/86; PULSE 86; RESP 16; TEMP 36.9; O2SAT 94
[2019-08-16] MEDS: Acetaminophen 325 MG Tablet 650 MG PO (14:24)
[2019-08-16] MEDS: QUEtiapine 25 MG Tablet 50 MG PO (17:12)
[2019-08-16] MEDS: LORazepam 0.5 MG Tablet PO (19:36)
[2019-08-16] MEDS: Atorvastatin Calcium 20 MG Tablet PO (19:37)
[2019-08-16] MEDS: MELATONIN 3 MG TABLET PO (19:37)
[2019-08-16] MEDS: Mirtazapine 30 MG Tablet PO (19:44)
[2019-08-17] MEDS: Polyethylene Glycol 3350 17 GM PACKET PO (05:24)
[2019-08-17] MEDS: Loratadine 10 MG Tablet PO (05:25)
[2019-08-17] MEDS: Cyanocobalamin 500 MCG Tablet 1000 MCG PO (05:25)
[2019-08-17] MEDS: Senna/Docusate Sodium 1 Tablet 2 TABLET PO ×2 (05:25→18:12)
[2019-08-17] MEDS: Pantoprazole Sodium 20 MG Tablet PO ×2 (05:25→18:13)
[2019-08-17] MEDS: QUEtiapine 25 MG Tablet 50 MG PO ×2 (05:25→18:12)
[2019-08-17] MEDS: levETIRAcetam 500 MG Tablet PO ×2 (05:25→18:13)
[2019-08-17] MEDS: NYSTATIN 500,000 UNIT/5 ML UDC 500000 UNIT PO ×4 (05:30→20:46)
[2019-08-17] MEDS: Fluticasone 0.05% 1 SPRAY NASAL.SRY NASAL (05:30)
[2019-08-17] MEDS: 0.9% Normal Saline 1,000 ML 75 ML IV (07:39)
[2019-08-17] MEDS: LORazepam 0.5 MG Tablet PO ×2 (08:57→20:38)
[2019-08-17] MEDS: Aspirin 81 MG TAB.CHEW PO (08:57)
[2019-08-17] MEDS: 0.9% Saline Lock 10 ML Syringe IV (08:59)
--- NOTE | 2019-08-17 11:38 | NURSING ---
RN ATTEMPTED IV RESTART TO R.HAND X1. PT. RESTLESS AND GRABBING AT RN AND HAND. IV UNSUCCESSFUL. RN WILL REATTEMPT WITH HELP.
--- NOTE | 2019-08-17 12:03 | NURSING ---
RN ATTEMPTED IV IN L.HAND WITHOUT SUCCESS.
[2019-08-17 14:15] VITALS: BP 143/87; PULSE 80; RESP 16; TEMP 36.7; O2SAT 96
--- NOTE | 2019-08-17 18:27 | NURSING ---
Addendum entered by Jess Nassar 08/17/19 18:30: N.O. D/C IV fluids. Will continue to encourage IVFs. Will continue to monitor. Original Note: Pt pulled IV out of left hand, new start attempted to right FA, unsuccessful. Pt removed multiple IVs. Pt will consume fluids orally when offered. Dr Baer updates.
--- NOTE | 2019-08-17 18:53 | NURSING ---
Pt with diarrhea. Stool specimen sent to lab, special contact isolation precautions initiated.
[2019-08-17] MEDS: MELATONIN 3 MG TABLET PO (20:38)
[2019-08-17] MEDS: Mirtazapine 30 MG Tablet PO (20:38)
[2019-08-17] MEDS: Atorvastatin Calcium 20 MG Tablet PO (20:38)
[2019-08-18] MEDS: Pantoprazole Sodium 20 MG Tablet PO ×2 (05:22→18:31)
[2019-08-18] MEDS: Cyanocobalamin 500 MCG Tablet 1000 MCG PO (05:22)
[2019-08-18] MEDS: levETIRAcetam 500 MG Tablet PO ×2 (05:22→18:31)
[2019-08-18] MEDS: QUEtiapine 25 MG Tablet 50 MG PO ×2 (05:22→20:45)
[2019-08-18] MEDS: NYSTATIN 500,000 UNIT/5 ML UDC 500000 UNIT PO ×4 (05:23→20:42)
[2019-08-18] MEDS: Loratadine 10 MG Tablet PO (05:23)
[2019-08-18] MEDS: Fluticasone 0.05% 1 SPRAY NASAL.SRY NASAL (05:30)
[2019-08-18] MEDS: Aspirin 81 MG TAB.CHEW PO (08:35)
--- NOTE | 2019-08-18 08:56 | NURSING ---
ALL CARE GIVEN IN ROOM DUE TO PT IN PRECAUTIONS.
[2019-08-18 14:28] VITALS: BP 102/66; PULSE 84; RESP 16; TEMP 36.5; O2SAT 90
--- NOTE | 2019-08-18 17:36 | NURSING ---
dr higginbotham spoke with daughter and per their request. new orders to decrease seroquel to QHS & dc ativan.
--- NOTE | 2019-08-18 19:20 | PCM.TCUNOT ---
Subjective: Resident seen in room today, more alert, able to converse. His , daughter are present and would like to decrease or stop sedating medications. We did talk about resident became agitated, these medications may need to be restarted. Vitals/I&O's: Vital Signs Temp Pulse Resp BP Pulse Ox 97.7 F L 84 16 102/66 90 08/18/19 14:28 08/18/19 14:28 08/18/19 14:28 08/18/19 14:28 08/18/19 14:28 Oxygen Delivery Method Room Air Weight: 66 kg Body Mass Index (BMI) 27.5 Finger Stick Blood Glucose 122 Intake and Output for Last 24 Hours 08/16/19 08/17/19 08/18/19 23:59 23:59 23:59 Intake Total / 1287.50 / 1287.50 Balance / 1287.50 / 1287.50 Microbiology Past 72 Hours 08/17/19 18:50 Stool Enteric Bacteriology - Final 08/17/19 18:50 Stool C. difficile DNA Amplification - Final Past Medical History Past Medical History (Chronic Problems): Chronic Problems Intracerebral hemorrhage (Chronic) Intraventricular hemorrhage (Chronic) Hypertension (Chronic) Coronary artery disease (Chronic) History of PTCA 1 (Chronic) 2015 Tobacco dependence in remission (Chronic) Quit in 1979 Dyslipidemia (Chronic) Erectile dysfunction (Chronic) Overweight (BMI 25.0-29.9) (Chronic) GERD (gastroesophageal reflux disease) (Chronic) Macrocytic anemia (Chronic) stable Depression (Chronic) Hyperlipidemia (Chronic) Allergic rhinitis (Chronic) Insomnia (Chronic) Elevated prostate specific antigen (PSA) (Chronic) Allergies No Known Allergies Allergy (Verified 10/26/17 11:43) Home Medications: Ambulatory Orders Medication Instructions Recorded Aspirin [Aspirin, Baby] 81 mg PO DAILY@0800 10/26/17 Fluticasone 0.05% [Flonase Nasal 1 spray NASAL DAILY 10/26/17 [place]] Loratadine 10 mg PO DAILY 10/26/17 Rosuvastatin Calcium [Crestor] 10 mg PO QHS 10/26/17 Acetaminophen [Tylenol] 650 mg PO Q6H PRN 07/01/19 Cyanocobalamin (Vitamin B-12) 1,000 mcg PO DAILY 01/14/20 [Vitamin B-12] Haloperidol [Haldol] 2 mg PO Q6H PRN PRN #1 tab 07/29/19 Magnesium Hydroxide [Milk Of 30 ml PO .PRN X 1 PRN udc 07/29/19 [place]] Bisacodyl [Dulcolax] 10 mg RECTAL DAILY PRN PRN #0 08/11/19 suppos. Melatonin 3 mg PO QHS 08/11/19 Mirtazapine [Remeron] 30 mg PO QHS 08/11/19 Pantoprazole Sodium [Protonix] 20 mg PO BID 08/11/19 Quetiapine Fumarate [Seroquel] 50 mg PO DAILY@199908/11/19 Senna/Docusate Sodium [Senokot-S] 2 tab PO BID 08/11/19 levETIRAcetam tablet [Keppra 500 mg PO BID 08/11/19 tablet] Surgical History: angioplasty - Stent., cholecystectomy Psychiatric History: Depression Lives: Spouse/ Significant Other Smoking Status: Former smoker Tobacco Use: Non-smoker Alcohol: None Drugs: None - *Family History Maternal History Items: - - Unable to obtain at this time....pt non-verbal with espressive aphasia Capacity - Capacity Assessment Tool Can the patient make a choice & communicate that choice?: No Can the patient understand benefits, risks and alternatives?: No Can the patient make a logical, rational choice?: No Is the choice the patient makes consistent w/ their values?: No Is there an impending, emergent risk to the patient?: No Does the patient have an Advance Directive?: No Is there a Surrogate Available?: Yes i.e. HCPOA: Yes i.e. close relative (spouse, child, parent, sibling)?: Yes Review of Systems Constitutional: Denies: Chills, Fever, Weight Change HEENT: Denies: Head Aches, Sinus Congestion, Sinus Drainage Cardiovascular: Denies: Chest Pain, Palpitations Respiratory: Denies: Cough, Shortness of breath at rest, Sputum production Gastrointestinal: Denies: Abdominal Pain, Nausea, Vomiting Genitourinary: Denies: Dysuria Musculoskeletal: Denies: Joint Pain, Joint Tenderness Skin: Denies: Rash, Wounds Neurological: Denies: Numbness, Tingling, Focal weakness Psychiatric: Denies: Anxiety, Depression, Homicidal Ideations, Suicidal Ideations Hematologic/ Lymphatic: Denies: Easy Bruising, Easy Bleeding Patient Problems: Active and Suspected Problems Debility (Acute) Seizure disorder (Acute) Intracranial hemorrhage (Acute) Behavioral problem (Acute) Stroke (Acute) - Physical Exam Vitals/I&O's: Vital Signs Temp Pulse Resp BP Pulse Ox 97.7 F L 84 16 102/66 90 08/18/19 14:28 08/18/19 14:28 08/18/19 14:28 08/18/19 14:28 08/18/19 14:28 Oxygen Delivery Method Room Air Weight: 66 kg Body Mass Index (BMI) 27.5 Finger Stick Blood Glucose 122 Intake and Output for Last 24 Hours 08/16/19 08/17/19 08/18/19 23:59 23:59 23:59 Intake Total / 1287.50 / 1287.50 Balance / 1287.50 / 1287.50 General: Alert, Oriented x3, Cooperative HEENT: Atraumatic, PERRLA, EOMI, Normocephalic Neck: Supple, No JVD, Negative Carotid Bruits Lungs: Clear to auscultation, Normal air movement Cardiovascular: Regular rate, No murmurs Abdomen: Bowel Sounds Present, Soft, Non Tender Extremities: No edema, Capillary Refill Less than 3 Seconds Skin: No rashes, No breakdown Musculoskeletal: No Tenderness to Palpation of Joints or Extremities Neurological: Cranial nerves II-XII grossly intact Psych/Mental Status: Normal Affect, Appropriate Microbiology Past 72 Hours 08/17/19 18:50 Stool Enteric Bacteriology - Final 08/17/19 18:50 Stool C. difficile DNA Amplification - Final Current Medications Acetaminophen (Tylenol) 650 mg PO Q6H PRN PRN PRN Reason: Pain Score 1-10/10 Last Admin: 08/16/19 14:24 Dose: 650 mg Documented by: Aspirin (Aspirin, Baby) 81 mg PO DAILY@0800 [facility] Last Admin: 08/18/19 08:35 Dose: 81 mg Documented by: Atorvastatin Calcium (Lipitor) 20 mg PO QHS [facility] Last Admin: 08/17/19 20:38 Dose: 20 mg Documented by: Bisacodyl (Dulcolax) 10 mg RECTAL DAILY PRN PRN PRN Reason: Constipation Cyanocobalamin (Vitamin B12) 1,000 mcg PO DAILY [facility] Last Admin: 08/18/19 05:22 Dose: 1,000 mcg Documented by: Fluticasone Propionate (Flonase Nasal [place]) 1 spray NASAL DAILY [facility] Last Admin: 08/18/19 05:30 Dose: 1 spray Documented by: Levetiracetam (Keppra Tablet) 500 mg PO BID [facility] Last Admin: 08/18/19 18:31 Dose: 500 mg Documented by: Loratadine (Claritin) 10 mg PO DAILY [facility] Last Admin: 08/18/19 05:23 Dose: 10 mg Documented by: Mirtazapine (Remeron) 30 mg PO QHS [facility] Last Admin: 08/17/19 20:38 Dose: 30 mg Documented by: Nystatin (Nystatin) 500,000 unit PO 4X/DAY [facility] Last Admin: 08/18/19 18:31 Dose: 500,000 unit Documented by: Pantoprazole Sodium (Protonix) 20 mg PO BID [facility] Last Admin: 08/18/19 18:31 Dose: 20 mg Documented by: Polyethylene Glycol (Miralax) 17 gm PO DAILY [facility] Last Admin: 08/18/19 02:54 Dose: Not Given Documented by: Potassium Chlor[facility] (K[facility]Dur) [facility] Last Admin: 08/18/19 08:35 Dose: 20 meq Documented by: Quetiapine Fumarate (Seroquel) 50 mg PO QHS [facility] Senna/Docusate Sodium (Senokot-S, Cristy-Colace) 2 tablet PO BID [facility] Last Admin: 08/18/19 17:39 Dose: Not Given Documented by: Sodium Chloride () 10 - 40 ml IV UD PRN PRN Reason: SALINE FLUSH Last Admin: 08/17/19 08:59 Dose: 10 ml Documented by: Tuberculin PPD (Tubersol, Aplisol, Ppd) 5 tu ID X1 ONE Stop: 08/19/19 10:01 Assessment/Plan All Active Problems Acute encephalopathy (Acute) Cerebrovascular accident, embolic (Acute) Complicated UTI (urinary tract infection) (Acute) Urine retention (Resolved) Dehydration (Resolved) Hypercalcemia (Resolved) Elevated PSA, between 10 and less than 20 ng/ml (Acute) Unresponsive episode (Acute) Debility (Acute) Seizure disorder (Acute) Intracranial hemorrhage (Acute) Behavioral problem (Acute) Stroke (Acute) 74 year old male with below past medical history significant for recent stroke with hemorrhagic transformation hospitalized for post intracranial hemorrhage seizure, complicated by agitation, admitted to TCU with debility, here for rehabilitation, strengthening, prior to disposition determination. Somnolence - He is improved today. 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 Agitation - Improved, stop Lorazepam 0.5MG Q6H PRN. Insomnia - Improved, stop Melatonin 3MG QHS. Depression/appetite loss - lower Mirtazapine 15MG QHS, doses higher than 15MG tend to have paradoxical effects.
[2019-08-18] MEDS: Mirtazapine 15 MG Tablet PO (20:45)
[2019-08-18] MEDS: Atorvastatin Calcium 20 MG Tablet PO (20:45)
[2019-08-19] MEDS: levETIRAcetam 500 MG Tablet PO ×2 (05:31→16:52)
[2019-08-19] MEDS: NYSTATIN 500,000 UNIT/5 ML UDC 500000 UNIT PO (05:31)
[2019-08-19] MEDS: Pantoprazole Sodium 20 MG Tablet PO ×2 (05:31→16:52)
[2019-08-19] MEDS: Senna/Docusate Sodium 1 Tablet 2 TABLET PO ×2 (05:31→16:52)
[2019-08-19] MEDS: Loratadine 10 MG Tablet PO (05:31)
[2019-08-19] MEDS: Cyanocobalamin 500 MCG Tablet 1000 MCG PO (05:31)
[2019-08-19] MEDS: Fluticasone 0.05% 1 SPRAY NASAL.SRY NASAL (05:32)
[2019-08-19] MEDS: Polyethylene Glycol 3350 17 GM PACKET PO (05:32)
[2019-08-19 06:01] LABS: Absolute Neutrophil Count 3.4 X10^3/uL (2.0-7.7); Basophil# 0.03 X10^3/uL; Basophil% 0.5 % (0-1); Eosinophil# 0.35 X10^3/uL; Eosinophils% 5.8 % (0-5); Hemoglobin 13.3 g/dL (13.0-16.5); Mean Corp Hgb Conc 33.3 g/dL (32-36); Mean Corpuscular Hgb 33.1 pg (27.0-32.0); Mean Corpuscular Volume 99.5 fL (80-94); Mean Platelet Vol. 10.3 fl (6.2-12.0); Monocyte% 9.9 % (0-10); NRBC Flagged by Analyzer 0 % (0-5); Neutrophil # 3.37 X10^3/uL (2.7-7.7); Neutrophil % 55.5 % (47-70); Platelet Count 198 K/mm3 (150-450); RBC Distribution Width SD 47.3 fl (35.1-43.9); Red Blood Count 4.02 M/mm3 (4.6-6.2); White Blood Count 6.1 K/mm3 (4.4-11.0)
[2019-08-19 06:14] LABS: Anion Gap 4 (5-15); BUN 11 mg/dL (7-18); BUN/Creat Ratio 13.6 RATIO (10-20); Calcium,Total 9.1 mg/dL (8.5-10.1); Chloride 113 mmol/L (98-107); Creatinine, Serum 0.81 mg/dL (0.70-1.30); EST Glomerular Filtration Rate 99 mL/min (>60); Est Glom Filt Rate - Afr Amer 120 mL/min (>60); Estimated Creatinine Clearance 60.08 ml/min; Glucose 100 mg/dL (74-106); Potassium 3.9 mmol/L (3.5-5.1); Sodium Level 143 mmol/L (136-145)
[2019-08-19] MEDS: Aspirin 81 MG TAB.CHEW PO (08:33)
--- NOTE | 2019-08-19 08:56 | CASEMGMT ---
Addendum entered by Valorie Solomon 08/19/19 09:24: Reviewed and agreed with social work international relations teacher documentation. DUSTIN Kim Original Note: Social Work BIMS and PHQ-9 completed on 08/18/2019 for MDS assessment. Meche Huerta, social work international relations teacher DUSTIN FarleyW
--- NOTE | 2019-08-19 09:49 | NURSING ---
vice president for instruction reported pt did not sleep at all last night but cooperative. This AM pt alarm sounding in pt room and pt found attempting to crawl out of recliner chair. Repositioned pt in chair and brought out to nurses station. tried orienting pt to place & time. pt forgets and then begins calling out for his , niklling cristine. reoriented that not here & will be in later. pt states oh and quiets down. chair alarm in place. will continue to monitor closely.
[2019-08-19] MEDS: Tuberculin,Purif.prot.deriv. 50 TU/ML Vial 5 ML ID (10:28)
[2019-08-19 13:53] VITALS: PULSE 100; RESP 18; O2SAT 92
[2019-08-19 14:49] VITALS: BP 112/68; PULSE 91; RESP 16; TEMP 35.6; O2SAT 93
--- NOTE | 2019-08-19 17:24 | CASEMGMT ---
Social Work Reviewed and agreed with social work internal control specialist documentation on this date. Valorie Solomon, SALES ROUTE DRIVER [employer]
--- NOTE | 2019-08-19 20:00 | NURSING ---
Pt set bed exit off. pt found outside of bed. pt asst to bathroom. pt voided and asst back to bed by harsh. Pt very confused at this time. 2014 Meds given early to help with restlessness.
[2019-08-19] MEDS: QUEtiapine 25 MG Tablet 50 MG PO (20:14)
[2019-08-19] MEDS: Mirtazapine 15 MG Tablet PO (20:15)
[2019-08-19] MEDS: Atorvastatin Calcium 20 MG Tablet PO (20:15)
[2019-08-19] MEDS: Acetaminophen 325 MG Tablet 650 MG PO (20:15)
--- NOTE | 2019-08-19 21:30 | NURSING ---
Pt all over the bed. legs hanging out of bed. Pt took seizure pads off bed. Pt removing his clothes. Pt oriented x0. Pt does not even know his name. dr Baer core text
[2019-08-19] MEDS: LORazepam 0.5 MG Tablet PO (22:07)
[2019-08-20] MEDS: Cyanocobalamin 500 MCG Tablet 1000 MCG PO (05:15)
[2019-08-20] MEDS: levETIRAcetam 500 MG Tablet PO ×2 (05:16→16:27)
[2019-08-20] MEDS: Polyethylene Glycol 3350 17 GM PACKET PO (05:16)
[2019-08-20] MEDS: Pantoprazole Sodium 20 MG Tablet PO ×2 (05:16→16:28)
[2019-08-20] MEDS: Loratadine 10 MG Tablet PO (05:16)
[2019-08-20] MEDS: Senna/Docusate Sodium 1 Tablet 2 TABLET PO ×2 (05:16→16:27)
--- NOTE | 2019-08-20 05:16 | NURSING ---
Pt aggitated this am. Pt took bite of applesauce. pt then refuses to take the rest of the pills. Pt refused the nasal spray also. Pt very restless and trying to get out of bed. pt putting his legs on the side rails and attempting to get out of bed. Emotional support given and pt repostion in bed
--- NOTE | 2019-08-20 07:34 | NURSING ---
Patient arguing with self and setting off PA. This nurse attempted to reorient pt, pt became angry and stated you better get out of here, if you don't want to get hurt. Continuing to monitor.
[2019-08-20] MEDS: Aspirin 81 MG TAB.CHEW PO (08:33)
--- NOTE | 2019-08-20 11:27 | CASEMGMT ---
Social Work IDT met with pt, , and daughter for care plan meeting. Pt is walking 135ft at hand held-min assist. Pt is min assist for UE ADLs and max assist for LE ADLs but varies day to day and has been a total assist x2 for all ADLs. Max or mod x2 for bed mobility. Min assist for sit/stand. ST is seeing pt-working on automatic speech and recall-pt needs max cues. pt on cardiac diet with ensure pudding and magic cup at lunch and supper and ensure shakes in between meals. Explained insurance to family, NRD 08/25. Discussed with family possibility of doing shared care to assess needs/ plans for DC. to do family training for walking 08/20. Family to do shared care-2hr on 08/23 or 08/24. SW discussed reality of DC plans home, discussed referral to SNF, agreeable to CC for alt. plan for DC. SW to have appropriate doctor f/u to discuss with family the medical incident that brought pt into TCU and discuss possible reasons for change in behavior. Pt has been agitated and restless at night. Family frustrated with how much pt was medicated, but happy and positive in seeing improvement since medications have been changed. Will continue to follow. Meche Huerta, social work pr intern Valorie Solomon, RETURN TO SERVICE INSPECTOR DIRECTOR OF PREMIUM SEAT SALES
[2019-08-20 14:01] VITALS: BP 128/86; PULSE 102; RESP 18; TEMP 35.9; O2SAT 95
[2019-08-20] MEDS: Mirtazapine 15 MG Tablet PO (20:36)
[2019-08-20] MEDS: QUEtiapine 25 MG Tablet 50 MG PO (20:36)
[2019-08-20] MEDS: Atorvastatin Calcium 20 MG Tablet PO (20:36)
--- NOTE | 2019-08-21 01:17 | NURSING ---
Addendum entered by Rosy Marquez 08/21/19 11:11: slept from 2am to 5 am. Addendum entered by Rosy Marquez 08/21/19 11:11: Dr higginbotham updated on pt restless, not going to bed until 2 am. new order increase in seroquel [facility] Addendum entered by Franchesca Albert 08/21/19 01:45: 0145- bed bath given, lotion applied and calin-care done. pt repositioned and resting with eyes closed at this time. will monitor. Original Note: Patient pleasant and cooperative for HS care and HS medications. Pt becoming increasingly restless/agitated as the shift continues. Yelling out and throwing seizure pads. Pt needs frequent redirection. Fluids given, pt repositioned and used urinal x1 also changed for incontinence x1. Interventions effective for short periods only. Bed alarm on and video monitor on. Fall mats on floor and bed in low position. Pt is currently A&O to self.
[2019-08-21] MEDS: Polyethylene Glycol 3350 17 GM PACKET PO (05:42)
[2019-08-21] MEDS: Fluticasone 0.05% 1 SPRAY NASAL.SRY NASAL (05:42)
[2019-08-21] MEDS: Pantoprazole Sodium 20 MG Tablet PO ×2 (05:43→17:13)
[2019-08-21] MEDS: Senna/Docusate Sodium 1 Tablet 2 TABLET PO ×2 (05:43→17:13)
[2019-08-21] MEDS: levETIRAcetam 500 MG Tablet PO ×2 (05:43→17:13)
[2019-08-21] MEDS: Cyanocobalamin 500 MCG Tablet 1000 MCG PO (05:43)
[2019-08-21] MEDS: Loratadine 10 MG Tablet PO (05:43)
--- NOTE | 2019-08-21 06:49 | MDS.RN ---
Information for the mds was obtained from review of the clinical record, interview of resident, staff, and direct observation of resident's care.
[2019-08-21] MEDS: Aspirin 81 MG TAB.CHEW PO (07:45)
[2019-08-21 14:32] VITALS: BP 114/74; PULSE 93; RESP 16; TEMP 36.3; O2SAT 93
[2019-08-21] MEDS: Atorvastatin Calcium 20 MG Tablet PO (20:35)
[2019-08-21] MEDS: QUEtiapine 25 MG Tablet 75 MG PO (20:36)
[2019-08-21] MEDS: Mirtazapine 15 MG Tablet PO (20:36)
[2019-08-22] MEDS: levETIRAcetam 500 MG Tablet PO ×2 (05:40→19:43)
[2019-08-22] MEDS: Polyethylene Glycol 3350 17 GM PACKET PO (05:40)
[2019-08-22] MEDS: Loratadine 10 MG Tablet PO (05:40)
[2019-08-22] MEDS: Cyanocobalamin 500 MCG Tablet 1000 MCG PO (05:41)
[2019-08-22] MEDS: Senna/Docusate Sodium 1 Tablet 2 TABLET PO ×2 (05:41→19:43)
[2019-08-22] MEDS: Pantoprazole Sodium 20 MG Tablet PO ×2 (05:41→19:43)
[2019-08-22] MEDS: Fluticasone 0.05% 1 SPRAY NASAL.SRY NASAL (05:42)
[2019-08-22] MEDS: Aspirin 81 MG TAB.CHEW PO (08:22)
[2019-08-22 14:47] VITALS: BP 104/65; PULSE 96; RESP 14; TEMP 36.9; O2SAT 91
[2019-08-22] MEDS: QUEtiapine 25 MG Tablet 75 MG PO (19:43)
[2019-08-22] MEDS: Atorvastatin Calcium 20 MG Tablet PO (19:43)
[2019-08-22] MEDS: Mirtazapine 15 MG Tablet PO (19:43)
--- NOTE | 2019-08-22 19:45 | NURSING ---
PT WAS FOUND ON FLOOR. STAFF WAS RIGHT OUTSIDE DOOR AND RAN IN SOON ALARM WENT OFF. THIS NURSE HAD JUST CHECKED ON PT A FEW MINUTES PRIOR. DR STACY AND FAMILY NOTIFIED BY ROGER Vergara RN
[2019-08-22] MEDS: Acetaminophen 325 MG Tablet 650 MG PO (21:32)
--- NOTE | 2019-08-22 22:09 | NURSING ---
Addendum entered by Afsaneh Esteban 08/23/19 06:52: Pt has been sitting at nurses station in [facility] since 314. Pt has been pleasant, but with several attempts to get out of recliner. Pt has required a staff member to be present at all times at the nurses station. Pt has not slept all morning. 1:1 given, fluids, redirected, assisted with urinal, and repositioning provided. Addendum entered by Afsaneh Esteban 08/23/19 02:56: Pt slept for about 45 minutes after giving him the 1x dose of ativan. Pt continues to be restless, agitated, multiple attempts to swing his legs over the side rails of the bed and get out of bed. Pt has required a staff member to be in his room every couple minutes to redirect, 1:1 provided, assisted with urinal, provided fluids, reposition, etc. All attempts have been unsuccessful. Addendum entered by Afsaneh Esteban 08/22/19 23:31: Pt fell asleep from [id number]. Continues to be restless, attempting to get out of bed. Original Note: Pt has been very restless and agitated all evening. Pt attempting to get out of bed, setting off PA, requiring staff members to be in his room very often. Redirect, 1:1, fluids, repositioning, changing attends all interventions attempted without success. Dr. Baer aware, and new order for lorazepam 0.5mg X1. Will continue to monitor.
[2019-08-22] MEDS: LORazepam 0.5 MG Tablet PO (23:28)
[2019-08-23] MEDS: Fluticasone 0.05% 1 SPRAY NASAL.SRY NASAL (04:39)
[2019-08-23] MEDS: Polyethylene Glycol 3350 17 GM PACKET PO (04:39)
[2019-08-23] MEDS: Loratadine 10 MG Tablet PO (04:39)
[2019-08-23] MEDS: Cyanocobalamin 500 MCG Tablet 1000 MCG PO (04:39)
[2019-08-23] MEDS: Pantoprazole Sodium 20 MG Tablet PO ×2 (04:39→17:21)
[2019-08-23] MEDS: levETIRAcetam 500 MG Tablet PO ×2 (04:39→17:21)
[2019-08-23] MEDS: Senna/Docusate Sodium 1 Tablet 2 TABLET PO ×2 (04:39→17:21)
[2019-08-23] MEDS: Aspirin 81 MG TAB.CHEW PO (08:46)
[2019-08-23 10:00] VITALS: RESP 16
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
[2019-08-23 13:48] VITALS: BP 98/64; PULSE 90; RESP 18; TEMP 36.2; O2SAT 90
[2019-08-23] MEDS: QUEtiapine 25 MG Tablet 75 MG PO (19:58)
[2019-08-23] MEDS: Atorvastatin Calcium 20 MG Tablet PO (19:58)
[2019-08-23] MEDS: Mirtazapine 15 MG Tablet PO (19:58)
[2019-08-24] MEDS: Polyethylene Glycol 3350 17 GM PACKET PO (06:34)
[2019-08-24] MEDS: Pantoprazole Sodium 20 MG Tablet PO ×2 (06:35→17:14)
[2019-08-24] MEDS: Cyanocobalamin 500 MCG Tablet 1000 MCG PO (06:35)
[2019-08-24] MEDS: Loratadine 10 MG Tablet PO (06:35)
[2019-08-24] MEDS: Senna/Docusate Sodium 1 Tablet 2 TABLET PO ×2 (06:35→17:14)
[2019-08-24] MEDS: levETIRAcetam 500 MG Tablet PO ×2 (06:35→17:14)
[2019-08-24] MEDS: Fluticasone 0.05% 1 SPRAY NASAL.SRY NASAL (06:36)
[2019-08-24] MEDS: Aspirin 81 MG TAB.CHEW PO (08:13)
--- NOTE | 2019-08-24 11:21 | NURSING ---
pt sitting at table in day room eating cookies and drinking a soda, when he suddenly jumped out of his chair and went running down the peña. Nurse Bae and this nurse attempted to reorient pt and offered to walk with him, he became resistant and attempted to run away. He grabbed nurse Kathia's arm and squeezed her arm and swung at the nurse. He continued resisting staff and attempted to go into another patient's room. Staff was unsuccessful with being able to calm the patient and a code zoie was called. Patient's family was notified and additional medical staff was able to get pt to sit down. Dr. Baer contacted, waiting for a response.
--- NOTE | 2019-08-24 11:38 | NURSING ---
Dr Baer returned call. Updated him on pt's condition. pt currently sitting in day room with daughter and eating lunch. Informed Dr. Baer that family is requesting Haldol instead of Ativan. Dr. Baer said that Haldol was not an option. Family made aware of this. No new orders at this time, as pt has calmed down. Will notify Dr. Baer if pt becomes agitated again. Will continue to monitor.
[2019-08-24 15:19] VITALS: BP 110/72; PULSE 92; RESP 16; TEMP 36.4; O2SAT 94
[2019-08-24] MEDS: Mirtazapine 15 MG Tablet PO (19:33)
[2019-08-24] MEDS: QUEtiapine 25 MG Tablet 75 MG PO (19:33)
[2019-08-24] MEDS: Atorvastatin Calcium 20 MG Tablet PO (19:33)
--- NOTE | 2019-08-24 22:37 | NURSING ---
Addendum entered by Franchesca Albert 08/25/19 03:44: Pt continues to be restless and attempting to get out of recliner chair at nurses' station requiring constant 1:1 care and reorientation. Addendum entered by Franchesca Albert 08/25/19 00:38: 0035- Pt sleeping in recliner chair at nurses' station, will continue to monitor Addendum entered by Franchesca Albert 08/24/19 23:59: 2315- Pt setting off bed alarm, climbing over side rail out of bed. Attempted to redirect pt several times and pt agitated and combative grabbing at staff's arms/clothing. Able to get patient into recliner chair and wheeled to restroom to attempt toileting. Pt sat on toilet briefly with no results. Pt continues to be unable to be redirected and combative with staff. Attempting to ambulate unassisted and knees buckling. Dr. Baer notified and new orders received for 50mg PO seroquel x1. Medication administered and pt assisted back to recliner chair. Snack and drinks given and pt at nurses' station at this time for closer monitoring. Original Note: 2129- Pt restless tonight, attempting to get OOB throwing seizure pads on floor and crawling over side rail. Voided small amount in urinal with assist. Pt reoriented/redirected several times not effective. Bed bath given & lotion applied. Pt repositioned and resting with eyes closed at this time. Bed alarm on and functioning, bed in low position with mats on floor. Video monitor on.
[2019-08-24] MEDS: QUEtiapine 25 MG Tablet 50 MG PO (23:45)
[2019-08-25] MEDS: Nystatin Powder 15gm Bottle 1 APPLIC TOPICAL ×2 (04:13→19:46)
[2019-08-25] MEDS: Menthol/Lanolin/Calamine/Znox 113 GM Tube 1 APPLIC TOPICAL ×2 (04:13→19:45)
[2019-08-25] MEDS: Loratadine 10 MG Tablet PO (04:14)
[2019-08-25] MEDS: Pantoprazole Sodium 20 MG Tablet PO ×2 (04:14→17:13)
[2019-08-25] MEDS: levETIRAcetam 500 MG Tablet PO ×2 (04:14→17:13)
[2019-08-25] MEDS: Cyanocobalamin 500 MCG Tablet 1000 MCG PO (04:14)
[2019-08-25] MEDS: Senna/Docusate Sodium 1 Tablet 2 TABLET PO ×2 (04:14→17:13)
[2019-08-25] MEDS: Polyethylene Glycol 3350 17 GM PACKET PO (04:17)
[2019-08-25] MEDS: Fluticasone 0.05% 1 SPRAY NASAL.SRY NASAL (04:21)
--- NOTE | 2019-08-25 08:51 | NURSING ---
Pt continues to get out of wheelchair and tries to ambulate independently. Staff applied gait belt to pt and obtained his walker trying to assist pt in safe ambulation. Pt is getting increasingly agitated and beginning to get combative with staff. He is refusing to use his walker and continues to take off his gait belt. notified and is aware of clinical situation, stated she would be in. Dr. Baer in house and witnessed events and ordered a stat dose of seroquel. Pt did take seroquel after multiple attempts.
[2019-08-25] MEDS: QUEtiapine 25 MG Tablet 50 MG PO (08:57)
[2019-08-25 09:52] VITALS: PULSE 88; RESP 16; O2SAT 90
[2019-08-25 13:29] VITALS: BP 107/65; PULSE 72; RESP 16; TEMP 36.1; O2SAT 97
--- NOTE | 2019-08-25 17:16 | NURSING ---
& daughter here today, still here at bedside. pt cooperative with her at his side. sitting in recliner chair. follows commands with multiple cues. alarm in place.
--- NOTE | 2019-08-25 18:37 | NURSING ---
daughter updated on increased seroquel dose at hs d/t pt agitation this AM
[2019-08-25] MEDS: Atorvastatin Calcium 20 MG Tablet PO (19:45)
[2019-08-25] MEDS: QUEtiapine 100 MG Tablet PO (19:45)
[2019-08-25] MEDS: Mirtazapine 15 MG Tablet PO (19:45)
[2019-08-25] MEDS: Acetaminophen 325 MG Tablet 650 MG PO (19:48)
[2019-08-26] MEDS: Acetaminophen 325 MG Tablet 650 MG PO (02:57)
--- NOTE | 2019-08-26 03:19 | NURSING ---
staff observed spouse assisting pt to the br and pt gait is noted to be unsteady on the camera. staff went into the room to assist spouse taking pt to the br. pt taking small steps and ambulating with eyes closed . staff assisted spouse with changing attends and completing incontinence protocol. pt became mildly agitated with the assistance, wanting to do it himself but then not doing anything. pt encouraged to take bigger steps and open eyes when ambulating back to the bed. pt medicated for discomfort to the rt forearm.
[2019-08-26 05:59] LABS: Absolute Lymphocyte Count 1.86 X10^3/uL (0.83-4.51); Absolute Neutrophil Count 6.4 X10^3/uL (2.0-7.7); Basophil# 0.03 X10^3/uL; Basophil% 0.3 % (0-1); Eosinophil# 0.32 X10^3/uL; Eosinophils% 3.4 % (0-5); Hematocrit 38.7 % (40-54); Hemoglobin 12.8 g/dL (13.0-16.5); Lymphocyte # 1.86 X10^3/ul (4.0); Lymphocyte % 19.9 % (19-41); Mean Corp Hgb Conc 33.1 g/dL (32-36); Mean Corpuscular Hgb 33.2 pg (27.0-32.0); Mean Corpuscular Volume 100.3 fL (80-94); Mean Platelet Vol. 10.5 fl (6.2-12.0); Monocyte# 0.73 X10^3/uL; Monocyte% 7.8 % (0-10); NRBC Flagged by Analyzer 0 % (0-5); Neutrophil # 6.36 X10^3/uL (2.7-7.7); Neutrophil % 68.2 % (47-70); Platelet Count 193 K/mm3 (150-450); RBC Distribution Width CV 13.1 % (11.6-14.6); RBC Distribution Width SD 47.9 fl (35.1-43.9); Red Blood Count 3.86 M/mm3 (4.6-6.2); White Blood Count 9.3 K/mm3 (4.4-11.0)
[2019-08-26] MEDS: Polyethylene Glycol 3350 17 GM PACKET PO (06:40)
[2019-08-26] MEDS: Fluticasone 0.05% 1 SPRAY NASAL.SRY NASAL (06:41)
[2019-08-26] MEDS: Cyanocobalamin 500 MCG Tablet 1000 MCG PO (06:41)
[2019-08-26] MEDS: Pantoprazole Sodium 20 MG Tablet PO ×2 (06:41→16:59)
[2019-08-26] MEDS: Loratadine 10 MG Tablet PO (06:41)
[2019-08-26] MEDS: levETIRAcetam 500 MG Tablet PO ×2 (06:41→16:59)
[2019-08-26] MEDS: Senna/Docusate Sodium 1 Tablet 2 TABLET PO (06:42)
[2019-08-26] MEDS: Nystatin Powder 15gm Bottle 1 APPLIC TOPICAL ×2 (06:42→19:23)
[2019-08-26] MEDS: Menthol/Lanolin/Calamine/Znox 113 GM Tube 1 APPLIC TOPICAL ×2 (06:43→19:23)
[2019-08-26 07:00] LABS: Anion Gap 5 (5-15); BUN 17 mg/dL (7-18); BUN/Creat Ratio 17.1 RATIO (10-20); Calcium,Total 9.4 mg/dL (8.5-10.1); Chloride 108 mmol/L (98-107); Creatinine, Serum 0.99 mg/dL (0.70-1.30); EST Glomerular Filtration Rate 78 mL/min (>60); Est Glom Filt Rate - Afr Amer 95 mL/min (>60); Estimated Creatinine Clearance 49.16 ml/min; Glucose 87 mg/dL (74-106); Potassium 3.7 mmol/L (3.5-5.1); Sodium Level 142 mmol/L (136-145)
[2019-08-26] MEDS: Aspirin 81 MG TAB.CHEW PO (08:39)
--- NOTE | 2019-08-26 10:50 | NURSING ---
therapy working with pt at this time. pt cooperative, at side. no behaviors thus far in shift.
[2019-08-26 13:42] VITALS: BP 98/66; PULSE 77; RESP 16; TEMP 37.1; O2SAT 93
[2019-08-26] MEDS: QUEtiapine 100 MG Tablet PO (19:23)
[2019-08-26] MEDS: Atorvastatin Calcium 20 MG Tablet PO (19:26)
[2019-08-26] MEDS: Mirtazapine 15 MG Tablet PO (19:26)
[2019-08-27] MEDS: Cyanocobalamin 500 MCG Tablet 1000 MCG PO (05:44)
[2019-08-27] MEDS: Pantoprazole Sodium 20 MG Tablet PO ×2 (05:44→17:42)
[2019-08-27] MEDS: Polyethylene Glycol 3350 17 GM PACKET PO (05:44)
[2019-08-27] MEDS: Senna/Docusate Sodium 1 Tablet 2 TABLET PO (05:44)
[2019-08-27] MEDS: Loratadine 10 MG Tablet PO (05:45)
[2019-08-27] MEDS: Fluticasone 0.05% 1 SPRAY NASAL.SRY NASAL (05:45)
[2019-08-27] MEDS: levETIRAcetam 500 MG Tablet PO ×2 (05:45→17:42)
[2019-08-27] MEDS: Menthol/Lanolin/Calamine/Znox 113 GM Tube 1 APPLIC TOPICAL ×2 (05:45→19:52)
[2019-08-27] MEDS: Nystatin Powder 15gm Bottle 1 APPLIC TOPICAL ×2 (05:46→19:53)
--- NOTE | 2019-08-27 09:40 | NURSING ---
Per nursing report PT refusing care and medication administration. Previous nurse and this nurse attempted to provide medication and Pt refused.
[2019-08-27 10:00] VITALS: PULSE 89; RESP 16; O2SAT 95
--- NOTE | 2019-08-27 11:21 | MDS.RN ---
Spouse notified of current resident precautions regarding COVID-19
[2019-08-27 14:14] VITALS: BP 115/74; PULSE 93; RESP 16; TEMP 36.4; O2SAT 95
[2019-08-27] MEDS: Atorvastatin Calcium 20 MG Tablet PO (19:49)
[2019-08-27] MEDS: QUEtiapine 100 MG Tablet PO (19:49)
[2019-08-27] MEDS: Mirtazapine 15 MG Tablet PO (19:50)
[2019-08-28] MEDS: Cyanocobalamin 500 MCG Tablet 1000 MCG PO (05:01)
[2019-08-28] MEDS: levETIRAcetam 500 MG Tablet PO ×2 (05:01→17:31)
[2019-08-28] MEDS: Loratadine 10 MG Tablet PO (05:01)
[2019-08-28] MEDS: Senna/Docusate Sodium 1 Tablet 2 TABLET PO ×2 (05:01→17:31)
[2019-08-28] MEDS: Pantoprazole Sodium 20 MG Tablet PO ×2 (05:02→17:31)
[2019-08-28] MEDS: Menthol/Lanolin/Calamine/Znox 113 GM Tube 1 APPLIC TOPICAL ×2 (05:06→19:22)
[2019-08-28] MEDS: Fluticasone 0.05% 1 SPRAY NASAL.SRY NASAL (05:06)
[2019-08-28] MEDS: Nystatin Powder 15gm Bottle 1 APPLIC TOPICAL ×2 (05:07→19:22)
[2019-08-28] MEDS: Aspirin 81 MG TAB.CHEW PO (08:35)
--- NOTE | 2019-08-28 10:44 | CASEMGMT ---
Addendum entered by Valorie Solomon 08/28/19 12:09: [facility] - referral made for PT/OT/ST/SN/CASTELAN/SW. No DME needs. Original Note: Social Work Spoke with patient's about insurance issuing LCD 08/30, DC 08/31. stated she will be taking pt home despite IDT recommendations of LTP or 24/7 care. stated she would like [facility]. Provided list of agencies and will notify SW of choice. Will continue to follow. DUSTIN KimW
[2019-08-28 14:10] VITALS: BP 93/69; PULSE 90; RESP 16; TEMP 36.3; O2SAT 93
--- NOTE | 2019-08-28 15:38 | DCINST_ITS ---
- Discharge Diagnoses Current Active Problems: Current Active and Chronic Problems Debility (Acute) Seizure disorder (Acute) Intracranial hemorrhage (Acute) Hyperlipidemia (Chronic) Allergic rhinitis (Chronic) Insomnia (Chronic) Behavioral problem (Acute) Stroke (Acute) Elevated prostate specific antigen (PSA) (Chronic) You will use the following diet at home:: No restrictions, Regular Your food should be the consistency of: Regular Your liquids should be the consistency of: Regular/Thin Discharge Activity: Return to Normal Activity, May Shower, Use Walker Weight Bearing Status: Weight bearing as tolerated Call your doctor if you observe: Fever of 101 or Higher, Inability to urinate, Inability to have a bowel movement, Shortness of breath, Chest pain, Uncontrolled pain Allergies/Adverse Reactions: Allergies No Known Allergies Allergy (Verified 10/26/17 11:43) Medications to take at Discharge Aspirin [Aspirin, Baby] 81 mg PO DAILY@0800 10/26/17 Fluticasone 0.05% [Flonase Nasal [place]] 1 spray NASAL DAILY 10/26/17 Loratadine 10 mg PO DAILY 10/26/17 Rosuvastatin Calcium [Crestor] 10 mg PO QHS 10/26/17 Acetaminophen [Tylenol] 650 mg PO Q6H PRN 07/01/19 Cyanocobalamin (Vitamin B-12) [Vitamin B-12] 1,000 mcg PO DAILY 07/01/19 Pantoprazole Sodium [Protonix] 20 mg PO BID 08/11/19 Menthol/Lanolin/Calamine/Znox [Calmoseptine Ointment] 1 applic TOPICAL 2200,0600 tube 08/28/19 Mirtazapine [Remeron] 30 mg PO QHS #30 tab 08/28/19 Nystatin Powder [Mycostatin Powder] 1 applic TOPICAL 2200,0600 bottle 08/28/19 Potassium Chloride [K-Dur] 20 meq PO DAILYCM #30 tab 08/28/19 Quetiapine Fumarate [Seroquel] 100 mg PO DAILY@1900 #30 tab 08/28/19 levETIRAcetam tablet [Keppra tablet] 500 mg PO BID #60 tab 08/28/19 The following prescriptions were given: Potassium Chloride [K-Dur] 20 meq PO DAILYCM #30 tab Transmission Status: Pending to [facility]/pharmacy #[id number] levETIRAcetam tablet [Keppra tablet] 500 mg PO BID #60 tab Transmission Status: Pending to [facility]pharmacy #[id number] Mirtazapine [Remeron] 30 mg PO QHS #30 tab Transmission Status: Pending to [facility]acy [id number] Quetiapine Fumarate [Seroquel] 100 mg PO DAILY@1900 #30 tab Transmission Status: Pending to [facility]acy [id number] Primary Care Physician: Pierre Horowitz MD [Primary Care Provider] - Please follow up with your Primary Care Physician in: 1 week. Test Results: Test results from this visit will be discussed in further detail at your follow- up appointment, if applicable. Please Follow Up With: Pierre Horowitz MD When: 2 weeks Please Follow Up With: Brando Vigil MD When: 2-3 weeks Proposed Discharge Date: 09/01/19
--- NOTE | 2019-08-28 15:39 | DS.PCM_ITS ---
Discharge Date and Diagnosis - Problem List Patient Problems: Active and Suspected Problems Debility (Acute) Seizure disorder (Acute) Intracranial hemorrhage (Acute) Behavioral problem (Acute) Stroke (Acute) Date of Admission: 08/11/19 Date of Discharge: 09/01/19 - Primary Discharge Diagnosis Active and Suspected Problems Debility (Acute) Seizure disorder (Acute) Intracranial hemorrhage (Acute) Behavioral problem (Acute) Stroke (Acute) - Secondary Discharge Diagnosis Chronic Problems Intracerebral hemorrhage (Chronic) Intraventricular hemorrhage (Chronic) Hypertension (Chronic) Coronary artery disease (Chronic) History of PTCA 1 (Chronic) 2016 Tobacco dependence in remission (Chronic) Quit in 1979 Dyslipidemia (Chronic) Erectile dysfunction (Chronic) Overweight (BMI 25.0-29.9) (Chronic) GERD (gastroesophageal reflux disease) (Chronic) Macrocytic anemia (Chronic) stable Depression (Chronic) Hyperlipidemia (Chronic) Allergic rhinitis (Chronic) Insomnia (Chronic) Elevated prostate specific antigen (PSA) (Chronic) Hospital Course and Treatment Imaging Results: 08/11/19 12:44 Diet: Cardiac/Low Cholesterol Food consistency:: Regular Liquid Consistency:: Regular/Thin Is pt able to select menu?: No Diet Comments: Supervised feed Operations: None Procedures: None Summary of Care Provided: The patient is a 74 year old Male with below past medical history significant for recent stroke with hemorrhagic transformation hospitalized for post intracranial hemorrhage seizure, complicated by agitation, admitted to TCU with debility, here for rehabilitation, strengthening, prior to disposition determination. Seroquel maybe tapered over time as Zachary's behavior improves at home. Potassium maybe stopped over time if potassium normal as outpatient. Discharge home with , [facility] for PT/OT/ST. Patient Problems: Active and Suspected Problems Debility (Acute) Seizure disorder (Acute) Intracranial hemorrhage (Acute) Behavioral problem (Acute) Stroke (Acute) - Physical Exam Vitals/I&O's: Vital Signs Temp Pulse Resp BP Pulse Ox 97.4 F L 90 16 93/69 93 08/28/19 14:10 08/28/19 14:10 08/28/19 14:10 08/28/19 14:10 08/28/19 14:10 Oxygen Delivery Method Room Air Weight: 64.58 kg Body Mass Index (BMI) 27.5 Finger Stick Blood Glucose 122 Intake and Output for Last 24 Hours 08/26/19 08/27/19 08/28/19 23:59 23:59 23:59 Intake Total 480 / 480 480 / 480 840 / 840 Balance 480 / 480 480 / 480 840 / 840 Current Medications Acetaminophen (Tylenol) 650 mg PO Q6H PRN PRN PRN Reason: Pain Score 1-03/27 Last Admin: 08/26/19 02:57 Dose: 650 mg Documented by: Aspirin (Aspirin, Baby) 81 mg PO DAILY@0800 [facility] Last Admin: 08/28/19 08:35 Dose: 81 mg Documented by: Atorvastatin Calcium (Lipitor) 20 mg PO QHS [facility] Last Admin: 08/27/19 19:49 Dose: 20 mg Documented by: Bisacodyl (Dulcolax) 10 mg RECTAL DAILY PRN PRN PRN Reason: Constipation Calamine/Phenol (Calmoseptine Ointment) 1 applic TOPICAL 2199,599 [facility]; Protocol Last Admin: 08/28/19 05:06 Dose: 1 applicatio Documented by: Cyanocobalamin (Vitamin B12) 1,000 mcg PO DAILY [facility] Last Admin: 08/28/19 05:01 Dose: 1,000 mcg Documented by: Fluticasone Propionate (Flonase Nasal Willard) 1 spray NASAL DAILY [facility] Last Admin: 08/28/19 05:06 Dose: 1 spray Documented by: Levetiracetam (Keppra Tablet) 500 mg PO BID [facility] Last Admin: 08/28/19 05:01 Dose: 500 mg Documented by: Loratadine (Claritin) 10 mg PO DAILY [facility] Last Admin: 08/28/19 05:01 Dose: 10 mg Documented by: Mirtazapine (Remeron) 15 mg PO QHS [facility] Last Admin: 08/27/19 19:50 Dose: 15 mg Documented by: Nutritional Formula (Lactose Free) (Ensure Enlive) 120 ml PO 4X/DAY [facility] Last Admin: 08/28/19 11:06 Dose: Not Given Documented by: Nystatin (Mycostatin Powder) 1 applic TOPICAL 0,06 [facility]; Protocol Last Admin: 08/28/19 05:07 Dose: 1 applicatio Documented by: Pantoprazole Sodium (Protonix) 20 mg PO BID [facility] Last Admin: 08/28/19 05:02 Dose: 20 mg Documented by: Polyethylene Glycol (Miralax) 17 gm PO DAILY [facility] Last Admin: 08/28/19 05:07 Dose: Not Given Documented by: Potassium Chloride (K-Dur) 20 meq PO DAILYCM [facility] Last Admin: 08/28/19 08:35 Dose: 20 meq Documented by: Quetiapine Fumarate (Seroquel) 100 mg PO DAILY@1900 [facility] Last Admin: 08/27/19 19:49 Dose: 100 mg Documented by: Senna/Docusate Sodium (Senokot-S, Cristy-Colace) 2 tablet PO BID [facility] Last Admin: 08/28/19 05:01 Dose: 2 tablet Documented by: Sodium Chloride () 10 - 40 ml IV UD PRN PRN Reason: SALINE FLUSH Last Admin: 08/17/19 08:59 Dose: 10 ml Documented by: Discharge Diet: No Restrictions Discharge Activity: Return to Normal Activity, May Shower, Use Walker Weight Bearing Status: Weight bearing as tolerated Call your doctor if you observe: Fever of 101 or Higher, Inability to urinate, Inability to have a bowel movement, Shortness of breath, Chest pain, Uncontrolled pain Home Medications: Medications to take at Discharge Aspirin [Aspirin, Baby] 81 mg PO DAILY@0800 10/26/17 Fluticasone 0.05% [Flonase Nasal Willard] 1 spray NASAL DAILY 10/26/17 Loratadine 10 mg PO DAILY 10/26/17 Rosuvastatin Calcium [Crestor] 10 mg PO QHS 10/26/17 Acetaminophen [Tylenol] 650 mg PO Q6H PRN 07/01/19 Cyanocobalamin (Vitamin B-12) [Vitamin B-12] 1,000 mcg PO DAILY 07/01/19 Pantoprazole Sodium [Protonix] 20 mg PO BID 08/11/19 Menthol/Lanolin/Calamine/Znox [Calmoseptine Ointment] 1 applic TOPICAL 2200,0600 tube 08/28/19 Mirtazapine [Remeron] 30 mg PO QHS #30 tab 08/28/19 Nystatin Powder [Mycostatin Powder] 1 applic TOPICAL 2200,0600 bottle 08/28/19 Potassium Chloride [K-Dur] 20 meq PO DAILYCM #30 tab 08/28/19 Quetiapine Fumarate [Seroquel] 100 mg PO DAILY@1900 #30 tab 08/28/19 levETIRAcetam tablet [Keppra tablet] 500 mg PO BID #60 tab 08/28/19 Following Prescrptions Were Given to Patient: Potassium Chloride [K-Dur] 20 meq PO DAILYCM #30 tab Transmission Status: Pending to [id number] levETIRAcetam tablet [Keppra tablet] 500 mg PO BID #60 tab Transmission Status: Pending to [id number] Mirtazapine [Remeron] 30 mg PO QHS #30 tab Transmission Status: Pending to [id number] Quetiapine Fumarate [Seroquel] 100 mg PO DAILY@1900 #30 tab Transmission Status: Pending to [id number] Primary Care Physician: Pierre Horowitz MD [Primary Care Provider] - Please follow up with your Primary Care Physician in: 1 week. Please Follow Up With: Pierre Horowitz MD When: 2 weeks Please Follow Up With: Brando Vigil MD When: 2-3 weeks Disposition: Home with Home Health Minutes spent on discharge:: 35 Patient Condition:: Stable Medical Necessity - Tobacco Use Smoking Status: Former smoker Tobacco Use: Non-smoker Meaningful Use Info Meaningful Use Diagnoses (Choose all that apply): None applicable
[2019-08-28] MEDS: QUEtiapine 100 MG Tablet PO (17:30)
[2019-08-28] MEDS: Mirtazapine 15 MG Tablet PO (19:20)
[2019-08-28] MEDS: Atorvastatin Calcium 20 MG Tablet PO (19:20)
[2019-08-29] MEDS: Cyanocobalamin 500 MCG Tablet 1000 MCG PO (04:12)
[2019-08-29] MEDS: levETIRAcetam 500 MG Tablet PO ×2 (04:13→18:35)
[2019-08-29] MEDS: Pantoprazole Sodium 20 MG Tablet PO ×2 (04:13→18:35)
[2019-08-29] MEDS: Loratadine 10 MG Tablet PO (04:13)
[2019-08-29] MEDS: Senna/Docusate Sodium 1 Tablet 2 TABLET PO ×2 (04:13→18:34)
[2019-08-29] MEDS: Polyethylene Glycol 3350 17 GM PACKET PO (04:15)
[2019-08-29] MEDS: Menthol/Lanolin/Calamine/Znox 113 GM Tube 1 APPLIC TOPICAL ×2 (04:21→20:35)
[2019-08-29] MEDS: Nystatin Powder 15gm Bottle 1 APPLIC TOPICAL ×2 (04:21→20:35)
[2019-08-29] MEDS: Aspirin 81 MG TAB.CHEW PO (08:05)
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
[2019-08-29] MEDS: Haloperidol Lactate 5 MG/ML Vial 10 MG IM (10:00)
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
--- NOTE | 2019-08-29 10:10 | NURSING ---
Spouse notified and daughter came to unit to provide assistance with pt and family was updated on patient's condition.
[2019-08-29 10:30] VITALS: BP 91/52; PULSE 80; RESP 16; TEMP 37.1
[2019-08-29 11:48] VITALS: PULSE 80; RESP 18
--- NOTE | 2019-08-29 12:53 | CASEMGMT ---
Social Work IDT agreeable allowing one visitor was important to patient's well-being. Family aware. Valorie Solomon, METAL FABRICATOR APPRENTICE POSTAL DELIVERY OFFICER
[2019-08-29 13:15] VITALS: BP 100/62; PULSE 82; RESP 16; TEMP 36.7; O2SAT 98
[2019-08-29] MEDS: Mirtazapine 15 MG Tablet PO (20:33)
[2019-08-29] MEDS: QUEtiapine 100 MG Tablet PO (20:33)
[2019-08-29] MEDS: Atorvastatin Calcium 20 MG Tablet PO (20:33)
[2019-08-30] MEDS: Pantoprazole Sodium 20 MG Tablet PO (06:57)
[2019-08-30] MEDS: Fluticasone 0.05% 1 SPRAY NASAL.SRY NASAL (06:57)
[2019-08-30] MEDS: Polyethylene Glycol 3350 17 GM PACKET PO (06:57)
[2019-08-30] MEDS: levETIRAcetam 500 MG Tablet PO (06:58)
[2019-08-30] MEDS: Senna/Docusate Sodium 1 Tablet 2 TABLET PO (06:58)
[2019-08-30] MEDS: Loratadine 10 MG Tablet PO (06:58)
[2019-08-30] MEDS: Cyanocobalamin 500 MCG Tablet 1000 MCG PO (06:58)
[2019-08-30] MEDS: Menthol/Lanolin/Calamine/Znox 113 GM Tube 1 APPLIC TOPICAL (07:03)
[2019-08-30] MEDS: Nystatin Powder 15gm Bottle 1 APPLIC TOPICAL (07:03)
[2019-08-30] MEDS: Aspirin 81 MG TAB.CHEW PO (07:57)
[2019-08-30 10:00] VITALS: PULSE 90; RESP 18; O2SAT 96
[2019-08-30 10:26] VITALS: BP 119/74; PULSE 94; RESP 18; TEMP 36.7; O2SAT 94
== END 2019-08-30 10:30 | disposition home health service (06) | DRG 57 ==
PROVIDERS: Admitting Provider Family Medicine Geriatric Medicine; PCP Family Medicine; Visit Provider Family Medicine Geriatric Medicine
DX: I69.398 Other sequelae of cerebral infarction (principal); N39.0 Urinary tract infection, site not specified; N40.0 Benign prostatic hyperplasia without lower urinary tract symptoms; F32.9 Major depressive disorder, single episode, unspecified; G40.909 Epilepsy, unspecified, not intractable, without status epilepticus; E78.5 Hyperlipidemia, unspecified; I25.10 Atherosclerotic heart disease of native coronary artery without angina pectoris; I10 Essential (primary) hypertension; K21.9 Gastro-esophageal reflux disease without esophagitis; B96.1 Klebsiella pneumoniae [K. pneumoniae] as the cause of diseases classified elsewhere; Z87.891 Personal history of nicotine dependence; F91.9 Conduct disorder, unspecified
CPT/HCPCS: 36415; 80048; 81001; 85025; 87086; 87493; 87506; 92507; 92523; 92526; 92610; 97110; 97112; 97116; 97162; 97166; 97530; 97535; 97802; J7030; A4216

== ENCOUNTER 2019-09-22 14:50 | Outpatient (RCR) | payer MEDICARE, SELFPAY ==
[2019-08-11 11:46] VITALS: BMI 27.5
[2019-09-22 15:26] LABS: Color, Urine Yellow (Yellow); Glucose, Dipstick Normal (Normal); Ketone-Dipstick Negative (Negative); Leukocyte Esterase-Dipstick 500 /ul (Negative); Nitrite-Dipstick Positive (Negative); Occult Blood-Urine 50 /ul (Negative); Protein-Dipstick 100 mg/dl (Negative); Specific Gravity, Urine 1.015 (1.002-1.030); Urine Bilirubin Dipstick Negative (Negative); Urine Clarity Turbid (Clear); Urine Urobilinogen Normal (Normal)
== END 2019-10-16 18:00 | disposition home or self-care (01) ==
LOC: HHLAB 14:50
PROVIDERS: PCP Family Medicine; Referring Provider Family Medicine; Visit Provider Family Medicine
DX: R50.9 Fever, unspecified (principal); R35.0 Frequency of micturition
CPT/HCPCS: 81002; 87077; 87086; 87088; 87186

== ENCOUNTER 2019-10-30 11:27 | Emergency (ER) | payer MEDICARE, SELFPAY ==
[2019-08-11 11:46] VITALS: BMI 27.5
[2019-10-30] VITALS (12 sets, daily range): BP systolic 117–146; BP diastolic 78–97; PULSE 63–102; RESP 12–23; TEMP 37.2; O2SAT 95–100; BMI 28.4
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
--- NOTE | 2019-10-30 11:32 | EKG12_ITS ---
Test Reason : NEUR S/SX Blood Pressure : / mmHG Vent. Rate : 095 BPM Atrial Rate : 095 BPM P-R Int : 000 ms QRS Dur : 132 ms QT Int : 392 ms P-R-T Axes : 000 -78 064 degrees QTc Int : 492 ms Wide QRS rhythm Right bundle branch block Left anterior fascicular block Bifascicular block Abnormal ECG Confirmed by LENCHO MONDRAGON ([id number]), electronic news gathering editor SHEILA RYAN ([id number] on 11/03/2019 1:20:46 PM Referred By: RAMÍREZ/JOVANY Confirmed By:LENCHO MONDRAGON
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
--- NOTE | 2019-10-30 11:32 | CT_ITS ---
STUDY: CT BRAIN WITHOUT CONTRAST REASON FOR EXAM: Male, 74 years old. STROKE RADIATION DOSAGE (If Supplied By Facility): CTDIvol = ( 44.99 ) mGy, DLP = ( 1551.99 ) mGycm TECHNIQUE: Transaxial CT imaging of the brain was performed without administration of intravenous contrast material. Individualized dose optimization techniques were used for this CT. COMPARISON: Comparison is made with prior examination dated August 06, 2019. FINDINGS: Normal soft tissue structures. Normal calvarium. There is mild cerebral atrophy with widening of the extra-axial spaces and ventricular dilatation. There is evidence of a 1.8 cm x 3.7 cm intraparenchymal hemorrhage involving the left parietal lobe with surrounding edema and mild mass effect. There is evidence of a periventricular decreased attenuation in keeping with the microvascular disease. Normal basal ganglia and thalami. Normal brainstem. Normal cerebellum. Normal visualized paranasal sinuses. CT/Brain/Head without Contrast IMPRESSION: 1.8 cm x 3.7 cm intraparenchymal hemorrhage involving the left parietal lobe with surrounding edema and mass effect superimposed on chronic involutional changes. N.B. : The above information has been verbally conveyed by Aden Gonzalez to Naresh Washington on 10/30/2019 11:47:20 (ET). Electronically Signed: Aden Gonzalez, at 11:48 EDT , Service support ,
[2019-10-30 11:45] LABS: Absolute Lymphocyte Count 2.07 X10^3/uL (0.83-4.51); Absolute Neutrophil Count 3.7 X10^3/uL (2.0-7.7); Basophil# 0.02 X10^3/uL; Basophil% 0.3 % (0-1); Eosinophils% 1.6 % (0-5); Hematocrit 39.7 % (40-54); Hemoglobin 13.3 g/dL (13.0-16.5); Lymphocyte # 2.07 X10^3/ul (4.0); Lymphocyte % 32.5 % (19-41); Mean Corp Hgb Conc 33.5 g/dL (32-36); Mean Corpuscular Hgb 33.3 pg (27.0-32.0); Mean Corpuscular Volume 99.3 fL (80-94); Mean Platelet Vol. 9.5 fl (6.2-12.0); Monocyte# 0.49 X10^3/uL; Monocyte% 7.7 % (0-10); NRBC Flagged by Analyzer 0 % (0-5); Neutrophil # 3.66 X10^3/uL (2.7-7.7); Neutrophil % 57.6 % (47-70); Platelet Count 146 K/mm3 (150-450); RBC Distribution Width CV 12.4 % (11.6-14.6); White Blood Count 6.4 K/mm3 (4.4-11.0)
[2019-10-30 11:55] LABS: Prothrombin Time (Protime)PT. 12.9 SECONDS (11.7-14.9)
[2019-10-30 11:56] LABS: Partial Thromboplast Time 24.3 Seconds (24.1-36.2)
[2019-10-30 12:00] LABS: Anion Gap 5 (5-15); BUN 14 mg/dL (7-18); BUN/Creat Ratio 13.1 RATIO (10-20); Calcium,Total 9.5 mg/dL (8.5-10.1); Chloride 112 mmol/L (98-107); Creatinine, Serum 1.07 mg/dL (0.70-1.30); EST Glomerular Filtration Rate 72 mL/min (>60); Est Glom Filt Rate - Afr Amer 87 mL/min (>60); Estimated Creatinine Clearance 51.48 ml/min; Glucose 137 mg/dL (74-106); Sodium Level 144 mmol/L (136-145)
--- NOTE | 2019-10-30 12:01 | ED.VISSUMM ---
- ER Visit Summary Date of Service: 10/30/19 Chief Complaint: Right-sided weakness, speech difficulty History of Present Illness: The patient is a 74 M who had sudden onset of right-sided weakness and speech difficulties. Started at 1020 this morning. He had weakness of the right arm and leg. He denied a headache. No chest pain, nausea or vomiting. He had a occipital head bleed in June and was transferred to [facility] at that time. He is on a baby aspirin but no other anticoagulants. He is on Keppra as well. Physical Examination: Vital signs reviewed. HEENT exam unremarkable. Heart is regular rate and rhythm without murmurs. Lungs are clear to auscultation. Abdomen is soft and nontender. Extremities reveal no edema. Skin exam normal. Neurologic exam shows an NIH of 18. He has right-sided neglect and full right-sided weakness. He does not speak and only grunts when you ask him questions. Test Results: EKG has a sinus rhythm. CAT scan of his head reveals intraparenchymal hemorrhage in the left parietal area with surrounding vasogenic edema. No midline shift. Lab studies are pending Emergency Department Course and Treatment: Patient was made a prehospital stroke team. He was taken directly to CAT scan which revealed the IPH. I discussed this with family and they would like him to go to [facility]. I discussed with Dr. Martinez and the patient will be transferred there by medical helicopter. The patient's blood pressure is 138/82. PRN labetalol, hydralazine and nicardipine are ready if needed for hypertensive episodes. Treatment Plan: [] Disposition: Transfer Impression: Hemorrhagic stroke This note was generated with [employer] dictation software. It may contain incorrect words, spelling, and punctuation that were not noted in review of the chart prior to signing ED Disposition - Plan for ED Patient: Referrals: Pierre Horowitz MD [Primary Care Provider] -
== END 2019-10-30 12:55 | disposition short-term general hospital (02) ==
PROVIDERS: Emergency Provider Emergency Medicine; PCP Family Medicine
DX: I61.9 Nontraumatic intracerebral hemorrhage, unspecified (principal); G81.91 Hemiplegia, unspecified affecting right dominant side; R47.9 Unspecified speech disturbances; R29.718 NIHSS score 18; I45.10 Unspecified right bundle-branch block; I44.4 Left anterior fascicular block; E78.00 Pure hypercholesterolemia, unspecified; K21.9 Gastro-esophageal reflux disease without esophagitis; G40.909 Epilepsy, unspecified, not intractable, without status epilepticus; Z86.73 Personal history of transient ischemic attack (TIA), and cerebral infarction without residual deficits; Z79.82 Long term (current) use of aspirin; Z79.899 Other long term (current) drug therapy
CPT/HCPCS: 70450; 71045; 80048; 84484; 85025; 85610; 85730; 93005; 99285; J7030; J7050; A4216